=== PATIENT | female | born 1970 | race Caucasian/White ===

== ENCOUNTER → 2023-02-05 13:00 | Outpatient (CLI) | payer BC, SELFPAY ==
--- NOTE | 2023-02-05 13:00 | CT_ITS ---
FINAL REPORT TECHNIQUE: Thin section axial CT images of the facial bones and sinuses were obtained without contrast. Coronal reformatted images were also obtained.This study was performed with techniques to keep radiation doses as low as reasonably achievable, (ALARA). Individualized dose reduction techniques using automated exposure control or adjustment of mA and/or kV according to the patient''''s size were employed. CLINICAL HISTORY: poss sinus polyps FINDINGS: There is no evidence of mucosal thickening. No fluid levels are identified. The ostiomeatal units have an unremarkable appearance. The nasal septum is in the midline. No fracture or acute bony abnormality is identified. IMPRESSION: No focal abnormality identified of the sinuses. Reviewed, Interpreted and Dictated by Stephen Denise III, MD Transcribed by Chasity Edmond Authenticated and [facility]
== END ==
PROVIDERS: PCP Family Medicine; Visit Provider Nurse Practitioner
DX: J34.89 Other specified disorders of nose and nasal sinuses (principal)
CPT/HCPCS: 70486

== ENCOUNTER 2023-10-29 11:39 | Outpatient (CLI) | payer BC, SELFPAY ==
--- NOTE | 2023-10-29 11:46 | XR_ITS ---
FINAL REPORT CLINICAL HISTORY: Left foot pain FINDINGS: LEFT FOOT Three views of the left foot demonstrate no acute fracture or dislocation. The visualized joint spaces are normally aligned. The soft tissues are unremarkable. IMPRESSION: No acute bony abnormality. Reviewed, Interpreted and Dictated by Ed Oscar MD Transcribed by Nola Cleary Authenticated and [facility]
--- NOTE | 2023-10-29 11:46 | XR_ITS ---
FINAL REPORT CLINICAL HISTORY: Right foot pain FINDINGS: RIGHT FOOT 3 views of the right foot were obtained. There is no acute fracture or dislocation. Visualized joint spaces are normally aligned. Soft tissues are unremarkable. IMPRESSION: No acute bony abnormality. Reviewed, Interpreted and Dictated by Ed Oscar MD Transcribed by Nola Cleary Authenticated and [facility]
== END 2023-10-29 23:59 | disposition home or self-care (01) ==
LOC: RAD 11:40
PROVIDERS: PCP Nurse Practitioner; Visit Provider Podiatrist
DX: M79.671 Pain in right foot (principal); M79.672 Pain in left foot
CPT/HCPCS: 73630

== ENCOUNTER 2023-10-29 12:02 | Emergency (ER) | payer BC, SELFPAY ==
[2023-10-29 12:45] VITALS: BMI 32.3
[2023-10-29 12:46] LABS: Apearance,Urine Clear (Clear); Bilirubin,Urine Negative (Negative); Blood, Urine 1+ (Negative); Color,Urine Dark Yellow (Yellow); Glucose,Urine (UA) Negative (Negative); Ketones,Urine Negative (Negative); PH,Urine 5.5 (5.0-8.5); Protein,Urine Negative (Negative); Specific Gravity, Urine >= 1.030 (1.005-1.030); UTC Leukocyte Esterase,Urine Negative (Negative); UTC Nitrate,Urine Negative (Negative); Urobilinogen,Urine 0.2 EU/dl (0.2)
[2023-10-29 12:55] VITALS: BP 123/76; PULSE 72; RESP 18; TEMP 36.6; O2SAT 98; BMI 26.2
--- NOTE | 2023-10-29 13:12 | ED_ITS ---
Discharge Plan Disposition Patient Disposition: Home, Self-Care Condition: Good Prescriptions Prescriptions: New valacyclovir 1 gram tablet 1,000 mg PO Q8H 7 Days Qty: 21 0RF No Action Eliquis 5 mg tablet 5 mg PO DAILY Patient Comments: TAKE 1 TABLET BY MOUTH TWICE DAILY Mounjaro 5 mg/0.5 mL pen injector 5 mg SQ WEEKLY Patient Comments: INJECT 5MG UNDER THE SKIN INTO THE APPROPRIATE AREA DIRECTED ONCE WEEKLY Referrals Follow up/Referrals: Provider,Referral, MD [Primary Care Provider] - See instructions Activity Restrictions/Add. Instructions Additional Instructions/Restrictions: Take medication as prescribed Calamine lotion may help with discomfort from rash Oatmeal baths may help with rash Follow up with your Family Doctor if no improvement or any worsening of symptoms Clinical Impressions Clinical Impression: Shingles Instructions Patient Instructions: DI for Shingles, Shingles, Valacyclovir Discharge ED Provider: Emilia Ferrara [facility] [place] General Stated complaint: back pain and numbness Mode of Arrival: Ambulatory Source of Information: Patient Limitations: No Limitations Time Seen by Provider: 10/29/23 13:12 Description of Symptoms (Recalled from Triage Doc. by RN): PATIENT C/O PAIN AND RASH TO MID-UPPER BACK SINCE YESTERDAY HEENT Symptoms (Recalled from RN notes): No Resp Symptoms (Recalled from RN notes): No Skin Symptoms (Recalled from RN notes): Yes MS Symptoms (Recalled from RN notes): Yes Functional Status (Recalled from RN notes): WNL History of Present Illness Provider Complaint: Patient states that she has been having prickly like pain in her right upper back and noticed a rash on her right side states that at times it itches and hurts so today when she was still having that prickly like feeling in her right mid back she came in Related Data Home Medications Medication Instructions Recorded Confirmed apixaban 5 mg tablet (Eliquis) 5 mg PO DAILY 10/29/23 10/29/23 tirzepatide 5 mg/0.5 mL 5 mg SQ WEEKLY 10/29/23 10/29/23 subcutaneous pen injector (Mounjaro) Previous Rx's Medication Instructions Recorded valacyclovir 1 gram tablet 1,000 mg PO Q8H 7 days #21 tabs 10/29/23 Allergies Allergy/AdvReac Type Severity Reaction Status Date / Time ceftriaxone [From Rocephin] Allergy Severe Anaphylaxis Verified 01/08/23 15:29 Penicillins Allergy Severe Anaphylaxis Verified 01/08/23 15:29 ciprofloxacin [From Cipro] AdvReac Severe chemical Verified 01/08/23 15:29 hepatitis bees Allergy Severe Anaphylaxis Uncoded 01/08/23 15:29 Worker's Comp Is this a Worker's Comp case?: No [facility] Disclaimer: The information contained in this section may have been updated after the patient was seen, as this information can be updated by other users. Medical History (Updated 10/29/23 @ 13:20 by Emilia Ferrara APRN) Autoimmune disorder Gall stones Sinus pressure Social History Smoking Status: Unknown if ever smoked alcohol intake: never current occupational status: employed Travel in the last 8 weeks: None ROS Obtained: Yes All systems reviewed & no additional complaints except as documented and Yes Systems reviewed as appropriate & no additional complaints except as documented Constitutional Constitutional: Reports system reviewed and no additional complaints, except as documented and Reports as per HPI ENT Ears, Nose, Mouth, and Throat: Reports system reviewed and no additional complaints, except as documented and Reports as per HPI Cardiovascular Cardiovascular: Reports system reviewed and no additional complaints, except as documented and Reports as per HPI Respiratory Respiratory: Reports system reviewed and no additional complaints, except as documented and Reports as per HPI Gastrointestinal Gastrointestingal: Reports system reviewed and no additional complaints, except as documented and as per HPI Musculoskeletal Musculoskeletal: Reports back pain (prickly like pain in right shoulder blade area and rash on right side) Physical Exam General General appearance: alert and in no apparent distress ENT ENT exam: Present mucous membranes moist Respiratory Respiratory exam: Present normal lung sounds bilaterally; Absent respiratory distress or wheezes Cardiovascular Cardiovascular exam: Present regular rate, normal rhythm and normal heart sounds Neurological Exam Neurological exam: Present alert, oriented X3 and normal gait Skin Skin exam: Present rash (red raised rash on right side, prickly like feeling and hurts like that seen with shingles) Expanded Skin Exam Body image: 2 1. red raised rash noted that extends on right side appears like shingles 2. rash from above 3. reports tingly prickly like feeling and burning sensation at times no bruising no swelling no rash likly from rash on side Medical Decision Making Clark Inquiry Pt receiving controlled substance: No Clark was queried for this patient: No Vital Signs: 10/29/23 12:55 Temperature 97.8 F Temperature Source Oral Pulse Rate [Left Brachial] 72 Respiratory Rate 18 Blood Pressure [Left Arm] 123/76 Blood Pressure Mean [Left Arm] 91 Blood Pressure Source [Left Arm] Automatic Cuff Blood Pressure Position [Left Arm] Sitting 02 Sat by Pulse Oximetry 98 Oxygen Delivery Method Room Air Lab Data Lab Results 10/29/23 12:46: Urine Color Dark yellow, Urine Appearance Clear, Urine pH 5.5, Ur Specific [place] >= 1.030, Urine Protein Negative, Urine Glucose (UA) Negative, Urine Ketones Negative, Urine Blood 1+, Urine Nitrate Negative, Urine Bilirubin Negative, Urine Urobilinogen 0.2, Ur Leukocyte Esterase Negative
[2023-10-29 13:22] VITALS: BP 123/76; PULSE 72; RESP 18; TEMP 36.6; O2SAT 98
== END 2023-10-29 13:25 | disposition home or self-care (01) ==
PROVIDERS: Emergency Provider Nurse Practitioner
DX: B02.9 Zoster without complications (principal); M54.6 Pain in thoracic spine
CPT/HCPCS: 81003; 99204; 99212; G0463

== ENCOUNTER 2024-12-30 12:00 | Outpatient (CLI) | payer BC, SELFPAY ==
--- OUTSIDE RECORDS SUMMARY | 2024-12-30 12:05 | XMS_ITS | Encounter Summary ---
Author Organization [facility] mymxlog In iatives Address [address] [place] [address] Care Team Providers Care Airborne Electronics Analyst Name Role Phone Sharon Bell BOTTOM LIQUOR ATTENDANT Primary Care Provider + [phone] Mariaa Chauhan BOTTOM LIQUOR ATTENDANT Primary Care Provider [phone] Sharon Bell BOTTOM LIQUOR ATTENDANT Primary Care Provider + [phone] Encounter Details Date Type Department Care Team (Late st Contact Info) Description 02/22/2019 Transcribed Document [facility] [place] [address] [place] [address] ProviderCornelio MD [address] [place] [address] Social History Tobacco Use Types Packs/Day Years Used Date Smoking Tobacco: Never Assessed Comments Unknown Sex and Gender Information Value Date Recorded Sex Assigned at Female 01/03/2022 4:06 PM CDT Legal Sex Female 4:06 PM CDT Gender Identity Female 01/03/2022 4:06 PM CDT Sexual Orientation Straight 04/05/2024 1: 03 PM CDT documented as of this encounter Miscellaneous Notes * Cerner Conversion Note - Cornelio ProviderMD - 02/22/2019 5:00 AM CDT Chart Check - Review Order Profile Entered On: 02/22/2019 5:42 EDT Performed On: 02/22/2019 5:00 EDT by ALBERTO ANDUJAR RN Chart Check Powerplans Initiated/Discontinued as Appropriate : Yes All Active Orders Reviewed : Yes ALBERTO ANDUJAR RN - 02/22/2019 5:41 EDT Electronically signed by [facility] Conversion Veterinary Dentist Cerner at 10/25/2022 10:10 AM CDT documented in this encounter Plan of Treatment Not on file documented as of this encounter Visit Diagnoses Not on filedocumented in this encounter Care Teams Airborne Electronics Analyst Relationship Specialty Start Date End Date Sharon Bell NP [address] [place] [address] PCP - General Family Medicine 08/27/23 12/05/23 Mariaa Chauhan NP [address] [place] [address] PCP - General Family Medicine 12/06/23 01/10/24 Sharon Bell NP [address] [place] [address] PCP - General Family Medicine 01/11/24 10/13/24 documented as of this encounter
--- OUTSIDE RECORDS SUMMARY | 2024-12-30 12:05 | XMS_ITS | Encounter Summary ---
Author Organization [facility] [employer]form In iatives Address [address] [place] [address] Care Team Providers Care Muffler Tender Name Role Phone Sharon Bell INDUSTRIAL YARD BRAKE COUPLER Primary Care Provider + [phone] Mariaa Chauhan INDUSTRIAL YARD BRAKE COUPLER Primary Care Provider [phone] Sharon Bell INDUSTRIAL YARD BRAKE COUPLER Primary Care Provider + [phone] Encounter Details Date Type Department Care Team (Late st Contact Info) Description 02/22/2019 Transcribed Document [facility] [place] [address] [place] [address] ProviderCornelio MD [address] [place] [address] Social History Tobacco Use Types Packs/Day [...] Miscellaneous Notes * Cerner Conversion Note - Historical ProviderMD - 02/22/2019 2:39 PM CDT Patient: ALICIA AVALOS Age: 48 Years Sex: Female : 1970 Admit Date 02/21/2019 19:54 Discharge Date 02/22/19 Primary Care Provider ADAM, NOT LISTED Discharge Diagnosis Nephrolithiasis 02/22/2019 N20.0 ICD-10-CM Procedures SN - Proc - Procedure: Cystoscopy Laser Stone Manipulation (02/22/19 14:15:49) Reason for Hospitalization right obstructing ureteral stone Hospital Course Patient transferred from [facility] and admitted for intractable R flank pain from obstructing distal ureteral stone and also with non-obstructing L renal calculus. Pain control and medical expulsive therapy overnight. Still with continued but controlled pain. Patient then underwent right ureteroscopy, laser lithotripsy, and stent. Tolerated procedure well and was transferred to PACU in stable condition. Deemed appropriate for discharge home. Urinating without difficulty. Tolerating stent. Will remove stent by pulling strings on 02/26 Follow-up with Dr. Patterson in 1 week with KUB Continue taking Bactrim Rx for flomax, norco and colace on chart Vital Signs T: 37.2 ??C TMIN: 36.6 ??C TMAX: 37.2 ??C HR: 82(Monitored) RR: 16 BP: 120/66 SpO2: 94% HT: 157.48 cm WT: 66.82 kg BMI: 26.9 Oxygen Settings (Last) Oxygen Therapy Mode: Room air (02/22/19 14:25:00) Oxygen Flow Rate: 8 Liter/Min (02/22/19 14:08:00) Physical Exam Gen: NAD, resting comfortably in bed HEENT: atraumatic, normocephalic, EOMI Resp: nonlabored breathing on RA CV: RRR, 2+ radial pulses Abd: soft, NTTP, ND Ext: no edema Skin: warm and dry Neuro: AOx3, no gross deficits Psych: nml mood and affect Discharge Disposition Home Discharge Follow Up FILEMON PATTERSON JR, MD-URO - Discharge Medications (9) Active acetaminophen-hydrocodone 325 mg-5 mg oral tablet 1 Tab, PRN, Oral, Q4H Bactrim , Oral Colace 100 mg oral capsule 100 mg = 1 Cap, Oral, BID diazepam 2 mg oral tablet 2 mg = 1 Tab, Oral, Q8H Excedrin 1 Tab, Oral, Daily Flomax , Oral, Daily meclizine 25 mg oral tablet 25 mg = 1 Tab, Oral, TID multivitamin 1 Tab, Oral, Daily Ultravate 0.05% topical cream Code Status Start: 02/21/19 21:02:00 EDT, Full Code, Continuous Order Condition on Discharge stable Consulting Physicians JOSE HERNANDEZ MD GRABMAYER, JOSEF, MD SLABAUGH JR, THOMAS, MD-URO Current Diet Order No qualifying data available. Patient Discharge Summary Orders Discharge Follow Up Instructions: follow up with Dr. Patterson in 1 week with KUB Activity: Discharge Activity: Activity as tolerated Diet: Discharge Diet: Resume usual diet as tolerated Wound/Incision Care Instructions: remove stent by pulling strings on 02/26 Driving Restriction: No driving until 24 hours after taking pain medication Follow Up Labs/Studies a/p xray at follow up Pending Labs Collected Pathology Tissue Request 02/22/19 14:16:00 EDT, Collected, RT - Routine, 02/22/19 14:16:00 EDT, Phuc Diaz RN, Specimen Type: AP Specimen, Specimen Desc: RIGHT URETERAL STONE, Consulting Dr: YESENIA MACKEY, MD FILEMON-URO, RIGHT URETERAL STONE, Pre-Op Dx: RIGHT URETERAL S... In-Lab Culture Urine Specimen Type: Urine, Clean Catch, Routine collect, Collected, 02/21/19 21:04:00 EDT, 1-Time, Stop: 02/21/19 21:04:00 EDT, Nurse Collect Time Spent on Discharge 20min Electronically signed by [facility] Conversion Medical Imaging Technician Cerner at 10/25/2022 9:50 AM CDT documented in this encounter Plan of Treatment Not on file documented as of this encounter Visit Diagnoses Not on filedocumented in this encounter Care Teams Muffler Tender Relationship Specialty Start Date End Date Sharon Bell NP [address] [place] [address] PCP - General Family Medicine 08/27/23 12/05/23 Mariaa Chauhan NP [address] [address] PCP - General Family Medicine 12/06/23 01/10/24 Sharon Bell, MARIANA [address] [place] [address] PCP - General Family Medicine 01/11/24 10/13/24 documented as of this encounter
--- OUTSIDE RECORDS SUMMARY | 2024-12-30 12:05 | XMS_ITS | Encounter Summary ---
Author Organization [facility] [employer] In iatives Address [address] [place] [address] Care Team Providers Care Chief Underwriter Name Role Phone Sharon Bell APPLICATOR SPRAYER Primary Care Provider + [phone] Mariaa Chauhan APPLICATOR SPRAYER Primary Care Provider [phone] Sharon Bell APPLICATOR SPRAYER Primary Care Provider + [phone] Encounter Details Date Type Department Care Team (Late st Contact Info) Description 02/22/2019 Transcribed Document [facility] [place] [address] [place] [address] ProviderCornelio MD [address] [place] [address] Social History Tobacco Use Types Packs/Day [...] Conversion Note - Cornelio ProviderMD - 02/22/2019 9:31 AM CDT UM Authorization Entered On: 02/22/2019 9:31 EDT Performed On: 02/22/2019 9:31 EDT by PHILIPP GIBBS RN Primary Insurance Authorization Authorization and Policy Numbers : Insurance 1 Health Plan: [employer] Policy Number: [id number] Authorization Number: Insurance Primary Name : [employer] Policy Number: [id number] Historical Authorization Comments-Primary : No Authorization Comments Found PHILIPP GIBBS RN - 02/22/2019 9:31 EDT documented in this encounter Plan of Treatment Not on file documented as of this encounter Visit Diagnoses Not on filedocumented in this encounter Care Teams Chief Underwriter Relationship Specialty Start Date End Date Sharon Bell NP [address] [place] [address] PCP - General Family Medicine 08/27/23 12/05/23 [place] [address] [place] [address] PCP - General Family Medicine 12/06/23 01/10/24 Sharon Bell NP [address] [place] [address] PCP - General Family Medicine 01/11/24 10/13/24 documented as of this encounter
--- OUTSIDE RECORDS SUMMARY | 2024-12-30 12:05 | XMS_ITS | Encounter Summary ---
Author Organization [facility] [employer]do In iatives Address [address] [place] [address] Care Team Providers Care Pulley Worker Name Role Phone Sharon Bell FILAMENT MAKER Primary Care Provider + [phone] Mariaa Chauhan FILAMENT MAKER Primary Care Provider [phone] Sharon Bell FILAMENT MAKER Primary Care Provider + [phone] Encounter Details Date Type Department Care Team (Late st Contact Info) Description 02/21/2019 Transcribed Document [facility] [place] [address] [place] [address] ProviderCornelio MD [address] [place] [address] Social History Tobacco Use Types Packs/Day [...] Cerner Conversion Note - Historical ProviderMD - 02/21/2019 8:19 PM CDT Admission History, Adult Entered On: 02/21/2019 20:28 EDT Performed On: 02/21/2019 20:19 EDT by ALBERTO ANDUJAR RN Advance Directive Patient has Advance Directive *Q : No, patient refuses Advance Directive information ALBERTO ANDUJAR RN - 02/21/2019 20:19 EDT Anesthesia/Transfusion History Family History of Anesthesia Reaction : No prior transfusion(s) Transfusion History : Prior anesthesia without reaction Family History of Anesthesia Reaction : Unknown ALBERTO ANDUJAR RN - 02/21/2019 20:19 EDT Anticipated Discharge Needs Discharge To, Anticipated : Home Anticipated Discharge Needs at This Time : None ALBERTO ANDUJAR RN - 02/21/2019 20:19 EDT Education Topics, Admission Orientation DCP GENERIC CODE Advance Directives : Verbalizes understanding Bed Control : Verbalizes understanding Call Light : Verbalizes understanding Fall Prevention : Verbalizes understanding ID Band Applied : Verbalizes understanding Patient Safety : Verbalizes understanding Siderails use/risks : Verbalizes understanding ALBERTO ANDUJAR RN - 02/21/2019 20:19 EDT Functional Assessment Living Situation : Home Patient Lives With : Spouse Sensory Deficits : None Current Home Treatments : None ALBERTO ANDUJAR RN - 02/21/2019 20:19 EDT General Info Patient Arrival Date/Time : 02/21/2019 20:21 EDT Want Family/Rep/Phys Notified of Admit : No Emergency Contact #1 : vera avalos Emergency Contact #1 Emergency Contact #1 Relationship : spouse Emergency Contact #2 : yady bailey Emergency Contact #2 Emergency Contact #2 Relationship : daughter Chief Complaint : kidney stones right Information Obtained From : Patient, Spouse Primary Language : Tajik Preferred Communication Mode : Verbal Communication Barrier : None ALBERTO ANDUJAR RN - 02/21/2019 20:19 EDT Fall Risk Scales ABCs Fall Injury Risk Identification : Age ABC Fall Injury Risk : Moderate to high injury risk AVILA Hx Falls Immediate/Within 3 Months : No Avila Secondary Diagnosis : Yes AVILA Use of Ambulatory Aid : Bed rest/Nurse assist AVILA IV Therapy or IV Access : Yes Avila Gait/Transferring : Weak Avila Mental Status : Oriented to own ability Avila Fall Risk Score : 45 AVILA Fall Scale Risk Level : 25-45 Medium Risk Moncure Fall Interventions : Adequate lighting, Assistive devices within reach, Bed in low position, Call device within reach, Fall prevention handout/education per facility policy, Frequent orientation to surroundings, Hourly comfort/safety rounds, Personal items within reach, Reinforced to call for assistance before getting out of bed, Room free of clutter/spills, Upper side-rails up, Wheels locked, Wires/Cords secured ALBERTO ANDUJAR RN - 02/21/2019 20:19 EDT Fall Risk Education Grid Alarms : Verbalizes understanding Call light use : Verbalizes understanding Fall Prevention Protocol : Verbalizes understanding Risk Alert Methods : Verbalizes understanding Risk Factors : Verbalizes understanding Safety Aids : Verbalizes understanding Wait for Assistance : Verbalizes understanding ALBERTO ANDUJAR RN - 02/21/2019 20:19 EDT Barriers to Learning : None evident Individuals Taught : Patient Teaching Method : Explanation ALBERTO ANDUJAR RN - 02/21/2019 20:19 EDT Health Histories Smoking Status : 10 or more cigarettes (1/2 pack or more)/day in last 30 days Smokeless Tobacco Status : Never Desires Tobacco Cessation Medication : No Reason for No Tobacco Cessation Medication : Refuses FDA approved medications ALBERTO ANDUJAR RN - 02/21/2019 20:19 EDT Social History (As Of: 02/21/2019 20:28:11 EDT) Tobacco: Smoking Status Current every day smoker. (Last Updated: 09/16/2014 13:00:28 EDT by ELYSE TAMEZ, NURSE PRACT-EMERGENCY MEDICINE) Height and Weight, Clinical Dosing Height Source : Stated Height Entry Format : [place] Height, Feet : 5 ft(Converted to: 152 cm, 60 Inch) Height, Inches : 4 Inch(Converted to: 0 ft 4 Inch, 10.16 cm) Clinical Height : 162.56 cm Weight Source : Standing scale Weight Entry Format : [place] Clinical Dosing Weight : 66.82 kg Weight, Pounds : 147 lb Body Surface Area (BSA) : 1.72 m2 Body Mass Index : 25.3 kg/m2 (HI) [place] Body Weight : 54 kg ALBERTO ANDUJAR RN - 02/21/2019 20:19 EDT Infectious Disease History Infectious Disease History : MRSA Fever/Chills Last 48 Hours : No Travel To Regions with Travel Advisories : No Travel Outside [place] Within Last 30 Days : No Contact With Traveler to [facility] Region : No Tuberculosis Symptoms : None ALBERTO ANDUJAR RN - 02/21/2019 20:19 EDT Influenza Vaccine Asmt, Adult Previous Vaccines from Immunization Schedule : No qualifying data available. Influenza Immunization, Current Season : No Inactivated Flu Vaccine Contraindications : No contraindications to inactivated influenza vaccine Transplant Workup/Recent Transplant : No Order for Influenza Vaccine : Declined Vaccination ALBERTO ANDUJAR RN - 02/21/2019 20:19 EDT Pneumococcal Vaccine Previous Vaccines from Immunization Schedule : No qualifying data available. Pneumonia Immunization Received : No Pneumococcal Risk Assessment < Age 65 : None ALBERTO ANDUJAR RN - 02/21/2019 20:19 EDT Nutrition History Feeding Ability : Independent Adaptive Feeding Equipment : Regular Eating Poorly Due to Decreased Appetite : No Unplanned Weight Loss in Past 3-6 Months : No Malnutrition Screening Tool Total(mal) : 0 Malnutrition Screening Tool Risk Level : Patient not at risk ALBERTO ANDUJAR RN - 02/21/2019 20:19 EDT Psychosocial History Currently in Unsafe Situation : No Tried to Harm Yourself in the Past? : No Thoughts of Harming/Killing Yourself : No ALBERTO ANDUJAR RN - 02/21/2019 20:19 EDT Sleep Apnea Risk Assmt Hx of Obstructive Sleep Apnea Diagnosis : No Snore Loudly : No Tired, Fatigued, or Sleepy During Day : No Observed Stopping Breathing During Sleep : No Have/Are Being Treated for Hypertension : No BMI Greater Than 35 kg/m2 : No Age over 50 Years Old : No Neck Circumference Greater Than 40 cm : No Gender Male : No STOP-BANG Sleep Apnea Risk Level Score : 0 ALBERTO ANDUJAR RN - 02/21/2019 20:19 EDT Valuables and Belongings Valuables and Belongings : Clothing Clothing : Common streetwear Clothing Disposition : Bedside ALBERTO ANDUJAR RN - 02/21/2019 20:19 EDT documented in this encounter Plan of Treatment Not on file documented as of this encounter Visit Diagnoses Not on filedocumented in this encounter Care Teams Pulley Worker Relationship Specialty Start Date End Date Sharon Bell NP [address] [place] [address] PCP - General Family Medicine 08/27/23 12/05/23 Mariaa Chauhan NP [address] [place] [address] PCP - General Family Medicine 12/06/23 01/10/24 Sharon Bell NP [address] [place] [address] PCP - General Family Medicine 01/11/24 10/13/24 documented as of this encounter
--- OUTSIDE RECORDS SUMMARY | 2024-12-30 12:05 | XMS_ITS | Encounter Summary ---
Author Organization [facility] [employer] Address [address] [place] [address] Care Team Providers Care Diet Counselor Name Role Phone Sharon Bell 911 TELECOMMUNICATOR Primary Care Provider + [phone] Mariaa Chauhan 911 TELECOMMUNICATOR Primary Care Provider [phone] Sharon Bell 911 TELECOMMUNICATOR Primary Care Provider + [phone] Encounter Details Date Type Department Care Team (Late st Contact Info) Description 02/22/2019 Transcribed Document [facility] [place] [address] [place] [address] ProviderCornelio MD [address] [place] [address] Social History Tobacco Use Types Packs/Day [...] Conversion Note - Cornelio ProviderMD - 02/22/2019 2:38 PM CDT Patient Education Materials Follows: Dietary Guidelines to Help Prevent Kidney Stones Kidney stones are deposits of minerals and salts that form inside your kidneys. Your risk of developing kidney stones may be greater depending on your diet, your lifestyle, the medicines you take, and whether you have certain medical conditions. Most people can reduce their chances of developing kidney stones by following the instructions below. Depending on your overall health and the type of kidney stones you tend to develop, your dietitian may give you more specific instructions. What are tips for following this plan? Reading food labels ??? Choose foods with no salt added or low-salt labels. Limit your sodium intake to less than 1500 mg per day. ??? Choose foods with calcium for each meal and snack. Try to eat about 300 mg of calcium at each meal. Foods that contain 200?500 mg of calcium per serving include: ? 8 oz (237 ml) of milk, fortified nondairy milk, and fortified fruit juice. ? 8 oz (237 ml) of kefir, yogurt, and soy yogurt. ? 4 oz (118 ml) of tofu. ? 1 oz of cheese. ? 1 cup (300 g) of dried figs. ? 1 cup (91 g) of cooked broccoli. ? 1?3 oz can of sardines or mackerel. ??? Most people need 1000 to 1500 mg of calcium each day. Talk to your dietitian about how much calcium is recommended for you. Shopping ??? Buy plenty of fresh fruits and vegetables. Most people do not need to avoid fruits and vegetables, even if they contain nutrients that may contribute to kidney stones. ??? When shopping for convenience foods, choose: ? Whole pieces of fruit. ? Premade salads with dressing on the side. ? Low-fat fruit and yogurt smoothies. ??? Avoid buying frozen meals or prepared deli foods. ??? Look for foods with live cultures, such as yogurt and kefir. Cooking ??? Do not add salt to food when cooking. Place a salt shaker on the table and allow each person to add his or her own salt to taste. ??? Use vegetable protein, such as beans, textured vegetable protein (TVP), or tofu instead of meat in pasta, casseroles, and soups. Meal planning ??? Eat less salt, if told by your dietitian. To do this: ? Avoid eating processed or premade food. ? Avoid eating fast food. ??? Eat less animal protein, including cheese, meat, poultry, or fish, if told by your dietitian. To do this: ? Limit the number of times you have meat, poultry, fish, or cheese each week. Eat a diet free of meat at least 2 days a week. ? Eat only one serving each day of meat, poultry, fish, or seafood. ? When you prepare animal protein, cut pieces into small portion sizes. For most meat and fish, one serving is about the size of one deck of cards. ??? Eat at least 5 servings of fresh fruits and vegetables each day. To do this: ? Keep fruits and vegetables on hand for snacks. ? Eat 1 piece of fruit or a handful of berries with breakfast. ? Have a salad and fruit at lunch. ? Have two kinds of vegetables at dinner. ??? Limit foods that are high in a substance called oxalate. These include: ? Spinach. ? Rhubarb. ? Beets. ? Potato chips and saudi arab[place] fries. ? Nuts. ??? If you regularly take a diuretic medicine, make sure to eat at least 1?2 fruits or vegetables high in potassium each day. These include: ? Avocado. ? Banana. ? [place], prune, carrot, or tomato juice. ? Baked potato. ? Cabbage. ? Beans and split peas. General instructions ??? Drink enough fluid to keep your urine clear or pale yellow. This is the most important thing you can do. ??? Talk to your health care provider and dietitian about taking daily supplements. Depending on your health and the cause of your kidney stones, you may be advised: ? Not to take supplements with vitamin C. ? To take a calcium supplement. ? To take a daily probiotic supplement. ? To take other supplements such as magnesium, fish oil, or vitamin B6. ??? Take all medicines and supplements as told by your health care provider. ??? Limit alcohol intake to no more than 1 drink a day for non women and 2 drinks a day for men. One drink equals 12 oz of beer, 5 oz of wine, or 1? oz of hard liquor. ??? Lose weight if told by your health care provider. Work with your dietitian to find strategies and an eating plan that works best for you. What foods are not recommended? Limit your intake of the following foods, or as told by your dietitian. Talk to your dietitian about specific foods you should avoid based on the type of kidney stones and your overall health. Grains Breads. Bagels. Rolls. Baked goods. Salted crackers. Cereal. Pasta. Vegetables Spinach. Rhubarb. Beets. Canned vegetables. Pickles. Olives. Meats and other protein foods Nuts. Nut butters. Large portions of meat, poultry, or fish. Salted or cured meats. Deli meats. Hot dogs. Sausages. Dairy Cheese. Beverages Regular soft drinks. Regular vegetable juice. Seasonings and other foods Seasoning blends with salt. Salad dressings. Canned soups. Soy sauce. Ketchup. Barbecue sauce. Canned pasta sauce. Casseroles. Pizza. Lasagna. Frozen meals. Potato chips. Belarusian fries. Summary ??? You can reduce your risk of kidney stones by making changes to your diet. ??? The most important thing you can do is drink enough fluid. You should drink enough fluid to keep your urine clear or pale yellow. ??? Ask your health care provider or dietitian how much protein from animal sources you should eat each day, and also how much salt and calcium you should have each day. This information is not intended to replace advice given to you by your health care provider. Make sure you discuss any questions you have with your health care provider. Document Released: 10/20/2011 Document Revised: 06/05/2017 Document Reviewed: 06/05/2017 [employer] Interactive Patient Education ? 2019 [employer] Ureteral Stent Implantation, Care After Refer to this sheet in the next few weeks. These instructions provide you with information about caring for yourself after your procedure. Your health care provider may also give you more specific instructions. Your treatment has been planned according to current medical practices, but problems sometimes occur. Call your health care provider if you have any problems or questions after your procedure. What can I expect after the procedure? After the procedure, it is common to have: ??? Nausea. ??? Mild pain when you urinate. You may feel this pain in your lower back or lower abdomen. Pain should stop within a few minutes after you urinate. This may last for up to 1 week. ??? A small amount of blood in your urine for several days. Follow these instructions at home: Medicines ??? Take [id number] and prescription medicines only as told by your health care provider. ??? If you were prescribed an antibiotic medicine, take it as told by your health care provider. Do not stop taking the antibiotic even if you start to feel better. ??? Do not drive for 24 hours if you received a sedative. ??? Do not drive or operate heavy machinery while taking prescription pain medicines. Activity ??? Return to your normal activities as told by your health care provider. Ask your health care provider what activities are safe for you. ??? Do not lift anything that is heavier than 10 lb (4.5 kg). Follow this limit for 1 week after your procedure, or for as long as told by your health care provider. General instructions ??? Watch for any blood in your urine. Call your health care provider if the amount of blood in your urine increases. ??? If you have a catheter: ? Follow instructions from your health care provider about taking care of your catheter and collection bag. ? Do not take baths, swim, or use a hot tub until your health care provider approves. ??? Drink enough fluid to keep your urine clear or pale yellow. ??? Keep all follow-up visits as told by your health care provider. This is important. Contact a health care provider if: ??? You have pain that gets worse or does not get better with medicine, especially pain when you urinate. ??? You have difficulty urinating. ??? You feel nauseous or you vomit repeatedly during a period of more than 2 days after the procedure. Get help right away if: ??? Your urine is dark red or has blood clots in it. ??? You are leaking urine (have incontinence). ??? The end of the stent comes out of your urethra. ??? You cannot urinate. ??? You have sudden, sharp, or severe pain in your abdomen or lower back. ??? You have a fever. This information is not intended to replace advice given to you by your health care provider. Make sure you discuss any questions you have with your health care provider. Document Released: 02/25/2014 Document Revised: 11/30/2016 Document Reviewed: 01/07/2016 [employer] Interactive Patient Education ? 2019 [employer] documented in this encounter Plan of Treatment Not on file documented as of this encounter Visit Diagnoses Not on filedocumented in this encounter Care Teams Diet Counselor Relationship Specialty Start Date End Date Sharon Bell NP [address] [place] [address] PCP - General Family Medicine 08/27/23 12/05/23 [place] [address] [place] [address] PCP - General Family Medicine 12/06/23 01/10/24 Sharon Bell NP [address] [place] [address] PCP - General Family Medicine 01/11/24 10/13/24 documented as of this encounter
--- OUTSIDE RECORDS SUMMARY | 2024-12-30 12:05 | XMS_ITS | Encounter Summary ---
Author Organization [facility] [employer] Address [address] [place] [address] Care Team Providers Care Ore Fielder Name Role Phone Sharon Bell BARMAN Primary Care Provider + [phone] Mariaa Chauhan BARMAN Primary Care Provider [phone] Sharon Bell BARMAN Primary Care Provider + [phone] Encounter Details Date Type Department Care Team (Late st Contact Info) Description 02/22/2019 Transcribed Document [facility] [place] [address] [place] [address] ProviderCornelio MD [address] [place] [address] Social History Tobacco Use Types Packs/Day [...] Conversion Note - Cornelio ProviderMD - 02/22/2019 4:06 PM CDT Nursing Discharge Summary Entered On: 02/22/2019 16:07 EDT Performed On: 02/22/2019 16:06 EDT by Kerri Mederos RN Discharge Documentation Patient Disposition, General : Discharge Discharge To : Home with ambulatory/outpatient follow-up Accompanied By, Discharge : Significant other IV Discontinued : Yes Medications Given to Patient : Yes Personal Belongings With Patient : Yes Pt's Own Supply of Medications Returned : Yes Prescriptions Given to Patient : Yes Discharge Instructions Reviewed With, Opportunity For Questions Given : Patient, Significant other Patient Education Completed : Yes Teaching Method : Demonstration, Explanation, Teach back method Teaching Evaluation : Verbalizes understanding Kerri Mederos RN - 02/22/2019 16:06 EDT Electronically signed by [facility] Conversion [employer] Sales [employer] Cerner at 10/25/2022 9:53 AM CDT documented in this encounter Plan of Treatment Not on file documented as of this encounter Visit Diagnoses Not on filedocumented in this encounter Care Teams Ore Fielder Relationship Specialty Start Date End Date Sharon Bell NP [address] [place] [address] PCP - General Family Medicine 08/27/23 12/05/23 [place] [address] [place] [address] PCP - General Family Medicine 12/06/23 01/10/24 Sharon Bell NP [address] [place] [address] PCP - General Family Medicine 01/11/24 10/13/24 documented as of this encounter
--- OUTSIDE RECORDS SUMMARY | 2024-12-30 12:05 | XMS_ITS | Encounter Summary ---
Author Organization [facility] [employer] Address [address] [place] [address] Care Team Providers Care Garment Folder Name Role Phone Sharon Bell RADIO OFFICER Primary Care Provider + [phone] Mariaa Chauhan RADIO OFFICER Primary Care Provider [phone] Sharon Bell RADIO OFFICER Primary Care Provider + [phone] Encounter Details Date Type Department Care Team (Late st Contact Info) Description 02/22/2019 Transcribed Document [facility] [place] [address] [place] [address] ProviderCornelio MD [address] [place] [address] Social History Tobacco Use Types Packs/Day [...] Conversion Note - Cornelio ProviderMD - 02/22/2019 4:07 PM CDT Stroke/Warfarin Instructions Entered On: 02/22/2019 16:07 EDT Performed On: 02/22/2019 16:07 EDT by Kerri Mederos RN Stroke/Warfarin Instructions Stroke/TIA Discharge Ins : N/A Warfarin Discharge Ins : N/A Kerri Mederos RN - 02/22/2019 16:07 EDT documented in this encounter Plan of Treatment Not on file documented as of this encounter Visit Diagnoses Not on filedocumented in this encounter Care Teams Garment Folder Relationship Specialty Start Date End Date Sharon Bell NP [address] [place] [address] PCP - General Family Medicine 08/27/23 12/05/23 Mariaa Chauhan NP [address] [place] [address] PCP - General Family Medicine 12/06/23 01/10/24 Sharon Bell NP [address] [place] [address] PCP - General Family Medicine 01/11/24 10/13/24 documented as of this encounter
--- OUTSIDE RECORDS SUMMARY | 2024-12-30 12:05 | XMS_ITS | Data Portability ---
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 Plan of Treatment Reminders Order Date Submit Date Provider Last Modified By Organization Details Last Modified Time Details Appointments OV EST 30 2024 09:30A M Kenyatta Hughes PA-C Not available Not available Not available OV EST 15 2025 09:00A M Olena Howard NP Not available Not available Not available Lab nonalcoho lic steatohep atitis + fibrosis panel, serum or plasma 2024 025 [email or web address] [facility] (Lab Registration) , [address] [place] [address] [place], [address], 12/10/2024 12:53:47 hepatic function panel, serum 2024 025 [facility] , [address] [place] [address] [place], [address], 12/03/2024 11:37:46 CMP, serum or plasma 2023 024 [email or web address] [facility], [address] [place], [address], 07/10/2024 10:06:42 CBC w/ diff 2023 024 [facility], [address] [place], [address], 07/10/2024 10:06:42 coagulati on factor VIII Ag, quant, platelet poor plasma 2023 024 [email or web address] [facility], [address], [place], [address], 07/10/2024 10:06:42 PT/INR 2023 024 [facility] (Lab Registration) , [address] [facility] [place], [address], 09/17/2023 09:40:52 celiac disease comprehen sive panel, serum 2023 024 [facility] (Lab Registration) , [address] [place] [address] [place], [address], 09/13/2023 08:25:37 hepatic function panel, serum 2023 024 [facility] (Lab Registration) , [address] [place] [address] [place], [address], 09/17/2023 09:40:53 gamma-glu tamyl transfera se (ggt), serum 2023 024 [facility] (Lab Registration) , [address] [place] [address] [place], [address], 09/17/2023 09:40:53 igg, quantitat pipo, serum 2023 024 [facility] (Lab Registration) , [address] [place] [address] [place], [address], 09/14/2023 08:26:16 hepatitis panel (A+B+C), acute, serum 2023 024 [facility] (Lab Registration) , [address] [place] [address] [place], [address], 09/17/2023 09:40:53 VIKTORIYA (antinucl ear antibodie s) screen, serum 2023 024 [facility] (Lab Registration) , [address] [facility] [place], [address], 09/17/2023 09:40:53 mitochond rial M2 igg Ab, serum 2023 024 [facility] (Lab Registration) , [address] [facility] [place], [address], 09/17/2023 09:40:53 smooth muscle Ab, serum 2023 024 [facility] (Lab Registration) , [address] [facility] [place], [address], 09/17/2023 09:40:53 alpha-1-a ntitrypsi n (aat) phenotype , serum 2023 024 [facility] (Lab Registration) , [address] [facility] [place], [address], 09/17/2023 09:40:53 iron + TIBC + ferritin, serum 2023 024 [facility] (Lab Registration) , [address] [facility] [place], [address], 09/17/2023 09:40:54 cerulopla smin, serum 2023 024 [facility] (Lab Registration) , [address] [facility] [place], [address], 09/17/2023 09:40:54 hemochrom atosis mutation (hfe), blood/tis gay 2023 024 [facility] (Lab Registration) , [address] [facility] [place], [address], 09/17/2023 09:40:54 nonalcoho lic steatohep atitis + fibrosis panel, serum or plasma 2023 024 [email or web address] [facility], [address], [place], [address], 09/17/2023 09:40:54 CMP, serum or plasma [address] Lab, [address] [place], [address], 05/23/2023 11:03:58 CBC w/ diff [address] Lab, [address] [place], [address], 05/23/2023 11:03:58 coagulati on factor VIII Ag, quant, platelet poor plasma [address] Lab, [address] [place], [address], 05/23/2023 11:04:00 TSH + free T4, serum [address] Lab, [address] [place], [address], 05/23/2023 11:03:59 vitamin D, 25-hydrox y, total, serum [address] Lab, [address] [place], [address], 05/23/2023 11:03:59 vitamin B12 + folate, serum or blood [address] Lab, [address] [place], [address], 05/23/2023 11:03:59 iron + TIBC + ferritin, serum [address] Lab, [address] [place], [address], 05/23/2023 11:03:59 mma (methylma lonic acid), serum 2022 023 [email or web address] [facility], [address], [place], [address], 05/23/2023 11:03:59 Referral None recorded. Procedures upper endoscopy procedure (EGD) (PROC) 2022 023 [email or web address] Junior Damon MD, [address], [address], [place], [address], 05/24/2023 08:57:05 upper endoscopy procedure (EGD) (PROC) 2022 023 linda Damon MD, [address], [address], [place], [address], 05/24/2023 08:57:05 Surgeries None recorded. Imaging US, liver [email or web address], [address], [place], [address], 12/17/2024 08:08:40 NM, gastric emptying scan 2022 023 [email or web address] [facility] (Scheduling), [address], [place], [address], 06/08/2023 14:52:07 NM, hepatobil iary scan, w/ CCK 2022 023 [email or web address] [facility] (Scheduling), [address], [place], [address], 06/11/2023 10:45:30 Medication Orders pantopraz ole 40 mg tablet,de layed release 2024 025 [facility], [address], [place], [address], 12/03/2024 10:10:36 Eliquis 5 mg tablet [address] [facility], [address] , [place], [id number], 06/30/2024 08:19:32 pantopraz ole 40 mg tablet,de layed release 2023 024 [facility] #[id number], [address] [place], [place], [id number], 09/11/2023 12:43:40 Eliquis 5 mg tablet 2022 023 [email or web address] [facility] #32776, [address] [place], [id number], 05/16/2023 09:01:17 Patient TargetsNo targets recorded. Patient InstructionsNo instructions recorded. Reason for Referral None Reported. Results Created Date Observation Date Name Description Value Unit Range Abnormal Flag Note LastModifiedBy Organization Detail LastModifiedTime 09/11/1909/12/2023 KAYODE C DISEA SE COMPR EHENS PIPO deamidated gliadin abs, IgA 7 units 0-19 Negat pipo 0 - 19 Weak Posit pipo 20 - 30 Moder ate to Stron g Posit pipo >30 Not Available [facility] ([facility]) [address] [place], [address], 09/20/2023 07:14:41 09/11/1909/12/2023 KAYODE C DISEA SE COMPR EHENS PIPO deamidated gliadin abs, IgG 4 units 0-19 Negat pipo 0 - 19 Weak Posit pipo 20 - 30 Moder ate to Stron g Posit pipo >30 Not Available [facility] ([facility]) [address] [facility], [place], [address], 09/20/2023 07:14:41 09/11/1909/12/2023 KAYODE C DISEA SE COMPR EHENS PIPO T-transgluta minase (ttg) IgA <2 U/mL 0-3 Negat pipo 0 - 3 Weak Posit pipo 4 - 10 Posit pipo >10 Tissu e Trans gluta natalie e (tTG) has been ident ified as the endom ysial antig en. Studi es have demon str- ated that endom ysial IgA antib odies have over 99% speci ficit y for glute n sensi tive enter opath y. Not Available [facility] ([facility]) [address] [place], [address], 09/20/2023 07:14:41 09/11/19 24 09/12/2023 KAYODE C DISEA SE COMPR EHENS PIPO T-transgluta minase (ttg) IgG 3 U/mL 0-5 Negat pipo 0 - 5 Weak Posit pipo 6 - 9 Posit pipo >9 Not Available [facility] ([facility]) [address] [place], [address], 09/20/2023 07:14:41 09/11/19 24 09/12/2023 KAYODE C DISEA SE COMPR EHENS PIPO endomysial antibody IgA Negati ve negati ve Not Available [facility] ([facility]) [address] [place], [address], 09/20/2023 07:14:41 09/11/19 24 09/12/2023 KAYODE C DISEA SE COMPR EHENS PIPO immunoglobul in A, qn, serum 178 mg/dL 87-352 Not Available [facility] ([facility]) [address] [place], [address], 09/20/2023 07:14:41 09/11/19 24 09/12/2023 HEPAT IC FUNCT ION PANEL (7) protein, total 7.0 g/dL 6.0-8. 5 Not Available [facility] ([facility]) [address] [place], [address], 09/20/2023 07:14:42 09/11/19 24 09/12/2023 HEPAT IC FUNCT ION PANEL (7) albumin 4.6 g/dL 3.8-4. 9 Not Available [facility] ([facility]) [address] [place], [address], 09/20/2023 07:14:42 09/11/19 24 09/12/2023 HEPAT IC FUNCT ION PANEL (7) bilirubin, total 0.3 mg/dL 0.0-1. 2 Not Available [facility] ([facility]) [address] [facility] [place], [address], 09/20/2023 07:14:42 09/11/19 24 09/12/2023 HEPAT IC FUNCT ION PANEL (7) bilirubin, direct 0.11 mg/dL 0.00-0 .40 Not Available [facility] ([facility]) [address] [facility] [place], [address], 09/20/2023 07:14:42 09/11/19 24 09/12/2023 HEPAT IC FUNCT ION PANEL (7) alkaline phosphatase 144 IU/L 44-121 above high normal Not Available [facility] ([facility]) [address] [facility] [place], [address], 09/20/2023 07:14:42 09/11/19 24 09/12/2023 HEPAT IC FUNCT ION PANEL (7) AST (SGOT) 28 IU/L 0-40 Not Available [facility] ([facility]) [address] [place], [address], 09/20/2023 07:14:42 09/11/19 24 09/12/2023 HEPAT IC FUNCT ION PANEL (7) ALT (SGPT) 36 IU/L 0-32 above high normal Not Available [facility] ([facility]) [address] [facility] [place], [address], 09/20/2023 07:14:42 09/11/19 24 09/12/2023 ACUTE HEPAT ITIS hep A Ab, IgM NEGATI VE negati ve Not Available [facility] ([facility]) [address] [place], [address], 09/20/2023 07:14:43 09/11/19 24 09/12/2023 ACUTE HEPAT ITIS HBsAg screen NEGATI VE negati ve Not Available [facility] ([facility]) [address] [facility], [place], [address], 09/20/2023 07:14:43 09/11/19 24 09/12/2023 ACUTE HEPAT ITIS hep B core Ab, IgM NEGATI VE negati ve Not Available [facility] ([facility]) [address] [facility], [place], [address], 09/20/2023 07:14:43 09/11/19 24 09/12/2023 ACUTE HEPAT ITIS HCV Ab NON REACTI VE non reacti ve Not Available [facility] ([facility]) [address] [facility], [place], [address], 09/20/2023 07:14:43 09/11/19 24 09/12/2023 ACUTE HEPAT ITIS interpretati on: COMMEN T Not infec melony with HCV unles s early or acute infec tion is suspe cted (whic h may be delay ed in an immun ocomp romis ed indiv idual ), or other evide nce exist s to indic ate HCV infec tion. Not Available [facility] ([facility]) [address] [facility], [place], [address], 09/20/2023 07:14:43 09/11/19 24 09/12/2023 IGG, SUBCL ASSES (1-4) immunoglobul in g, qn, serum 939 mg/dL 586-16 02 Not Available [facility] ([facility]) [address] [facility], [place], [address], 09/20/2023 07:14:43 09/11/19 24 09/12/2023 IGG, SUBCL ASSES (1-4) IgG, subclass 1 578 mg/dL 248-81 0 Not Available [facility] ([facility]) [address] [place], [address], 09/20/2023 07:14:43 09/11/19 24 09/12/2023 IGG, SUBCL ASSES (1-4) IgG, subclass 2 155 mg/dL 130-55 5 Not Available [facility] ([facility]) [address] [place], [address], 09/20/2023 07:14:43 09/11/19 24 09/12/2023 IGG, SUBCL ASSES (1-4) IgG, subclass 3 46 mg/dL 15-102 Not Available [facility] ([facility]) [address] [place], [address], 09/20/2023 07:14:43 09/11/19 24 09/12/2023 IGG, SUBCL ASSES (1-4) IgG, subclass 4 2 mg/dL 2-96 Not Available [facility] ([facility]) [address] [place], [address], 09/20/2023 07:14:43 09/11/19 24 09/12/2023 IRON AND TIBC iron bind.cap.(TI BC) 332 ug/dL 250-45 0 Not Available [facility] ([facility]) [address] [place], [address], 09/20/2023 07:14:44 09/11/19 24 09/12/2023 IRON AND TIBC UIBC 254 ug/dL 131-42 5 Not Available [facility] ([facility]) [address] [place], [address], 09/20/2023 07:14:44 09/11/19 24 09/12/2023 IRON AND TIBC iron 78 ug/dL 27-159 Not Available [facility] ([facility]) [address] [place], [address], 09/20/2023 07:14:44 09/11/19 24 09/12/2023 IRON AND TIBC iron saturation 23 % 15-55 Not Available [facility] ([facility]) [address] [facility], [place], [address], 09/20/2023 07:14:44 09/11/19 24 09/12/2023 PT AND PTT INR 1.1 0.9-1. 2 Refer ence inter jose is for non-a ntico agula melony patie nts. Sugge sted INR thera peuti c range for Vitam in K antag onist thera py: Stand gilles Dose (mode rate inten sity thera peuti c range ): 2.0 - 3.0 Highe r inten sity thera peuti c range 2.5 - 3.5 Not Available [facility] ([facility]) [address] [facility], [place], [address], 09/20/2023 07:14:44 09/11/19 24 09/12/2023 PT AND PTT prothrombin time 11.4 sec 9.1-12 .0 Not Available [facility] ([facility]) [address] [facility], [place], [address], 09/20/2023 07:14:44 09/11/19 24 09/12/2023 PT AND PTT APTT 29 sec 24-33 This test has not been valid ated for monit oring unfra ction ated hepar in thera py. aPTT- based thera peuti c range s for unfra ction ated hepar in thera py have not been estab fredis mata For gener al guide lines on Hepar in monit oring , refer to the [facility] [place] simmons. Not Available [facility] ([facility]) [address] [place], [address], 09/20/2023 07:14:44 09/11/19 24 09/12/2023 ALPHA -1-AN TITRY PSIN PHENO TYP cuqmi-2-fslz trypsin, serum 162 mg/dL 101-18 7 Not Available [facility] ([facility]) [address] [place], [address], 09/20/2023 07:14:45 09/11/19 24 09/18/2023 ALPHA -1-AN TITRY PSIN PHENO TYP phenotype (pi) MM Pheno type Popul ation A-1-A T Quan ntrat ion* Incid ence % % of MM (Typi mat Range ) MM 86.5% 100% (96 - 189) MS 8.0% 86% (83 - 161) MZ 3.9% 61% (60 - 111) FM 0.4% 100% (93 - 191) SZ 0.3% 41% (42 - 75) SS 0.1% 64% (62 - 119) ZZ 0.05% 19% (16 - 38) FS 0.05% 70% (70 - 128) FZ Unkno wn 46% (44 - 88) FF Unkno wn Unkno wn *A-1- AT quan ntrat ion in the homoz ygous MM pheno type is taken as the refer ence bethany uribe Perce nt defic iency in each pheno type is repor melony relat pipo to this refer ence. Range s used to confi rm pheno type. Not Available [facility] ([facility]) [address] [facility], [place], [address], 09/20/2023 07:14:45 09/11/19 24 09/11/2023 VIKTORIYA, IFA RFX 9 MARISSA MULTI PLEX please note: Commen t VIKTORIYA Multi plex metho dolog y was desig hazel to detec t up to 11 antib odies of the 100+ antib odies that may be detec melony by VIKTORIYA IFA metho dolog y. Not Available [facility] ([facility]) [address] [facility], [place], [address], 09/20/2023 07:14:45 09/11/19 24 09/12/2023 VIKTORIYA, IFA RFX 9 MARISSA MULTI PLEX VIKTORIYA by ifa rfx titer/patter n Negati ve Negat pipo <1:80 Borde rline 1:80 Posit pipo >1:80 ICAP nomen clatu re: AC-0 For more infor matdejan n about Hep-2 cell patte rns use ANApa ttern s.org , the offic ial websi te for the Inter natio nal Conse nsus on Antin uclea r Antib ben (VIKTORIYA) Patte rns (ICAP ). Not Available [facility] ([facility]) [address], [place], [address], 09/20/2023 07:14:45 09/11/19 24 09/19/2023 HERED .HEMO CHROM ATOSI S, DNA hereditary hemochromato sis Commen t Resul t: c.845 G>A (p.Cy s282T yr) - Not Detec melony c.187 C>G (p.Hi s63As p) - Not Detec melony c.193 A>T (p.Se r65Cy s) - Not Detec melony Not assoc iated with incre ased risk to devel op clini mat sympt oms of Hered itary Hemoc hroma tosis . In sympt omati c indiv idual s, other cause s of iron overl oad shoul d be evalu ated. See Addit ional Infor matio n and Comme nts. Addit ional Clini mat Infor matio n: Hered itary hemoc hroma tosis (HFE relat ed) is an autos omal reces sive iron stora ge disor jaleel. Patie nts may have a bella ic diagn osis of hered itary hemoc hroma tosis and never show clini mat sympt oms. Clini mat sympt oms typic ally appea r betwe en 40 to 60 years in males and after menop ause in femal es. Signs and sympt oms may inclu de organ damag e, prima rily in the liver , risk for hepat ocell ular carci noma, diabe patti, and heart disea se due to iron accum ulati on. Life expec tancy may be decre ased in indiv idual s who devel op cirrh osis. Treat ment for clini kevin sympt omati c indiv idual s may inclu de thera peuti c phleb otomy . Liver trans plant may be used to treat end stage liver failu re. For preve ntive care, monit oring for iron overl oad is recom lenard d for patie nts who are homoz ygous for c.845 G>A (p.Cy s282T yr) and have yet to exper ience clini mat sympt oms. Comme nts: The most commo n HFE varia nts assoc iated with hered itary hemoc hroma tosis are c.845 G>A (p.Cy s282T yr), c.187 C>G (p.Hi s63As p), c.193 A>T (p.Se r65Cy s). While patie nts homoz ygous for c.845 G>A (p.Cy s282T yr) are the most likel y to prese nt clini mat sympt oms, less than 10% devel op clini kevin signi fican t iron overl oad with tissu e and organ damag e. Bella ic couns eling is recom lenard d to discu ss the poten tial clini mat impli catio ns of posit pipo resul ts, as well as recom menda tions for testi ng famil y membe rs. Bella ic Coord inato rs are avail able for healt h care provi ders to discu ss resul ts at [phone] Test Detai ls: Three varia nts yolanda zed: c.845 G>A (p.Cy s282T yr), commo nly refer red to as C282Y c.187 C>G (p.Hi s63As p), commo nly refer red to as H63D c.193 A> T (p.Se r65Cy s), commo nly refer red to as S65C Metho ds/Li mitat ions: DNA Yolanda sis of the HFE gene ([id number]) was perfo rmed by PCR ampli ficat ion follo wed by restr ictio n enzym e diges tion yolanda ses. Resul ts must be combi hazel with clini mat infor matio n for the most accur ate inter preta tion. Molec ular- based testi ng is highl y accur ate, but as in any labor atory test, diagn ostic error s may occur . False posit pipo or false negat pipo resul ts may occur for reaso ns that inclu de bella ic varia nts, blood trans fusio ns, bone marro w trans plant ation , somat ic or tissu e-spe cific mosai cism, misla beled sampl es, or azar eous repre senta tion of famil y relat ionsh ips. This test was devel oped and its perfo rmanc e lakia cteri stics deter mined by [facility]. It has not been clear ed or appro polly by the Food and Drug Admin istra tion. Refer ences : Branden BR, Jean-Paul PC, Seth ey [place], Sid pete LW, Lopez pete ; CAXAeri can Assoc iatio n for the Study of Liver Disea ses. Diagn osis and manag ement of hemoc hroma tosis : 2010 pract ice guide line by the Ameri can Assoc iatio n for the Study of Liver Disea ses. Hepat ology . 2010;5 4(1): 328-4 3. doi: 10.10 / p.243 30. PMID: 16894 290; PMCID : PMC31 43985 . Haim G, Scotty garcia P, Omar camp DW, Kory r H, Mitesh hewitt O, Behzad n S, Pop o I, Diego s M, Amrita y S. EMQN best pract ice guide lines for the molec ular bella ic diagn osis of hered itary hemoc hroma tosis (HH). Eur J Hum Bella . 2016 Oct;2 4(4): 479-9 5. doi: 10.10 38/ej hg.20 15.12 8. Epub 2014Jan 13. PMID: 72403 218; PMCID : PMC49 34025 . Not Available [facility] ([facility]) [address] [facility], [place], [address], 09/20/2023 07:14:46 09/11/19 24 09/19/2023 HERED .HEMO CHROM ATOSI S, DNA reviewed by: Sergio ba Techn ical Teaticket nent perfo rmed at [facility]P Profe ruth al Teaticket nent perfo rmed by: Dru ferguson, Ph.D. , [facility], Molec ular Bella ics [address] [place] [address] Not Available [facility] ([facility]) [address] [place], [address], 09/20/2023 07:14:46 09/11/19 24 09/12/2023 ACTIN (SMOO TH MUSCL E) ANTIB BEN actin (smooth muscle) antibody 11 units 0-19 Negat pipo 0 - 19 Weak posit pipo 20 - 30 Moder ate to stron g posit pipo >30 Actin Antib odies are found in 52-85 % of patie nts with autoi mmune hepat itis or chron ic activ e hepat itis and in 22% of patie nts with prima ry bilia ry cirrh osis. Not Available [facility] ([facility]) [address] [place], [address], 09/20/2023 07:14:46 09/11/19 24 09/18/2023 ANTI- MITOC HONDR IAL M2 AB (RDL) anti-mitocho ndrial M2 Ab (rdl) <20 units <20 Negat pipo: <20 Equiv ocal: 20 - 25 Posit pipo: >25 Not Available [facility] [address] [place], [address], 09/20/2023 07:14:47 09/11/19 24 09/12/2023 GGT GGT 73 IU/L 0-60 above high normal Not Available [facility] ([facility]) [address] [place], [address], 09/20/2023 07:14:47 09/11/19 24 09/12/2023 CERUL OPLAS MIN ceruloplasmi n 35.9 mg/dL 19.0-3 9.0 Not Available [facility] ([facility]) [address] [facility], [place], [address], 09/20/2023 07:14:48 09/11/19 24 09/12/2023 WANDA TIN ferritin 146 NG/mL 15-150 Not Available [facility] ([facility]) [address] [facility], [place], [address], 09/20/2023 07:14:49 12/04/19 25 12/03/2024 HEPAT IC FUNCT ION PANEL total protein 8.6 g/dL 6.4-8. 2 high Not Available [facility] (Lab Registration) [address], [place], [address], 12/03/2024 11:37:46 12/04/19 25 12/03/2024 HEPAT IC FUNCT ION PANEL albumin 4.9 g/dL 3.4-5. 0 Not Available [facility] (Lab Registration) [address] [place], [address], 12/03/2024 11:37:46 12/04/19 25 12/03/2024 HEPAT IC FUNCT ION PANEL bilirubin direct 0.1 mg/dL 0.0-0. 3 Not Available [facility] (Lab Registration) [address] [place], [address], 12/03/2024 11:37:46 12/04/19 25 12/03/2024 HEPAT IC FUNCT ION PANEL bilirubin total 0.5 mg/dL 0.4-1. 5 Not Available [facility] (Lab Registration) [address] [place], [address], 12/03/2024 11:37:46 12/04/19 25 12/03/2024 HEPAT IC FUNCT ION PANEL AST (SGOT) 26 U/L 15-37 Not Available [facility] (Lab Registration) [address] [place], [address], 12/03/2024 11:37:46 12/04/19 25 12/03/2024 HEPAT IC FUNCT ION PANEL ALT (SGPT) 36 U/L 12-78 Not Available [facility] (Lab Registration) [address] [place], [address], 12/03/2024 11:37:46 12/04/19 25 12/03/2024 HEPAT IC FUNCT ION PANEL alk phosphatase 171 U/L 50-120 high Not Available [facility] (Lab Registration) [address] [place], [address], 12/03/2024 11:37:46 12/04/19 25 12/03/2024 HEPAT IC FUNCT ION PANEL note Unles s other ortiz noted testi ng perfo rmed at: [facility] [address] [place] [phone] Vince fields MD CLIA: [id number] Not Available [facility] (Lab Registration) [address] [place], [address], 12/03/2024 11:37:46 12/04/19 25 12/03/2024 NAVARRO FIBRO SURE PLUS note Unles s other ortiz noted testi ng perfo rmed at: [facility] [address] [place] [address] [phone] 00 Vince fields MD CLIA: [id number] Not Available [facility] (Lab Registration) [address] [place], [address], 12/09/2024 07:11:43 12/04/19 25 12/09/2024 NAVARRO FIBRO SURE PLUS glucose, serum 79 mg/dL 70-99 Not Available [facility] (Lab Registration) [address] [place], [address], 12/09/2024 07:11:43 12/04/19 25 12/09/2024 NAVARRO FIBRO SURE PLUS triglyceride s 329 mg/dL 0-149 high Not Available [facility] (Lab Registration) [address] [place], [address], 12/09/2024 07:11:43 12/04/19 25 12/09/2024 [facility] FIBRO SURE PLUS cholesterol, total 223 mg/dL 100-19 9 high Not Available [facility] (Lab Registration) [address] [place], [address], 12/09/2024 07:11:43 12/04/19 25 12/09/2024 [facility] FIBRO SURE PLUS bilirubin, total <0.1 mg/dL 0.0-1. 2 SENT TO [facility] LAB Not Available [facility] (Lab Registration) [address] [place], [address], 12/09/2024 07:11:43 12/04/19 25 12/09/2024 [facility] FIBRO SURE PLUS AST (SGOT) p5p 28 IU/L 0-40 Not Available [facility] (Lab Registration) [address] [place], [address], 12/09/2024 07:11:43 12/04/19 25 12/09/2024 [facility] FIBRO SURE PLUS ALT (SGPT) p5p 27 IU/L 0-40 SENT TO [facility] Not Available [facility] [facility] ([facility] Registration) [address] [place], [address], 12/09/2024 07:11:43 12/04/19 25 12/09/2024 NAVARRO FIBRO SURE PLUS GGT 39 IU/L 0-60 SENT TO REFER ENCE LAB Not Available [facility] (Lab Registration) [address] [place], [address], 12/09/2024 07:11:43 12/04/19 25 12/09/2024 NAVARRO FIBRO SURE PLUS alpha 2-macroglobu shiraz, qn 176 mg/dL 110-27 6 SENT TO REFER ENCE LAB Not Available [facility] (Lab Registration) [address] [place], [address], 12/09/2024 07:11:43 12/04/19 25 12/09/2024 NAVARRO FIBRO SURE PLUS apolipoprote in A-1 132 mg/dL 116-20 9 SENT TO REFER ENCE LAB Not Available [facility] (Lab Registration) [address], [place], [address], 12/09/2024 07:11:43 12/04/19 25 12/09/2024 NAVARRO FIBRO SURE PLUS haptoglobin 217 mg/dL 33-346 SENT TO REFER ENCE LAB Not Available [facility] (Lab Registration) [address], [place], [address], 12/09/2024 07:11:43 12/04/19 25 12/09/2024 NAVARRO FIBRO SURE PLUS steatosis score 0.67 0.00-0 .40 high Not Available [facility] (Lab Registration) [address] [place], [address], 12/09/2024 07:11:43 12/04/19 25 12/09/2024 NAVARRO FIBRO SURE PLUS steatosis grade Commen t S2 - S3 Moder ate to Sever e Steat osis (Clin icall y Signi fican t) (34- 100%) Not Available [facility] (Lab Registration) [address], [place], [address], 12/09/2024 07:11:43 12/04/19 25 12/09/2024 NAVARRO FIBRO SURE PLUS steatosis scoring Commen t . <=0.4 0 = S0 - No Steat osis (<5%) 0.40 - 0.55 = S1 - Mild Steat osis (but Clini kevin Signi fican t) (5-33 %) >0.55 = S2S3- Moder ate to Sever e Steat osis (Clin icall y Signi fican t) (34-1 00%) Not Available [facility] (Lab Registration) [address], [place], [address], 12/09/2024 07:11:43 12/04/19 25 12/09/2024 NAVARRO FIBRO SURE PLUS fibrosis score 0.05 0.00-0 .21 Not Available [facility] (Lab Registration) [address], [place], [address], 12/09/2024 07:11:43 12/04/1912/09/2024 NAVARRO FIBRO SURE PLUS fibrosis stage Commen t F0 - No fibro sis Not Available [facility] (Lab Registration) [address], [place], [address], 12/09/2024 07:11:43 12/04/1912/09/2024 NAVARRO FIBRO SURE PLUS fibrosis scoring: Commen t . <=0.2 1 = Stage F0 - No fibro sis 0.21 - 0.27 = Stage F0 - F1 0.27 - 0.31 = Stage F1 - Gladis l fibro sis 0.31 - 0.48 = Stage F1 - F2 0.48 - 0.58 = Stage F2 - Bridg ing fibro sis with few septa 0.58 - 0.72 = Stage F3 - Bridg ing fibro sis with many septa 0.72 - 0.74 = Stage F3 - F4 >0.74 = Stage F4 - Cirrh osis SENT TO REFER ENCE LAB Not Available [facility] (Lab Registration) [address] [place], [address], 12/09/2024 07:11:43 12/04/19 25 12/09/2024 NAVARRO FIBRO SURE PLUS navarro scoring Commen t . <=0.2 5 = N0 - No NAVARRO/ MASH 0.25 - 0.50 = N1 - Mild NAVARRO/ MASH 0.50 - 0.75 = N2 - Moder ate NAVARRO/ MASH >0.75 = N3 - Sever e NAVARRO/ MASH Not Available [facility] (Lab Registration) [address] [place], [address], 12/09/2024 07:11:43 12/04/1912/09/2024 NAVARRO FIBRO SURE PLUS navarro score 0.36 0.00-0 .25 high Not Available [facility] (Lab Registration) [address] [place], [address], 12/09/2024 07:11:43 05/28/12/09/2024 NAVARRO FIBRO SURE PLUS navarro grade Commlorelei t N1 - Mild NAVARRO Not Available [facility] (Lab Registration) [address], [place], [address], 12/09/2024 07:11:43 12/04/19 25 12/09/2024 NAVARRO FIBRO SURE PLUS comment: Sergio ba . This test was devel oped and its perfo rmanc e lakia cteri stics deter mined by [facility]. It has not been clear ed or appro polly by the Food and Drug Admin istra tion. . For quest ions regar ding this repor t pleas e conta ct custo dylan servi ce at [phone]. . Refer ences : . 1. Nafisa stanford V. et al. Diagn ostic Value of Bioch emica l Marke rs (Fibr oTest ) for the predi ction of Liver Fibro sis in patie nts with Non-A lcoho lic Fatty Liver Disea se. [facility] Gastr oente rolog y 2006 ; 6:6. 2. Suhas Ba. et al. The Diagn ostic Perfo rmanc e of a Simpl i fied Blood Test (Stea toTes t-2) for the Predi ction of Liver Steat o sis. Eur J Gastr oente rol Hepat ol. 2019; 31:39 3-402 . 3. Suhas Ba. et al. Diagn ostic perfo rmanc e of a new nonin v asive test for nonal cohol ic steat ohepa titis using a simpl ified his tolog ical refer ence. Eur J Gastr oente rol Hepat ol. 2018 November; 30:56 9-577 . Perfo rmed at: - [facility] [address] , [place] [id number] Lab Direc tor: Maria Luisa kincaid MD, Phone : [phone] Not Available [facility] (Lab Registration) [address], [place], [address], 12/09/2024 07:11:43 12/04/19 25 12/09/2024 NAVARRO FIBRO SURE PLUS limitations: Commen t . NAVARRO Fibro Sure( R) Plus is recom lenard d for patie nts with suspe cted non-a lcoho lic fatty liver disea se, now known as Metab olic Dysfu nctio n-Ass ociat ed Steat otic Liver Disea se or MASLD . It is not recom lenard d for patie nts with other liver disea ses. It is also not recom lenard d in patie nts with Gilbe rt Disea se, acute hemol ysis, acute viral hepat itis, drug induc ed hepat itis, bella ic liver disea se, autoi mmune hepat itis and/o r extra -hepa tic federico stasi s. Any of these clini mat situa tions may lead to inacc urate quant itati ve predi ction s of fibro sis. Not Available [facility] (Lab Registration) [address] , [place], [address], 12/09/2024 07:11:43 12/04/19 25 12/09/2024 NAVARRO FIBRO SURE PLUS methodology: Commen t . The yolanda patti teste d are perfo rmed by Fibro Sure- Speci fic metho ds. Not inten ded for use with other diagn ostic consi derat ions. Not Available [facility] (Lab Registration) [address], [place], [address], 12/09/2024 07:11:43 12/04/19 25 12/09/2024 NAVARRO FIBRO SURE PLUS interpretati ons: Commen t . Quant itati ve resul ts of 10 bioch emica ls in combi natio n with age and gende r, are yolanda zed using a compu tatio nal algor ithm to provi de a quant itati ve surro gate marke r (0.0- 1.0) of liver fibro sis (Grant vir F0-F4 ), hepat ic steat osis (0.0- 1.0, S0-S3 ), and Non-A lcoho lic Steat o-Hep atiti s (NAVARRO ) (0.0- 1.0, N0-N3 ), now known as Metab olic Dysfu nctio n-Ass ociat ed Steat ohepa titis (MASH ). The absen ce of steat osis (S<0. 40) precl udes the diagn osis of NAVARRO/ MASH. Fibro sis marke r: In a study of 171 Non- Alcoh olic Fatty Liver Disea se (NAFL D), now known as Metab olic Dysfu nctio n-Ass ociat ed Steat otic Liver Disea se (MASL D), patie nts where 23% had signi fican t NAFLD /MASL D fibro sis (Grant vir F2-F4 ) and 11% had cirrh osis by liver biops y, a fibro sis resul t of >0.3 yield ed a sensi tivit y of 83% and a speci ficit y of 78% for the detec tion of signi fican t fibro sis. 1 Steat osis marke r: In a popul ation of 2997 patie nts, where 61% had signi fican t steat osis (>=5% ) on a liver biops y, a steat osis score >0.4 had a sensi tivit y of 79% and a speci ficit y of 50% for ident ifica tion of signi fican t steat osis. 2 NAVARRO/ MASH marke r: In a popul ation of 1081 NAFLD /MASL D patie nts, where 51% had at least some NAVARRO/ MASH by liver biops y, a predi ction of NAVARRO/ MASH had a sensi tivit y of 72% for ident ifyin g NAVARRO/ MASH and a speci ficit y of 71%. 3 Not Available [facility] (Lab Registration) [address], [place], [address], 12/09/2024 07:11:43 11/19/19 24 10/10/2023 US, renal No observ ation record ed. [email or web address] [facility] [address], [place], [address], 11/21/2023 08:46:43 Result Notes None recorded. Problems Name Problem SNOMED Code Status Onset Date Resolution Date Notes Provider Name and Address Organization Details Recorded Time Chronic obstructiv e pulmonary disease 31447289 Active 2021 Tu Moore null, [place] [facility] [place] & [place] 2 10:26:31 Asthma 507037848 Active 2021 Tu [place] null, [place] [facility] [place] 2 10:26:40 Peptic ulcer 78481334 Completed 202103/22/2022 Tu [place] null, [place] [facility] [place] 2 10:26:49 Gastroesop hageal reflux disease 123818290 Active 2021 Tu [place] null, [place] [facility] [place] & [place] 2 10:26:58 Anemia 139806272 Completed 202103/22/2022 uT [place] [facility] [place] 2 10:27:04 Hypertrigl yceridemia 448785731 Active 2021 Tu Moore null, [place] [facility] [place] 2 10:27:19 Blood coagulatio n disorder 14265587 Active 2021 Tu Moore null, [place] [facility] [place] 2 10:27:28 Gastro-eso phageal reflux disease with esophagiti s 767788278 Active 2022 Olena Howard NP [address], [address], [place], [address] , [place] - [facility] - [place] & [place] 3 11:01:27 Nausea 693077385 Active 2022 Olena Howard NP [address], [address], [place], [address] , [place] [facility] [place] & [place] 3 11:01:27 Esophageal dysphagia 12748170 Active 2022 Olena Howard NP [address], [address], [place], [address] , [place] [facility] [place] 5 10:38:37 Steatotic liver disease 977891708 Active 2022 Olena Lee, [employer] [address], [address], [place], [address] , [place] - [facility] & [place] 3 11:04:38 Abnormal liver function 05302680 Active 2023 Olena Howard, MARIANA [address], [address], [place], [address] , [place] - [facility] - [place] & [place] 4 16:16:22 Ureteric stone 37198020 Active 2015 Not Available [facility] 2 13:37:05 Paresthesi a 44634181 Active 2021 Not Available [facility] 2 13:37:05 Abnormal gait 15819306 Active 2021 Not Available [facility] 2 13:37:05 Psoriatic arthritis 243827512 Active 2021 Not Available [facility] 2 13:37:05 Cellulitis of lip 13471760 Active 2018 Not Available [facility] 2 13:37:05 Abscess of lip 57028502 Active 2018 Not Available [facility] 2 13:37:05 Pulmonary embolism 79816585 Active 2021 Erlinda perez, [place] - [facility] & [place] 2 09:02:25 Dysuria 79329571 Active 2015 Not Available [facility] 2 13:37:05 Dysphagia 92090997 Active 2021 Not Available [facility] 2 13:37:05 Idiopathic peripheral neuropathy 70473958 Active 2021 Not Available [facility] 2 13:37:05 Renal colic 0011268 Active 2015 Not Available [facility] 2 13:37:06 Notes:shortness of breath so metimes. Problem Notes Documentation Provider Name and Address Organization Details Recorded Time Oncology Patient Navigator : ONN contacted pt. to review negative breast biopsy results and f/u recommendations. Pt. did not have any questions/concerns. ONN encouraged pt. to reach out should any needs arise. STEFANIA perez [place] - [facility] & [place] 11/17/2024 14:54:25 Procedures Surgical History Date Name Laterality Status Provider Name and Address Organization Details Recorded Time 3 EGD/Endoscopy completed Marleni LORA [facility] & [place] 06/06/2023 12:00:52 3 Other completed Darcy LORA [facility] & [place] 12/03/2024 09:43:08 endoscopic ablation of endometrium completed Rachele LORA [facility] & [place] 11/15/2022 09:13:41 Tonsillectomy/A denoidectomy completed Mariaa Dickinson [place] [facility] & [place] 05/16/2023 08:39:39 Remove tonsils and adenoids completed Tu Oscar LORA DEE DEENT [facility] & [place] 03/22/2022 10:28:47 lithotripsy [facility] [place] [facility] [place] 03/22/2022 10:28:54 Imaging Results None recorded. Procedure Notes None recorded. Medical Equipment None Reported. Allergies Allergen ID Allergen Name Allergen Category Reaction Reaction Severity Criticality Documentation Date Start Date Code Code System Note Provider Name and Address Organization Details Recorded Time 10693 Medicinal product containin g cephalosp wilma and acting as antibacte rial agent (product) medicatio n Not available Not available Not available 03/22/2022 89764 9009 SNOMED GUIDO Andino [facility] & [place] 2 10:23:08 4276 ciproflox acin medicatio n Not available Not available Not available 03/16/2022 2551 RxNorm React ion: Unkno wn, sever ity: Unkno wn [place] Scott [facility] & [place] 3 09:02:01 4278 Rocephin medicatio n Not available Not available Not available 03/16/2022 9449 RxNorm React ion: Unkno wn, sever ity: Unkno wn [place] - [facility] & [place] 3 09:03:00 4279 Penicilli n Not available Not available Not available Not available 03/16/2022 46761 RxNorm React ion: Unkno wn, sever ity: Unkno wn [place] Scott [facility] & [place] 3 09:01:59 43371 Tremfya medicatio n Not available Not available Not available 07/19/2022 06815 93 RxNorm [place] [facility] & [place] 3 09:02:35 84381 Product containin g penicilli n (product) medicatio n Not available Not available Not available 07/19/2022 62621 8001 SNOMED [place] [facility] [place] 3 09:02:48 64681 Cipro medicatio n Not available Not available Not available 11/15/202253066 3 RxNorm [place] [facility] [place] 3 09:11:29 Medications Name Sig Start Date Stop Date Status Note LastModified by Organization Details LastModified Time sv vit d3 25mcg cap active Not Available Not Available No t Available eq allergy rel 25mg tab TAKE 1 TABLET BY MOUTH EVERY 6 HOURS NEEDED active Not Available Not Available No t Available terbinafine HCl 1 % topical cream active Not Available Not Available Not Available promethazin e-DM 6.25 mg-15 mg/5 mL oral syrup TAKE 5 ML BY MOUTH FOUR TIMES DAILY NEEDED FOR COUGH 05/13 completed Not Available Not Available Not Available prednisone 10 mg tablet TAKE 4 TABLETS BY MOUTH EVERY DAY 03/22 completed Not Available Not Available Not Available atorvastati n 20 mg tablet TAKE 1 TABLET BY MOUTH DAILY 11/15 completed Not Available Not Available Not Available clindamycin HCl 300 mg capsule TAKE 2 CAPSULES BY MOUTH TWICE DAILY 06/23 completed Not Available Not Available Not Available oxybutynin chloride ER 10 mg tablet,exte nded release 24 hr active Not Available Not Available Not Available azithromyci n 250 mg tablet TAKE 2 TABLETS BY MOUTH ON DAY 1, AND THEN TAKE 1 TABLET BY MOUTH ONCE A DAY ON DAY 2 THROUGH DAY 5 active Not Available Not Available No t Available fluconazole 150 mg tablet TAKE 1 TABLET BY MOUTH FOR VAGINAL IRRITATIO N. 03/22 completed Not Available Not Available Not Available valacyclovi r 1 gram tablet TAKE 1 TABLET BY MOUTH THREE TIMES DAILY 06/23 completed Not Available Not Available Not Available clarithromy jennifer 500 mg tablet TAKE 1 TABLET BY MOUTH TWICE DAILY 05/13 completed Not Available Not Available Not Available hydrocodone 5 mg-acetamin ophen 325 mg tablet TAKE 1 TABLET BY MOUTH EVERY 6 HOURS NEEDED FOR PAIN . DO NOT EXCEED 4 TABLETS PER 24 HOURS active Not Available Not Available No t Available Nystop 100,000 unit/gram topical powder active Not Available Not Available Not Available sucralfate 100 mg/mL oral suspension active Not Available Not Available N ot Available ondansetron HCl 8 mg tablet active Not Available Not Available Not Available sucralfate 1 gram tablet 1 {tablet_o n_an_empt y_stomach } twice a day by oral route. active Not Available Not Available No t Available phenazopyri dine 200 mg tablet TAKE 1 TABLET BY MOUTH THREE TIMES DAILY FOR 10 DAYS 06/23 completed Not Available Not Available Not Available ondansetron HCl 4 mg tablet active Not Available Not Available Not Available prednisone 20 mg tablet TAKE 2 TABLETS BY MOUTH ONCE DAILY FOR 7 DAYS active Not Available Not Available No t Available prednisone 5 mg tablet TAKE 4 TABLETS BY MOUTH DAILY FOR 3 DAYS THEN 3 TABLETS DAILY FOR 3 DAYS THEN 2 TABLETS FOR 3 DAYS THEN 1 TABLET DAILY UNTIL FOLLOW UP 12/03 completed Not Available Not Available Not Available sumatriptan 50 mg tablet TAKE 1 TABLET BY MOUTH AT ONSET OF HEADACHE. MAY REPEAT DOSE 1 TIME IN 2 HOURS IF HEADACHE NOT RELIEVED 12/03 completed Not Available Not Available Not Available topiramate 25 mg tablet active Not Available Not Available Not Available potassium chloride ER 10 mEq tablet,exte nded release TAKE 1 TABLET BY MOUTH TWICE DAILY active Not Available Not Available No t Available phentermine 37.5 mg tablet TAKE 1/2 TABLET BY MOUTH ONCE OR TWICE DAILY TO ASSIST WITH WEIGHT REDUCTION 03/22 completed Not Available Not Available Not Available allopurinol 100 mg tablet TAKE 1 TABLET BY MOUTH ONCE DAILY 12/03 completed Not Available Not Available Not Available sulfamethox azole 800 mg-trimetho prim 160 mg tablet TAKE 1 TABLET BY MOUTH TWICE DAILY 01/11 /2023 completed Not Available Not Available Not Available omeprazole 40 mg capsule,del ayed release TAKE 1 CAPSULE BY MOUTH TWICE DAILY 03/22 completed Not Available Not Available Not Available ondansetron 8 mg disintegrat ing tablet DISSOLVE 1 TABLET IN MOUTH EVERY 8 HOURS NEEDED FOR NAUSEA AND VOMITING active Not Available Not Available No t Available baclofen 20 mg tablet TAKE 1 TABLET BY MOUTH THREE TIMES DAILY FOR 7 DAYS 06/23 completed Not Available Not Available Not Available ketorolac 10 mg tablet TAKE 1 TABLET BY MOUTH EVERY 6 HOURS NEEDED FOR PAIN FOR UP TO 3 DAYS 06/23 completed Not Available Not Available Not Available oxycodone-a cetaminophe n 5 mg-325 mg tablet TAKE 1 TABLET BY MOUTH EVERY 6 HOURS active Not Available Not Available No t Available famotidine 20 mg tablet TAKE 1 TABLET BY MOUTH EVERY 12 HOURS active Not Available Not Available No t Available amitriptyli ne 25 mg tablet TAKE 1 TABLET BY MOUTH AT BEDTIME 03/22 completed Not Available Not Available Not Available tamsulosin 0.4 mg capsule TAKE 2 CAPSULES BY MOUTH ONCE DAILY FOR 5 DAYS 06/23 completed Not Available Not Available Not Available meclizine 25 mg tablet TAKE 1 TABLET BY MOUTH THREE TIMES DAILY NEEDED FOR DIZZINESS active Not Available Not Available No t Available diazepam 2 mg tablet TAKE 1 TABLET BY MOUTH EVERY 6 HOURS NEEDED FOR MUSCLE SPASMS active Not Available Not Available No t Available doxycycline monohydrate 100 mg capsule TAKE 1 CAPSULE BY MOUTH TWICE DAILY 05/13 completed Not Available Not Available Not Available pantoprazol e 40 mg tablet,jacqueline yed release Take 1 tablet(s) every day by oral route for 90 days. 2024 active Not Available Not Available Not Avai lable acyclovir 5 % topical ointment APPLY TOPICALLY TO THE AFFECTED AREA EVERY 4 HOURS NEEDED FOR COLD SORES active Not Available Not Available No t Available nitrofurant oin macrocrysta l 100 mg capsule TAKE 1 CAPSULE BY MOUTH TWICE DAILY FOR UTI 03/22 completed Not Available Not Available Not Available triamcinolo ne acetonide 0.1 % topical ointment active Not Available Not Available Not Available olopatadine 0.1 % eye drops INSTILL 1 DROP INTO EACH EYE TWICE DAILY active Not Available Not Available No t Available montelukast 10 mg tablet TAKE 1 TABLET BY MOUTH ONCE DAILY AT NIGHT active Not Available Not Available No t Available halobetasol propionate 0.05 % topical cream APPLY CREAM TOPICALLY TO AFFECTED AREA TWICE DAILY DIRECTED active Not Available Not Available No t Available diazepam 10 mg tablet TAKE 1 TABLET BY MOUTH EVERY 8 HOURS NEEDED 03/22 completed Not Available Not Available Not Available epinephrine 0.3 mg/0.3 mL injection, auto-inject or INJECT 0.3ML INTO THE APPROPRIA TE MUSCLE DIRECTED BY PRESCRIBE R NEEDED IN EVENT OF ALLERGIC REACTION TO BEE STING active Not Available Not Available No t Available oxycodone-a cetaminophe n 7.5 mg-325 mg tablet TAKE 1 TABLET BY MOUTH EVERY 6 HOURS NEEDED 12/03 completed Not Available Not Available Not Available methylpredn isolone 4 mg tablets in a dose pack active Not Available Not Available Not Available albuterol sulfate HFA 90 mcg/actuati on aerosol inhaler INHALE 2 PUFFS EVERY 4 HOUR NEEDED FOR EVERY WHEEZING 12/03 completed Not Available Not Available Not Available fluocinonid e 0.05 % topical cream active Not Available Not Available Not Available bromphenira mine-pseudo ephedrine-D M 2 mg-30 mg-10 mg/5 mL oral syrup TAKE 10 ML BY MOUTH FOUR TIMES DAILY NEEDED FOR COUGH OR CONGESTIO N 06/23 completed Not Available Not Available Not Available ondansetron 4 mg disintegrat ing tablet DISSOLVE 1 TABLET ON THE TONGUE EVERY 8 HOURS NEEDED FOR NAUSEA OR VOMITING active Not Available Not Available No t Available fluticasone propionate 50 mcg/actuati on nasal spray,suspe nsion SHAKE LIQUID AND USE 2 SPRAYS IN EACH NOSTRIL DAILY active Not Available Not Available No t Available loratadine 10 mg tablet TAKE 1 TABLET BY MOUTH ONCE DAILY active Not Available Not Available No t Available meclizine 25 mg chewable tablet Chew 1 {tablet_a s_needed} by oral route. 03/22 completed Not Available Not Available Not Available ezetimibe 10 mg tablet TAKE 1 TABLET BY MOUTH ONCE DAILY active Not Available Not Available No t Available cyclobenzap rine 5 mg tablet TAKE 1 TABLET BY MOUTH THREE TIMES DAILY NEEDED FOR MUSCLE SPASM active Not Available Not Available No t Available vitamin O66-khsis acid injection solution active Not Available Not Available Not Available Alcohol Prep Pads USE DIRECTED active Not Available Not Available No t Available nitrofurant oin monohydrate /macrocryst als 100 mg capsule TAKE 1 CAPSULE BY MOUTH EVERY 12 HOURS 12/03 completed Not Available Not Available Not Available collagen (bovine) active Not Available Not Available Not Available Excedrin Extra Strength active Not Available Not Available Not Available hydrochloro thiazide 12.5 mg tablet TAKE 1 TABLET BY MOUTH DAILY 05/13 completed Not Available Not Available Not Available cyclobenzap rine 7.5 mg tablet active Not Available Not Available Not Available pseudoephed -chlophedia nol-GG active Not Available Not Available Not Available Eliquis 5 mg tablet TAKE 1 TABLET BY MOUTH TWICE DAILY active Not Available Not Available No t Available SharpSafety Container USE DIRECTED active Not Available Not Available No t Available Anoro Ellipta 62.5 mcg-25 mcg/actuati on powder for inhalation INHALE 1 PUFF BY MOUTH DAILY 05/13 completed Not Available Not Available Not Available guaifenesin ER 600 mg tablet, extended release 12 hr TAKE 2 TABLETS BY MOUTH TWICE DAILY FOR 7 DAYS 06/23 completed Not Available Not Available Not Available Cosentyx Pen 150 mg/mL subcutaneou s pen injector active Not Available Not Available Not Available Tremfya active Not Available Not Avail able Not Available Tremfya 100 mg/mL subcutaneou s auto-inject or active Not Available Not Available Not Available semaglutide (weight loss) 0.25 mg/0.5 mL subcutaneou s pen injector active Not Available Not Available Not Available Wegovy 0.5 mg/0.5 mL subcutaneou s pen injector active Not Available Not Available Not Available Paxlovid 300 mg (150 mg x 2)-100 mg tablets in a dose pack TK 2 NIRMATREL VIR TS AND 1 RITONAVIR T TOGETHER PO BID FOR 5 DAYS 09/10 completed Not Available Not Available Not Available Mounjaro 5 mg/0.5 mL subcutaneou s pen injector INJECT 5MG UNDER THE SKIN INTO THE APPROPRIA TE AREA DIRECTED ONCE WEEKLY 06/23 completed Not Available Not Available Not Available Zepbound 10 mg/0.5 mL subcutaneou s pen injector INJECT 0.5 ML UNDER THE SKIN INTO APPROPRIA TE AREA ONCE A WEEK DIRECTED 12/03 completed Not Available Not Available Not Available Zepbound 5 mg/0.5 mL subcutaneou s pen injector 06/23 completed Not Available Not Available Not Available Zepbound 2.5 mg/0.5 mL subcutaneou s pen injector 06/23 completed Not Available Not Available Not Available Zepbound 12.5 mg/0.5 mL subcutaneou s pen injector INJECT 12.5 MG SUBCUTANE OUSLY ONCE A WEEK. active Not Available Not Available No t Available Zepbound 7.5 mg/0.5 mL subcutaneou s pen injector 06/23 completed Not Available Not Available Not Available Vitals Date Recorded Body height Body mass index (BMI) Body weight Body temperature Oxygen saturation Oxygen saturation in Arterial blood by Pulse oximetry Heart rate Provider Name and Address Organization Details Last Updated DateTime 4 157.48 cm 28.3 kg/m2 61302.8 2 g 97.9 [degF] 97 % 97 % 83 /min An Olivares [facility] & [place] 4 15:44:37 Date Recorded Body height Body mass index (BMI) Body weight Body temperature Oxygen saturation Oxygen saturation in Arterial blood by Pulse oximetry Heart rate Provider Name and Address Organization Details Last Updated DateTime 5 157.48 cm 23.2 kg/m2 37907.5 1 g 97.7 [degF] 99 % 99 % 95 /min Darcy [place] [facility] & [place] 5 09:42:55 Date Recorded Body height Body mass index (BMI) Body weight Body temperature Oxygen saturation Oxygen saturation in Arterial blood by Pulse oximetry Heart rate Systolic blood pressure Diastolic blood pressure Provider Name and Address Organization Details Last Updated DateTime 3 157.48 cm 33.5 kg/m2 73703.8 4 g 97.7 [degF] 99 % 99 % 75 /min 139 mm[Hg] 71 mm[Hg] Mariaa Dickinson [facility] & [place] 3 08:39:08 Date Recorded Body height Body mass index (BMI) Body weight Body temperature Oxygen saturation Oxygen saturation in Arterial blood by Pulse oximetry Heart rate Provider Name and Address Organization Details Last Updated DateTime 3 157.48 cm 33.9 kg/m2 88219.3 1 g 97.4 [degF] 98 % 98 % 90 /min Marleni Cobb [facility] & [place] 3 13:51:17 Date Recorded Body height Body mass index (BMI) Body weight Body temperature Oxygen saturation Oxygen saturation in Arterial blood by Pulse oximetry Heart rate Systolic blood pressure Diastolic blood pressure Provider Name and Address Organization Details Last Updated DateTime 4 157.48 cm 27.4 kg/m2 24852.8 6 g 97.7 [degF] 98 % 98 % 87 /min 120 mm[Hg] 75 mm[Hg] Mariaa Alok [facility] & [place] 4 08:57:21 Social History Question Answer Notes LastModified by [employer] Details LastModified Time Tobacco Smoking Status Former Smoker Tu Moore chris, [facility] & [place] 03/22/2022 10:28:33 Are You Blind Or Do You Have Difficulty Seeing? No [email or web address] Information not available 03/22/2022 What Is Your Level Of Caffeine Consumption? Moderate [email or web address] Information not available 06/23/2024 Are You Deaf Or Do You Have Serious Difficulty Hearing? No [email or web address] Information not available 05/23/2023 When Did You Quit Smoking? 1-5yearssince [email or web address] Information not available 06/23/2024 What Was The Date Of Your Most Recent Tobacco Screening? 06/23/2024 Information not available 06/23/2024 At What Age Did You Start Smoking Tobacco? 15 [email or web address] Information not available 06/23/2024 Are You Passively Exposed To Smoke? Yes [email or web address] Information not available 05/16/2023 How Much Tobacco Do You Smoke? 1 PPD At Time Of QUIT [email or web address] Information not available 06/23/2024 Has Tobacco Cessation Counseling Been Provided? No [email or web address] Information not available 05/23/2023 How Many Years Have You Smoked Tobacco? 35 [email or web address] Information not available 03/22/2022 Sex: Unknown Functional Status Question Answer Note LastModified by Organizat ion Details LastModified Time Do you use any illicit or recreational drugs? No [email or web address] Information not available 03/22/2022 Do you or have you ever used any other forms of tobacco or nicotine? No [email or web address] Information not available 05/23/2023 What is your level of alcohol consumption? None [email or web address] Information not available 03/22/2022 Mental Status None recorded. Family History Relationship Description Onset Age of this Age Resolved Age Notes LastModified by Organization Details LastModified Time Mother Heart disease pt. added direct ly (05/22) [email or web address] Not available 05/22/2023 18:58:29 Father Heart disease pt. added direct ly (05/22) [email or web address] Not available 05/22/2023 18:58:29 Brother Heart disease pt. added direct ly (05/22) [email or web address] Not available 05/22/2023 18:58:29 Notes:Paternal grandmother-d eceased-melanoma Maternal aunt-cervical cancer Medical History Condition Response COPD Y Obstructive Sleep Apnea Y Autoimmune disease Y Obesity Y Arthritis Y Rheumatoid Arthritis Y Headaches Y Deep Vein Thrombosis Y Liver Disease Y GI Problems Y Lupus Y Reflux/GERD Y Gynecological History Statement/Question Response Menses Monthly N Abnormal Pap N Date of LMP 10/22/2022 Obstetrics History GPAL:G 0 P 0 0 0 0 Immunizations Vaccine Type Date Status Note Provider Nam e and Address Organization Details Recorded Time MMR 4 completed Rachele Workman null, [place] - [facility] [place] & [place] 11/15/2022 09:10:39 MMR 1 completed Rachele Workman [place], [place] [facility] [place] 11/15/2022 09:10:39 COVID-19, mRNA, LNP-S, PF, 100 mcg/0.5mL dose or 50 mcg/0.25mL dose 2 completed Rachele Workman null, [place] [facility] [place] [facility] [place] 11/15/2022 09:10:39 COVID-19, mRNA, LNP-S, PF, 100 mcg/0.5mL dose or 50 mcg/0.25mL dose 1 completed Rachele Workman null, [place] [facility] [place] [facility] [place] 11/15/2022 09:10:39 rubella 6 completed Rachele Workman null, [place] [facility] [place] [facility] [place] 11/15/2022 09:10:39 Tdap 5 completed Rachele Workman [place], [place] [facility] [place] [facility] [place] 11/15/2022 09:10:39 Tdap 7 completed Rachele Workman [place], [place] [facility] [place] 11/15/2022 09:10:39 DTP 0 completed Rachele Workman [place] [facility] [place] 11/15/2022 09:10:39 DTP 0 completed Rachele Workman [place] [facility] [place] 11/15/2022 09:10:39 DTP 0 completed Rachele Workman [place] [facility] [place] 11/15/2022 09:10:40 DTP 5 completed Rachele Workman [place] [facility] [place] 11/15/2022 09:10:40 OPV 0 completed Rachele Workman null, [place] [facility] [place] 11/15/2022 09:10:40 OPV 0 completed Rachele Workman [place] [facility] [place] 11/15/2022 09:10:40 OPV 0 completed Rachele Workman [place] [facility] [place] 11/15/2022 09:10:40 OPV 5 completed Rachele Workman [place] [facility] [place] 11/15/2022 09:10:40 Td (adult), 2 Lf tetanus toxoid, preservative free, adsorbed 3 completed Rachele Workman null, [place] [facility] [place] [facility] [place] 11/15/2022 09:10:40 Past Encounters Encounter ID Performer Location Encounter Start Date Encounter Closed Date Diagnosis/Indication Diagnosis SNOMED-CT Code Diagnosis ICD10 Code Diagnosis Note [id number] Hilario Olivares MD [facility] Oncology and Hematolog y [address] [place] [address] 03/22/2022 10:41:50 03/22/2022 11:40:27 Pulmonary embolism [id number] I26.94 I26.99 Initially presented to the emergency room on November 21, 2021 and was noted to have bilateral pulmonary emboli.Sherie or to presentati on to the emergency room the patient had lithotrips y performed. Removal of kidney stones and patient was with limited mobility following procedure during recovery. Patient also has history of psoriatic arthritis. Previously was being treated with immune modulating agent but is not reschedule d Rheumatolo gy/dermato logy.Repea t CT scan of the chest abdomen and pelvis on December 06, 2021 with multiple small residual segmental bilateral pulmonary emboli with decrease in size compared to imaging on November 21, 2021. Lung bases are clear. Spleen is unremarkab le. No adrenal mass seen. No acute intra abdominal process. Patient noted to have hepatic steatosis. Patient presented for clinic evaluation on December 21, 2021. Denies prior history of blood clot. Denies family history.La bs on December 21, 2021 with factor 5 Leiden gene mutation testing negative. No mutation seen. Factor 2 DNA analysis negative and no mutation seen. Protein C functional level at 162%. Protein S functional level 81% anti thrombin 3 level normal at 136%. Anti phospholip id antibody testing with indetermin ate anticardio lipin IgM antibody. Anticardio lipin IgG antibody negative. Lupus anticoagul ant testing positive for lupus anticoagul ant. Factor 8 activity level elevated at 223%.Patie nt returns on January 11, 2022. Discussed continuati on of anticoagul ation with Eliquis. Would plan to repeat imaging in late February/ear ly March 2022. Would plan to repeat labs at that time to assess for persistenc e of factor 8 elevation, lupus anticoagul ation, and anticardio lipin antibody. Concern for possible anti phospholip id antibody syndrome. Will follow-up in make further recommenda tions. Patient returns on March 22, 2022. Discussed repeat factor 8 activity level as well as lupus anticoagul ant. Will repeat anticardio lipin IgM as well. Patient has been tolerating Eliquis well. Will make further recommenda tion after repeat labs. Psoriatic arthritis 0498 37273 L40.50 follows with rheumatolo gy.If persistent ly positive lupus anticoagul ant will likely consult with Rheumatolo gy for potential anti phospholip id antibody syndrome. However patient is currently on Eliquis and may go with trial of being off of anticoagul ation repeat to confirm if lupus anticoagul ants a true positive. Will follow-up Dyspnea [id number] R06.00 Mild shortness of breath. Possibly due to prior embolism. Patient did have COVID about 1 month ago in February 2022. [id number] Hilario Olivares MD [facility] Oncology and Hematolog y [address] [place] [address] 07/19/2022 08:36:18 07/19/2022 09:40:11 Pulmonary embolism [id number] I26.94 I26.99 Initially presented to the emergency room on November 21, 2021 and was noted to have bilateral pulmonary emboli.Sherie or to presentati on to the emergency room the patient had lithotrips y performed. Removal of kidney stones and patient was with limited mobility following procedure during recovery. Patient also has history of psoriatic arthritis. Previously was being treated with immune modulating agent but is not reschedule d Rheumatolo gy/dermato logy.Repea t CT scan of the chest abdomen and pelvis on December 06, 2021 with multiple small residual segmental bilateral pulmonary emboli with decrease in size compared to imaging on November 21, 2021. Lung bases are clear. Spleen is unremarkab le. No adrenal mass seen. No acute intra abdominal process. Patient noted to have hepatic steatosis. Patient presented for clinic evaluation on December 21, 2021. Denies prior history of blood clot. Denies family history.La bs on December 21, 2021 with factor 5 Leiden gene mutation testing negative. No mutation seen. Factor 2 DNA analysis negative and no mutation seen. Protein C functional level at 162%. Protein S functional level 81% anti thrombin 3 level normal at 136%. Anti phospholip id antibody testing with indetermin ate anticardio lipin IgM antibody. Anticardio lipin IgG antibody negative. Lupus anticoagul ant testing positive for lupus anticoagul ant. Factor 8 activity level elevated at 223%.Patie nt returns on January 11, 2022. Discussed continuati on of anticoagul ation with Eliquis. Would plan to repeat imaging in late February/ear ly March 2022. Would plan to repeat labs at that time to assess for persistenc e of factor 8 elevation, lupus anticoagul ation, and anticardio lipin antibody. Concern for possible anti phospholip id antibody syndrome. Labs on March 22, 2022 with white blood cell count 7.1. Red blood count 4.7. Hemoglobin 13.1 and hematocrit 39.8. MCV 84. Platelet count 440916. Slight increase in lymphocyte s on this particular sample. Lupus anticoagul ant testing performed and no lupus anticoagul ant detected. Suspect previous testing was related to recent pulmonary embolism. Anticardio lipin IgG negative. Anticardio lipin IgM positive at 21. Anticardio lipin IgA antibody negative. Factor 8 activity level 259%. Patient returns for evaluation on July 19, 2022.Patie nt with persistent ly positive anticardio lipin antibody IgM. Patient also with persistent factor 8 activity level elevation. Discussed evaluation with Rheumatolo gy for assessment of potential anti phospholip id antibody syndrome. Patient continues on anticoagul ation. Would recommend continuati on of full-dose anticoagul ation. Psoriatic arthritis 1563 25893 L40.50 follows with rheumatolo gy.If persistent ly positive lupus anticoagul ant will likely consult with Rheumatolo gy for potential anti phospholip id antibody syndrome.P atient with history of psoriatic arthritis. Concern for anti phospholip id antibody syndrome. Currently on Eliquis. Will follow-up evaluation with Rheumatolo gy. Recently restarted on immune modulating agent in late 2021. Will follow-up repeat labs. Blood coag ulation disorder [id number] D68.312 [id number] Hilario Olivares MD [facility] Oncology and Hematolog y [address] [place] [address] 11/15/2022 08:52:58 11/15/2022 09:52:51 Pulmonary embolism [id number] I26.94 I26.99 Initially presented to the emergency room on November 21, 2021 and was noted to have bilateral pulmonary emboli.Sherie or to presentati on to the emergency room the patient had lithotrips y performed. Removal of kidney stones and patient was with limited mobility following procedure during recovery. Patient also has history of psoriatic arthritis. Previously was being treated with immune modulating agent but is not reschedule d Rheumatolo gy/dermato logy.Repea t CT scan of the chest abdomen and pelvis on December 06, 2021 with multiple small residual segmental bilateral pulmonary emboli with decrease in size compared to imaging on November 21, 2021. Lung bases are clear. Spleen is unremarkab le. No adrenal mass seen. No acute intra abdominal process. Patient noted to have hepatic steatosis. Patient presented for clinic evaluation on December 21, 2021. Denies prior history of blood clot. Denies family history.La bs on December 21, 2021 with factor 5 Leiden gene mutation testing negative. No mutation seen. Factor 2 DNA analysis negative and no mutation seen. Protein C functional level at 162%. Protein S functional level 81% anti thrombin 3 level normal at 136%. Anti phospholip id antibody testing with indetermin ate anticardio lipin IgM antibody. Anticardio lipin IgG antibody negative. Lupus anticoagul ant testing positive for lupus anticoagul ant. Factor 8 activity level elevated at 223%.Veronica nt returns on January 11, 2022. Discussed continuati on of anticoagul ation with Elisidneyis. Would plan to repeat imaging in late February/ear ly March 2022. Would plan to repeat labs at that time to assess for persistenc e of factor 8 elevation, lupus anticoagul ation, and anticardio lipin antibody. Concern for possible anti phospholip id antibody syndrome. Labs on March 22, 2022 with white blood cell count 7.1. Red blood count 4.7. Hemoglobin 13.1 and hematocrit 39.8. MCV 84. Platelet count 671608. Slight increase in lymphocyte s on this particular sample. Lupus anticoagul ant testing performed and no lupus anticoagul ant detected. Suspect previous testing was related to recent pulmonary embolism. Anticardio lipin IgG negative. Anticardio lipin IgM positive at 21. Anticardio lipin IgA antibody negative. Factor 8 activity level 259%. Patient returns for evaluation on July 19, 2022.Patie nt with persistent ly positive anticardio lipin antibody IgM. Patient also with persistent factor 8 activity level elevation. Discussed evaluation with Rheumatolo gy for assessment of potential anti phospholip id antibody syndrome. Patient continues on anticoagul ation. Would recommend continuati on of full-dose anticoagul ation. Psoriatic arthritis 1560 55839 L40.50 follows with rheumatolo gy.If persistent ly positive lupus anticoagul ant will likely consult with Rheumatolo gy for potential anti phospholip id antibody syndrome.P atient with history of psoriatic arthritis. Concern for anti phospholip id antibody syndrome. Currently on Eliquis. Will follow-up evaluation with Rheumatolo gy. Recently restarted on immune modulating agent in late 2021. Will follow-up repeat labs. Antiphosph olipid syndrome 33476562 D68.61 Labs on March 22, 2022 with white blood cell count 7.1. Red blood count 4.7. Hemoglobin 13.1 and hematocrit 39.8. MCV 84. Platelet count 436217. Slight increase in lymphocyte s on this particular sample. Lupus anticoagul ant testing performed and no lupus anticoagul ant detected. Suspect previous testing was related to recent pulmonary embolism. Anticardio lipin IgG negative. Anticardio lipin IgM positive at 21. Anticardio lipin IgA antibody negative. Factor 8 activity level 259%. Patient returns for evaluation on July 19, 2022.Patie nt with persistent ly positive anticardio lipin antibody IgM. Patient also with persistent factor 8 activity level elevation. Discussed evaluation with [facility] [place] for assessment of potential anti phospholip id antibody syndrome. Patient continues on anticoagul ation. Would recommend continuati on of full-dose anticoagul ation. Labs on July 19, 2022 with factor 8 activity level at 156%. Anticardio lipin IgM at 17 which is in the indetermin ate range. Patient returns on November 15, 2022. Will continue with anticoagul ation. Will follow-up [id number] Hilario Olivares MD [facility] Oncology and Hematolog y [address] [place] [address] 05/16/2023 08:31:52 05/16/2023 08:59:38 Antiphospholipid syndrome [id number] D68.61 Labs on March 22, 2022 with white blood cell count 7.1. Red blood count 4.7. Hemoglobin 13.1 and hematocrit 39.8. MCV 84. Platelet count 085173. Slight increase in lymphocyte s on this particular sample. Lupus anticoagul ant testing performed and no lupus anticoagul ant detected. Suspect previous testing was related to recent pulmonary embolism. Anticardio lipin IgG negative. Anticardio lipin IgM positive at 21. Anticardio lipin IgA antibody negative. Factor 8 activity level 259%. Patient returns for evaluation on July 19, 2022.Patie nt with persistent ly positive anticardio lipin antibody IgM. Patient also with persistent factor 8 activity level elevation. Discussed evaluation with [facility] [place] for assessment of potential anti phospholip id antibody syndrome. Patient continues on anticoagul ation. Would recommend continuati on of full-dose anticoagul ation. Labs on July 19, 2022 with factor 8 activity level at 156%. Anticardio lipin IgM at 17 which is in the indetermin ate range. Labs on July 19, 2022 with factor 8 activity level at 156%. Anticardio lipin IgM at 17 which is in the indetermin ate range. Patient returns on May 16, 2023. Patient continues with Eliquis. Tolerating well. Will plan to continue with anticoagul ation. Pulmonary embolism 27893 003 I26.94 I26.99 Initially presented to the emergency room on November 21, 2021 and was noted to have bilateral pulmonary emboli.Sherie or to presentati on to the emergency room the patient had lithotrips y performed. Removal of kidney stones and patient was with limited mobility following procedure during recovery. Patient also has history of psoriatic arthritis. Previously was being treated with immune modulating agent but is not reschedule d Rheumatolo gy/dermato logy.Repea t CT scan of the chest abdomen and pelvis on December 06, 2021 with multiple small residual segmental bilateral pulmonary emboli with decrease in size compared to imaging on November 21, 2021. Lung bases are clear. Spleen is unremarkab le. No adrenal mass seen. No acute intra abdominal process. Patient noted to have hepatic steatosis. Patient presented for clinic evaluation on December 21, 2021. Denies prior history of blood clot. Denies family history.La bs on December 21, 2021 with factor 5 Leiden gene mutation testing negative. No mutation seen. Factor 2 DNA analysis negative and no mutation seen. Protein C functional level at 162%. Protein S functional level 81% anti thrombin 3 level normal at 136%. Anti phospholip id antibody testing with indetermin ate anticardio lipin IgM antibody. Anticardio lipin IgG antibody negative. Lupus anticoagul ant testing positive for lupus anticoagul ant. Factor 8 activity level elevated at 223%.Patie nt returns on January 11, 2022. Discussed continuati on of anticoagul ation with Eliquis. Would plan to repeat imaging in late February/ear ly March 2022. Would plan to repeat labs at that time to assess for persistenc e of factor 8 elevation, lupus anticoagul ation, and anticardio lipin antibody. Concern for possible anti phospholip id antibody syndrome. Labs on March 22, 2022 with white blood cell count 7.1. Red blood count 4.7. Hemoglobin 13.1 and hematocrit 39.8. MCV 84. Platelet count 581612. Slight increase in lymphocyte s on this particular sample. Lupus anticoagul ant testing performed and no lupus anticoagul ant detected. Suspect previous testing was related to recent pulmonary embolism. Anticardio lipin IgG negative. Anticardio lipin IgM positive at 21. Anticardio lipin IgA antibody negative. Factor 8 activity level 259%. Patient returns for evaluation on July 19, 2022.Patie nt with persistent ly positive anticardio lipin antibody IgM. Psoriatic arthritis 1563 32446 L40.50 follows with rheumatolo gy.If persistent ly positive lupus anticoagul ant will likely consult with Rheumatolo gy for potential anti phospholip id antibody syndrome.P atient with history of psoriatic arthritis. Concern for anti phospholip id antibody syndrome. Currently on Eliquis. Will follow-up evaluation with Rheumatolo gy. Recently restarted on immune modulating agent in late 2021. Will follow-up repeat labs. Fatigue 40570364 R53.83 Increasing fatigue over the last few months. Will follow up additional labs. [id number] Olena Howard NP [facility] [address] [place] [address] 05/23/2023 13:42:37 05/28/2023 08:59:45 Esophageal dysphagia 66880396 R13.19 Dysphagia to solid foods with regurgitat ion. Esophagram 09/2021 noted narrowing in the distal esophagus as well as GERD. She continues Eliquis for antiphosph olipid antibody syndrome and follows with Hematology , Dr. Olivares. Recommend EGD with possible dilatation based on findings. She will need clearance from Dr. Olivares prior to procedure. Pt is scheduled for EGD 05/30 9:00 AM Gastro-eso phageal reflux disease with esophagitis [id number] K21.00 Currently controlled with use of pantoprazo le. Recommend continued use as prescribed . Nausea 217470571 R11.0 Daily nausea and dyspepsia with sulfur burps. US RUQ 05/17/23 with fatty liver noted. Recommend EGD to evaluate for PUD, gastritis, h. pylori. Recommend GES to r/o gastropare sis. Also plan for HIDA scan to r/o biliary dyskinesia . Steatotic liver disease [id number] K76.0 Noted on US from 05/17/23. LFT's noted to be elevated at that time. Plan for comprehens pipo liver workup in the future. [id number] Olena Howard NP [facility] [address] [place] [address] [facility] [place] [address] 09/10/2023 15:25:34 09/11/2023 14:34:16 Gastro-esophageal reflux disease with esophagitis 244118948 K21.00 Currently controlled with use of pantoprazo le. Recommend continued use as prescribed . Abnormal l iver function 92449018 R94.5 Plan for comprehens pipo labs to further evaluate. hepatic steatosis previously noted on ultrasound 05/17/2023 . Steatotic liver disease 844152676 K76.0 Noted on US from 05/17/23. Patient has been successful with weight loss. Recommend continued diet and exercise. Plan to repeat liver ultrasound 05/2024 for surveillan ce History of Schatzkis ring [id number] 7570475 Z87.19 status post esophageal dilatation to 20 mm using dilating balloon on EGD 05/2023. Symptoms of dysphagia have improved at this time. [id number] Olena Howard NP [facility] [address] [place] [address] 12/03/2024 09:32:36 12/03/2024 10:11:19 Gastro-esophageal reflux disease with esophagitis 903912807 K21.00 Controlled with use of pantoprazo le. Recommend continued use as prescribed . Will send refills today. Steatotic liver disease 767007659 K76.0 Noted on US from 05/17/23. Comprehens pipo liver evaluation 09/2023 consistent with hepatic steatosis. She has been successful with continued weight loss with diet and exercise. Recommend follow-up liver ultrasound for surveillan ce. Plan for [facility] [employer] as well as hepatic function panel today. History of Schatzkis ring [id number] Z87.19 status post esophageal dilatation to 20 mm using dilating balloon on EGD 05/2023. Esophageal dysphagia [id number] R13.19 only occasional episodes of dysphagia to medication s at this time. Recommend taking medication with applesauce or pudding. Discussed scheduling EGD given her history of Schatzki's ring however will hold off at this time as it is only with certain medication s and not food. Patient encouraged to call if she experience s worsening symptoms. She did voice understand ing. [id number] Hilario Olivares MD [facility] Oncology and Hematolog y [address] [place] [address] 06/23/2024 08:47:34 06/23/2024 09:12:38 Antiphospholipid syndrome [id number] D68.61 Labs on March 22, 2022 with white blood cell count 7.1. Red blood count 4.7. Hemoglobin 13.1 and hematocrit 39.8. MCV 84. Platelet count 969442. Slight increase in lymphocyte s on this particular sample. Lupus anticoagul ant testing performed and no lupus anticoagul ant detected. Suspect previous testing was related to recent pulmonary embolism. Anticardio lipin IgG negative. Anticardio lipin IgM positive at 21. Anticardio lipin IgA antibody negative. Factor 8 activity level 259%. Patient returns for evaluation on July 19, 2022.Patie nt with persistent ly positive anticardio lipin antibody IgM. Patient also with persistent factor 8 activity level elevation. Discussed evaluation with Zenaida neville for assessment of potential anti phospholip id antibody syndrome. Patient continues on anticoagul ation. Would recommend continuati on of full-dose anticoagul ation. Labs on July 19, 2022 with factor 8 activity level at 156%. Anticardio lipin IgM at 17 which is in the indetermin ate range. Patient returns on June 23, 2024. Discussed repeat labs today. Patient has continued on Eliquis therapy 5 mg p.o. b.i.d.. No signs of blood loss. Will follow up additional labs today. Pulmonary embolism [id number] I26.94 I26.99 Initially presented to the emergency room on November 21, 2021 and was noted to have bilateral pulmonary emboli.Sherie or to presentati on to the emergency room the patient had lithotrips y performed. Removal of kidney stones and patient was with limited mobility following procedure during recovery. Patient also has history of psoriatic arthritis. Previously was being treated with immune modulating agent but is not reschedule d Rheumatchristoph neville/dermato loggilles.Shayy ba CT scan of the chest abdomen and pelvis on December 06, 2021 with multiple small residual segmental bilateral pulmonary emboli with decrease in size compared to imaging on November 21, 2021. Lung bases are clear. Spleen is unremarkab le. No adrenal mass seen. No acute intra abdominal process. Patient noted to have hepatic steatosis. Patient presented for clinic evaluation on December 21, 2021. Denies prior history of blood clot. Denies family history.La bs on December 21, 2021 with factor 5 Leiden gene mutation testing negative. No mutation seen. Factor 2 DNA analysis negative and no mutation seen. Protein C functional level at 162%. Protein S functional level 81% anti thrombin 3 level normal at 136%. Anti phospholip id antibody testing with indetermin ate anticardio lipin IgM antibody. Anticardio lipin IgG antibody negative. Lupus anticoagul ant testing positive for lupus anticoagul ant. Factor 8 activity level elevated at 223%.Patie nt returns on January 11, 2022. Discussed continuati on of anticoagul ation with Eliquis. Would plan to repeat imaging in late February/ear ly March 2022. Would plan to repeat labs at that time to assess for persistenc e of factor 8 elevation, lupus anticoagul ation, and anticardio lipin antibody. Concern for possible anti phospholip id antibody syndrome. Labs on March 22, 2022 with white blood cell count 7.1. Red blood count 4.7. Hemoglobin 13.1 and hematocrit 39.8. MCV 84. Platelet count [id number]. Slight increase in lymphocyte s on this particular sample. Lupus anticoagul ant testing performed and no lupus anticoagul ant detected. Suspect previous testing was related to recent pulmonary embolism. Anticardio lipin IgG negative. Anticardio lipin IgM positive at 21. Anticardio lipin IgA antibody negative. Factor 8 activity level 259%. 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 Psoriatic arthritis [id number] L40.50 follows with rheumatolo gy.If persistent ly positive lupus anticoagul ant will likely consult with Rheumatolo gy for potential anti phospholip id antibody syndrome.P atient with history of psoriatic arthritis. Concern for anti phospholip id antibody syndrome. Currently on Eliquis. Will follow-up evaluation with Rheumatolo gy. Restarted on immune modulating agent in late 2021. Will follow-up repeat labs. Anticoagulant therapy 18 [id number] Z79.01 Patient continues on Eliquis 5 mg p.o. b.i.d.. Will follow-up repeat labs. Health Concerns Section Related Observation LastModified by Organization Detai ls LastModified Time None Recorded Concern Status LastModified by Organization Details LastModified Time None Recorded Advance Directives Directive None Recorded Payers Insurance Date Sequence Insurance Name Policy Number Policy Chadwick Covered Member ID Chadwick Member ID Guarantor Name 11/30/2024 1 [place] [facility] [facility] [place] [id number] Vera Avalos [id number] Vera Mary Bailey Notes Date Note Type Note Provider Name and Address Organization Details Recorded Time 05/16/2023 text/html 52 yo F returns for evaluation of pulmonary embolism.Initially presented to the emergency room on November 21, 2021 and was noted to have bilateral pulmonary emboli.Prior to presentation to the emergency room the patient had lithotripsy performed. Removal of kidney stones and patient was with limited mobility following procedure during recovery. Patient also has history of psoriatic arthritis. Previously was being treated with immune modulating agent but is not rescheduled Rheumatology/dermatol ogy.Repeat CT scan of the chest abdomen and pelvis on December 06, 2021 with multiple small residual segmental bilateral pulmonary emboli with decrease in size compared to imaging on November 21, 2021. Lung bases are clear. Spleen is unremarkable. No adrenal mass seen. No acute intra abdominal process. Patient noted to have hepatic steatosis.Patient presented for clinic evaluation on December 21, 2021. Denies prior history of blood clot. Denies family history.Labs on December 21, 2021 with factor 5 Leiden gene mutation testing negative. No mutation seen. Factor 2 DNA analysis negative and no mutation seen. Protein C functional level at 162%. Protein S functional level 81% anti thrombin 3 level normal at 136%. Anti phospholipid antibody testing with indeterminate anticardiolipin IgM antibody. Anticardiolipin IgG antibody negative. Lupus anticoagulant testing positive for lupus anticoagulant. Factor 8 activity level elevated at 223%.Labs on March 22, 2022 with white blood cell count 7.1. Red blood count 4.7. Hemoglobin 13.1 and hematocrit 39.8. MCV 84. Platelet count 163079. Slight increase in lymphocytes on this particular sample. Lupus anticoagulant testing performed and no lupus anticoagulant detected. Suspect previous testing was related to recent pulmonary embolism. Anticardiolipin IgG negative. Anticardiolipin IgM positive at 21. Anticardiolipin IgA antibody negative. Factor 8 activity level 259%. Patient returns for evaluation on July 19, 2022.Patient with persistently positive anticardiolipin antibody IgM. Patient also with persistent factor 8 activity level elevation. Discussed evaluation with Rheumatology for assessment of potential anti phospholipid antibody syndrome. Patient continues on anticoagulation. Would recommend continuation of full-dose anticoagulation. Labs on July 19, 2022 with factor 8 activity level at 156%. Anticardiolipin IgM at 17 which is in the indeterminate range. Patient returns on May 16, 2023. Patient continues with Eliquis. Tolerating well. Will plan to continue with anticoagulation. Hilario Olivares MD [address] [facility], [place], [address], [facility] & [place] 05/16/2023 09:01:43 05/23/2023 text/html Patient returns to clinic today for evaluation of dysphagia, nausea, and dyspepsia. Previously scheduled for EGD 11/2021 however was not completed at that time due to recent history of PE. She continues Eliquis for antiphospholipid antibody syndrome and follows with Hematology, Dr. Olivares. She continues to experience dysphagia with solid foods. She does regurgitate. GERD is controlled with use of Pantoprazole. She has been experiencing sulfur burps as well as constant nausea and dyspepsia. Use of Zofran does improve her nausea. Ultrasound right upper quadrant 05/17/2023 noted fatty liver. Esophagram 09/2021 noted narrowing in the distal esophagus as well as GERD. Olena Howard NP [address] [facility], [address], [place], [address], [facility] & [place] 05/25/2023 11:06:09 09/10/2023 text/html Patient returns to clinic today for follow up on upper endoscopy. EGD 05/30/23 with Schatzki's Ring dilated up to 20 mm using dilating balloon, small hiatal hernia noted. Pathology confirmed reflux esophagitis as well as reactive gastropathy negative H pylori. Symptoms of dysphagia have resolved at this time. Patient continues pantoprazole 40 mg daily for treatment of GERD. Nausea has improved at this time. She is currently prescribed Ozempic and has been successful with weight loss. She has been exercising and watching her diet. She continues Eliquis for antiphospholipid antibody syndrome and follows with Hematology, Dr. Olivares. Ultrasound right upper quadrant 05/17/2023 noted fatty liver. She does report recent liver enzymes that were again elevated. Olena Howard NP [address] [facility], [address], [place], [address], [place] [facility] 09/11/2023 13:26:50 06/23/2024 text/html 52 yo F returns for evaluation of pulmonary embolism.Initially presented to the emergency room on November 21, 2021 and was noted to have bilateral pulmonary emboli.Prior to presentation to the emergency room the patient had lithotripsy performed. Removal of kidney stones and patient was with limited mobility following procedure during recovery. Patient also has history of psoriatic arthritis. Previously was being treated with immune modulating agent but is not rescheduled Rheumatology/dermatol ogy.Repeat CT scan of the chest abdomen and pelvis on December 06, 2021 with multiple small residual segmental bilateral pulmonary emboli with decrease in size compared to imaging on November 21, 2021. Lung bases are clear. Spleen is unremarkable. No adrenal mass seen. No acute intra abdominal process. Patient noted to have hepatic steatosis.Patient presented for clinic evaluation on December 21, 2021. Denies prior history of blood clot. Denies family history.Labs on December 21, 2021 with factor 5 Leiden gene mutation testing negative. No mutation seen. Factor 2 DNA analysis negative and no mutation seen. Protein C functional level at 162%. Protein S functional level 81% anti thrombin 3 level normal at 136%. Anti phospholipid antibody testing with indeterminate anticardiolipin IgM antibody. Anticardiolipin IgG antibody negative. Lupus anticoagulant testing positive for lupus anticoagulant. Factor 8 activity level elevated at 223%.Labs on March 22, 2022 with white blood cell count 7.1. Red blood count 4.7. Hemoglobin 13.1 and hematocrit 39.8. MCV 84. Platelet count 277171. Slight increase in lymphocytes on this particular sample. Lupus anticoagulant testing performed and no lupus anticoagulant detected. Suspect previous testing was related to recent pulmonary embolism. Anticardiolipin IgG negative. Anticardiolipin IgM positive at 21. Anticardiolipin IgA antibody negative. Factor 8 activity level 259%. Patient returns for evaluation on July 19, 2022.Patient with persistently positive anticardiolipin antibody IgM. Patient also with persistent factor 8 activity level elevation. Discussed evaluation with Rheumatology for assessment of potential anti phospholipid antibody syndrome. Patient continues on anticoagulation. Would recommend continuation of full-dose anticoagulation. Labs on July 19, 2022 with factor 8 activity level at 156%. Anticardiolipin IgM at 17 which is in the indeterminate range. Patient returns on June 23, 2024. Discussed repeat labs today. Patient has continued on Eliquis therapy 5 mg p.o. b.i.d.. No signs of blood loss. Will follow up additional labs today. Hilario Olivares MD [facility], [place], [address], [facility] & [place] 06/23/2024 09:19:58 12/03/2024 text/html Patient returns to clinic today for follow up. she continues at [facility] and has been successful with continued weight loss. She has made significant lifestyle changes is following Mediterranean diet and exercising regularly. She is feeling significantly better at this time. Comprehensive liver evaluation from 09/2023 consistent with hepatic steatosis. She continues pantoprazole 40 mg p.o. daily with controlled GERD symptoms. She does report occasional dysphagia to medication at this time. Last EGD 05/30/23 with Schatzki's ring dilated up to 20 mm using dilating balloon, small hiatal hernia noted. Pathology confirmed reflux esophagitis as well as reactive gastropathy negative H pylori. She continues Eliquis for antiphospholipid antibody syndrome and follows with Hematology, Dr. Olivares. Olena Howard NP [address] [place] [address], [address], [place], [address], [facility] & [place] 12/03/2024 10:42:52 OBGyn Episode No OBEpisode recorded.
--- OUTSIDE RECORDS SUMMARY | 2024-12-30 12:05 | XMS_ITS | Encounter Summary ---
Author Organization [facility] In iatives Address [address] [place] [address] Care Team Providers Care Airline Pilot/First Officer Name Role Phone Sharon Bell SOCIAL WORK JOB TITLES Primary Care Provider + [phone] Mariaa Chauhan SOCIAL WORK JOB TITLES Primary Care Provider [phone] Sharon Bell SOCIAL WORK JOB TITLES Primary Care Provider + [phone] Encounter Details Date Type Department Care Team (Late st Contact Info) Description 02/22/2019 Transcribed Document [facility] Family Medicine [address] [place] [address] ProviderCornelio MD [address] [place] [address] Social History Tobacco Use Types Packs/Day [...] Conversion Note - Cornelio ProviderMD - 02/22/2019 2:00 AM CDT Traffic Circuit Engineer Details Entered On: 02/22/2019 0:22 EDT Performed On: 02/22/2019 2:00 EDT by ALBERTO ANDUJAR RN Order Details Transport Mode Order Detail : Stretcher/Gurney Isolation Precautions Order Detail : Contact precautions Order Detail : 0 IV Order Detail : 1 Oxygen Order Detail : 0 Lift/Transfer : Minimal Room Service : Appropriate ALBERTO ANDUJAR RN - 02/22/2019 0:21 EDT Electronically signed by [facility] Conversion Detail Maker And Fitter Cerner at 10/25/2022 10:12 AM CDT documented in this encounter Plan of Treatment Not on file documented as of this encounter Visit Diagnoses Not on filedocumented in this encounter Care Teams Airline Pilot/First Officer Relationship Specialty Start Date End Date Sharon Bell NP [address] [place] [address] PCP - General Family Medicine 08/27/23 12/05/23 Mariaa Chauhan NP [address] [place] [address] PCP - General Family Medicine 12/06/23 01/10/24 Sharon Bell NP [address] [place] [address] PCP - General Family Medicine 01/11/24 10/13/24 documented as of this encounter
--- OUTSIDE RECORDS SUMMARY | 2024-12-30 12:05 | XMS_ITS | Encounter Summary ---
Author Organization [facility] [employer] In iatives Address [address] [place] [address] Care Team Providers Care Brand Ambassador Promotional Model Name Role Phone Sharon Bell DIGITAL STRATEGIST Primary Care Provider + [phone] Mariaa Chauhan DIGITAL STRATEGIST Primary Care Provider [phone] Sharon Bell DIGITAL STRATEGIST Primary Care Provider + [phone] Encounter Details Date Type Department Care Team (Late st Contact Info) Description 02/21/2019 Transcribed Document [facility] [place] Medicine [address] [place] [address] ProviderCornelio MD [address] [place] [address] Social History Tobacco Use Types Packs/Day [...] Conversion Note - Historical ProviderMD - 02/21/2019 8:50 PM CDT Admission History, Adult Entered On: 02/21/2019 20:50 EDT Performed On: 02/21/2019 20:50 EDT by ALBERTO ANDUJAR RN Advance Directive Patient has Advance Directive *Q : No, patient refuses Advance Directive information ALBERTO ANDUJAR RN - 02/21/2019 20:50 EDT General Info Want Family/Rep/Phys Notified of Admit : No Emergency Contact #1 : vera avalos Emergency Contact #1 Emergency Contact #1 Relationship : spouse Emergency Contact #2 : yady avalos Emergency Contact #2 Emergency Contact #2 Relationship : daughter Chief Complaint : kidney stones right Information Obtained From : Patient, Spouse Primary Language : Faroese Preferred Communication Mode : Verbal Communication Barrier : None ALBERTO ANDUJAR RN - 02/21/2019 20:50 EDT Health Histories Smoking Status : 10 or more cigarettes (1/2 pack or more)/day in last 30 days Smokeless Tobacco Status : Never ALBERTO ANDUJAR RN - 02/21/2019 20:50 EDT Social History (As Of: 02/21/2019 20:50:26 EDT) Tobacco: Smoking Status Current every day smoker. (Last Updated: 09/16/2014 13:00:28 EDT by ELYSE TAMEZ, NURSE PRACT-EMERGENCY MEDICINE) Height and Weight, Clinical Dosing Height Source : Stated Height Entry Format : [place] Height, Feet : 5 ft(Converted to: 152 cm, 60 Inch) Height, Inches : 2 Inch(Converted to: 0 ft 2 Inch, 5.08 cm) Clinical Height : 157.48 cm Weight Source : Standing scale Weight Entry Format : [place] Clinical Dosing Weight : 66.82 kg Weight, Pounds : 147 lb Body Surface Area (BSA) : 1.68 m2 Body Mass Index : 26.9 kg/m2 (HI) [place] Body Weight : 50 kg ALBERTO ANDUJAR RN - 02/21/2019 20:50 EDT documented in this encounter Plan of Treatment Not on file documented as of this encounter Visit Diagnoses Not on filedocumented in this encounter Care Teams Brand Ambassador Promotional Model Relationship Specialty Start Date End Date Sharon Bell NP [address] [place] [address] PCP - General Family Medicine 08/27/23 12/05/23 Mariaa Chauhan NP [address] [place] [address] PCP - General Family Medicine 12/06/23 01/10/24 Sharon Bell NP [address] [place] [address] PCP - General Family Medicine 01/11/24 10/13/24 documented as of this encounter
--- OUTSIDE RECORDS SUMMARY | 2024-12-30 12:05 | XMS_ITS | Encounter Summary ---
Author Organization [facility] In iatives Address [address] [place] [address] Care Team Providers Care Drying Can Worker Name Role Phone Sharon Bell AIR CARGO AGENT Primary Care Provider + [phone] Mariaa Chauhan AIR CARGO AGENT Primary Care Provider [phone] Sharon Bell AIR CARGO AGENT Primary Care Provider + [phone] Encounter Details Date Type Department Care Team (Late st Contact Info) Description 02/21/2019 Transcribed Document [facility] [place] [facility] [place] [address] [place] [address] ProviderCornelio MD [address] [place] [address] Social History Tobacco Use Types Packs/Day [...] Conversion Note - Historical ProviderMD - 02/21/2019 7:51 PM CDT Admission History, Adult Entered On: 02/22/2019 0:20 EDT Performed On: 02/21/2019 19:51 EDT by ALBERTO ANDUJAR RN Advance Directive Patient has Advance Directive *Q : No, patient refuses Advance Directive information ALBERTO ANDUJAR RN - 02/22/2019 0:19 EDT Anesthesia/Transfusion History Family History of Anesthesia Reaction : No prior transfusion(s) Transfusion History : Prior anesthesia without reaction Family History of Anesthesia Reaction : Unknown ALBERTO ANDUJAR RN - 02/22/2019 0:19 EDT Functional Assessment Living Situation : Home Patient Lives With : Spouse Sensory Deficits : None AVILA Hx Falls Immediate/Within 3 Months : No Current Home Treatments : None ALBERTO ANDUJAR RN - 02/22/2019 0:19 EDT General Info Want Family/Rep/Phys Notified of Admit : No Emergency Contact #1 : vera avalos Emergency Contact #1 Emergency Contact #1 Relationship : spouse Emergency Contact #2 : yady bailey Emergency Contact #2 Emergency Contact #2 Relationship : daughter Chief Complaint : kidney stones right Information Obtained From : Patient, Spouse Primary Language : British Preferred Communication Mode : Verbal Communication Barrier : None ALBERTO ANDUJAR RN - 02/22/2019 0:19 EDT Fall Risk Scales ABCs Fall Injury Risk Identification : None AVILA Hx Falls Immediate/Within 3 Months : No Avila Secondary Diagnosis : Yes AVILA Use of Ambulatory Aid : Bed rest/Nurse assist AVILA IV Therapy or IV Access : Yes Avila Gait/Transferring : Weak Avila Mental Status : Oriented to own ability Avila Fall Risk Score : 45 AVILA Fall Scale Risk Level : 25-45 Medium Risk Roland Fall Interventions : Adequate lighting, Assistive devices within reach Barriers to Learning : None evident ALBERTO ANDUJAR RN - 02/22/2019 0:19 EDT Health Histories Smoking Status : 10 or more cigarettes (1/2 pack or more)/day in last 30 days Smokeless Tobacco Status : Never Desires Tobacco Cessation Medication : No Reason for No Tobacco Cessation Medication : Refuses FDA approved medications ALBERTO ANDUJAR RN - 02/22/2019 0:19 EDT Social History (As Of: 02/22/2019 00:20:49 EDT) Tobacco: Smoking Status Current every day smoker. (Last Updated: 09/16/2014 13:00:28 EDT by ELYSE TAMEZ, NURSE PRACT-EMERGENCY MEDICINE) Height and Weight, Clinical Dosing Height Source : Stated Height Entry Format : [place] Height, Feet : 5 ft(Converted to: 152 cm, 60 Inch) Height, Inches : 2 Inch(Converted to: 0 ft 2 Inch, 5.08 cm) Clinical Height : 157.48 cm Weight Source : Standing scale Weight Entry Format : [place] Clinical Dosing Weight : 66.82 kg Weight, Pounds : 147 lb Body Surface Area (BSA) : 1.68 m2 Body Mass Index : 26.9 kg/m2 (HI) [place] Body Weight : 50 kg ALBERTO ANDUJAR RN - 02/22/2019 0:19 EDT Infectious Disease History Infectious Disease History : MRSA Fever/Chills Last 48 Hours : No Travel To Regions with Travel Advisories : No Travel Outside [place] Within Last 30 Days : No Contact With Traveler to Advisory Region : No Tuberculosis Symptoms : None ALBERTO ANDUJAR RN - 02/22/2019 0:19 EDT Influenza Vaccine Asmt, Adult Previous Vaccines from Immunization Schedule : No qualifying data available. Influenza Immunization, Current Season : No Inactivated Flu Vaccine Contraindications : No contraindications to inactivated influenza vaccine Transplant Workup/Recent Transplant : No Order for Influenza Vaccine : Declined Vaccination ALBERTO ANDUJAR RN - 02/22/2019 0:19 EDT Pneumococcal Vaccine Previous Vaccines from Immunization Schedule : No qualifying data available. Pneumonia Immunization Received : No Pneumococcal Risk Assessment < Age 65 : None ALBERTO ANDUJAR RN - 02/22/2019 0:19 EDT Nutrition History Feeding Ability : Independent Adaptive Feeding Equipment : Regular Eating Poorly Due to Decreased Appetite : No Unplanned Weight Loss in Past 3-6 Months : No Malnutrition Screening Tool Total(mal) : 0 Malnutrition Screening Tool Risk Level : Patient not at risk ALBERTO ANDUJAR RN - 02/22/2019 0:19 EDT Psychosocial History Does Someone Depend on You for Care? : No Do You Have a History of the Following? : Patient denies history Currently in Unsafe Situation : No Tried to Harm Yourself in the Past? : No Thoughts of Harming/Killing Yourself : No ALBERTO ANDUJAR RN - 02/22/2019 0:19 EDT Sleep Apnea Risk Assmt Hx of [...] Score : 0 ALBERTO ANDUJAR RN - 02/22/2019 0:19 EDT Valuables and Belongings Valuables and Belongings : Clothing Clothing : Common streetwear Clothing Disposition : Bedside ALBERTO ANDUJAR RN - 02/22/2019 0:19 EDT Electronically signed by [facility], [facility] Conversion Simulation Educator Cerner at 10/25/2022 9:53 AM CDT documented in this encounter Plan of Treatment Not on file documented as of this encounter Visit Diagnoses Not on filedocumented in this encounter Care Teams Drying Can Worker Relationship Specialty Start Date End Date Sharon Bell NP [address] [place] [address] PCP - General Family Medicine 08/27/23 12/05/23 [place] [address] [place] [address] PCP - General Family Medicine 12/06/23 01/10/24 Sharon Bell NP [address] [place] [address] PCP - General Family Medicine 01/11/24 10/13/24 documented as of this encounter
--- OUTSIDE RECORDS SUMMARY | 2024-12-30 12:05 | XMS_ITS | Encounter Summary ---
Author Organization [facility] In [facility] Address [address] [place] [address] Care Team Providers Care Facilities Specialist Name Role Phone Sharon Bell SLASHER TENDER HELPER Primary Care Provider + [phone] Mariaa Chauhan SLASHER TENDER HELPER Primary Care Provider [phone] Sharon Bell SLASHER TENDER HELPER Primary Care Provider + [phone] Encounter Details Date Type Department Care Team (Late st Contact Info) Description 02/22/2019 Transcribed Document [facility] [place] [address] [place] [address] ProviderCornelio MD [address] [place] [address] Social History Tobacco Use Types Packs/Day [...] Conversion Note - Historical ProviderMD - 02/22/2019 1:36 PM CDT [facility] Main OR IntraOp Summary Primary Physician: FILEMON PATTERSON JR, MD-URO Finalized Date/Time: 02/23/19 15:00:13 Pt. Name: ALICIA AVALOS /Sex: 1970 Female Med Rec #: [id number] Physician: FILEMON PATTERSON JR, MD-URO Financial #: [id number] Pt. Type: O Room/Bed: [facility] Admit/Disch: 02/21/19 19:54:00 - 02/22/19 19:15:00 Institution: [facility] IntraOp Case Attendance Entry 1 Entry 2 Entry 3 Case Attendee FILEMON PATTERSON JR, HIGGINS, MARGARET, MD GRABMAYER, JOSEF, MD MD-URO Role Performed Surgeon/Proceduralist, Resident Anesthesiologist First Time In 02/22/19 13:20:00 02/22/19 13:20:00 02/22/19 13:20:00 Time Out 02/22/19 14:05:00 02/22/19 14:05:00 02/22/19 14:05:00 Procedure Cystoscopy Laser Stone Cystoscopy Laser Stone Cystoscopy Laser Stone Manipulation Manipulation Manipulation Other Attendee Superficial Wound Closed By: Last Modified By: Phuc Diaz RN Willoughby, Toni, RN Willoughby, Toni, RN 02/22/19 14:16:03 02/22/19 14:16:03 02/22/19 14:16:03 Entry 4 Entry 5 Entry 6 Case Attendee SHEMAR DAVE Bruce B, Rn Willoughby, Toni, RN Role Performed Scrub, First Crm Marketing Executive, Second Crm Marketing Executive, First Time In 02/22/19 13:20:00 02/22/19 13:20:00 02/22/19 13:20:00 Time Out 02/22/19 14:05:00 02/22/19 14:05:00 02/22/19 14:05:00 Procedure Cystoscopy Laser Stone Cystoscopy Laser Stone Cystoscopy Laser Stone Manipulation Manipulation Manipulation Other Attendee Superficial Wound Closed By: Last Modified By: Phuc Diaz RN Willoughby, Toni, RN Willoughby, Toni, RN 02/22/19 14:16:03 02/22/19 14:16:03 02/22/19 14:16:03 [facility] IntraOp Case Attendance Audit 02/22/19 14:16:03 Platform Builder: [id number] Modifier: [id number] 1 <+> Time Out 1 <*> Procedure Cystoscopy Laser Stone Manipulation 2 <+> Time Out 2 <*> Procedure Cystoscopy Laser Stone Manipulation 3 <+> Time Out 3 <*> Procedure Cystoscopy Laser Stone Manipulation 4 <+> Time Out 4 <*> Procedure Cystoscopy Laser Stone Manipulation 5 <+> Time Out 5 <*> Procedure Cystoscopy Laser Stone Manipulation 6 <+> Time Out 6 <*> Procedure Cystoscopy Laser Stone Manipulation 02/22/19 13:50:46 Platform Builder: [id number] Modifier: [id number] 1 <*> Procedure Cystoscopy Laser Stone Manipulation 2 <+> Time In 2 <*> Procedure Cystoscopy Laser Stone Manipulation 3 <+> Time In 3 <*> Procedure Cystoscopy Laser Stone Manipulation 4 <+> Time In 4 <*> Procedure Cystoscopy Laser Stone Manipulation 5 <+> Time In 5 <*> Procedure Cystoscopy Laser Stone Manipulation 6 <+> Time In 6 <*> Procedure Cystoscopy Laser Stone Manipulation [facility] IntraOp Case Times Entry 1 Patient In Room Time 02/22/19 13:20:00 Out Room Time 02/22/19 14:05:00 Anesthesia Start Time 02/22/19 13:20:00 Stop Time 02/22/19 14:05:00 Surgery / Procedure Times Start Time 02/22/19 13:36:00 Stop Time 02/22/19 14:02:00 Last Modified By: Phuc Diaz RN 02/22/19 14:11:24 [facility] IntraOp Case Times Audit 02/22/19 14:11:24 Platform Builder: [id number] Modifier: [id number] <+> 1 Out Room Time <+> 1 Stop Time <+> 1 Stop Time [facility] IntraOp Communication Entry 1 Communication To Other Comment no family present at this time Communication By Phuc Diaz RN Last Modified By: Phuc Diaz RN 02/22/19 13:43:01 [facility] IntraOp Cultures and Spec Summary Entry 1 Cultrures and Specimens Specimen Ordered: Yes Test(s) Routine/Path-Lab Requested/Final Disposition Last Modified By: Phuc Diaz RN 02/22/19 14:12:09 [facility] IntraOp Departure from OR Entry 1 Integumentary Assessment Integumentary WDL Assessment WDL Transfer/Handoff Transfer to PACU Phase I Handoff Method Bedside/Face to face, Phone call Post-op Transport Stretcher/Gurney Via Patient Transport JOSE HERNANDEZ MD, Accompanied by Phuc Diaz RN Last Modified By: Phuc Diaz RN 02/22/19 13:43:39 [facility] IntraOp Fire Risk Assessment Entry 1 Fire Info Surgical Site or 0- No Incision Above the Xyphoid Open O2 Source 0- No (Mask or Cannula) Available Ignition 1- Yes (ESU, Laser, Light Source) Fire Risk 1 Assessment Score Fire Score Fire Risk Yes Assessment Complete Fire Risk Phuc Diaz RN Assessment Verified By Fire Risk 02/22/19 13:35:00 Assessment Verified Date/Time Fire Risk Standard Fire Yes Safety Precautions Followed Last Modified By: Phuc Diaz RN 02/22/19 13:43:58 [facility] IntraOp General Case Customs Collector 1 Case Information OR Cysto 01 [facility] Case Level 1 Room Verified Yes Wound Class II - Clean-Contaminated Specialty SN Urology Anesthesia Type General ASA Class 2E Diagnosis Preop Diagnosis ureter calculi Postop Same As Preop No Postop Diagnosis see physician note Last Modified By: Phuc Diaz RN 02/22/19 13:45:34 [facility] IntraOp General Case Data Audit 02/22/19 13:45:34 Platform Builder: [id number] Modifier: [id number] <+> 1 Preop Diagnosis <+> 1 Postop Diagnosis [facility] IntraOp Intraoperative Assessment Entry 1 Handoff Method Online nursing summary Valid History / Yes Physical in Chart Preoperative Yes Checklist Reviewed/Evaluated Allergies Reviewed Yes Patient is Latex No Sensitive Isolation Not applicable Precautions Noted Level of WDL Consciousness (WDL = Alert, Oriented to Person, Place, and Time) Skin Assessment No Verified Present Upon IVs Arrival to OR Last Modified By: Phuc Diaz RN 02/22/19 13:45:53 [facility] IntraOp Intraoperative Equipment Entry 1 Type Monitoring Equipment Intraop Monitoring Electrocardiogram Three lead placement (ECG) Electrode Placement Blood Pressure Non-Invasive BP Device Source Blood Pressure Arm, right upper Location Pulse Oximeter Hand, left Probe Site Antiembolic Devices Antiembolic Device Bilateral Location Antiembolic Device high Setting Scopes Photo/Video Documentation Last Modified By: Phuc Diaz RN 02/22/19 13:46:38 [facility] IntraOp Medication Admin Entry 1 Medication/Irrigant CATRACHITA IRR NACL 0.9PCT [id number] Route of irrigation Administration Dose Dose 3000 Unit of Measure ml Administered By JOSE HERNANDEZ MD Procedure Irrigation Last Modified By: Phuc Diaz RN 02/22/19 13:48:03 [facility] IntraOp Patient Positioning Entry 1 Procedure Cystoscopy Laser Stone Manipulation Body Position Lithotomy Left Arm Position Tucked and padded at side Right Arm Position Tucked and padded at side Left Leg Position Secured in Leg [place] Right Leg Position Secured in Leg [place] Feet Uncrossed Yes Pressure Points Yes Checked Positioning Devices Head Rest, Table, Cysto, Pad, Elbow, Stirrups/Leg [place], Cysto Positioned By Phuc Diaz RN, Friend, Maximino Farsnworth Rn, WERO WILLINGHAM MD Position Verified Positioning Yes Verified by Anesthesia Positioning Yes Verified by Surgeon Last Modified By: Phuc Diaz RN 02/22/19 13:48:51 [facility] IntraOp Sign In Entry 1 Patient, Site, Yes Procedure Identified Surgical Consent Yes Confirmed Relevant Surgical Yes Documents Available Surgical Site N/A Marked by person performing procedure Anesthesia Machine Yes Check Completed Medication Checks Yes Completed Allergies Yes Airway Difficult Yes Airway/Aspiration Risk Difficult Yes Airway/Aspiration Intervention Equipment Available Blood Loss Risk Yes Blood Loss Yes Intervention Equipment Prepared and Ready Blood Identifiers Not applicable Verified Per Policy Hypothermia Risk Yes Warming Measures Yes Taken Last Modified By: Phuc Diaz RN 02/22/19 13:50:45 [facility] IntraOp Sign Out Entry 1 RN Confirmation Surgical Yes Procedure(s) Identified Instrument, Sponge N/A and Sharps Counts Correct/Documented Equipment Problems N/A Documented Specimen Labeled Yes Correctly Urinary Catheter Yes Documented in IView [place] Patient Yes Recovery Concerns Reviewed with Anesthesia Provider, Surgeon and RN [place] Patient Yes Management Concerns Reviewed with Anesthesia Provider, Surgeon and RN Safety Checklist Yes Elements Complete? RN Sign Out Phuc Diaz RN Signature RN Sign Out 02/22/19 14:16:00 Signature Date/Time Plan of Care Outcome - Fire Risk OUTCOME STATEMENT: Goal met Patient is free from injury related to surgical fire Plan of Care Outcome - Pt Positioning OUTCOME STATEMENT: Goal met Absence of signs and symptoms of positioning injury. Plan of Care Outcome - Skin Prep OUTCOME STATEMENT: Goal met Intraoperative care is consistent with measures to prevent infection Plan of Care Outcome - Xray/Images OUTCOME STATEMENT: Goal met Absence of observable signs or symptoms of radiation injury Plan of Care Outcome - Counts OUTCOME STATEMENT: Goal met Absence of signs and symptoms of injury related to extraneous objects Last Modified By: Phuc Diaz RN 02/22/19 14:25:27 [facility] IntraOp Sign Out Audit 02/22/19 14:25:27 Platform Builder: [id number] Modifier: [id number] <+> 1 Specimen Labeled Correctly <+> 1 Urinary Catheter Documented in IView 02/22/19 14:16:26 Platform Builder: [id number] Modifier: [id number] <+> 1 RN Sign Out Signature Date/Time [facility] IntraOp Skin Prep Entry 1 Procedure Cystoscopy Laser Stone Manipulation Prescribed N/A Pre-Surgical Prep Completed Prep Area genitalia Intraop Prep Integumentary WDL Assessment WDL Prep Agents Betadine solution Prep by Phuc Diaz RN Hair Removal Methods No hair removal performed Last Modified By: Phuc Diaz RN 02/22/19 13:51:37 [facility] IntraOp Skin Prep Audit 02/22/19 13:51:37 Platform Builder: [id number] Modifier: [id number] 1 <*> Procedure Cystoscopy Laser Stone Manipulation [facility] IntraOp Surgical Procedures Entry 1 Procedure Cystoscopy Laser Stone Manipulation Additional RT. URETEROSCOPY, STENT Procedure PLACEMENT WITH LASER Description LITHOTRIPSY Primary Procedure Yes Primary Surgeon FILEMON PATTERSON JR, MD-URO Start 02/22/19 13:36:00 Stop 02/22/19 14:02:00 Anesthesia Type General Specialty SN Urology Wound Class II - Clean-Contaminated Last Modified By: Phuc Diaz RN 02/22/19 14:15:49 [facility] IntraOp Surgical Procedures Audit 02/22/19 14:15:49 Platform Builder: [id number] Modifier: [id number] 1 <*> Procedure Cystoscopy Laser Stone Manipulation 1 <+> Stop 1 <*> Additional Procedure Description RT. URETEROSCOPY, STENT 02/22/19 13:51:49 Platform Builder: [id number] Modifier: [id number] 1 <*> Procedure Cystoscopy Laser Stone Manipulation [facility] IntraOp Temp Regulation Devices Entry 1 Temp Regulation Temperature Warm blankets Regulation Device Temperature Upper body Regulation Site Temperature Phuc Diaz RN Regulation Device Applied by Temperature monitored per Regulation Comment anesthesia, coy sarygger available Last Modified By: Phuc Diaz RN 02/22/19 13:47:13 [facility] IntraOP Time Out Entry 1 Procedure to be Cystoscopy Laser Stone Performed Manipulation Time Out Time Out Pause Time 02/22/19 13:36:00 All activity Yes suspended (unless life threatening emergency) Team Verbally Correct patient Confirms Information identity, Consent form is present and accurate, Agreement on the procedure to be done, Correct patient position, Confirm antibiotics have been administered, Confirm the skin prep has dried, Confirm prosthesis/implant/devic e is present, Performed in location of procedure after prepped/draped Antibiotic Yes Prophylaxis Administered Or In Progress Within the Last 60 Minutes Beta Miri N/A Administered Venous Yes Thromboembolism Prophylaxis Required Anticipated Critical Events Surgeon None expected Anesthesia Provider None expected Nursing Assures Sterility of instruments, Equipment concerns or issues, Implant Availability Essential Imaging N/A Labeled and Displayed Last Modified By: Phuc Diaz RN 02/22/19 13:52:43 Case Comments <None> Finalized By: SHEMAR DAVE Document Signatures Signed By: Phuc Diaz RN 02/22/19 14:25 SHEMAR DAVE 02/23/19 15:00 Unfinalized History Date/Time Username Reason for Unfinalizing Freetext Reason for Unfinalizing 02/23/19 14:58 [email or web address] Correct Billing Electronically signed by [facility] Conversion Relief Driller Cerner at 10/25/2022 9:59 AM CDT documented in this encounter Plan of Treatment Not on file documented as of this encounter Visit Diagnoses Not on filedocumented in this encounter Care Teams Facilities Specialist Relationship Specialty Start Date End Date Sharon Bell NP [address] [place] [address] PCP - General Family Medicine 08/27/23 12/05/23 Mariaa Chauhan NP [address] [place] [address] PCP - General Family Medicine 12/06/23 01/10/24 Sharon Bell, MARIANA [address] [place] [address] PCP - General Family Medicine 01/11/24 10/13/24 documented as of this encounter
--- OUTSIDE RECORDS SUMMARY | 2024-12-30 12:05 | XMS_ITS | Patient Health Record ---
Author Organization [facility] Address [address] [facility] [address] [place] [address] Care Team Providers Care Licensed Physical Therapist Assistant Name Role Phone Анна Conner Unavailable [phone] Allergies Allergen (clinical drug ingredient) Drug/Non Drug Allergy documented on EMR Reaction Allergy Type Onset Date Status CIPRO (CIPROFLOXACIN HCL TABS) chemical hepatitis Drug Allergy 10/08/2013 Active PENICILLIN V POTASSIUM (PENICILLIN V POTASSIUM TAB Anaphylaxis Drug Allergy 10/08/2013 Active Rocephin Anaphylaxis Drug Allergy Activ e Terazol 3 rash Drug Allergy Active Medicinal cephalosporin and acting as antibacterial agent (FN) Cephalosporins Anaphylaxis Drug Allergy Active Results Component Value Reference Range Notes Pap w/reflex HPV Reviewed date:08/25/2024 08:58:52 AM Interpretation: Performing Lab:Alexi CUADRA [facility] - [place] CLIA ID [id number], [address], [address], [place] [address], Director - Layton Pickett MD Notes/Report: Any Nucleic Acid Amplification testing is performed on the Persist[employer] [place]. Diagnosis: Negative for intraepithelial lesion or malignancy. AP results Recommendation: Follow-up based on current clinical guidelines and/or clinical consideration. Negative for intraepithelial lesion or malignancy. [employer] LMP: 2022 Satisfactory for interpretation with endocervical/transformat ion zone component present. Liz Young Specimen Type: ThinPrep Pertinent Clinical History/History of Surgery: colposcopy biopsy ICD Codes: Z01.419 Collection Technique: Tyro-Spatula [employer] Florencia Kyle DIAGNOSIS: Specimen Adequacy: Rescreened by on 08/25/2024 Date of Last Pap: Not provided Negative Educational Note: The pap screening test aids in the detection of premalignant and malignant states of the cervix. False positive and negative results may occur. It is not a diagnostic test. If abnormal cells are reported, follow-up based on current clinical guidelines and/or clinical consideration is recommended. Other Gynecological Patient Information: Menopausal Results of Last Pap: negative,dysplasia Screening note: This specimen has been analyzed by the [employer] Imaging System, an interactive computer system which assists the lab in screening of ThinPrep Pap Test slides. Following imaging, the slide was reviewed by a [employer] and/or Pathologist. Specimen Source: Cervical/Endocervical FINAL DRAW FRAME TENDER CYTOLOGY REPORT CPT Codes: 62831 Reason For Referral Reason Right Breast Ultraso und Mass 11:30-12:00/[facility] Diagnosis 1 Mass of upper outer quadrant of right breast (N63.11) Referral Organization [facility] Referring Provider First Name Анна Referring Provider Last Name [facility] Referring Provider Speciality OB - Gynec ology General Notes Marlin Grande 08/20 03:08:37 PM >Phoned [facility], they ask we fax the order to [phone] and they will reach out to schedule the patient. Referral Priority Routine Reason [id number] BREAST ADD LES ION [facility] [address]2478 ECHO GUIDE FOR BIOPSY Right Breast Diagnosis 1 Mass of upper outer quadrant of right breast (N63.11) Referral Organization [facility] Referring Provider First Name Анна Referring Provider Last Name [facility] Referring Provider Speciality OB - Gynec ology Referred Provider Specialty Breast Speci alist General Notes Marlin Grande 10/20 03:01:55 PM >Received fax from [facility] requesting order be faxed to [phone] Referral Priority Routine Medications Medication SIG (Take, Route, Frequency, Duration) Notes Start Date End Date Status Zepbound Active Valium Active Cosentyx Active Pantoprazole Sodium 40 MG Tablet Delayed Release 1 tablet Orally Once a day Active Multi For Her Active Meclizine HCl 25 MG Tablet 1 tablet as n eeded Orally Once a day Active Eliquis 5 MG Tablet 1 tablet Orally Twic e a day Active Social History Tobacco Use: Social History Observation Description Date Details (start date - stop date) Former Smoker NA - NA Social History Drugs/Alcohol: Social Info Question Answer Notes Drugs Have you used drugs other than those for medical reasons in the past 12 months? No Alcohol Screen Did you have a drink containing alcohol in the past year? No Points 0 Interpretation Negative Tobacco Use: Social Info Question Answer Notes Tobacco Use/Smoking Are you a former smoker Problems Problem Type SNOMED Code ICD Code Onset Dates Problem Status W/U Status Risk Notes Problem Postmenopausal bleeding (24910457) Postmenopausal bleeding (N95.0) Active confirmed Problem Vaginal dryness (98151543) Vaginal dryness, menopausal (N95.1) Active confirmed Problem History of cervical dysplasia (057489546) History of cervical dysplasia (Z87.410) Active confirmed Problem History of pulmonary embolus (791265180) History of pulmonary embolism (Z86.711) Active confirmed Problem Antiphospholipid syndrome (27279565) Antiphospholipid antibody syndrome (D68.61) Active confirmed Problem Long-term current use of anticoagulant (687478374) Anticoagulation adequate with anticoagulant therapy (Z79.01) Active confirmed Problem Endometrium thickened (finding) (545414737) Endometrial thickening on ultrasound (R93.89) Active confirmed Problem Dysmenorrhea (374255644) Adolescent dysmenorrhea (N94.6) Active confirmed Vital Signs Blood pressure diastolic 78 mm Hg 08/18/2024 Height 64 in 08/18/2024 Blood pressure systolic 140 mm Hg 08/18/2024 Weight 142.6 lbs 08/18/2024 BMI 24.47 kg/m2 08/18/2024 Encounters Encounter Location Date Provider Diagnosis [facility] [address] [facility] [address] [place] [address] 10/01/2024 Анна Ubaldo Mass of breast, righ t N63.10 [facility] [address] [facility] [address] [place] [address] 08/18/2024 Анна Conner Cervical smear, as p art of routine gynecological examination Z01.419 ; Mass of upper outer quadrant of right breast N63.11 ; Breast tenderness N64.4 and Vaginal dryness, menopausal N95.1 Assessments Encounter Date Diagnosis (ICD Code) Assessment Notes Treatment Notes Treatment Clinical Notes Section Notes 08/18/2024 Cervical smear, as part of routine gynecological examination (ICD-10 - Z01.419) 08/18/2024 Mass of upper outer quadrant of right breast (ICD-10 - N63.11) 10/01/2024 Mass of breast, right (ICD-10 - N63.10) 08/18/2024 Breast tenderness (ICD-10 - N64.4) 08/18/2024 Vaginal dryness, menopausal (ICD-10 - N95.1) Vitamin E with coconut oil 1 mg/ 0.5 cc per vagina every other bedtime. Plan Of Treatment Pending Test Test Name Order Date *Biopsy Breast Stereotactic Guidance Rig 10/01/2024 Next Appt Details Provider Name:Анна Conner, 08/19/2025 01:45:00 PM, [address] [facility] [address], [place], [address], Insurance Providers Payer Name Payer Address Payer Phone Subscriber Number Group Number Insured Name Patient Relationship to Insured Coverage Start Date Coverage End Date Darshan ZUNIGAO [address] [place] [address] [id number] Vera Rodriges Spouse - patient is the spouse of the insured Medical (General) History Medical History History ICD Code Kidney stones Asthma Depression mild to moderate cervical dysplasia vertigo bilateral pulmonary emboli PUD antiphospholipid syndrome gall stones Surgical History Surgery Date(Month/Year) Kidney stones x 3 D&C hysteroscopy cholecystectomy Hospitalization History Reason Date(Month/Year) bilateral pulmonary emboli vaginal delivery
--- OUTSIDE RECORDS SUMMARY | 2024-12-30 12:05 | XMS_ITS | Encounter Summary ---
Author Organization [facility] [employer] Address [address] [place] [address] Care Team Providers Care Pastry Cook Apprentice Name Role Phone Sharon Bell RADIOLOGICAL ENGINEER Primary Care Provider + [phone] Mariaa Chauhan RADIOLOGICAL ENGINEER Primary Care Provider [phone] Sharon Bell RADIOLOGICAL ENGINEER Primary Care Provider + [phone] Encounter Details Date Type Department Care Team (Late st Contact Info) Description 02/21/2019 Transcribed Document [facility] [place] [address] [place] [address] ProviderCornelio MD [address] [place] [address] Social History Tobacco Use Types Packs/Day [...] Conversion Note - Historical ProviderMD - 02/21/2019 8:28 PM CDT Education-Smoking Cessation Entered On: 02/22/2019 0:21 EDT Performed On: 02/21/2019 20:28 EDT by ALBERTO ANDUJAR RN Teaching/Learning Assessment Barriers To Learning : None evident Readiness to Learn : Cooperative ALBERTO ANDUJAR RN - 02/22/2019 0:21 EDT Education: Smoking/Tobacco Cessation Topics Smoking Cess Educatin Grid Advice Given to Stop Smoking : Verbalizes understanding Risks/Benefits of Smoking : Verbalizes understanding Second Hand Smoke : Verbalizes understanding Ed-Smoking Cessation Programs : Verbalizes understanding Ed-Smoking Cessation, Other : Verbalizes understanding ALBERTO ANDUJAR RN - 02/22/2019 0:21 EDT Tobacco Cessation Counseling Grid Recognizing Danger Situations : Verbalizes understanding Negative Moods and/or Stress : Verbalizes understanding Being Around Other Tobacco Users : Verbalizes understanding Drinking Alcohol : Verbalizes understanding Experiencing Urges : Verbalizes understanding Tobacco Cues and Availability : Verbalizes understanding Developing Coping Skills : Verbalizes understanding Anticipate/Avoid Temptation/Triggers : Verbalizes understanding Strategies to Reduce Negative Moods : Verbalizes understanding Reduce Stress/Exposure to Tobacco Cues : Verbalizes understanding Activities to [place] With Smoking Urges : Verbalizes understanding Basic Information About Quitting : Verbalizes understanding Tobacco Use Increases Chance of Relapse : Verbalizes understanding Withdrawal Symptoms Peak After Quitting : Verbalizes understanding Addictive Nature of Tobacco : Verbalizes understanding ALBERTO ANDUJAR RN - 02/22/2019 0:21 EDT documented in this encounter Plan of Treatment Not on file documented as of this encounter Visit Diagnoses Not on filedocumented in this encounter Care Teams Pastry Cook Apprentice Relationship Specialty Start Date End Date Sharon Bell NP [address] [place] [address] PCP - General Family Medicine 08/27/23 12/05/23 Mariaa Chauhan NP [address] [address] PCP - General Family Medicine 12/06/23 01/10/24 Sharon Bell NP [address] [place] [address] PCP - General Family Medicine 01/11/24 10/13/24 documented as of this encounter
--- OUTSIDE RECORDS SUMMARY | 2024-12-30 12:05 | XMS_ITS | Encounter Summary ---
Author Organization [facility] [employer] Address [address] [place] [address] Care Team Providers Care Digitizer Name Role Phone Sharon Bell PACKAGE DELIVERY ROOM SERVICE RUNNER Primary Care Provider + [phone] Mariaa Chauhan PACKAGE DELIVERY ROOM SERVICE RUNNER Primary Care Provider [phone] Sharon Bell PACKAGE DELIVERY ROOM SERVICE RUNNER Primary Care Provider + [phone] Encounter Details Date Type Department Care Team (Late st Contact Info) Description 02/21/2019 Transcribed Document [facility] Family Medicine [address] [place] [address] ProviderCornelio MD [address] [place] [address] Social History Tobacco Use Types Packs/Day [...] Historical ProviderMD - 02/21/2019 8:50 PM CDT Pain Assessment Entered On: 02/22/2019 0:21 EDT Performed On: 02/21/2019 23:17 EDT by ALBERTO ANDUJAR RN Intervention Information: oxyCODONE Performed by ALBERTO ANDUJAR RN on 02/21/2019 22:17:00 EDT oxyCODONE,5mg Oral,Pain (Severe 7-10) Pain Assessment Pain Assessment : Follow-up assessment Pain Scale Goal : 3 ALBERTO ANDUJAR RN - 02/22/2019 0:21 EDT Electronically signed by [facility] Conversion Stock Roller Cerner at 10/25/2022 10:03 AM CDT documented in this encounter Plan of Treatment Not on file documented as of this encounter Visit Diagnoses Not on filedocumented in this encounter Care Teams Digitizer Relationship Specialty Start Date End Date Sharon Bell NP [address] [place] [address] PCP - General Family Medicine 08/27/23 12/05/23 [place] [address] [place] [address] PCP - General Family Medicine 12/06/23 01/10/24 Sharon Bell NP [address] [place] [address] PCP - General Family Medicine 01/11/24 10/13/24 documented as of this encounter
--- OUTSIDE RECORDS SUMMARY | 2024-12-30 12:05 | XMS_ITS | Encounter Summary ---
Author Organization [facility] [employer] Address [address] [place] [address] Care Team Providers Care Sole Leveler Name Role Phone Sharon Bell CUSTOMS AND IMMIGRATION OFFICER Primary Care Provider + [phone] Mariaa Chauhan CUSTOMS AND IMMIGRATION OFFICER Primary Care Provider [phone] Sharon Bell CUSTOMS AND IMMIGRATION OFFICER Primary Care Provider + [phone] Encounter Details Date Type Department Care Team (Late st Contact Info) Description 02/21/2019 Transcribed Document [facility] [place] [address] [place] [address] ProviderCornelio MD [address] [place] [address] Social History Tobacco Use Types Packs/Day [...] Cerner Conversion Note - Cornelio ProviderMD - 02/21/2019 9:02 PM CDT Education-(VTE) / (DVT) Entered On: 02/22/2019 0:21 EDT Performed On: 02/21/2019 21:02 EDT by ALBERTO ANDUJAR, RN Teaching/Learning Assessment Barriers To Learning : None evident ALBERTO ANDUJAR, RN - 02/22/2019 0:21 EDT Electronically signed by [place] [facility] Conversion Train Examiner Cerner at 10/25/2022 9:51 AM CDT documented in this encounter Plan of Treatment Not on file documented as of this encounter Visit Diagnoses Not on filedocumented in this encounter Care Teams Sole Leveler Relationship Specialty Start Date End Date Sharon Bell NP [address] [place] [address] PCP - General Family Medicine 08/27/23 12/05/23 Mariaa Chauhan NP [address] [place] [address] PCP - General Family Medicine 12/06/23 01/10/24 Sharon Bell NP [address] [place] [address] PCP - General Family Medicine 01/11/24 10/13/24 documented as of this encounter
--- OUTSIDE RECORDS SUMMARY | 2024-12-30 12:05 | XMS_ITS | Encounter Summary ---
Author Organization [employer] Address [address] [place] [address] Care Team Providers Care Biomass Facilitator Name Role Phone Sharon Bell TRACK AND FIELD COACH Primary Care Provider + [phone] Mariaa Chauhan TRACK AND FIELD COACH Primary Care Provider [phone] Sharon Bell TRACK AND FIELD COACH Primary Care Provider + [phone] Encounter Details Date Type Department Care Team (Late st Contact Info) Description 02/22/2019 Transcribed Document [facility] [place] [address] [place] [address] ProviderCornelio MD [address] [place] [address] Social History Tobacco Use Types Packs/Day [...] Historical ProviderMD - 02/22/2019 1:36 PM CDT [facility] Main OR PACU Summary Primary Physician: FILEMON PATTERSON JR, MD-URO Finalized Date/Time: 02/22/19 14:33:28 Pt. Name: ALICIA AVALOS /Sex: 1970 Female Med Rec #: [id number] Physician: FILEMON PATTERSON JR, MD-URO Financial #: [id number] Pt. Type: O Room/Bed: [facility]/ Admit/Disch: 02/21/19 19:54:00 - Institution: [facility] Main OR PACU I Case Times Entry 1 In PACU I 02/22/19 14:08:00 Ready for PACU 02/22/19 14:32:00 Discharge Discharge from PACU 02/22/19 14:32:00 I Last Modified By: RANJIT BOYLE RN 02/22/19 14:33:19 Finalized By: RANJIT BOYLE, RN Document Signatures Signed By: RANJIT BOYLE RN 02/22/19 14:33 Electronically signed by [place] [facility] Conversion Paste Mixer Liquid Cerner at 10/25/2022 10:14 AM CDT documented in this encounter Plan of Treatment Not on file documented as of this encounter Visit Diagnoses Not on filedocumented in this encounter Care Teams Biomass Facilitator Relationship Specialty Start Date End Date Sharon Bell NP [address] [place] [address] PCP - General Family Medicine 08/27/23 12/05/23 [place] [address] [place] [address] PCP - General Family Medicine 12/06/23 01/10/24 Sharon Bell NP [address] [place] [address] PCP - General Family Medicine 01/11/24 10/13/24 documented as of this encounter
--- OUTSIDE RECORDS SUMMARY | 2024-12-30 12:05 | XMS_ITS | Encounter Summary ---
Author Organization [facility] In iatives Address [address] [place] [id number] Care Team Providers Care Concrete Pipe Plant Supervisor Name Role Phone Sharon Bell PROJECT FINANCIAL ANALYST Primary Care Provider + [phone] Mariaa Chauhan PROJECT FINANCIAL ANALYST Primary Care Provider [phone] Sharon Bell PROJECT FINANCIAL ANALYST Primary Care Provider + [phone] Encounter Details Date Type Department Care Team (Late st Contact Info) Description 02/22/2019 Transcribed Document [facility] Family Medicine [address] [place] [address] ProviderCornelio MD [address] [place] [address] Social History Tobacco Use Types Packs/Day [...] Conversion Note - Historical ProviderMD - 02/22/2019 6:17 PM CDT [facility] [place] [address] ALICIA AVALOS :1970 Visit Time:02/21/2019 Your Visit Summary Your Care Team Admitting Physician - FILEMON PATTERSON JR, MD-URO Attending Physician - FILEMON PATTERSON JR, MD-URO Primary Care Physician - ADAM, NOT LISTED Referring Physician - ADAM, UNKNOWN Your Diagnosis Nephrolithiasis Calculus of ureter, Calculus of ureter Discharge Vitals Temperature 36.8 ??C Heart Rate (Monitored) 71 Respiratory Rate 16 Blood Pressure 101/62 What to do next Instructions From Your Care Team Discharge Follow Up Instructions: follow up with Dr. Patterson in 1 week with KUB Activity: Discharge Activity: Activity as tolerated Diet: Discharge Diet: Resume usual diet as tolerated Wound/Incision Care Instructions: remove stent by pulling strings on 02/26 [address] Restriction: No driving until 24 hours after taking pain medication Follow-Up Appointments Follow Up with FILEMON PATTERSON JR, MD-URO When In 1 week Comments Follow-up as instructed Where: [address] [place] [address]- Medications What How Much When Instructions Next Dose docusate (Colace 100 mg oral capsule) 1 Capsule(s) Oral Two Times A Day printed prescription acetaminophen-hydrocodone (acetaminophen-hydrocodone 325 mg-5 mg oral tablet) 1 Tablet(s) Oral Every 4 Hours as needed for for pain printed prescription acetaminophen/ aspirin/ caffeine (Excedrin) 1 Tablet(s) Oral Every Day diazepam (diazepam 2 mg oral tablet) 1 Tablet(s) Oral Every 8 Hours halobetasol topical (Ultravate 0.05% topical cream) meclizine (meclizine 25 mg oral tablet) 1 Tablet(s) Oral Three Times A Day multivitamin 1 Tablet(s) Oral Every Day sulfamethoxazole-trimethoprim (Bactrim) Oral please keep taking your bactrim tamsulosin (Flomax) Oral Every Day printed prescription Take your medications faithfully. Do NOT skip medication. Do NOT stop taking medications without the direction of a physician. Carry a list of your medications with you at all times, and take this medication list with you to your first follow up visit. Report any side effects. Avoid herbal remedies unless discussed with your physician. As part of your treatment plan, your physician may have prescribed a limited course of a controlled substance. This medication may be given to help people with moderate or severe pain or for other medical conditions, but there are risks involved with treatment. Common side effects may include nausea, constipation, drowsiness, sweating, itching, dry mouth, and rash. More serious side effects may include cognitive and motor impairment, like problems with thinking, concentrating, alertness, and movement (e.g. slowed reflexes), and driving and operating heavy machinery can be dangerous. It is important for you to talk to your physician if you have these side effects or questions. These controlled substances can produce physical dependence and be habit-forming if taken for an extended period of time, which means that the body has gotten used to them and may experience withdrawal symptoms if they are abruptly stopped. Withdrawal symptoms can include runny nose, sweating, goose bumps, diarrhea, abdominal cramping, rapid heartbeat, difficulty sleeping, and nervousness. Please dispose of unused and medications per your retail pharmacy guidance. Allergies Rocephin ciprofloxacin penicillin Immunizations This Visit No Immunizations Found Education Materials Dietary Guidelines to Help Prevent Kidney Stones [...] calcium at each meal. Foods that contain 200???500 mg of calcium per serving include: ? 8 oz (237 ml) of milk, fortified nondairy milk, and fortified fruit juice. ? 8 oz (237 ml) of kefir, yogurt, and soy yogurt. ? 4 oz (118 ml) of tofu. ? 1 oz of cheese. ? 1 cup (300 g) of dried figs. ? 1 cup (91 g) of cooked broccoli. ? 1???3 oz can of sardines or mackerel. ??? [...] Rhubarb. ? Beets. ? Potato chips and faroese fries. ? Nuts. ??? If you regularly take a diuretic medicine, make sure to eat at least 1???2 fruits or vegetables high in potassium each day. These include: ? Avocado. ? Banana. ? [place], prune, carrot, or tomato juice. ? Baked [...] of beer, 5 oz of wine, or 1?? oz of hard liquor. ??? Lose weight [...] Casseroles. Pizza. Lasagna. Frozen meals. Potato chips. Portuguese fries. Summary ??? You can reduce your [...] 10/20/2011 Document Revised: 06/05/2017 Document Reviewed: 06/05/2017 [employer] Patient Education ?? 2019 [employer]. Ureteral Stent Implantation, Care After Refer to [...] these instructions at home: Medicines ??? Take awhl-acf-ogjkyma and prescription medicines only as told by [...] 02/25/2014 Document Revised: 11/30/2016 Document Reviewed: 01/07/2016 [employer] Interactive Patient Education ?? 2019 [employer] Emergency Awareness and Preventative Care STROKE is an EMERGENCY Every Minute Counts Act FAST and Check for these signs: FACE Does the face look uneven? ARM Does one arm drift down? SPEECH Does their speech sound strange? TIME Call at any sign of stroke Stroke Risk Factors Atrial Fibrillation (irregular heartbeat) Diabetes Family history of stroke Heart Disease Heavy alcohol use High Blood Pressure High Cholesterol Physical inactivity and obesity Smoking Cigarette Smoking The facts are clear, cigarette smoking will shorten your life. Smoking can cause many illnesses along the way. As a healthcare provider, we recommend that you stop smoking. Assistance with quitting is available by contacting 2-450-ITPBNOW. This is a free resource providing counseling, support, and referral. Or you may contact your personal physician. National Suicide Prevention Lifeline: The National Suicide Prevention Lifeline is a national network of local crisis centers that provides free and confidential emotional support to people in suicidal crisis or emotional distress 24 hours a day, 7 days a week. Don't Wait! Stop a Heart Attack Before it Starts What is a heart attack? A heart attack is damage or to a part of the heart from severely decreased or lack of blood flow to the heart. Over time, arteries can become narrow from the buildup of fat and cholesterol, which is called plaque. The plaque can rupture causing a blood clot to form. When the blood clot forms, the artery can become severely narrowed or completely blocked, causing a heart attack. Heart attack is the leading cause of in the [place]. 85% of muscle damage occurs within the first 2 hours. Delay in the recognition of heart attack symptoms increases the chances of . Know the early symptoms of a heart attack: Nausea Feeling of fullness in chest Jaw Pain Pain that travels down one or both arms Fatigue/being tired Anxiety Back Pain Chest pressure, squeezing, or discomfort Shortness of breath Sweating, or a cold sweat Feeling of impending doom There are unusual signs of a heart attack, too! Women, the elderly, and diabetics may present with atypical symptoms: Fainting/dizziness Weakness Confusion Risk Factors for a Heart Attack Some heart disease risk factors, such as age and family history, cannot be changed. Others, like smoking and lack of exercise, can be changed. Smoking High Cholesterol High Blood Pressure Family History Obesity Age Gender (Males are at higher risk) Lack of Exercise Diabetes Diet Stress Excessive Alcohol Intake If you or someone you know is experiencing the signs and symptoms of a heart attack, DON???T DELAY. Call immediately and seek help. If someone collapses, perform CPR! Do not attempt to drive if you are having symptoms of heart attack. Hands-Only CPR Why Hands-Only CPR? Hands-Only CPR has been shown to be as effective as conventional CPR for cardiac arrests that occur outside of a hospital. Survival depends on immediately receiving CPR from someone nearby. How do you perform Hands-Only CPR? There are two easy steps: Call if you see a teen or adult collapse Push hard and fast in the center of the chest at a beat of 100 beats per minute. Save a life! 4 WAYS TO GET AHEAD OF SEPSIS SEPSIS is a MEDICAL EMERGENCY. Time matters! Infections put you and your family at risk for a life-threatening condition called sepsis. Sepsis is the body's extreme response to an infection. It is life-threatening, and without timely treatment, sepsis can rapidly lead to tissue damage, organ failure, and . Sepsis happens when an infection you already have-in your skin, lungs, urinary tract or somewhere else-triggers a chain reaction throughout your body. 1 PREVENT INFECTIONS Take good care of chronic conditions. Talk to your doctor about getting the recommended vaccines. 2 PRACTICE GOOD HYGIENE Wash your hands frequently. Keep cuts or open sores clean and covered until they are healed. 3 KNOW THE SYMPTOMS Confusion or disorientation Shortness of breath High heart rate Fever, shivering, or feeling very cold Extreme pain or discomfort Clammy or sweaty skin 4 ACT FAST Get medical care IMMEDIATELY if you suspect sepsis or if you have an infection that is not getting better or is getting worse. To learn more about sepsis and how to prevent infections, visit www.cdc.gov/sepsis. Test Results Laboratory or Other Results This Visit (last charted value for your 02/21/2019 visit) Hematology 02/21/19 21:21:00 WBC: 15.9 K/uL -- Normal range between ( 4.5 and 10.5 ) RBC: 4.75 Million/uL -- Normal range between ( 3.93 and 5.22 ) Hct: 39.4 % -- Normal range between ( 34.1 and 44.9 ) Hgb: 13.0 g/dL -- Normal range between ( 11.2 and 15.7 ) Platelet Count: 350 K/uL -- Normal range between ( 163 and 369 ) MCH: 27.4 pg -- Normal range between ( 25.6 and 32.2 ) MCHC: 33.0 Gram/dL -- Normal range between ( 32.2 and 36.5 ) MCV: 82.9 fL -- Normal range between ( 79.0 and 94.8 ) Slide Review: No Eos %: 1.3 % -- Normal range between ( 0.0 and 7.0 ) Gilliam #: 0.70 K/uL -- Normal range between ( 0.16 and 1.00 ) Eos #: 0.20 x10(3)/uL -- Normal range between ( 0.00 and 0.80 ) Gilliam %: 4.4 % -- Normal range between ( 3.0 and 9.0 ) Baso %: 0.4 % -- Normal range between ( 0.0 and 1.5 ) Baso #: 0.06 x10(3)/uL -- Normal range between ( 0.00 and 0.20 ) RDW: 15.0 % -- Normal range between ( 11.7 and 14.9 ) Neut %: 80.6 % -- Normal range between ( 34.0 and 71.0 ) Neut #: 12.81 K/uL -- Normal range between ( 1.56 and 6.13 ) Lymph %: 12.7 % -- Normal range between ( 19.3 and 53.1 ) Lymph #: 2.01 x10(3)/uL -- Normal range between ( 1.00 and 3.90 ) MPV: 9.7 fL -- Normal range between ( 9.4 and 12.4 ) IG#: 0.10 x10(3)/uL -- Normal range between ( 0.00 and 0.05 ) IG%: 0.60 % -- Normal range between ( 0.00 and 0.60 ) Urinalysis 02/21/19 21:04:00 Ur RBC: 20-50 /HPF Urine Nitrite: Negative Urine Leukocyte Esterase: Small Urine Appearance: Cloudy Urine Glucose Dipstick: 250 Urine Blood Dipstick: Large Urine Urobilinogen Dipstick: 0.2 EU/dL Urine Protein Dipstick: Negative Ur Amorph: Trace Ur Bacteria: 1+ Ur Squamous Epithelial Cells: 2-5 /HPF Urine Color: Yellow Ur Transitional Epi Cells: 0-2 Ur WBC: 10-20 /HPF Urine Ketones Dipstick: Negative Ur Mucous: 2+ Urine pH Dipstick: 6.0 -- Normal range between ( 6.0 and 8.0 ) Ur Hyaline Casts: 0-2 /LPF Urine Bilirubin Dipstick: Negative Urine Specific [place]: 1.015 -- Normal range between ( 1.005 and 1.030 ) Urine Type.: [facility] 02/21/19 21:21:00 Creatinine Level: 1.00 mg/dL -- Normal range between ( 0.55 and 1.02 ) Sodium Level: 138 mmol/L -- Normal range between ( 136 and 146 ) Potassium Level: 4.1 mmol/L -- Normal range between ( 3.5 and 5.1 ) Chloride Level: 108 mmol/L -- Normal range between ( 102 and 112 ) Carbon Dioxide Level: 25 mmol/L -- Normal range between ( 21 and 32 ) Anion Gap: 9 -- Normal range between ( 9 and 20 ) Bun/Creatinine: 13.0 -- Normal range between ( 8.0 and 20.0 ) Calcium Level: 9.5 mg/dL -- Normal range between ( 8.4 and 10.1 ) eGFR : >60 mL/min/1.73m2 eGFR NonAfrican: 59 mL/min/1.73m2 Glucose Level: 118 mg/dL -- Normal range between ( 74 and 106 ) Blood Urea Nitrogen: 13 mg/dL -- Normal range between ( 7 and 22 ) Patient Name:ALICIA AVALOS I have received and understand this information and was given the opportunity to ask questions. Patient/Sourcing Manager Name: Patient/Sourcing Manager Signature: Relationship to Patient: Clinician/Hospital Sourcing Manager Signature: Date: documented in this encounter Plan of Treatment Not on file documented as of this encounter Visit Diagnoses Not on filedocumented in this encounter Care Teams Concrete Pipe Plant Supervisor Relationship Specialty Start Date End Date Sharon Bell, MARIANA [address] [place] [address] PCP - General Family Medicine 08/27/23 12/05/23 Mariaa Chauhan, MARIANA [address] [address] PCP - General Family Medicine 12/06/23 01/10/24 Sharon Bell, MARIANA [address] [place] [address] PCP - General Family Medicine 01/11/24 10/13/24 documented as of this encounter
--- OUTSIDE RECORDS SUMMARY | 2024-12-30 12:05 | XMS_ITS | Encounter Summary ---
Author Organization [facility] In [facility]atives Address [address] [place] [address] Care Team Providers Care Category Specialist Name Role Phone Sharon Bell PRESCRIPTION CLERK LENSES Primary Care Provider + [phone] Mariaa Chauhan PRESCRIPTION CLERK LENSES Primary Care Provider [phone] Sharon Bell PRESCRIPTION CLERK LENSES Primary Care Provider + [phone] Encounter Details Date Type Department Care Team (Late st Contact Info) Description 02/22/2019 Transcribed Document [facility] [address] [place] [address] ProviderCornelio MD [address] [place] [address] Social History Tobacco Use Types Packs/Day [...] Conversion Note - Historical ProviderMD - 02/22/2019 2:41 PM CDT DATE OF PROCEDURE:02/22/2019 PREOPERATIVE DIAGNOSIS(ES): Obstructing right ureteral calculus. POSTOPERATIVE DIAGNOSIS(ES): Obstructing right ureteral calculus. PROCEDURE: 1. Cystoscopy. 2. Right ureteroscopy, laser lithotripsy and basket stone extraction. 3. Right ureteral stent placement. SURGEON: Attending physician: Reza Royal Jr., MD Resident: Tamara Valdez MD (R) ANESTHESIA: General. SPECIMEN: Stone fragments sent for analysis. DRAINS: 4.8-Rwandan x 24 cm double-J ureteral stent with string. INDICATIONS: Ms. Avalos is a 48-year-old female with a history of recurrent nephrolithiasis, who was transferred from an outside hospital due to intractable right flank pain and a 5 mm obstructing distal ureteral stone. After discussing the risks and benefits, the patient agreed to proceed to the operating room for treatment of the stone. FINDINGS: 1. Normal-appearing bladder without any mucosal abnormalities. Bilateral ureteral orifices in orthotopic position. 2. A 5 mm ureteral calculus identified just proximal to the intramural tunnel. This was fragmented with the laser and removed in its entirety, accommodating ureter throughout the flank. 3. Successful deployment of the right ureteral stent. DESCRIPTION OF PROCEDURE: After being correctly identified in the preoperative holding area, the patient was taken back to the operating room, placed on table in supine position. Bilateral SCDs were placed and general anesthesia was induced. The patient was placed in lithotomy position and prepped and draped in a normal sterile fashion. A time-out was performed confirming correct patient, procedure and administration of preoperative gentamicin. A well-lubricated 22-Rwandan rigid cystoscope was inserted per urethra. Cystoscopy was performed with the above-noted normal findings. A Sensor wire was advanced through the right ureteral orifice. This required the aid of a 5-Rwandan open-ended Pollack in order to advance the wire past the obstructing stone. There was no purulent drainage seen once the wire was past the stone. The bladder was drained and the scope was removed. A semirigid ureteroscope was then advanced alongside the stent. The stone was immediately identified just proximal to the intramural tunnel. A 200 micron laser fiber was used to fragment the stone and a 1.9-Rwandan nitinol basket was used to remove all the fragments. The semirigid ureteroscope was advanced up to the UPJ finding no additional fragments nor mucosal injury. The scope was removed. A 4.8-Rwandan x 24 cm double-J ureteral stent was then deployed in the standard fashion with correct proximal and distal curls confirmed fluoroscopically. The bladder was then drained. The stent strings were secured to the thigh with a Tegaderm. The patient was then returned to supine position, extubated, and awakened. She was taken to PACU in stable condition. She tolerated the procedure well without any immediate complications. Dr. Royal was present for the entire procedure. DISPOSITION: The patient will recover in the PACU after which she will be discharged home. She will remove her stent at home on Sunday, 02/26. She will then follow up in one week with a KUB to plan a procedure to treat her left nonobstructing renal calculus. Dictated By: Tamara Valdez M.D. (R) For Reza Royal Jr., M.D. Thomas Slabaugh, Jr., M.D. Dict: 02/22/2019 14:41:31 Trans: 02/22/2019 16:00:51 CC1: Reza Royal Jr., M.D. documented in this encounter Plan of Treatment Not on file documented as of this encounter Visit Diagnoses Not on filedocumented in this encounter Care Teams Category Specialist Relationship Specialty Start Date End Date Sharon Bell NP [address] [place] [address] PCP - General Family Medicine 08/27/23 12/05/23 Mariaa Chauhan, MARIANA [address] [address] PCP - General Family Medicine 12/06/23 01/10/24 Sharon Bell NP [address] [place] [address] PCP - General Family Medicine 01/11/24 10/13/24 documented as of this encounter
--- OUTSIDE RECORDS SUMMARY | 2024-12-30 12:06 | XMS_ITS | Referral Summary ---
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 Active diazePAM (VALIUM) 2 MG tablet Take 1 tablet (2 mg total) by mouth every 6 (six) hours as needed. 06/19/20 23 Active EPINEPHrine (EpiPen 2-Rio) 0.3 mg/0.3 mL AtIn Inject 0.3 mLs (0.3 mg total) intramuscularly. 01/11/20 23 Active fluticasone propionate (FLONASE) 50 mcg/actuation nasal spray 2 sprays by intraNASAL route. 11/29/19 23 Active halobetasol (ULTRAVATE) 0.05 % cream halobetasol propionate 0.05 % topical cream APPLY TO AFFECTED AREA ON EXTREMITIES BID X 2 WEEKS PRN FLARES Active montelukast (SINGULAIR) 10 mg tablet Take 1 tablet (10 mg total) by mouth nightly. 08/22/19 Active pantoprazole (PROTONIX) 40 MG tablet Take 1 tablet (40 mg total) by mouth daily. 07/06/20 Active tamsulosin (FLOMAX) 0.4 mg Cap 24 hr capsule Take 1 capsule (0.4 mg total) by mouth daily. Active oxyCODONE-aceta minophen (PERCOCET) 10-325 mg per tablet Take 1 tablet by mouth every 4 (four) hours as needed for pain Look-alike/Sound -alike medication. Active cholecalciferol , vitamin D3, 25 mcg (1,000 unit) capsuleIndicati ons:Vitamin D deficiency Take 1 capsule (1,000 Units total) by mouth daily. 90 capsule 3 01/09/20 Active Eliquis 5 MG tablet Take 1 tablet (5 mg total) by mouth 2 (two) times daily. 02/22/20 Active secukinumab (Cosentyx) 150 mg/mL Syrg Inject 150 mg as directed every 30 (thirty) days. 12/31/19 Active tirzepatide, weight loss, (Zepbound) 7.5 mg/0.5 mL pnijIndications :Class 1 obesity with body mass index (BMI) of 31.0 to 31.9 in adult, unspecified obesity type, unspecified whether serious comorbidity present Inject 0.5 mLs (7.5 mg total) subcutaneously every 7 days. 2 mL 2 03/05/20 Active HYDROcodone-khadra taminophen (NORCO 5-325) 5-325 mg per tablet Take 1 tablet by mouth every 6 (six) hours as needed for pain. Max Daily Amount: 4 tablets 9 tablet 04/05/20 Active Active Problems Problem Noted Date Diagnosed Date Former smoker 09/02/2023 09/02/2023 Allergic rhinitis 09/02/2023 09/02/2023 Anxiety disorder 09/02/2023 09/02/2023 Depression 09/02/2023 09/02/2023 Endometriosis 09/02/2023 09/02/2023 Chronic migraine without aur a without status migrainosus, not intractable 04/30/2023 09/02/2023 Overview (09/02/2023): Last Assessment & Plan: Patient has history of ocular migraine, though they have been well controlled for the last year or so. She notes approximately 3 weeks ago she began to have headache daily. She notes the headache to be a pressure type sensation beginning midface and working its way back across the entirety of her hand. There is no associated vomiting, she does endorse nausea at times. No vision changes or issues with balance. She notes it does respond somewhat to use of Excedrin, though never fully resolved. -We will begin prophylactic migraine medication in the form of 25 mg twice daily Topamax -Giving Imitrex for breakthrough headache 50 mg, can be repeated in 2 hours if first dose ineffective. -Asked to keep migraine diary stating onset, duration, symptoms and interventions review on next visit Chronic migraine without aur a without status migrainosus, not intractable 04/30/2023 12/07/2023 Overview (12/07/2023): Last Assessment & Plan: No recurrence, never started topamax RENA (obstructive sleep apnea) 01/05/2023 RENA (obstructive sleep apnea) 01/05/2023 Overview (12/07/2023): Last Assessment & Plan: Intolerant to pap therapy Antiphospholipid syndrome 10/06/20222023 Overview (09/02/2023): Last Assessment & Plan: Elevated by rheumatology. He is to utilize Eliquis 5 mg twice daily for anticoagulation. Vertigo 09/26/2022 09/02/2023 Overview (09/02/2023): Last Assessment & Plan: Chronic dizziness of long duration. She has been evaluated by neurology, ENT. Mom suffers from the same of flexion. He has been on low-dose diazepam 2 mg twice a day for years with good benefit. He has meclizine when needed. Clark reviewed, she has never abused this medication. We will continue as ordered Psoriatic arthritis 07/11/2022 12/07/2023 Overview (12/07/2023): Last Assessment & Plan: Patient with longstanding pattern of psoriatic arthritis, followed by rheumatology. She is unable to get with her supervisor cab currently as she recently relocated to [facility]. She generally is well-maintained on Tremfya injections but is recently over the last 1 to 2 weeks had significant flare with joint swelling, redness, myalgias and pain. Generally during times of flare she responds well to 7-day course of 40 mg daily prednisone. [facility] History of pulmonary embolism 05/26/2022 Overview (01/16/2024): Last Assessment & Plan: History of PE. Recent diagnosis of antiphospholipid syndrome. Currently on eliquis 5mg BID . Followed by rheumatology Dr. Loo and hematology Psoriasis 04/24/2022 09/02/2023 Overview (09/02/2023): Last Assessment & Plan: Patient's psoriatic lesions appear less responsive to Tremfya, she has appointment with dermatology in the coming weeks to address this issue Psoriasis 04/24/2022 12/07/2023 Overview (12/07/2023): Last Assessment & Plan: Patient's psoriatic lesions appear less responsive to Tremfya, she has appointment with dermatology in the coming weeks to address this issue On prednisone now, tapering now. changing to cosentyx after surgery. Asthma 03/22/2022 09/02/2023 Peptic ulcer 03/22/2022 09/02/2023 Hypertriglyceridemia 03/22/2022 09/02/2023 Fibromyalgia muscle pain 02/20/2022 024 Esophageal dysphagia 01/18/2022 09/02/2023 Psoriatic arthritis 12/21/2021 09/02/2023 Overview (09/02/2023): Last Assessment & Plan: Patient has diagnosis of psoriatic arthritis, noting for the last 3 weeks her joint and muscle pains have increased exponentially. She reports she contacted her supervisor cab to tell her to be evaluated by her PCP first due to onset of chronic headache. Patient with some wrist and hand swelling on physical exam today. She rates her pain 8 out of 10 on the pain scale, preventing her from getting a good night sleep. She has utilized ibuprofen without any benefit. -We will give steroid, 40 mg once daily for 7 days. We will evaluate efficacy of prednisone and helping joint pains. Hopefully now that her headaches have been addressed she will be able to be evaluated by rheumatology -We also discussed need for weight loss in order to improve her joint pains, she is considering participating in weight loss management at the [facility] in [place]. Antiphospholipid syndrome 11/20/20212023 Overview (12/07/2023): Last Assessment & Plan: Patient followed by rheumatology. She has been followed by Dr. Loo who was with [facility] [place], Dr. Loo recently relocated to [facility]. Patient has plans to establish care with Dr. Loo at [facility] but is unable to get an appointment for several months. She continues to utilize Eliquis 5 mg twice daily for anticoagulation after suffering PE a couple of years ago Allergy status to other antibiotic agents 201809/02/2023 Chronic obstructive pulmonary disease 12/20/2018 09/02/2023 Overview (09/02/2023): Last Assessment & Plan: Care with [facility] May 2022. Patient with extended history of smoking, initiating cessation June 2021. PFTs obtained by pulmonary showed normal spirometry but mild reduction in DLCO which is thought to be due to PE and emphysema, CT suggested upper lobe emphysema. Evidence of suspicious lung nodule or masses. Pulmonary plans on repeat annual PFTs. Previously she has not had symptoms of COPD, however recent symptoms including increased episodes of SOB with walking long distances and up stairs have surface. Is not currently on any prophylactic therapy or have an albuterol rescue inhaler in her position -Will initiate Anoro daily -Given prescription for albuterol inhaler as needed for wheezing and shortness of breath, can be utilized every 4 hours Resolved Problems Problem Noted Date Diagnosed Date Resolved Date Gallstone 10/24/2023 12/07/2023 At risk for sleep apnea 09/02/2023 09/02/202311/08 Nephrolithiasis 09/02/2023 09/02/2023 12/07/2023 Stricture of esophagus 09/02/2023 09/02/202312/06 Gastro-esophageal reflux dis ease with esophagitis 05/24/2023 09/02/2023 12/07/2023 Steatosis of liver 05/24/2023 09/02/2023 Other hyperlipidemia 01/05/2023 09/02/2023 024 Overview (09/02/2023): Last Assessment & Plan: On last check patient's lipids were significantly elevated. She was initiated on statin therapy but was intolerant due to GI upset and sulfer burps. She has been taking Krill oil in hopes of improving lipids. We are going to recheck lipids today. If remains elevated will attempt approval of Zetia or livalo Medullary sponge kidney 09/26/2022 09/02/202311/08 Overview (09/02/2023): Last Assessment & Plan: Renal function has remained stable History of smoking 05/26/2022 09/02/2023 4 Overview (09/02/2023): Last Assessment & Plan: Previous 1 pack/day smoker for 30 years. Cessation acheived in June 2021 Blood coagulation disorder 03/22/2022 09/02/2023 0 12/07/2023 Idiopathic peripheral neuropathy 12/28/2021 09/02/19 24 12/07/2023 Pulmonary embolism 12/21/2021 09/02/2023 Overview (09/02/2023): Last Assessment & Plan: History of PE. Recent diagnosis of antiphospholipid syndrome. Currently on eliquis 5mg BID . Followed by rheumatology Dr. Loo and hematology, hematology. MRSA infection 12/24/2018 09/02/2023 12/06/2023 Personal history of anaphylaxis 12/20/2018 12/07/2023 Renal colic 01/19/2016 09/02/2023 12/07/2023 Ureteric stone 01/19/2016 09/02/2023 12/07/2023 Social History Tobacco Use Types Packs/Day Years Used Date Smoking Tobacco: Former Cigarettes Passive Smoke Exposure: Past Smokeless Tobacco: Never Alcohol Use Standard Drinks/Week Comments Never 0 (1 standard drink = 0.6 oz pur e alcohol) Interpersonal Safety Answer Date Record ed Family or friends hurt you Not on file 08/27 Family or friends insult you Not on file Family or friends threaten you Not on file 0 08/27/2023 Family or friends scream or curse at you Not on file 08/27/2023 Housing Stability Answer Date Recorded Living situation today Not on file Living situation problems Not on file 2023 Food Insecurity Answer Date Recorded Food run out past 12 months Not on file 08/09 Food did not last past 12 months Not on file 08/27/2023 Employment Answer Date Recorded Help finding and keeping a job Not on file 0 08/27/2023 Family and Community Support Answer Rasta e Recorded Help with Day to Day Activities Not on file 08/27/2023 Feeling Lonely or Isolated Not on file 08/27 Educational Attainment Answer Date Feliz rded Speak language other than Angolan at home Not on file 08/27/2023 Want help with school or training Not on file 08/27/2023 Depression Answer Date Recorded PHQ-2 Risk Not on file 08/27/2023 Disabilities Answer Date Recorded Difficulty concentrating Not on file 024 Difficulty doing errands alone Not on file 0 08/27/2023 Substance Use Answer Date Recorded Used prescription meds for non-medical reasons N ot on file 08/27/2023 Used illegal drugs past 12 months Not on file 08/27/2023 Comments No Sex and Gender Information Value Date Recorded Sex Assigned at Female 01/03/2022 4:06 PM CDT Legal Sex Female 4:06 PM CDT Gender Identity Female 01/03/2022 4:06 PM CDT Sexual Orientation Straight 04/05/2024 1: 03 PM CDT Last Filed Vital Signs Vital Sign Reading Time Taken Comments Blood Pressure 145/72 04/05/2024 1:42 AM EDT Pulse 73 04/05/2024 1:42 AM EDT Temperature 36.4 C (97.6 F) 04/04/2024 11:31 PM EDT Respiratory Rate 16 04/05/2024 1:42 AM EDT Oxygen Saturation 98% 04/05/2024 1:42 AM EDT Inhaled Oxygen Concentration - - Weight 74.8 kg (165 lb) 04/04/2024 11:31 PM EDT Height 157.5 cm (5' 2 ) 04/04/2024 11:31 PM EDT Body Mass Index 30.18 04/04/2024 11:31 PM EDT Plan of Treatment Not on file Procedures Procedure Name Priority Date/Time Associated Diagnosis Comments LIPID PANEL Routine 03/25/2024 10:40 AM EDT Medication management Class 1 obesity with body mass index (BMI) of 31.0 to 31.9 in adult, unspecified obesity type, unspecified whether serious comorbidity present Vitamin D deficiency Hypertriglyceridemia History of iron deficiency from Last 3 Months or Most Recently Relevant to Health Maintenance Results * (ABNORMAL) Lipid panel (03/25/2024 10:40 AM EDT) Cholesterol, Total 251(H) 100 - 199 mg/dL [facility] Triglycerides 378(H) 0 - 149 mg/dL [facility] HDL Cholesterol 29(L) >39 mg/dL [facility] VLDL Cholesterol Cisco 71(H) 5 - 40 mg/dL [facility] LDL Calculated 151(H) 0 - 99 mg/dL [facility] Blood 03/25/2024 10:4 0 AM EDT 03/25/2024 Narrative [facility] - 03/27/2024 8:07 PM EDT Performed at: 01 - [facility] [address] [id number] Yard Cleaner: Fortino Fisher PhD, Phone: [phone] us [facility] BLOOD ORDERABLES Final R esult [facility] from Last 3 Months or Most Recently Relevant to Health Maintenance Insurance BLUE CROSS/BLUE SHIELD Advance Directives For more information, please contact: [phone] * Full Code (Latest Code Status on File) Date Activated Date Inactivated Comments 12/07/2023 9:32 AM 12/07/2023 6:19 PM
--- OUTSIDE RECORDS SUMMARY | 2024-12-30 12:06 | XMS_ITS | Continuity of Care Document ---
Author Organization [facility] Address [address] [facility] [place] [address] Care Team Providers Care Foundry Engineer Name Role Phone HONG MAYS Primary Care Provider Assessment No assessment [...] fibrosis panel, serum or plasma 2024 025 [facility] (Lab Registration) , [address] [place] [address] [place], [address], 12/10/2024 12:53:47 hepatic function panel, serum 2024 025 [facility] , [address] [place] [address] [place], [address], 12/03/2024 11:37:46 Referral None recorded. Procedures None recorded. Surgeries None recorded. Imaging US, liver 2024 025 [facility] Centralized Scheduling, [address], [address], 12/17/2024 08:08:40 Medication Orders pantopraz ole 40 mg tablet,de layed release 2024 025 [facility], [address] [facility], [place], [address], 12/03/2024 10:10:36 Patient TargetsNo targets recorded. Patient InstructionsNo instructions recorded. Reason for Referral None Reported. Problems Name Problem SNOMED Code Status Onset Date Resolution Date Notes Provider Name and Address Organization Details Recorded Time Chronic obstructiv e pulmonary disease 99810588 Active 2021 Tu Moore null, [place] [facility] [place] & [place] 2 10:26:31 Asthma 437340907 Active 2021 Tu Moore null, [place] [facility] [place] 2 10:26:40 Peptic ulcer 71400179 Completed 202103/22/2022 Tu Moore null, [place] [facility] [place] [facility] [place] 2 10:26:49 Gastroesop hageal reflux disease 270436738 Active 2021 Tu Moore null, [place] [facility] [place] 2 10:26:58 Anemia 951549111 Completed 202103/22/2022 Tu Moore null, [place] [facility] [place] 2 10:27:04 Hypertrigl yceridemia 840882968 Active 2021 Tu Moore null, [place] [facility] 2 10:27:19 Blood coagulatio n disorder 81286722 Active 2021 Tu Moore null[place] [facility] 2 10:27:28 Gastro-eso phageal reflux disease with esophagiti s 128218543 Active 2022 Olena Howard NP [address] [place] [address], [address], [address] , [place] [facility] [place] & [place] 3 11:01:27 Nausea 881858331 Active 2022 Olena Howard NP [address], [address], [address] , [place] [facility] [place] 3 11:01:27 Esophageal dysphagia 38719310 Active 2022 Olena Howard NP [address], [address], [place], [address] , [place] [facility] & [place] 5 10:38:37 Steatotic liver disease 874824072 Active 2022 Olena Howard NP [address], [address], [place], [address] , [place] [facility] & [place] 3 11:04:38 Abnormal liver function 29515993 Active 2023 Olena Howard NP [address], [address], [place], [address] , [place] [facility] & [place] 4 16:16:22 Ureteric stone 60060795 Active 2015 Not Available [facility] 2 13:37:05 Paresthesi a 02305402 Active 2021 Not Available [facility] 2 13:37:05 Abnormal gait 88210954 Active 2021 Not Available [facility] 2 13:37:05 Psoriatic arthritis 406313999 Active 2021 Not Available [facility] 2 13:37:05 Cellulitis of lip 29250088 Active 2018 Not Available [facility] 2 13:37:05 Abscess of lip 74923104 Active 2018 Not Available [facility] 2 13:37:05 Pulmonary embolism 89686581 Active 2021 Erlinda perez, [place] - [facility] [place] & [place] 2 09:02:25 Dysuria 49475485 Active 2015 Not Available [facility] 2 13:37:05 Dysphagia 64300988 Active 2021 Not Available [facility] 2 13:37:05 Idiopathic peripheral neuropathy 09851647 Active 2021 Not Available [facility] 2 13:37:05 Renal colic 8048727 Active 2015 [facility] Available [facility] 2 13:37:06 Notes:shortness of breath so metimes. Problem Notes None recorded. Procedures Surgical History Date Name Laterality Status Provider Name and Address Organization Details Recorded Time 3 EGD/Endoscopy completed Marleni LORA - [facility] & [place] 06/06/2023 12:00:52 3 Other completed Darcy Hairston [place] - [facility] & [place] 12/03/2024 09:43:08 endoscopic ablation of endometrium completed Rachele LORA - [facility] & [place] 11/15/2022 09:13:41 Tonsillectomy/A denoidectomy completed Hong Dickinson GUIDO - [facility] & [place] 05/16/2023 08:39:39 Remove tonsils and adenoids completed Tu LORA - [facility] & [place] 03/22/2022 10:28:47 lithotripsy completed Tu Moore GUIDO - L PNT [facility] & [place] 03/22/2022 10:28:54 Imaging Results None recorded. Procedure Notes None recorded. Medical Equipment None Reported. Allergies Allergen ID Allergen Name Allergen Category Reaction Reaction Severity Criticality Documentation Date Start Date Code Code System Note Provider Name and Address Organization Details Recorded Time 03888 Medicinal product containin g cephalosp wilma and acting as antibacte rial agent (product) medicatio n Not available Not available Not available 03/22/2022 70001 9009 SNOMED Tu perez, [place] - [facility] & [place] 2 10:23:08 4276 ciproflox acin medicatio n Not available Not available Not available 03/16/2022 2551 RxNorm React ion: Unkno wn, sever ity: Unkno wn Rachele Valencia null, [place] - [facility] & [place] 3 09:02:01 4278 Rocephin medicatio n Not available Not available Not available 03/16/2022 9449 RxNorm React ion: Unkno wn, sever ity: Unkno wn [facility] [place] 3 09:03:00 4279 Penicilli n Not available Not available Not available Not available 03/16/2022 10259 RxNorm React ion: Unkno wn, sever ity: Unkno wn Rachele perez [facility] & [place] 3 09:01:59 74123 Tremfya medicatio n Not available Not available Not available 07/19/2022 91181 93 RxNorm Rachele perez [facility] & [place] 3 09:02:35 67304 Product containin g penicilli n (product) medicatio n Not available Not available Not available 07/19/2022 74879 8001 SNOMED [facility] [place] 3 09:02:48 18342 Cipro medicatio n Not available Not available Not available 11/15/202226755 3 RxNorm Rachele perez [facility] & [place] 3 09:11:29 Medications Name Sig Start Date [...] TAKE 1 TABLET BY MOUTH TWICE DAILY 07/19 completed Not Available Not Available Not Available [...] Available Not Available No t Available vitamin E67-cqzbd acid injection solution active Not Available Not [...] and Address Organization Details Last Updated DateTime 157.48 cm 23.2 kg/m2 17083.5 1 g 97.7 [degF] 99 % 99 % 95 /min Darcy Laurel [facility] & [place] 09:42:55 Social History Question Answer Notes LastModified by Organizat ion Details LastModified Time Tobacco Smoking Status Former Smoker Tu Moore chris, [facility] & [place] 03/22/2022 10:28:33 Are You Blind Or Do You Have Difficulty Seeing? No [email or web address] Information not available 03/22/2022 What Is Your Level Of Caffeine Consumption? Moderate [email or web address] Information not available 06/23/2024 Are You Deaf Or Do You Have Serious Difficulty Hearing? No [email or web address] Information not available 05/23/2023 When Did You Quit Smoking? 1-5yearssince lastcigarette [email or web address] Information not available 06/23/2024 What Was The Date Of Your Most Recent Tobacco Screening? 06/23/2024 [email or web address] Information not available 06/23/2024 At What Age Did You Start Smoking Tobacco? 15 [email or web address] Information not available 06/23/2024 Are You Passively Exposed To Smoke? Yes [email or web address] Information not available 05/16/2023 How Much Tobacco Do You Smoke? 1 PPD At Time Of QUIT [email or web address] Information not available 06/23/2024 Has Tobacco Cessation Counseling Been Provided? No [email or web address] Information not available 05/23/2023 How Many Years Have You Smoked Tobacco? 35 [email or web address] Information not available 03/22/2022 Sex: Unknown Functional Status Question Answer Note LastModified by Organizat ion Details LastModified Time Do you use any illicit or recreational drugs? No [email or web address] Information not available 03/22/2022 Do you or have you ever used any other forms of tobacco or nicotine? No [email or web address] Information not available 05/23/2023 What is your level of alcohol consumption? None [email or web address] Information not available 03/22/2022 Mental Status None [...] Maternal aunt-cervical cancer Medical History Condition Response GI Problems Y COPD Y Deep Vein Thrombosis Y Obstructive Sleep Apnea Y Autoimmune disease Y Obesity Y Arthritis Y Lupus Y Reflux/GERD Y Liver Disease Y Rheumatoid Arthritis Y Headaches Y Gynecological History Statement/Question Response Menses Monthly N Abnormal Pap N Date of LMP 10/22/2022 Obstetrics History GPAL:G 0 P 0 0 0 0 Immunizations Vaccine Type Date Status Note Provider Nam e and Address Organization Details Recorded Time MMR 4 completed Rachelejúnior Valencia null, [place] [facility] [place] & [place] 11/15/2022 09:10:39 MMR 1 completed Rachele Valencia [place] [facility] & [place] 11/15/2022 09:10:39 COVID-19, mRNA, LNP-S, PF, 100 mcg/0.5mL dose or 50 mcg/0.25mL dose 2 completed Rachele Workman null, [place] [facility] & [place] 11/15/2022 09:10:39 COVID-19, mRNA, LNP-S, PF, 100 mcg/0.5mL dose or 50 mcg/0.25mL dose 1 completed Rachele Workman null, [place] [facility] & [place] 11/15/2022 09:10:39 rubella 6 completed Rachele Work[place] & [place] 11/15/2022 09:10:39 Tdap 5 completed Rachele Work[place] & [place] 11/15/2022 09:10:39 Tdap 7 completed Rachele Work[place] & [place] 11/15/2022 09:10:39 DTP 0 completed Rachele Workman [place] & [place] 11/15/2022 09:10:39 DTP 0 completed Rachele Workman [place] 11/15/2022 09:10:39 DTP 0 completed Rachele Workman [place] 11/15/2022 09:10:40 DTP 5 completed Rachele Work[place] 11/15/2022 09:10:40 OPV 0 completed Rachele Work[place] & [place] 11/15/2022 09:10:40 OPV 0 completed Rachele Work[place] 11/15/2022 09:10:40 OPV 0 completed Rachele Work[place] 11/15/2022 09:10:40 OPV 5 completed Rachele Work[place] 11/15/2022 09:10:40 Td (adult), 2 Lf tetanus toxoid, preservative free, adsorbed 3 completed Rachele Workman chris, [place] [facility] [place] & [place] 11/15/2022 09:10:40 Past Encounters Encounter ID Performer Location Encounter Start Date Encounter Closed Date Diagnosis/Indication Diagnosis SNOMED-CT Code Diagnosis ICD10 Code Diagnosis Note [id number] Olena Howard NP [facility] [address] [place] [phone] 12/03/2024 09:32:36 12/03/2024 10:11:19 Gastro-esophageal reflux disease with esophagitis 478135496 K21.00 Controlled with use of pantoprazo le. Recommend continued use as prescribed . Will send refills today. Steatotic liver disease 986165711 K76.0 Noted on US from 05/17/23. Comprehens ian liver evaluation 09/2023 consistent with hepatic steatosis. She has been successful with continued weight loss with diet and exercise. Recommend follow-up liver ultrasound for surveillan ce. Plan for SEALS FibroSure as well as hepatic function panel today. History of Schatzkis ring [id number] 5481304 Z87.19 status post esophageal dilatation to 20 mm using dilating balloon on EGD 05/2023. Esophageal dysphagia 408 00576 R13.19 only occasional episodes of dysphagia to medication s at this time. Recommend taking medication with applesauce or pudding. Discussed scheduling EGD given her history of Schatzki's ring however will hold off at this time as it is only with certain medication s and not food. Patient encouraged to call if she experience s worsening symptoms. She did voice understand ing. Health Concerns Section Related Observation LastModified by Organization Detai ls LastModified Time None Recorded Concern Status LastModified by Organization Details LastModified Time None Recorded Payers Encounter Date Sequence Insurance Name Policy Number Policy Chadwick Covered Member ID Chadwick Member ID Guarantor Name 12/03/2024 1 [id number] [id number] Vera Avalos [id number] Vera Avalos Notes Date Note Type Note Provider Name and Address Organization Details Recorded Time 12/03/2024 text/html Patient returns to clinic today for follow up. she continues at bound and has been successful with continued weight [...] and follows with Hematology, Dr. Olivares. Olena Howard, MARIANA [address] [place] [address], [address], [place], [address], [facility] - [place] & [place] 12/03/2024 10:42:52 OBGyn Episode No OBEpisode recorded.
--- OUTSIDE RECORDS SUMMARY | 2024-12-30 12:06 | XMS_ITS | Encounter Summary ---
Author Organization [facility] Address [address] [place] [address] Care Team Providers Care Lumber Straightened Name Role Phone Sharon Bell NP Primary Care Provider [phone] Reason for Referral * Diagnostic X-Ray (Emergency) - Closed Specialty Diagnoses / Procedures Referred By Contac t Referred To Contact Diagnoses Calculus of kidney Procedures X-ray abdomen KUB 1 view Saul Hebert MD [address] [place] [address] [address] [place] [address] Phone: tel: fax: Referral ID Status Reason Start Date Expiration Date Visits Re quested Visits Authorized [id number] Closed 08/05/2024 08/05/2025 1 1 Encounter Details Date Type Department Care Team (Late st Contact Info) Description 08/05/2024 Outside Orders [facility] - [place] [address] [place] [address] [address] [place] [phone] Saul Hebert MD [address] [place] [address] [address] [place] [address] Calculus of kidney (Primary Dx) Social History Tobacco Use Types Packs/Day Years [...] Date Feliz rded Speak language other than Slovak at home Not on file 08/27/2023 Want [...] PM CDT documented as of this encounter Plan of Treatment Not on file documented as of this encounter Results * X-ray abdomen KUB 1 view (08/05/2024 2:09 PM EST) Anatomical Region Laterality Modality Abdomen X-Ray 08/05/2024 2:11 PM EST Impressions 08/05/2024 2:13 PM EST Findings suggest right nephrolithiasis. Correlation with noncontrast CT may be useful. Narrative 08/05/2024 2:13 PM EST Abdomen HISTORY: Nephrolithiasis FINDINGS: Single supine view. Comparison date 02/27/2024. There are 2 vague calcifications overlying the right mid pole kidney, partially obscured by the right 12th rib, largest measuring approximately 4 mm. There are no calcifications in the expected courses of the ureters. The bowel gas pattern is normal. Procedure Note Annabelle Alonso MD - 08/05/2024 Abdomen HISTORY: Nephrolithiasis FINDINGS: Single supine view. Comparison date 02/27/2024. There are 2 vague calcifications overlying the right mid pole kidney, partially obscured by the right 12th rib, largest measuring approximately 4 mm. There are no calcifications in the expected courses of the ureters. The bowel gas pattern is normal. IMPRESSION: Findings suggest right nephrolithiasis. Correlation with noncontrast CT may be useful. us Saul Hebert MD IM[facility] DIAGNOSTIC IMAGING ORDERABL ES Final Result documented in this encounter Visit Diagnoses Diagnosis Calculus of kidney- Primary Calculus of kidney documented in this encounter Care Teams Lumber Straightened Relationship Specialty Start Date End Date Sahron Bell, MARIANA [address] [place] [address] PCP - General Family Medicine 01/11/24 10/13/24 documented as of this encounter
--- OUTSIDE RECORDS SUMMARY | 2024-12-30 12:06 | XMS_ITS | Encounter Summary ---
Author Organization [facility] Address [address] [place] [address] Care Team Providers Care Microsoft Dynamics Ax Consultant Name Role Phone Sharon Bell FLOWER POT PRESS OPERATOR Primary Care Provider [phone] Mariaa Chauhan FLOWER POT PRESS OPERATOR Primary Care Provider [phone] Sharon Bell FLOWER POT PRESS OPERATOR Primary Care Provider + [phone] Encounter Details Date Type Department Care Team (Late st Contact Info) Description 02/21/2019 Transcribed Document [facility] Family Medicine [address] [place] [address] ProviderCornelio MD [address] [place] [address] Social History Tobacco Use Types Packs/Day [...] Cornelio ProviderMD - 02/21/2019 9:02 PM CDT Pain Assessment Entered On: 02/22/2019 0:21 EDT Performed On: 02/21/2019 23:17 EDT by ALBERTO ANDUJAR RN Intervention Information: acetaminophen Performed by ALBERTO ANDUJAR, ALVINA on 02/21/2019 22:17:00 EDT acetaminophen,650mg Oral,Pain (Mild 1-3) Pain Assessment Pain Assessment : Follow-up assessment Pain Scale Goal : 3 ALBERTO ANDUJAR RN - 02/22/2019 0:21 EDT Electronically signed by [facility] Conversion [employer] at 10/25/2022 9:51 AM CDT documented in this encounter Plan of Treatment Not on file documented as of this encounter Visit Diagnoses Not on filedocumented in this encounter Care Teams Microsoft Dynamics Ax Consultant Relationship Specialty Start Date End Date Sharon Bell NP [address] [place] [address] PCP - General Family Medicine 08/27/23 12/05/23 Mariaa Chauhan NP [address] [address] PCP - General Family Medicine 12/06/23 01/10/24 Sharon Bell NP [address] [place] [address] PCP - General Family Medicine 01/11/24 10/13/24 documented as of this encounter
--- OUTSIDE RECORDS SUMMARY | 2024-12-30 12:06 | XMS_ITS | Continuity of Care Document ---
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 Plan of Treatment Reminders Order Date Submit Date Provider Last Modified By Organization Details Last Modified Time Details Appointments RECHECK 2024 09:45A M JARAD OBRIEN MD Not available Not available Not available RHEUM RECHECK 2024 08:15A M AIMEE LOO MD Not available Not available Not available Lab None recorded . Referral podiatri st referral 2024 025 [email or web address] Leanne Mercado [facility], [address], [address], 12/24/2024 08:29:32 Procedures None recorded . Surgeries None recorded . Imaging None recorded . Medication Orders Cosentyx Pen 150 mg/mL subcutan eous pen injector 2024 025 [place] [facility], [facility] [address] [place] [address], [phone], 11/26/2024 08:56:56 Patient TargetsNo targets recorded. Patient Instructions Encounter Date Encounter Id Patient Instructions Last Modified By Organization Details Last Modified Time 11/26/2024 [id number] medical record request* - Please send all labs within July-November 2024. 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 COMPAR ABHILASH: 022 FINDIN GS: No abnorm al intest inal gas patter n. Tiny right renal stone is noted. No radiog raphic eviden ce of free intrap eriton eal air. IMPRES BETZAIDA: Puncta te right renal stone. Interp reted By: Jax Thompson MD Electr onical ly Signed By: Jax Thompson MD on 025 9:33 AM [facility] Radiology [facility] [address] [place] [address], [phone], 12/25/2024 13:17:38 12/26/19 25 12/25/2024 CT, abdom en + pelvi s, w/o contr ast [address] [place] [address] Patilorelei t Name: ALFREDO Boudreaux : [birth year] Miguel ba 6 Orderi ng Provid er: DALLIN THU S EXAM DATE: 2024 EXAM: CT R/O KIDNEY STONES (A/P W/O) CLINIC AL INFORM ATION: Kidney stones . Pain TECHNI QUE: Multip le axial CT images of the abdome n and pelvis were obtain ed withou t inject ion of IV contra st using the urinar y stone protoc ol. COMPAR ABHILASH: [address] ABDOME N: LOWER THORAX : Lung bases are clear. No obviou s cardia c abnorm ality URINAR Y TRACT: Both kidney s are normal in locati on, size, shape, outlin e and parenc hymal thickn ess. Puncta te stone involv ing left kidney with no hydron ephros is. There are 2 small stones involv ing the right kidney , no hydron ephros is. Possib le extrem rita subtle puncta te stone in the mid right ureter .. No hydron ephros is, hydrou reter or perine phric strand ing is presen t. OTHER UPPER ABDOMI NAL ORGANS : Liver, spleen , pancre as, and adrena ls are normal within the limits on interp retati on impose d by the absenc e of IV contra st. The gallbl adder is surgic ally absent . BOWEL AND MESENT RAMESH: Stomac h, small bowel and colon are normal . No mesent florence lympha denopa thy or perito arabella free fluid. RETROP ERITON EUM: Limite d evalua tion due to absenc e of IV contra st. Aorta, IVC and their branch es are normal in calibe r. No retrop eriton eal lympha denopa thy. ABDOMI NAL WALL AND SKELET AL STRUCT URES: Normal . FINDIN GS ON CT PELVIS : PELVIC CAVITY : Urinar y bladde r and rectos igmoid are normal . No pelvic or inguin al lympha denopa thy, mass or fluid. MUSCUL OSKELE GERBER STRUCT URES: Normal . COMBIN ED IMPRES BETZAIDA: Bilate ral nonobs tructi ve renal stones with possib le puncta te nonobs tructi ve right ureter al stone Interp reted By: Jax Thompson MD Electr onical ly Signed By: Jax Thompson MD on 025 10:37 AM [facility] Radiology [facility] [address] [place], [address], 12/25/2024 13:17:39 Result Notes None recorded. Problems Name Problem SNOMED Code Status Onset Date Resolution Date Notes Provider Name and Address Organization Details Recorded Time Ureteric stone 76264979 Active 022 JARAD OBRIEN MD [address] [place], [address] , [facility] 2 17:12:25 Psoriatic arthritis 469660652 Active 024 AIMEE LOO MD [address] [place], [address] , [facility] 4 08:50:43 Problem Notes None recorded. Procedures Surgical History Date Name Laterality Status Provider Name and Address Organization Details Recorded Time 12/07/19 24 cholecystectomy completed Estefani Anderson [facility] 01/09/2024 08:02:12 11/11/19 22 EXTRA CORPOREAL SHOCK WAVE LITHOTRIPSY (SURG) completed Dell Vera [facility] 11/14/2021 12:13:09 07/13/19 21 Injection, Intralesional completed ERIN RONQUILLO APRN [address] [place], [address], [facility] 07/13/2020 13:22:26 02/23/20 19 CYSTOSCOPY, WITH URETEROSCOPY, WITH LITHOTRIPSY, WITH INSERTION OF URETERAL STENT (SURG) completed Lyn Sears [facility] 02/24/2019 10:48:00 09/29/19 17 Injection, Intralesional completed ERIN RONQUILLO APRN [address] [place], [address], [facility] 09/28/2016 12:41:10 tonsillectomy completed Karyn Corrigan [facility] 11/14/2023 08:23:11 Imaging Results None recorded. Procedure Notes None recorded. Medical Equipment None Reported. Allergies Allergen ID Allergen Name Allergen Category Reaction Reaction Severity Criticality Documentation Date Start Date Code Code System Note Provider Name and Address Organization Details Recorded Time 358096 Rocephin medicatio n anaphylax is Not available Not available 06/01/20162007 9449 RxNorm React ion: ANAPH YLAXI S; Comme nt: Creat ed By: Kaushik March; Creat ed Date: 2007 3:42: 24 PM; Not Available [facility] 6 10:31:19 704209 Cipro medicatio n Not available Not available Not available 06/01/2016200956 3 RxNorm Comme nt: Creat ed By: Ganesh Story ;Crea melony Date: 04/22 4:11: 27 PM; Not Available [facility] 6 10:37:39 334363 Product containin g penicilli n (product) medicatio n anaphylax is Not available Not available 06/02/20162007 22444 8001 SNOMED React ion: ANAPH YLAXI S; Comme nt: Creat ed By: Kaushik March; Creat ed Date: 2007 3:42: 33 PM; Not Available [facility] 6 04:35:18 716074 ciproflox acin medicatio n Not available Not available Not available 11/14/2023 2551 RxNorm Karyn Shekhar [facility] 4 08:21:17 557898 honey bee venom medicatio n Not available Not available Not available 01/09/2024 40243 7 RxNorm Estefani Anderson [facility] 4 08:01:37 210725 wasp venoms environme nt Not available Not available Not available 01/09/2024 99651 RxNorm Estefani Anderson [facility] 4 08:01:47 Medications Name Sig Start Date Stop Date Status Note LastModified by Organization Details LastModified Time Prescript ion - Clarifica tion 06/22 completed Not Available Not Available Not Available Prescript ion - Prior Authoriza tion Request 06/22 completed Not Available Not Available Not Available Flomax 0.4 mg capsule Take 1 capsule every day by oral route. 2023 active Not Available Not Available Not Avai lable Percocet 7.5 mg-325 mg tablet Take 1 tablet every 6 hours by oral route as needed. 04/01 completed Not Available Not Available Not Available atorvasta tin 20 mg tablet Take 1 tablet every day by oral route. 06/19 completed Not Available Not Available Not Available clindamyc in HCl 300 mg capsule Take 2 capsules twice a day by oral route. 04/01 completed Not Available Not Available Not Available sulfameth oxazole 400 mg-trimet hoprim 80 mg tablet Take 2 tablets every 12 hours by oral route. 06/27 completed Not Available Not Available Not Available hydrocodo ne 5 mg-acetam inophen 325 mg tablet Every four to six hours 09/28 completed Duration : 10 days;Aren quency: q4-q6h;A lt Frequenc y: prn;Medi cation Descript ion: acetamin ophen-hy drocodon e; Dosage:1 -2; Route:or al; refills: 0; Quantity :15 tablet Not Available Not Available Not Available ondansetr on HCl 4 mg tablet TAKE 2 TABLETS BY MOUTH TWICE DAILY NEEDED active Not Available Not Available No t Available prednison e 5 mg tablet take 4 tabs x 3 days, 3 tabs x 3 days, 2 tabs x 3 days, 1 tab x 3 days then off. 2023 active Not Available Not Available Not Avai lable Pyridium 200 mg tablet Take 1 tablet 3 times a day by oral route for 10 days. 2023 active Not Available Not Available Not Avai lable allopurin ol 100 mg tablet Take 1 tablet every day by oral route. 2023 active Not Available Not Available Not Avai lable sulfameth oxazole 800 mg-trimet hoprim 160 mg tablet Take 1 tablet every 12 hours by oral route for 7 days, for UTI. 2024 active Not Available Not Available Not Avai lable ondansetr on 8 mg disintegr ating tablet Place by translin gual route for 15 days. 2024 active Not Available Not Available Not Avai lable Macrobid 100 mg capsule Take 1 capsule every 12 hours by oral route. 2024 active Not Available Not Available Not Avai lable meclizine 25 mg tablet Every four to six hours active Frequenc y: q4-q6h;A lt Frequenc y: prn;Medi cation Descript ion: meclizin e; Dosage:1 ; Route:or al; refills: 2; Quantity :90 tablet Not Available Not Available Not Available diazepam 2 mg tablet Every eight hours active Instruct ions: 1 tablet three times daily as needed for spasm ;Frequen cy: q8h;Alt Frequenc y: prn;Medi cation Descript ion: diazepam ; Dosage:1 ; Route:or al; refills: 0; Quantity :30 tablet Not Available Not Available Not Available doxycycli ne monohydra te 100 mg capsule Take 1 capsule twice a day by oral route. 06/22 completed Not Available Not Available Not Available acyclovir 5 % topical ointment APPLY TO THE AFFECTED AREA(S) BY TOPICAL ROUTE EVERY 3 HOURS 6 TIMES PER DAY 06/22 completed Not Available Not Available Not Available halobetas ol propionat e 0.05 % topical cream APPLY TO AFFECTED AREA ON EXTREMIT IES BID up to 2 WEEKS PRN FLARES 2021 active Not Available Not Available Not Avai lable Ditropan XL 10 mg tablet,ex tended release Take 1 tablet every day by oral route. 06/19 completed Not Available Not Available Not Available Percocet 5 mg-325 mg tablet Take 1 tablet every 6 hours by oral route. 2024 active Not Available Not Available Not Avai lable oxybutyni n chloride 5 mg tablet Take 1 tablet every 8 hours by oral route for 2 days. 06/27 completed Not Available Not Available Not Available ondansetr on 4 mg disintegr ating tablet 2022 active Not Available Not Available Not Avai lable cyclobenz aprine 5 mg tablet Take 1 tablet 3 times a day by oral route. active Not Available Not Available No t Available Vitamin C active Medicati on Descript ion: ascorbic acid; refills: 0 Not Available Not Available Not Available oxycodone active Not Available Not Miriam ilable Not Available biotin active Not Available Not Availa ble Not Available Bactrim 06/19 completed Not Available Not Available Not Available Claritin active Not Available Not Avai lable Not Available Sudafed 10/01 completed Not Available Not Available Not Available Vitamin D3 active Not Available Not Available Not Available pantopraz ole active Not Available Not Available Not Available multivita min Daily active Duration : 30 days;Aren quency: daily;Me dication Descript ion: multivit doyle; Dosage:1 ; refills: 3; Quantity :100 Not Available Not Available Not Available Excedrin As needed active Frequenc y: prn;Medi cation Descript ion: APAP/ASA /caffein e; Dosage:a s directed ; Route:or al; refills: 0 Not Available Not Available Not Available collagen (bovine) active Not Available Not Available Not Available ezetimibe active 10 mg at night Not Available Not Available Not Available Eliquis 5 mg tablet Take 1 tablet twice a day by oral route. active Not Available Not Available No t Available Cosentyx Pen 150 mg/mL subcutane ous pen injector Inject 2 mL every 4 weeks by subcutan eous route. 2024 active Not Available Not Available Not Avai lable Tremfya 100 mg/mL subcutane ous auto-inje ctor Use as directed by prescrib er. See enclosed informat ion on use of syringe. give 100mg (1mL) subcutan eously every 8 weeks. 04/01 completed Not Available Not Available Not Available Margarette 04/01 completed Not Available Not Available Not Available Zepbound active Not Available Not Avai lable Not Available Vitals Date Recorded Body height Body mass index (BMI) Body weight Systolic blood pressure Diastolic blood pressure Provider Name and Address Organization Details Last Updated DateTime 11/26/2024 157.48 cm 24 kg/m2 28025.6 g 104 mm[Hg] 68 mm[Hg] Chelly King [facility] 08:25:30 Social History Question Answer Notes LastModified by Organizat ion Details LastModified Time Tobacco Smoking Status Former Smoker Letty perez [facility] 06/22/2022 11:21:45 How Much Tobacco Do You Chew? None [email or web address] Information not available 09/18/2018 When Did You Quit Smoking? 1-5yearssinc [email or web address] Information not available 06/22/2022 What Was The Date Of Your Most Recent Tobacco Screening? 12/23/2024 [email or web address] Information not available 12/23/2024 At What Age Did You Start Smoking Tobacco? 15 Information not available 06/22/2022 How Much Tobacco Do You Smoke? No Information not available 06/22/2022 Has Tobacco Cessation Counseling Been Provided? Yes [email or web address] Information not available 09/18/2018 On What Date Was Tobacco Cessation Counseling Provided? 09/25/2018 [email or web address] Information not available 09/25/2018 Have You Recently Traveled Abroad? No Information not available 06/22/2022 Sex: Female Functional Status Question Answer Note LastModified by Organizat ion Details LastModified Time Do you use any illicit or recreational drugs? No Information not available 06/22/2022 What is your level of alcohol consumption? None [email or web address] Information not available 09/18/2018 Have you been exposed to chemicals or toxins? No Information not available 06/22/2022 What is your exercise level? Occasional Information not available 06/22/2022 Mental Status None recorded. Family History Relationship Description Onset Age of this Age Resolved Age Notes LastModified by Organization Details LastModified Time Father Heart disease Not available 2021 11:20:48 Mother Heart disease Not available 2021 11:20:49 Maternal Aunt Family history of malignant neoplasm Not available 2021 11:20:59 Maternal Grandfather Chronic obstructive pulmonary disease Not available 2021 11:21:09 Medical History Condition Response Diabetes N Allergies/Hayfever Y Bleeding Disorder N Anemia Y Arthritis Y Emphysema N Heart Disease N Acid Reflux (GERD) Y Rheumatoid Arthritis Y Hypertension N Asthma N COPD Y Gynecological HistoryNo gynecological history recorded. Obstetrics History GPAL:G 0 P 0 0 0 0 Past Encounters Encounter ID Performer Location Encounter Start Date Encounter Closed Date Diagnosis/Indication Diagnosis SNOMED-CT Code Diagnosis ICD10 Code Diagnosis Note [id number] AIMEE LOO MD [facility] [address] [place] [address] 11/26/2024 08:13:10 11/29/2024 04:27:53 Psoriatic arthritis 643888921 L40.50 Previous Rx: Lsahaun She has low disease activity on Cosentyx - continue Cosentyx 300 mg every month due to ongoing psoriasis Psoriasis 1631357 L40.9 - currently doing well on immunosupp ression Long-term drug therapy 800056881 Z79.899 - last QTB was negative 03/2024- CBC, CMP, ESR, CRP every 6 months on current medication s - we discussed side effects of the Cosentyx including but not limited to infection, headache, worsening of IBD, or increased cholestero l. We discussed that these medication s can cause reactivati on of tuberculos is or viral hepatitis and we need to check for these prior to starting medication . We discussed appropriat e immunizati ons including flu, pneumonia, and shingles vaccines. No live vaccines. History of pulmonary embolus 594059151 Z86.711 On EliquisShe was found to have a + anticardio lipin antibody while on Eliquis and after the PEs were found- no recurrent thrombosis - would avoid LEIGH inhibitors like Rinvoq Bilateral osteoarthritis of knees 3273153895 77900 M17.0 I think her ongoing pain is more related to osteoarthr itis - topical voltaren gel- discussed possible steroid injections in the knees Pain of to e of right foot 2822970051 82743 M79.674 - repeat EMG if this recurs-- she cancelled the last order because it got better after her back strain- her worst pain is in the right knee and right toe and I suspect some radiculopa thy- referral to podiatry; she has involvemen t of the right toenail and I suspect it could be the source of some of her toe pain Bilateral keratoconjunctivitis of eyes 9095335381 11464 H16.203 - For sicca symptoms, I recommende d conservati ve measures including frequent lubricatio n, avoiding stimulants , and regular dental and ophthalmic exams. Health Concerns Section Related Observation LastModified by Organization Detai ls LastModified Time None Recorded Concern Status LastModified by Organization Details LastModified Time None Recorded Payers Encounter Date Sequence Insurance Name Policy Number Policy Chadwick Covered Member ID Chadwick Member ID Guarantor Name 11/26/2024 1 [employer] [id number] Vera Avalos [id number] Alicia Avalos Notes Date Note Type Note Provider Name and Address Organization Details Recorded Time 11/26/2024 text/html Alicia Avalos is a 54 yo woman with past medical history of psoriatic arthritis, bilateral pulmonary 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 She originally established with me to work up + lupus anticoagulant which was found while she was on Eliquis after she was found to have bilateral pulmonary embolisms. She has not had any clots since being on Eliquis. She started Cosentyx at last visit and she has not had any change in her symptoms. She still has pain in her knees and elbows and still has pain feeling like rings are around her right big toe. This has actually been resolving after she injured her back and heard a pop. She is having small patches psoriasis but does not want to change medications.No red, hot, swollen joints. MRI without synovitis in the toes. Mild degenerative changes. EMG at [facility] 2 years ago were reportedly normal in the lower extremities. AIMEE LOO MD [facility] [place], [address], [facility] 11/28/2024 18:46:04 OBGyn Episode No OBEpisode recorded.
--- OUTSIDE RECORDS SUMMARY | 2024-12-30 12:06 | XMS_ITS | Data Portability ---
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 The combination of left-sided flank pain, bladder spasms, and hematuria, supported by urinalysis findings, guides the diagnosis towards recurrent nephrolithiasis potentially complicated by an infection. Her past urological interventions and current management align with the clinical suspicion. Diagnostic imaging via a CT stone protocol will confirm the existence and location of renal calculi while the urine culture will verify infectious involvement. Plan: - Arrange a CT scan following stone protocol to determine the presence and details of potential nephrolithiasis. - Obtain a urine culture for targeted antibiotic intervention. Will treat empirically with Bactrim due to suspected urinary tract bacterial infection. - Provide Zofran to manage nausea linked to kidney stones. - Avoid Tamsulosin due to increased dizziness risk; consider symptom management alternatives. - Schedule subsequent visit to evaluate diagnostic results and refine management plan. [email or web address] Not available 12/23/2024 14:36:49 Plan of Treatment Reminders Order Date Submit Date Provider Last Modified By Organization Details Last Modified Time Details Appointments RECHECK 2024 09:45A Mary OBRIEN MD Not available Not available Not available RHEUM RECHECK 2024 08:15A Mary LOO MD Not available Not available Not available Lab urinalys is panel, auto 2024 025 [email or web address] [id number] [facility], [address], [address], [place], [address], 12/23/2024 14:22:52 urinalys is panel, auto 2024 025 [facility], [address], [address], [place], [address], 08/05/2024 14:23:05 urinalys is panel, auto 2023 024 [facility], [address], [address], [place], [address], 04/07/2024 16:56:04 kidney stone analysis 2023 024 [facility], [address] [place], [address], 04/11/2024 21:38:[address] referral 2024 025 [email or web address] Leanne Mercado [facility], [address] [facility] [address], [address], 12/24/2024 08:29:32 Procedures None recorded . Surgeries None recorded . Imaging None recorded . Medication Orders ondanset carrington 8 mg disinteg rating tablet 2024 025 [facility], [address] [email or web address], [place], [address], 12/23/2024 14:23:01 sulfamet hoxazole 800 mg-trime thoprim 160 mg tablet 2024 025 [facility] [address] [place], [address], 12/23/2024 14:26:09 Cosentyx Pen 150 mg/mL subcutan eous pen injector 2024 025 [facility], [facility] ([place]), [address] [facility] [address], [facility] [address], [place], [place], [id number], 11/26/2024 08:56:56 Cosentyx Pen 150 mg/mL subcutan eous pen injector 2024 025 Critical access hospital, [facility] ([place]), [address] [facility] [address], [facility] [address], [place], [place], [id number], 08/27/2024 15:57:03 Patient TargetsNo targets recorded. Patient Instructions Encounter Date Encounter Id Patient Instructions Last Modified By Organization Details Last Modified Time 11/26/2024 [id number] medical record request* - Please send all labs within July-November 2024. [email or web address] Not available 12/03/2024 08:09:44 medical record request* - Please send last hematology note and last labs [email or web address] Not available 12/03/2024 08:09:44 12/23/2024 [id number] - Drink plenty o f water to stay hydrated; avoid sodas. - Take Bactrim as prescribed to treat potential infection. - Use Zofran as needed for nausea. - Avoid any medication that increases dizziness; report persistent symptoms. - Return for follow-up after receiving CT and urine culture results. [email or web address] Not available 12/23/2024 14:25:51 I discussed with the patient the likely recurrence of nephrolithiasis compounded by a possible urinary tract infection. Diagnostic imaging with CT will help in visualizing any urinary stones, and a urine culture will ascertain the infectious agent for appropriate treatment. The switch from Macrobid to Bactrim was agreed upon for broader antibiotic coverage based on symptoms. I advised avoiding Tamsulosin due to her lightheadedness and discussed using Zofran to manage nausea related to the kidney stones. Follow-up was outlined to monitor imaging results, urine culture, and to decide on further management steps. Consent was obtained after discussing the risks and benefits associated with the tailored treatment plan. 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 Referring Physician: Aimee Loo, Rheumatology, Encounter Date: 11/26/2024 Results Created Date Observation Date Name Description Value Unit Range Abnormal Flag Note LastModifiedBy Organization Detail LastModifiedTime 04/01/2004/01/2024 COMPL ETE BLOOD COUNT white blood cells 7.7 10*3/ uL 3.8-10 .8 normal Not Available [facility] [address] [place] [address], [address], 04/01/2024 09:51:44 04/01/2004/01/2024 COMPL ETE BLOOD COUNT red blood cells 4.71 10*6/ uL 3.80-5 .20 normal Not Available [facility] [address] [place] [address], [address], 04/01/2024 09:51:44 04/01/20 24 04/01/2024 COMPL ETE BLOOD COUNT hemoglobin 13.6 g/dL 12.0-1 6.0 normal Not Available [facility] [address] [place] [address], [address], 04/01/2024 09:51:44 04/01/2004/01/2024 COMPL ETE BLOOD COUNT hematocrit 39.3 % 35.0-4 7.0 normal Not Available [facility] [address] [place] [address], [address], 04/01/2024 09:51:44 04/01/2004/01/2024 COMPL ETE BLOOD COUNT MCV 84 fL 80-100 normal Not Available [facility] [address] [place] [address], [address], 04/01/2024 09:51:44 04/01/20 24 04/01/2024 COMPL ETE BLOOD COUNT MCH 29 pg 26-35 normal Not Available [facility] [address] [place] [address], [address], 04/01/2024 09:51:44 04/01/2004/01/2024 COMPL ETE BLOOD COUNT MCHC 35 g/dL 32-36 normal Not Available [facility] [address] [place] [address], [address], 04/01/2024 09:51:44 04/01/20 24 04/01/2024 COMPL ETE BLOOD COUNT RDW 13.5 % 11.0-1 5.0 normal Not Available [facility] [address] [place] [address], [address], 04/01/2024 09:51:44 04/01/2004/01/2024 COMPL ETE BLOOD COUNT MPV 8.8 fL 6.2-10 .5 normal Not Available [facility] [address] [place] [address], [address], 04/01/2024 09:51:44 04/01/2004/01/2024 COMPL ETE BLOOD COUNT platelet count 234 10*3/ uL 150-40 0 normal Not Available [facility] [address] [place] [address], [address], 04/01/2024 09:51:44 04/01/2004/01/2024 COMPL ETE BLOOD COUNT neutrophil,a bsolute 3.3 10*3/ uL 1.6-8. 4 normal Not Available [facility] [address] [place] [address], [address], 04/01/2024 09:51:44 04/01/2004/01/2024 COMPL ETE BLOOD COUNT lymphocyte,a bsolute 3.4 10*3/ uL 0.4-5. 1 normal Not Available [facility] [address] [place] [address], [address], 04/01/2024 09:51:44 04/01/20 24 04/01/2024 COMPL ETE BLOOD COUNT monocyte,abs olute 0.6 10*3/ uL 0.0-1. 2 normal Not Available [facility] [address] [place] [address], [address], 04/01/2024 09:51:44 04/01/20 24 04/01/2024 COMPL ETE BLOOD COUNT eosinophil,a bsolute 0.3 10*3/ uL 0.0-0. 8 normal Not Available [facility] [address] [place] [address], [address], 04/01/2024 09:51:44 04/01/2004/01/2024 COMPL ETE BLOOD COUNT basophil,abs olute 0.1 10*3/ uL 0.0-0. 3 normal Not Available [facility] [address] [place] [address], [address], 04/01/2024 09:51:44 04/01/20 24 04/01/2024 COMPL ETE BLOOD COUNT % neutrophils 43.1 % 42.0-7 8.0 normal Not Available [facility] [address] [place] [address], [address], 04/01/2024 09:51:44 04/01/20 24 04/01/2024 COMPL ETE BLOOD COUNT % lymphocytes 44.1 % 11.0-4 7.0 normal Not Available [facility] [address] [place] [address], [address], 04/01/2024 09:51:44 04/01/20 24 04/01/2024 COMPL ETE BLOOD COUNT % monocytes 7.2 % 0.0-11 .0 normal Not Available [facility] [address] [place] [address], [address], 04/01/2024 09:51:44 04/01/20 24 04/01/2024 COMPL ETE BLOOD COUNT % eosinophils 4.5 % 0.0-7. 0 normal Not Available [facility] [address] [place] [address], [address], 04/01/2024 09:51:44 04/01/20 24 04/01/2024 COMPL ETE BLOOD COUNT % basophils 1.1 % 0.0-3. 0 normal Not Available [facility] [address] [place] [address], [address], 04/01/2024 09:51:44 04/01/20 24 04/01/2024 COMPL ETE BLOOD COUNT nucleated red cells 0.0 % 0.0-0. 9 normal Not Available [facility] [address] [place] [address], [address], 04/01/2024 09:51:44 04/01/20 24 04/01/2024 COMPL ETE BLOOD COUNT nucleated RBCs, absolute 0.00 10*3/ uL not estab. normal Not Available [facility] [address] [place] [address], [address], 04/01/2024 09:51:44 04/01/2004/01/2024 URINA LYSIS color Corina normal Not Available [facility] [address] [place] [address], [address], 04/01/2024 09:55:54 04/01/2004/01/2024 URINA LYSIS appearance Clear normal Not Available [facility] [address] [place] [address], [address], 04/01/2024 09:55:54 04/01/2004/01/2024 URINA LYSIS glucose Normal mg/dL normal normal Not Available [facility] [address] [place] [address], [address], 04/01/2024 09:55:54 04/01/2004/01/2024 URINA LYSIS bilirubin Negati ve mg/dL negati ve normal Not Available [facility] [address] [place] [address], [address], 04/01/2024 09:55:54 04/01/2004/01/2024 URINA LYSIS ketone Negati ve mg/dL negati ve normal Not Available [facility] [address] [place] [address], [address], 04/01/2024 09:55:54 04/01/2004/01/2024 URINA LYSIS specific gravity 1.024 1.003- 1.035 normal Not Available [facility] [address] [place] [address], [address], 04/01/2024 09:55:54 04/01/2004/01/2024 URINA LYSIS blood 10 /uL negati ve abnormal Not Available [facility] [address] [place] [address], [address], 04/01/2024 09:55:54 04/01/2004/01/2024 URINA LYSIS pH 6 5.0 - 8.0 normal Not Available [facility] [address] [place] [address], [address], 04/01/2024 09:55:54 04/01/2004/01/2024 URINA LYSIS protein Negati ve mg/dL negati ve normal Not Available [facility] [address] [place] [address], [address], 04/01/2024 09:55:54 04/01/2004/01/2024 URINA LYSIS urobilinogen Normal mg/dL normal normal Not Available [facility] [address] [place] [address], [address], 04/01/2024 09:55:54 04/01/2004/01/2024 URINA LYSIS nitrite Negati ve negati ve normal Not Available [facility] [address] [place] [address], [address], 04/01/2024 09:55:54 04/01/2004/01/2024 URINA LYSIS leukocyte esterase Negati ve /uL negati ve normal Not Available [facility] [address] [place] [address], [address], 04/01/2024 09:55:54 04/01/2004/01/2024 URINA LYSIS mucus, urine 3+ /lpf not establ ished normal Not Available [facility] [address] [place] [address], [address], 04/01/2024 09:55:54 04/01/20 24 04/01/2024 URINA LYSIS WBC, urine Rare 0-5/hp f normal Not Available [facility] [address] [place] [address], [address], 04/01/2024 09:55:54 04/01/2004/01/2024 URINA LYSIS RBC, urine 0-2 0-2/hp f normal Not Available [facility] [address] [place] [address], [address], 04/01/2024 09:55:54 04/01/20 24 04/01/2024 URINA LYSIS squamous epi. cells 0-5 0-5/hp f normal Not Available [facility] [address] [place] [address], [address], 04/01/2024 09:55:54 04/01/2004/01/2024 URINA LYSIS bacteria 2+ /hpf none seen abnormal Pleas e advis e if cultu re is marylou ed - notif y the lab at [phone]. Not Available [facility] [address] [place] [address], [address], 04/01/2024 09:55:54 04/01/20 24 04/01/2024 URINA LYSIS crystals 3+ negati ve abnormal Calci um Oxala te Not Available [facility] [address] [place], [address], 04/01/2024 09:55:54 04/01/20 24 04/01/2024 COMP. METAB OLIC PANEL glucose 79 mg/dL 74-100 normal Not Available [facility] [address] [place] [address], [address], 04/01/2024 10:19:23 04/01/20 24 04/01/2024 COMP. METAB OLIC PANEL blood urea nitrogen 13 mg/dL 6-20 normal Not Available [facility] [address] [place] [address], [address], 04/01/2024 10:19:23 04/01/20 24 04/01/2024 COMP. METAB OLIC PANEL creatinine 0.91 mg/dL 0.50-0 .95 normal Not Available [facility] [address] [place] [address], [address], 04/01/2024 10:19:23 04/01/20 24 04/01/2024 COMP. METAB OLIC PANEL BUN/creatini ne ratio 14 (calc ) 10-20 normal Not Available [facility] [address] [place] [address], [address], 04/01/2024 10:19:23 04/01/20 24 04/01/2024 COMP. METAB OLIC PANEL sodium 141 mmol/ L 136-14 5 normal Not Available [facility] [address] [place] [address], [address], 04/01/2024 10:19:23 04/01/20 24 04/01/2024 COMP. METAB OLIC PANEL potassium 3.9 mmol/ L 3.4-5. 0 normal Not Available [facility] [address] [place] [address], [address], 04/01/2024 10:19:23 04/01/20 24 04/01/2024 COMP. METAB OLIC PANEL chloride 105 mmol/ L 98-107 normal Not Available [facility] [address] [place] [address], [address], 04/01/2024 10:19:23 04/01/20 24 04/01/2024 COMP. METAB OLIC PANEL carbon dioxide 22 mmol/ L 22-31 normal Not Available [facility] [address] [place] [address], [address], 04/01/2024 10:19:23 04/01/20 24 04/01/2024 COMP. METAB OLIC PANEL anion gap 14 (calc ) 7-25 normal Not Available [facility] [address] [place] [address], [address], 04/01/2024 10:19:23 04/01/20 24 04/01/2024 COMP. METAB OLIC PANEL calcium 10.0 mg/dL 8.6-10 .2 normal Not Available [facility] [address] [place] [address], [address], 04/01/2024 10:19:23 04/01/20 24 04/01/2024 COMP. METAB OLIC PANEL total protein 7.1 g/dL 6.4-8. 3 normal Not Available [facility] [address] [place] [address], [address], 04/01/2024 10:19:23 04/01/20 24 04/01/2024 COMP. METAB OLIC PANEL albumin 4.3 g/dL 3.5-5. 2 normal Not Available [facility] [address] [place] [address], [address], 04/01/2024 10:19:23 04/01/20 24 04/01/2024 COMP. METAB OLIC PANEL globulin 2.8 1.5-4. 5 normal Not Available [facility] [address] [place] [address], [address], 04/01/2024 10:19:23 04/01/20 24 04/01/2024 COMP. METAB OLIC PANEL albumin/glob ulin ratio 1.5 (calc ) 1.1-2. 5 normal Not Available [facility] [address] [place] [address], [address], 04/01/2024 10:19:23 04/01/20 24 04/01/2024 COMP. METAB OLIC PANEL bilirubin, total 0.2 mg/dL 0.1-1. 2 normal Not Available [facility] [address] [place] [address], [address], 04/01/2024 10:19:23 04/01/20 24 04/01/2024 COMP. METAB OLIC PANEL alkaline phosphatase 135 U/L 30-121 high Not Available [facility] [address] [place], [address], 04/01/2024 10:19:23 04/01/20 24 04/01/2024 COMP. METAB OLIC PANEL AST 23 U/L 0-32 normal Not Available [facility] [address] [place] [address], [address], 04/01/2024 10:19:23 04/01/20 24 04/01/2024 COMP. METAB OLIC PANEL ALT 36 U/L 0-33 high Not Available [facility] [address] [place] [address], [address], 04/01/2024 10:19:23 04/01/20 24 04/01/2024 COMP. METAB OLIC PANEL GFR 75 >= 60 normal NOT E New calcu latio n for GFR (CKD- EPI 2020) is formu lated witho ut race adjus tment facto rs at the [facility] menda tion of the [facility] Blood y Found atraine and [facility] of Nephr ology . This calcu latio n has not been valid ated in pregn ant women . For pedia tric patie nts refer to [email or web address] :[email or web address] [email or web address] [email or web address] [email or web address] s/MALUO QI/gf r_cal culat orPed Not Available [facility] [address] [place] [address], [address], 04/01/2024 10:19:23 04/01/20 24 04/01/2024 C REACT PIPO PROTE IN C reactive protein 0.22 mg/dL 0.00-0 .49 normal Not Available [facility] [address] [place] [address], [address], 04/01/2024 10:19:25 04/01/20 24 04/01/2024 URIC ACID uric acid 6.8 mg/dL 2.4-5. 7 high Refer ence range s are based on [facility] norms and do not neces megan corona late with treat ment targe ts. In patie nts with an estab lishe d diagn osis of gout under going Urate Lower ing Thera py (ULT) , the 2011 [facility] Colle ge of Rheum atolo gy Guid sheree s for Manag ement of Gout recom mend a targe t uric acid level of < 6 mg/dL in all patie nts, or lower in certa in circu mstan iris. Arthr itis Care and Resea [facility] Vol 64 No 10, 2011 [facility] ge of Rheum atolo gy ----- ----- ----- ----- ----- ----- ----- ----- ----- ----- ----- ---- Not Available [facility] [address] [place] [address], [address], 04/01/2024 10:19:28 04/01/20 24 04/01/2024 ESR, AUTOM ATED ESR, automated 4 mm 0-29 normal Not Available [facility] [address] [place] [address], [address], 04/01/2024 13:32:41 04/01/20 24 04/02/2024 C3 C3 171 mg/dL 83-193 normal Not Available [facility] [address] [place] [address], [address], 04/02/2024 18:53:56 04/01/2004/02/2024 C4 C4 27 mg/dL 15-57 normal Not Available [facility] [address] [place] [address], [address], 04/02/2024 18:53:58 04/01/20 24 04/07/2024 URINE CULTU RE urine culture COLON Y COUNT : 10,00 0 - 100,0 00 CFU/M L Three or more isola patti; mixed uroge nital angela . Not Available [facility] [address] [place], [address], 04/07/2024 10:07:16 04/01/20 24 04/04/2024 ANTI DNA (DS) AB, REFLE X TITER DNA (ds) Ab NEGATI VE negati ve normal Not Available [facility] [address] [place], [address], 04/04/2024 16:41:21 04/07/20 24 04/11/2024 STONE YOLANDA SIS composition SEE NOTE normal Calci um Oxala te Dihyd rate (Wedd ellit e) 15% Calci um Oxala te Monoh ydrat e (Whew ellit e) 70% Carbo opoja Apati te (Dahl lite) 15% Not Available [facility] [address] [place], [address], 04/11/2024 21:38:47 04/07/20 24 04/11/2024 STONE YOLANDA SIS weight 0.005 g normal This test was devel oped and its yolanda tical perfo rmanc e lakia cteri stics have been deter mined by [facility]. It has not been clear ed or appro polly by FDA. This assay has been valid ated pursu ant to the CLIA regul ation s and is used for clini mat purpo ses. Not Available [facility] [address] [place], [address], 04/11/2024 21:38:47 04/07/20 24 04/07/2024 urina lysis panel , auto Unknown Analyte Clean Catch Not Available [facility] [address] [facility] [address], [place], [address], 04/07/2024 13:42:48 04/07/20 24 04/07/2024 urina lysis panel , auto Unknown Analyte Yellow Not Available [facility] [address], [place], [address], 04/07/2024 13:42:48 04/07/20 24 04/07/2024 urina lysis panel , auto Unknown Analyte Clear Not Available [facility] [address], [place], [address], 04/07/2024 13:42:48 04/07/20 24 04/07/2024 urina lysis panel , auto Unknown Analyte 1.025 Not Available [facility] [address], [place], [address], 04/07/2024 13:42:48 04/07/20 24 04/07/2024 urina lysis panel , auto Unknown Analyte 1.003- 1.035 Not Available [facility] [address], [place], [address], 04/07/2024 13:42:48 04/07/20 24 04/07/2024 urina lysis panel , auto Unknown Analyte 5.0 Not Available [facility] [address], [place], [address], 04/07/2024 13:42:48 04/07/20 24 04/07/2024 urina lysis panel , auto Unknown Analyte 5.0-8. 0 Not Available [facility] [address], [place], [address], 04/07/2024 13:42:48 04/07/20 24 04/07/2024 urina lysis panel , auto Unknown Analyte 25 Sony/ul Trace Not Available [facility] [address], [place], [address], 04/07/2024 13:42:48 04/07/20 24 04/07/2024 urina lysis panel , auto Unknown Analyte Negati ve Not Available [facility] [address], [place], [address], 04/07/2024 13:42:48 04/07/20 24 04/07/2024 urina lysis panel , auto Unknown Analyte POSITI VE (Abnor mal) Not Available [facility] [address], [place], [address], 04/07/2024 13:42:48 04/07/20 24 04/07/2024 urina lysis panel , auto Unknown Analyte Negati ve Not Available [facility] [address], [place], [address], 04/07/2024 13:42:48 04/07/20 24 04/07/2024 urina lysis panel , auto Unknown Analyte Trace Not Available [facility] [address], [place], [address], 04/07/2024 13:42:48 04/07/20 24 04/07/2024 urina lysis panel , auto Unknown Analyte Negati ve Not Available [facility] [address], [place], [address], 04/07/2024 13:42:48 04/07/20 24 04/07/2024 urina lysis panel , auto Unknown Analyte Normal Not Available [facility] [address], [place], [address], 04/07/2024 13:42:48 04/07/20 24 04/07/2024 urina lysis panel , auto Unknown Analyte Normal Not Available [facility] [address], [place], [address], 04/07/2024 13:42:48 04/07/20 24 04/07/2024 urina lysis panel , auto Unknown Analyte Negati ve Not Available [facility] [address], [place], [address], 04/07/2024 13:42:48 04/07/20 24 04/07/2024 urina lysis panel , auto Unknown Analyte Negati ve Not Available [facility] [address], [place], [address], 04/07/2024 13:42:48 04/07/20 24 04/07/2024 urina lysis panel , auto Unknown Analyte 1 mg/dl Not Available [facility] [address], [place], [address], 04/07/2024 13:42:48 04/07/20 24 04/07/2024 urina lysis panel , auto Unknown Analyte Normal 1 mg/dl Not Available [facility] [address], [place], [address], 04/07/2024 13:42:48 04/07/20 24 04/07/2024 urina lysis panel , auto Unknown Analyte 1 mg/dl (+) Not Available [facility] [address], [place], [address], 04/07/2024 13:42:48 04/07/20 24 04/07/2024 urina lysis panel , auto Unknown Analyte Negati ve Not Available [facility] [address], [place], [address], 04/07/2024 13:42:48 04/07/20 24 04/07/2024 urina lysis panel , auto Unknown Analyte 50 Ramesh/ul Not Available [facility] [address], [place], [address], 04/07/2024 13:42:48 04/07/20 24 04/07/2024 urina lysis panel , auto Unknown Analyte Negati ve Not Available [facility] [facility] [place] [address], [place], [address], 04/07/2024 13:42:48 04/24/20 24 05/02/2024 LITHO LINK 24HR URINE PANEL cystine, urine, qualitative TNP Test not perfo rmed Not Available [facility] ([facility]) [address] [facility] [address], [place], [address], 05/02/2024 02:14:40 04/24/20 24 05/02/2024 LITHO LINK 24HR URINE PANEL urine volume (preserved) TNP Test not perfo rmed Not Available [facility] ([facility]) [address] [facility] [address], [place], [address], 05/02/2024 02:14:40 04/24/20 24 05/02/2024 LITHO LINK 24HR URINE PANEL 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 Not Available [facility] ([facility]) [address] [facility] [address], [place], [address], 05/02/2024 02:14:40 04/24/20 24 05/02/2024 LITHO LINK 24HR URINE PANEL calcium, urine TNP Test not perfo rmed Not Available [facility] ([facility]) [address] [facility] [address], [place], [address], 05/02/2024 02:14:40 04/24/2005/02/2024 LITHO LINK 24HR URINE PANEL oxalate, urine TNP Test not perfo rmed Not Available [facility] ([facility]) [address] [place], [address], 05/02/2024 02:14:40 04/24/2005/02/2024 LITHO LINK 24HR URINE PANEL citrate, urine TNP Test not perfo rmed Not Available [facility] ([facility]) [address] [place], [address], 05/02/2024 02:14:40 04/24/20 24 05/02/2024 LITHO LINK 24HR URINE PANEL calcium phosphate 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 Not Available [facility] ([facility]) [address] [place], [address], 05/02/2024 02:14:40 04/24/20 24 05/02/2024 LITHO LINK 24HR URINE PANEL pH, 24 HR, urine TNP Test not perfo rmed Not Available [facility] ([facility]) [address] [place], [address], 05/02/2024 02:14:40 04/24/20 24 05/02/2024 LITHO LINK 24HR URINE PANEL uric acid 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 Not Available [facility] ([facility]) [address] [place], [address], 05/02/2024 02:14:40 04/24/2005/02/2024 LITHO LINK 24HR URINE PANEL uric acid, urine TNP Test not perfo rmed Not Available [facility] ([facility]) [address] [facility] [address], [place], [address], 05/02/2024 02:14:40 04/24/2005/02/2024 LITHO LINK 24HR URINE PANEL sodium, urine TNP Test not perfo rmed Not Available [facility] ([facility]) [address] [facility] [address], [place], [address], 05/02/2024 02:14:40 04/24/2005/02/2024 LITHO LINK 24HR URINE PANEL potassium, urine TNP Test not perfo rmed Not Available [facility] ([facility]) [address] [facility] [address], [place], [address], 05/02/2024 02:14:40 04/24/2005/02/2024 LITHO LINK 24HR URINE PANEL magnesium, urine TNP Test not perfo rmed Not Available [facility] ([facility]) [address] [facility] [address], [place], [address], 05/02/2024 02:14:40 04/24/2005/02/2024 LITHO LINK 24HR URINE PANEL phosphorus, urine TNP Test not perfo rmed Not Available [facility] ([facility]) [address] [place], [address], 05/02/2024 02:14:40 04/24/2005/02/2024 LITHO LINK 24HR URINE PANEL ammonium, urine TNP Test not perfo rmed Not Available [facility] ([facility]) [address] [place], [address], 05/02/2024 02:14:40 04/24/2005/02/2024 LITHO LINK 24HR URINE PANEL chloride, urine TNP Test not perfo rmed Not Available [facility] ([facility]) [address] [facility] [address], [place], [address], 05/02/2024 02:14:40 04/24/2005/02/2024 LITHO LINK 24HR URINE PANEL sulfate, urine TNP Test not perfo rmed Not Available [facility] ([facility]) [address] [facility] [address], [place], [address], 05/02/2024 02:14:40 04/24/2005/02/2024 LITHO LINK 24HR URINE PANEL urea nitrogen, urine TNP Test not perfo rmed Not Available [facility] ([facility]) [address] [facility] [address], [place], [address], 05/02/2024 02:14:40 04/24/2005/02/2024 LITHO LINK 24HR URINE PANEL protein catabolic rate 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 Not Available [facility] ([facility]) [address] [facility] [address], [place], [address], 05/02/2024 02:14:40 04/24/2005/02/2024 LITHO LINK 24HR URINE PANEL creatinine, urine TNP Test not perfo rmed Not Available [facility] ([facility]) [address] [facility] [address], [place], [address], 05/02/2024 02:14:40 04/24/2005/02/2024 LITHO LINK 24HR URINE PANEL creatinine/k g body weight 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 Not Available [facility] ([facility]) [address] [facility] [address], [place], [address], 05/02/2024 02:14:40 04/24/2005/02/2024 LITHO LINK 24HR URINE PANEL calcium/kg body weight 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 A new order is requi red to submi t for recol lecti on. 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 Not Available [facility] ([facility]) [address] [place], [address], 05/02/2024 02:14:40 06/26/20 24 07/07/2024 LITHO LINK 24HR URINE PANEL cystine, urine, qualitative TNP Test not perfo rmed Not Available [facility] ([facility]) [address] [place], [address], 07/07/2024 16:09:08 06/26/20 24 07/07/2024 LITHO LINK 24HR URINE PANEL urine volume (preserved) TNP Test not perfo rmed Not Available [facility] ([facility]) [address] [place], [address], 07/07/2024 16:09:08 06/26/20 24 07/07/2024 LITHO LINK 24HR URINE PANEL 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 Not Available [facility] ([facility]) [address] [place], [address], 07/07/2024 16:09:08 06/26/20 24 07/07/2024 LITHO LINK 24HR URINE PANEL calcium, urine TNP Test not perfo rmed Not Available [facility] ([facility]) [address] [facility] [address], [place], [address], 07/07/2024 16:09:08 06/26/20 24 07/07/2024 LITHO LINK 24HR URINE PANEL oxalate, urine TNP Test not perfo rmed Not Available [facility] ([facility]) [address] [facility] [address], [place], [address], 07/07/2024 16:09:08 06/26/20 24 07/07/2024 LITHO LINK 24HR URINE PANEL citrate, urine TNP Test not perfo rmed Not Available [facility] ([facility]) [address] [facility] [address], [place], [address], 07/07/2024 16:09:08 06/26/20 24 07/07/2024 LITHO LINK 24HR URINE PANEL calcium phosphate 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 Not Available [facility] ([facility]) [address] [facility] [address], [place], [address], 07/07/2024 16:09:08 06/26/20 24 07/07/2024 LITHO LINK 24HR URINE PANEL pH, 24 HR, urine TNP Test not perfo rmed Not Available [facility] ([facility]) [address] [facility] [address], [place], [address], 07/07/2024 16:09:08 06/26/20 24 07/07/2024 LITHO LINK 24HR URINE PANEL uric acid 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 Not Available [facility] ([facility]) [address] [facility] [address], [place], [address], 07/07/2024 16:09:08 06/26/20 24 07/07/2024 LITHO LINK 24HR URINE PANEL uric acid, urine TNP Test not perfo rmed Not Available [facility] ([facility]) [address] [place], [address], 07/07/2024 16:09:08 06/26/20 24 07/07/2024 LITHO LINK 24HR URINE PANEL sodium, urine TNP Test not perfo rmed Not Available [facility] ([facility]) [address] [facility] [address], [place], [address], 07/07/2024 16:09:08 06/26/20 24 07/07/2024 LITHO LINK 24HR URINE PANEL potassium, urine TNP Test not perfo rmed Not Available [facility] ([facility]) [address] [facility] [address], [place], [address], 07/07/2024 16:09:08 06/26/20 24 07/07/2024 LITHO LINK 24HR URINE PANEL magnesium, urine TNP Test not perfo rmed Not Available [facility] ([facility]) [address] [facility] [address], [place], [address], 07/07/2024 16:09:08 06/26/20 24 07/07/2024 LITHO LINK 24HR URINE PANEL phosphorus, urine TNP Test not perfo rmed Not Available [facility] ([facility]) [address] [facility] [address], [place], [address], 07/07/2024 16:09:08 06/26/20 24 07/07/2024 LITHO LINK 24HR URINE PANEL ammonium, urine TNP Test not perfo rmed Not Available [facility] ([facility]) [address] [facility] [address], [place], [address], 07/07/2024 16:09:08 06/26/20 24 07/07/2024 LITHO LINK 24HR URINE PANEL chloride, urine TNP Test not perfo rmed Not Available [facility] ([facility]) [address] [facility] [address], [place], [address], 07/07/2024 16:09:08 06/26/20 24 07/07/2024 LITHO LINK 24HR URINE PANEL sulfate, urine TNP Test not perfo rmed Not Available [facility] ([facility]) [address] [facility] [address], [place], [address], 07/07/2024 16:09:08 06/26/20 24 07/07/2024 LITHO LINK 24HR URINE PANEL urea nitrogen, urine TNP Test not perfo rmed Not Available [facility] ([facility]) [address] [facility] [address], [place], [address], 07/07/2024 16:09:08 06/26/20 24 07/07/2024 LITHO LINK 24HR URINE PANEL protein catabolic rate 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 Not Available [facility] ([facility]) [address] [facility] [address], [place], [address], 07/07/2024 16:09:08 06/26/20 24 07/07/2024 LITHO LINK 24HR URINE PANEL creatinine, urine TNP Test not perfo rmed Not Available [facility] ([facility]) [address] [facility] [address], [place], [address], 07/07/2024 16:09:08 06/26/20 24 07/07/2024 LITHO LINK 24HR URINE PANEL creatinine/k g body weight 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 Not Available [facility] ([facility]) [address] [facility] [address], [place], [address], 07/07/2024 16:09:08 06/26/20 24 07/07/2024 LITHO LINK 24HR URINE PANEL calcium/kg body weight 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 A new order is requi red to submi t for recol lecti on. 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 Not Available [facility] ([facility]) [address] [facility] [address], [place], [address], 07/07/2024 16:09:08 08/05/19 25 08/05/2024 urina lysis panel , auto Unknown Analyte Clean Catch Not Available [facility] [address] [place] [address] [address], [place], [address], 08/05/2024 13:47:14 08/05/19 25 08/05/2024 urina lysis panel , auto Unknown Analyte Yellow Not Available [facility] [address] [place] [address] [address], [place], [address], 08/05/2024 13:47:14 08/05/19 25 08/05/2024 urina lysis panel , auto Unknown Analyte Clear Not Available [facility] [address] [place] [address] [address], [place], [address], 08/05/2024 13:47:14 08/05/19 25 08/05/2024 urina lysis panel , auto Unknown Analyte 1.025 Not Available [facility] [address] [place] [address] [address], [place], [address], 08/05/2024 13:47:14 08/05/19 25 08/05/2024 urina lysis panel , auto Unknown Analyte 1.003- 1.035 Not Available [facility] [address], [place], [address], 08/05/2024 13:47:14 08/05/19 25 08/05/2024 urina lysis panel , auto Unknown Analyte 5.0 Not Available [facility] [address], [place], [address], 08/05/2024 13:47:14 08/05/19 25 08/05/2024 urina lysis panel , auto Unknown Analyte 5.0-8. 0 Not Available [facility] [address], [place], [address], 08/05/2024 13:47:14 08/05/19 25 08/05/2024 urina lysis panel , auto Unknown Analyte 25 Sony/ul Trace Not Available [facility] [address], [place], [address], 08/05/2024 13:47:14 08/05/19 25 08/05/2024 urina lysis panel , auto Unknown Analyte Negati ve Not Available [facility] [address], [place], [address], 08/05/2024 13:47:14 08/05/19 25 08/05/2024 urina lysis panel , auto Unknown Analyte Negati ve Not Available [facility] [address], [place], [address], 08/05/2024 13:47:14 08/05/19 25 08/05/2024 urina lysis panel , auto Unknown Analyte Negati ve Not Available [facility] [address], [place], [address], 08/05/2024 13:47:14 08/05/19 25 08/05/2024 urina lysis panel , auto Unknown Analyte Trace Not Available [facility] [address], [place], [address], 08/05/2024 13:47:14 08/05/19 25 08/05/2024 urina lysis panel , auto Unknown Analyte Negati ve Not Available [facility] [address], [place], [address], 08/05/2024 13:47:14 08/05/19 25 08/05/2024 urina lysis panel , auto Unknown Analyte Normal Not Available [facility] [address], [place], [address], 08/05/2024 13:47:14 08/05/19 25 08/05/2024 urina lysis panel , auto Unknown Analyte Normal Not Available [facility] [address], [place], [address], 08/05/2024 13:47:14 08/05/19 25 08/05/2024 urina lysis panel , auto Unknown Analyte Negati ve Not Available [facility] [address], [place], [address], 08/05/2024 13:47:14 08/05/19 25 08/05/2024 urina lysis panel , auto Unknown Analyte Negati ve Not Available [facility] [address], [place], [address], 08/05/2024 13:47:14 08/05/19 25 08/05/2024 urina lysis panel , auto Unknown Analyte Normal Not Available [facility] [address], [place], [address], 08/05/2024 13:47:14 08/05/19 25 08/05/2024 urina lysis panel , auto Unknown Analyte Normal 1 mg/dl Not Available [facility] [address], [place], [address], 08/05/2024 13:47:14 08/05/19 25 08/05/2024 urina lysis panel , auto Unknown Analyte Negati ve Not Available [facility] [address], [place], [address], 08/05/2024 13:47:14 08/05/19 25 08/05/2024 urina lysis panel , auto Unknown Analyte Negati ve Not Available [facility] [address], [place], [address], 08/05/2024 13:47:14 08/05/19 25 08/05/2024 urina lysis panel , auto Unknown Analyte Negati ve Not Available [facility] [address], [place], [address], 08/05/2024 13:47:14 08/05/19 25 08/05/2024 urina lysis panel , auto Unknown Analyte Negati ve Not Available [facility] [address], [place], [address], 08/05/2024 13:47:14 12/24/19 25 12/25/2024 URINE CULTU RE urine culture COLON Y COUNT : 10,00 0 - 100,0 00 CFU/M L Three or more isola patti; mixed uroge nital angela . Not Available [facility] [address] [facility], [place], [address], 12/25/2024 11:18:15 12/24/19 25 12/23/2024 urina lysis panel , auto Unknown Analyte Clean Catch Not Available [facility] [address], [place], [address], 12/23/2024 14:14:45 12/24/19 25 12/23/2024 urina lysis panel , auto Unknown Analyte Straw Not Available [facility] [address], [place], [address], 12/23/2024 14:14:45 12/24/19 25 12/23/2024 urina lysis panel , auto Unknown Analyte Cloudy Not Available [facility] [address], [place], [address], 12/23/2024 14:14:45 12/24/19 25 12/23/2024 urina lysis panel , auto Unknown Analyte 1.025 Not Available [facility] [address], [place], [address], 12/23/2024 14:14:45 12/24/19 25 12/23/2024 urina lysis panel , auto Unknown Analyte 1.003 - 1.030 Not Available [facility] [address], [place], [address], 12/23/2024 14:14:45 12/24/19 25 12/23/2024 urina lysis panel , auto Unknown Analyte 5.0 Not Available [facility] [address], [place], [address], 12/23/2024 14:14:45 12/24/19 25 12/23/2024 urina lysis panel , auto Unknown Analyte 5.0 - 8.0 Not Available [facility] [address], [place], [address], 12/23/2024 14:14:45 12/24/19 25 12/23/2024 urina lysis panel , auto Unknown Analyte Negati ve Not Available [facility] [address], [place], [address], 12/23/2024 14:14:45 12/24/19 25 12/23/2024 urina lysis panel , auto Unknown Analyte Negati ve Not Available [facility] [address], [place], [address], 12/23/2024 14:14:45 12/24/19 25 12/23/2024 urina lysis panel , auto Unknown Analyte Negati ve Not Available [facility] [address], [place], [address], 12/23/2024 14:14:45 12/24/19 25 12/23/2024 urina lysis panel , auto Unknown Analyte Negati ve Not Available [facility] [address] [place] [address] [address], [place], [address], 12/23/2024 14:14:45 12/24/19 25 12/23/2024 urina lysis panel , auto Unknown Analyte 30 mg/dL Not Available [facility] [address], [place], [address], 12/23/2024 14:14:45 12/24/19 25 12/23/2024 urina lysis panel , auto Unknown Analyte Negati ve Not Available [facility] [address], [place], [address], 12/23/2024 14:14:45 12/24/19 25 12/23/2024 urina lysis panel , auto Unknown Analyte Normal Not Available [facility] [address] [address], [place], [address], 12/23/2024 14:14:45 12/24/19 25 12/23/2024 urina lysis panel , auto Unknown Analyte Normal Not Available [facility] [address], [place], [address], 12/23/2024 14:14:45 12/24/19 25 12/23/2024 urina lysis panel , auto Unknown Analyte Negati ve Not Available [facility] [address], [place], [address], 12/23/2024 14:14:45 12/24/19 25 12/23/2024 urina lysis panel , auto Unknown Analyte Negati ve Not Available [facility] [address], [place], [address], 12/23/2024 14:14:45 12/24/19 25 12/23/2024 urina lysis panel , auto Unknown Analyte Normal Not Available [facility] [address], [place], [address], 12/23/2024 14:14:45 12/24/19 25 12/23/2024 urina lysis panel , auto Unknown Analyte Normal Not Available [facility] [address], [place], [address], 12/23/2024 14:14:45 12/24/19 25 12/23/2024 urina lysis panel , auto Unknown Analyte Negati ve Not Available [facility] [address], [place], [address], 12/23/2024 14:14:45 12/24/19 25 12/23/2024 urina lysis panel , auto Unknown Analyte Negati ve Not Available [facility] [address], [place], [address], 12/23/2024 14:14:45 12/24/19 25 12/23/2024 urina lysis panel , auto Unknown Analyte 250 Ramesh/uL Not Available [facility] [address], [place], [address], 12/23/2024 14:14:45 12/24/19 25 12/23/2024 urina lysis panel , auto Unknown Analyte Negati ve Not Available [facility] [address], [place], [address], 12/23/2024 14:14:45 04/01/20 24 04/01/2024 XR, knee, 1 or [address] [address] Miguel ba Name: ALFREDO Boudreaux : [birth year] Miguel ba 6 Orderi ng Provid er: AIMEE SCHUSTER BRANDON EXAM DATE: 2023 EXAM: XR ROSANA KNEES 1 OR 2 VIEWS HISTOR Y: Bilate ral knee pain COMPAR ABHILASH: None. FINDIN GS: The bones of the left and right knee are normal in alignm ent. There is no eviden ce of fractu re. There are minima l degene rative change s. IMPRES BETZAIDA: 1. There are minima l degene rative change s in the left and right knee. Interp reted By: Diane guillen MD Electr onical ly Signed By: Diane guillen MD on 024 9:15 AM [facility] [address] [place] [address], [address], 04/14/2024 20:12:32 04/04/20 24 12/30/2021 MRI, lumba r spine , w/wo contr ast No observ ation record ed. [email or web address] Not Available 2023 16:16:19 04/07/20 24 04/07/2024 XR, abdom en, 1 view No observ ation record ed. [facility] (Radiology) [address] , [place], [address], 04/08/2024 09:18:23 12/26/1912/25/2024 XR, abdom en, [address] [place] [address] Miguel ba Name: ALFREDO Boudreaux : [birth year] Miguel ba 6 Orderi ng Provid er: DALLIN Christianson EXAM DATE: 2024 EXAM: XR ABDOME N [...] Jax Thompson MD on 025 9:33 AM [facility] [address], [address], 12/25/2024 13:17:38 12/26/19 25 12/25/2024 CT, abdom en + pelvi s, w/o contr ast [address] [address] Patien t Name: ALFREDO Mckeon t : [birth year] Patien t 6 Orderi ng Provid er: DALLIN ANDINO S EXAM DATE: 2024 EXAM: CT R/O [...] Jax Thompson MD on 025 10:37 AM [facility] [address], [address], 12/25/2024 13:17:39 Result Notes Documentation Provider Name and Address Organization Details Recorded Time Xr, Abdomen, 1 View : [place] [id number] Patient Name: EM AVALOS Patient : 1970 Patient Ordering Provider: DALLIN GIBBONS EXAM DATE: 12/25/2024 EXAM: XR ABDOMEN KUB CLINICAL INFORMATION: Kidney stones IMAGES PROVIDED: KUB AP radiographic images of the abdomen. COMPARISON: 07/19/2021 FINDINGS: No abnormal intestinal gas pattern. Tiny right renal stone is noted. No radiographic evidence of free intraperitoneal air. IMPRESSION: Punctate right renal stone. Interpreted By: Jax Thompson MD IN GIBBONS PA-C [address] [place] [address], [address], [facility] 12/25/2024 12:11:19 Ct, Abdomen + Pelvis, W/o Contrast : [address] [address] Patient Name: EM AVALOS Patient : 1970 Patient Ordering Provider: DALLIN GIBBONS EXAM DATE: 12/25/2024 EXAM: CT R/O KIDNEY STONES (A/P W/O) CLINICAL INFORMATION: Kidney stones. Pain TECHNIQUE: Multiple axial CT images of the abdomen and pelvis were obtained without injection of IV contrast using the urinary stone protocol. COMPARISON: 10/02/[address] ABDOMEN: LOWER THORAX: Lung bases are clear. No obvious cardiac abnormality URINARY TRACT: Both kidneys are normal in location, size, shape, outline and parenchymal thickness. Punctate stone involving left kidney with no hydronephrosis. There are 2 small stones involving the right kidney, no hydronephrosis. Possible extremely subtle punctate stone in the mid right ureter.. No hydronephrosis, hydroureter or perinephric stranding is present. OTHER UPPER ABDOMINAL ORGANS: Liver, spleen, pancreas, and adrenals are normal within the limits on interpretation imposed by the absence of IV contrast. The gallbladder is surgically absent. BOWEL AND MESENTERY: Stomach, small bowel and colon are normal. No mesenteric lymphadenopathy or peritoneal free fluid. RETROPERITONEUM: Limited evaluation due to absence of IV contrast. Aorta, IVC and their branches are normal in caliber. No retroperitoneal lymphadenopathy. ABDOMINAL WALL AND SKELETAL STRUCTURES: Normal. FINDINGS ON CT PELVIS: PELVIC CAVITY: Urinary bladder and rectosigmoid are normal. No pelvic or inguinal lymphadenopathy, mass or fluid. MUSCULOSKELETAL STRUCTURES: Normal. COMBINED IMPRESSION: Bilateral nonobstructive renal stones with possible punctate nonobstructive right ureteral stone Interpreted By: Jax Thompson MD IN GIBBONS PA-C [address] [place] [address], [phone], [facility] 12/25/2024 12:14:34 Problems Name Problem SNOMED Code Status Onset Date Resolution Date Notes Provider Name and Address Organization Details Recorded Time Ureteric stone 60008635 Active 022 JARAD OBRIEN MD [address] [place], [address] , [facility] 17:12:25 Psoriatic arthritis 785873358 [place] 024 [place] [address] [place] [address], [address] , [facility] 4 08:50:43 Problem Notes None recorded. Procedures Surgical History Date Name Laterality Status Provider Name and Address Organization Details Recorded Time 12/07/19 24 cholecystectomy completed Estefani Justin [facility] 01/09/2024 08:02:12 11/11/19 22 EXTRA CORPOREAL SHOCK WAVE LITHOTRIPSY (SURG) completed Dell Jody [facility] 11/14/2021 12:13:09 07/13/19 21 Injection, Intralesional completed ERIN RONQUILLO APRN [address] [place], [address], [facility] 07/13/2020 13:22:26 02/23/20 19 CYSTOSCOPY, WITH URETEROSCOPY, WITH LITHOTRIPSY, WITH INSERTION OF URETERAL STENT (SURG) completed Lyn Sears [facility] 02/24/2019 10:48:00 09/29/19 17 Injection, Intralesional completed ERIN RONQUILLO APRN [address] [place] [address], [address], [facility] 09/28/2016 12:41:10 tonsillectomy completed Karyn Corrigan [facility] 11/14/2023 08:23:11 Imaging Results None recorded. Procedure Notes None recorded. Medical Equipment None Reported. Allergies Allergen ID Allergen Name Allergen Category Reaction Reaction Severity Criticality Documentation Date Start Date Code Code System Note Provider Name and Address Organization Details Recorded Time 446352 Rocephin medicatio n anaphylax is Not available Not available 06/01/20162007 9449 RxNorm React ion: ANAPH YLAXI S; Comme nt: Creat ed By: Kaushik Zuñiga ed Date: 2007 3:42: 24 PM; Not Available [facility] 6 10:31:19 205279 Cipro medicatio n Not available Not available Not available 06/01/2016200956 3 RxNorm Comme nt: Creat ed By: Ganesh Story ;Crea melony Date: 04/22 4:11: 27 PM; Not Available [facility] 6 10:37:39 260873 Product containin g penicilli n (product) medicatio n anaphylax is Not available Not available 06/02/20162007 12951 8001 SNOMED React ion: ANAPH YLAXI S; Comme nt: Creat ed By: Kaushik March; Creat ed Date: 2007 3:42: 33 PM; Not Available [facility] 6 04:35:18 508854 ciproflox acin medicatio n Not available Not available Not available 11/14/2023 2551 RxNorm Karyn Corrigan [facility] 4 08:21:17 110589 honey bee venom medicatio n Not available Not available Not available 01/09/2024 90196 7 RxNorm Estefani Anderson [facility] 4 08:01:37 230879 wasp venoms environme nt Not available Not available Not available 01/09/2024 36349 RxNorm Estefani Anderson [facility] 4 08:01:47 Medications Name Sig Start Date [...] height Body mass index (BMI) Body weight Provider Name and Address Organization Details Last Updated DateTime 08/05/2024 157.48 cm 25.6 kg/m2 05544.93 g Dolores Desirers [facility] 08/05/2024 14:14:41 Date Recorded Body height Body mass index (BMI) Body weight Provider Name and Address Organization Details Last Updated DateTime 08/27/2024 157.48 cm 26 kg/m2 77961.12 g Karyn [facility] 08/27/2024 15:31:43 Date Recorded Body height Body mass index (BMI) Body weight Systolic blood pressure Diastolic blood pressure Provider Name and Address Organization Details Last Updated DateTime 11/26/2024 157.48 cm 24 kg/m2 82147.6 g 104 mm[Hg] 68 mm[Hg] Chelly King [facility] 08:25:30 Date Recorded Body height Body mass index (BMI) Body weight Provider Name and Address Organization Details Last Updated DateTime 12/23/2024 157.48 cm 23.2 kg/m2 25999.23 g Karuna Levi [facility] 12/23/2024 14:05:33 Date Recorded Body height Body mass index (BMI) Body weight Provider Name and Address Organization Details Last Updated DateTime 04/07/2024 157.48 cm 32 kg/m2 00028.66 g Ana Del Valle [facility] 04/07/2024 13:31:33 Social History Question Answer Notes LastModified by Organizat ion Details LastModified Time Tobacco Smoking Status Former Smoker Letty Marin chris [facility] 06/22/2022 11:21:45 How Much Tobacco Do You Chew? None [email or web address] Information not available 09/18/2018 When Did You Quit Smoking? 1-5yearssinc [email or web address] Information not available 06/22/2022 What Was The Date Of Your Most Recent Tobacco Screening? 12/23/2024 [email or web address] Information not available 12/23/2024 At What Age Did You Start Smoking Tobacco? 15 Information not available 06/22/2022 How Much Tobacco Do You Smoke? No Information not available 06/22/2022 Has Tobacco Cessation Counseling Been Provided? Yes Information not available 09/18/2018 On What Date Was Tobacco Cessation Counseling Provided? 09/25/2018 [email or web address] Information not available 09/25/2018 Have You Recently Traveled Abroad? No Information not available 06/22/2022 Sex: Female Functional Status Question Answer Note LastModified by Organizat ion Details LastModified Time Do you use any illicit or recreational drugs? No Information not available 06/22/2022 What is your level of alcohol consumption? None [email or web address] Information not available 09/18/2018 Have you been [...] available 2021 11:21:09 Medical History Condition Response Allergies/Hayfever Y Diabetes N Bleeding Disorder N Anemia Y Arthritis Y Emphysema N Heart Disease N Acid Reflux (GERD) Y Rheumatoid Arthritis Y Hypertension N Asthma N COPD Y Gynecological HistoryNo gynecological history recorded. Obstetrics History GPAL:G 0 P 0 0 0 0 Past Encounters Encounter ID Performer Location Encounter Start Date Encounter Closed Date Diagnosis/Indication Diagnosis SNOMED-CT Code Diagnosis ICD10 Code Diagnosis Note [id number] ERIN RONQUILLO APRN [facility] [address] [place] [address] 09/28/2016 11:35:02 09/28/2016 15:50:49 Psoriasis 4740003 L40.9 FLARED 10%BSAWORK ED UP FOR MS NEGATIVE PER PATIENT; DX VERTIGO; DISCUSSED ALL TREATMENTS INCLUDING SIDE EFFECTS; PT ELECTED TO TRY OTEZLA FIRST; EDUCATED PATIENT ON 16 WEEKS TO SEE BENEFIT OF TREATMENT; DISCUSSED PRIOR AUTHORIAZA TION APPROVAL; PT WILL F/UP 16 WKS AFTER PA HAS BEEN APPROVEDIL KENALOG 5 MG/ML X 4.5ML INTO 9 AREAS?DRUG INDUCED HEPATITIS IN PAST SO WILL TRY OTEZLA FIRST BUT IF DOES NOT RESPOND COULD CHECK HEPATITIS PANEL AND EVALUATE FOR THIS FURTHER [id number] MD [facility] [address] [place] [address] 09/18/2018 12:34:12 09/18/2018 13:35:17 Ureteric stone 58332874 N20.1 Kidney stone 00894776 N2 0.0 [id number] JARAD OBRIEN MD SURGERY SCHEDULE [address] [place] [address] 09/23/2018 06:47:03 09/23/2018 06:49:51 Ureteric stone 78072481 N20.1 [id number] MD [facility] [address] [place] [address] 09/25/2018 11:39:01 09/25/2018 12:21:10 Kidney stone 99850573 N20.0 [id number] JARAD OBRIEN MD [facility] [address] [place] [address] 0 02/18/2019 10:47:59 02/18/2019 12:45:49 Ureteric stone 79733027 N20.1 [id number] ERIN RONQUILLO APRN [facility] [address] [place] [address] 07/13/2020 10:34:33 07/13/2020 12:02:11 Psoriasis 0518745 L40.9 FLARED 10%BSA DISCUSSED ALL TREATMENTS INCLUDING SIDE EFFECTS; PT ELECTED TO TRY TREMFYA FIRST; EDUCATED PRIOR AUTHORIZAT ION APPROVAL NEEDED ; PT WILL F/UP 16 WKS AFTER PA HAS BEEN APPROVEDIL KENALOG 5 MG/ML X 3CC IN 5 PLAQUESRat ionale for use of biologic therapy is as follows: Treatment options for psoriasis were reviewed in detail. Risks and benefits of biologic medication s were reviewed in detail. Risks including serious infections and increased risk of certain cancers like lymphoma, reactivati on of latent tuberculos is, contraindi cation with congestive heart disease and neurologic disorders, was discussed with the patient. F/U WHEN RECEIVE MEDICATION CALL TO SET UP NURSE INJECTION TRAINING THEN SEE 3 MONTHSCONT ULTRAVATE CREAM BID X 2 WEEKS PRN FLARES Milia 994317405 L72.0 EXTRACTED WITH COMEDONE EXTRACTOR Herpes simplex 34732931 B00.9 ACYCLOVIR 5 % OINTMENT PRN FOR FLARES [id number] MD [facility] [address] [place] [address] 0 09/28/2020 14:44:55 09/28/2020 15:07:34 Kidney stone 02093550 N20.0 [id number] JARAD OBREIN MD [facility] [address] [address] [address] [place] [address] 0 10/01/2020 10:38:24 10/01/2020 12:13:31 Kidney stone 58203190 N20.0 [id number] JARAD OBRIEN MD [facility] [address] [place] [address] 10/26/2020 09:44:32 10/26/2020 10:23:23 Kidney stone 89408093 N20.0 [id number] ERIN RONQUILLO APRN [facility] [address] [place] [address] 01/25/2021 14:44:37 01/25/2021 15:11:29 Psoriasis 3856055 L40.9 FLARED 10%BSACONT HALOBETASO L CREAM BID X 2 WEEKS PRN FLARESTREM FYA INJECTON GIVEN TODAY RTC IN 4 WEEKS FOR BOOSTER DESIRES TO DO SHOTS IN OFFICE THEN Q8 WEEKSLAST QTB 1-21PCP RECHECKED CBC AND CMP OK WILL RECHECK 6 MONTHS ON THERAPY UNLESS ANY PROBLEMSF/ U 4 WEEKS [id number] ERIN RONQUILLO APRN [facility] [address] 7 07/19/2021 09:56:26 07/19/2021 10:27:53 Psoriasis 6957678 L40.9 CLEAR ON TREATMENT 0% BSA PRIOR TO TREATMENT FLARED >10%BSA NO SIDE EFFECTS TOLERATING WELLCONT HALOBETASO L CREAM BID X 2 WEEKS PRN FLARESCONT TREMFYA 100MG SQ Z1MTSTP CHECK CBC,CMP,QT BF/U 6 MONTHS [id number] JARAD OBRIEN MD [facility] [address] [place], [place] [address] 11/03/2021 15:10:14 11/03/2021 17:24:26 Kidney stone 55671560 N20.0 [id number] JARAD OBRIEN MD [facility] [address] [place] [address] 12/16/2021 13:26:30 12/16/2021 16:21:02 Kidney stone 77574053 N20.0 [id number] FILEMON PATTERSON JR, MD [facility] [address] [place] [address] 05/19/2022 12:14:12 05/19/2022 12:14:28 Urinary tract infectious disease 79314404 N39.0 [id number] JARAD OBRIEN MD [facility] [address] [place] [address] 0 05/30/2022 15:42:38 05/30/2022 16:37:55 Ureteric stone 95666952 N20.1 Kidney stone 28679404 N2 0.0 [id number] JARAD OBRIEN MD SURGERY SCHEDULE [address] [place] [address] 06/05/2022 09:21:21 06/05/2022 09:21:44 Ureteric stone 28494687 N20.1 Urinary tr act infectious disease 43745136 N39.0 [id number] JARAD OBRIEN MD [facility] [address] [place] [address] RD,[place] [place] [address] 06/08/2022 12:26:32 06/08/2022 14:21:33 Ureteric stone 79786690 N20.1 [id number] CINDY SIMMONS PA-C PULMONARY [address] [facility], [address] [place] [address] 06/22/2022 11:15:25 06/22/2022 14:02:46 Obstructive sleep apnea syndrome 72045670 G47.33 Discussed sleep study in detail. CPAP treatment is recommende d. Patient agrees to start CPAP. This will be ordered. Patient will call office to schedule follow up after obtaining CPAP. Health risks including cardiac risks of untreated RENA have been discussed. Recommende d patient make an appointmen t with Corina Menjivar PA-C, or Dr. Bass to discuss her COPD. [id number] JARAD OBRIEN MD [facility] [address] [place] [address] 06/22/2022 16:23:58 06/23/2022 11:33:51 Ureteric stone 84731335 N20.1 [id number] ERIN RONQUILLO APRN [facility] [address] [place] [id number] 06/27/2022 10:45:00 06/27/2022 11:25:16 Psoriasis 6947257 L40.9 PT WENT OFF OF TREMFYA FOR 9 MONTHS DUE TO MEDICAL ISSUES AND RESTARTED 3 DAYS AGO, MILD FLARING TODAY BUT NORMALLY CLEAR ON TREATMENT 0% BSA PRIOR TO TREATMENT FLARED >10%BSA NO SIDE EFFECTS TOLERATING WELL IN PAST DISCUSSED TX OPTIONSCON T HALOBETASO L CREAM BID UP TO 2 WEEKS PRN FLARESCONT TREMFYA 100MG SQ [id number] - GAVE SAMPLE FOR PT TO TAKE 2ND DOSE AT 4 WEEKS BOOSTER R[facility]UMATOLO GY CHECKED CBC,CMP, PT WILL FAX TO US RESULTSTB TEST DONE AT WORK IN [employer]IL, GAVE PT FAX # TO SEND TO [facility] BACTRIM PER PCP ALTHOUGH LEFT RENTERIA DOES NOT LOOK OVERLY INFECTED TODAY ?PSORIASIS F/U 3 MONTHS [id number] ERIN RONQUILLO APRN [facility] [address] [place] [address] 09/20/2022 11:06:00 09/20/2022 11:41:44 Injection given 423614865 Z98.890 TREMFYA INJECTION GIVEN IN L ABDOMEN PER WINTER DEANLOT: MGS1C.AJEX P: 12/30PT WILL F/U FOR 6 MO RECHECK NEXT MONTH [id number] ERIN RONQUILLO APRN [facility] [address] [place] [address] 06/19/2023 13:38:10 06/19/2023 13:56:56 Psoriasis 9229222 L40.9 MOSTLY CLEAR ON TREATMENT <2% BSA PRIOR TO TREATMENT FLARED >10%BSA NO SIDE EFFECTS TOLERATING WELL IN PAST DISCUSSED TX OPTIONSIF ANY CHANGES IN HEALTH LET ME KNOWCONT HALOBETASO L CREAM BID UP TO 2 WEEKS PRN FLARESCONT TREMFYA 100MG SQ B2SMSBR - RENEW PA RHEUMAT[facility]O G[facility] CHECKED CBC,CMP, PT WILL FAX TO US RESULTSTB TEST DONE AT WORK IN FEBRUARY, PT EMAILED RESULTS WILL SCAN INTO CHARTF/U 6 MONTHS [id number] FILEMON PATTERSON JR, MD [facility] [address] [place] [address] 06/21/2023 10:38:36 06/21/2023 10:38:54 Acute urinary tract infection 922788364 N39.0 [id number] JARAD OBRIEN MD [facility] [address] [place] [address] 10/02/2023 09:20:29 10/02/2023 11:31:11 Ureteric stone 01878956 N20.1 [id number] JARAD OBRIEN MD [facility] [address] [place] [address] 10/09/2023 09:32:00 10/09/2023 10:55:36 Ureteric stone 40974146 N20.1 [id number] JARAD OBRIEN MD [facility] [address] [address] 10/23/2023 09:34:02 10/23/2023 10:01:34 Kidney stone 03028077 N20.0 [id number] AIMEE LOO MD [facility] [address] [place] [address] 11/14/2023 08:14:21 11/15/2023 05:22:56 Psoriatic arthritis 014393763 L40.50 Moderate disease activity with synovitis in the right elbow Previous Rx: Tremfya - will PA Cosentyx with loading dose every week x 4 weeks followed by the maintenanc e injection every 4 weeks- will give a prednisone taper with maintenanc e of 5 mg prednisone daily until cholecyste ctomy- 2 weeks after cholecyste ctomy, if healing well, can start Cosentyx Psoriasis 9050515 L40.9 - currently doing well on immunosupp ression Long-term drug therapy 045162569 Z79.899 - will request most recent records from [facility]- request most recent labs from PCP- got TB test with work at [facility] and she will send us a copy- CBC, CMP, ESR, CRP every 6 months [...] No live vaccines. History of pulmonary embolus 853895907 Z86.711 On EliquisShe was found to have a + lupus anticoagul ant while on Eliquis and after the PEs were found- no recurrent thrombosis - would avoid LEIGH inhibitors like Rinvoq [id number] AIMEE LOO MD [facility] [address] [place] [address] 01/09/2024 07:54:41 01/10/2024 04:20:39 Psoriatic arthritis 689063443 L40.50 Previous synovitis in the right elbowJoint pain moves around Currently more pain in the right 1st MTP, but I do not appreciate swelling. Previous Rx: Tremfya - continue Cosentyx 150 mg loading doses x 2 then every 4 weeks- she is on a medrol dose pack right now for allergic reaction- XR of the right foot- uric acid- likely need MRI if not evident on X ray, but pain is out of proportion to exam-- ?tendon issue Psoriasis 1124322 L40.9 - currently doing well on immunosupp ression Long-term drug therapy 849475576 Z79.899 - CBC, CMP, ESR, CRP every 6 months on current medication s- QTB last negative 02/07/2023 - we discussed side effects of the [...] No live vaccines. History of pulmonary embolus 561981225 Z86.711 On EliquisShe was found to have a + lupus anticoagul ant while on Eliquis and after the PEs were diagnosed- no recurrent thrombosis - would avoid LEIGH inhibitors like Rinvoq- negative autoimmune work up other than psoriasis and psoriatic arthritis [id number] JARAD OBRIEN MD [facility] [address] [place] [address] 02/07/2024 10:07:52 02/07/2024 10:31:04 Kidney stone 44740334 N20.0 [id number] AIMEE LOO MD [facility] [address] [place] [address] 04/01/2024 08:04:19 04/02/2024 04:49:19 Psoriatic arthritis 625674957 L40.50 Moderate disease activity with synovitis in the right elbow Previous Rx: Tremfya She has low disease activity - continue Cosentyx 150 mg every month Psoriasis 1781950 L40.9 - currently doing well on immunosupp ression Long-term drug therapy 237987333 Z79.899 - got TB test with [facility] [facility] and she will send us a copy- last QTB was 10/2023- CBC, CMP, ESR, CRP every 6 months [...] No live vaccines. History of pulmonary embolus [id number] Z86.711 On EliquisShe was found to have a + anticardio lipin antibody while on Eliquis and after the PEs were found- no recurrent thrombosis - would avoid LEIGH inhibitors like Rinvoq Bilateral osteoarthritis of knees [id number] 20072 M17.0 I think her ongoing pain is more related to osteoarthr itis- XR of the knees- topical voltaren gel- discussed possible steroid injections in the knees Pain of to e of right foot [id number] 02424 M79.674 - repeat EMG- her worst pain is in the right knee and righttoe and I suspect some radiculopa thy [id number] FILEMON PATTERSON JR, MD [facility] [address] [place] [address] 04/07/2024 13:07:35 04/07/2024 18:26:25 Kidney stone 38005201 N20.0 Plan for metabolic workout [id number] JARAD OBRIEN MD [facility] [address] [place] [address] 08/05/2024 13:35:39 08/05/2024 14:22:29 Kidney stone 22924520 N20.0 [id number] AIMEE LOO MD [facility] [address] [place] [address] 08/27/2024 15:27:57 08/28/2024 04:42:02 Psoriatic arthritis 403685370 L40.50 Moderate disease activity with synovitis in the right elbow Previous Rx: Tremfya She has low disease activity - continue Cosentyx, but increase to 300 mg every month due to ongoing psoriasis Psoriasis 9745811 L40.9 - currently doing well on immunosupp ression Long-term drug therapy 953790870 Z79.899 - last QTB was negative 03/2024- [...] No live vaccines. History of pulmonary embolus 742700528 Z86.711 On EliquisShe was found to have a + anticardio lipin antibody while on Eliquis and after the PEs were found- no recurrent thrombosis - would avoid LEIGH inhibitors like Rinvoq Bilateral osteoarthritis of knees 1283435494 14290 M17.0 I think her ongoing pain is more related to osteoarthr itis - topical voltaren gel- discussed possible steroid injections in the knees Pain of to e of right foot 8499662612 43964 M79.674 - repeat EMG if this recurs-- she cancelled the last order because it got better after her back strain- her worst pain is in the right knee and right toe and I suspect some radiculopa thy [id number] AIMEE LOO MD [facility] [address] [place] [address] 11/26/2024 08:13:10 11/29/2024 04:27:53 Psoriatic arthritis 434972727 L40.50 Previous Rx: Tremfya She has low disease activity on Cosentyx - continue Cosentyx 300 mg every month due to ongoing psoriasis Psoriasis 6319767 L40.9 - currently doing well on immunosupp ression Long-term drug therapy 393780962 Z79.899 - last QTB was negative 03/2024- [...] No live vaccines. History of pulmonary embolus 602204261 Z86.711 On EliquisShe was found to have a + anticardio lipin antibody while on Eliquis and after the PEs were found- no recurrent thrombosis - would avoid LEIGH inhibitors like Rinvoq Bilateral osteoarthritis of knees 6421101865 43652 M17.0 I think her ongoing pain is more related to osteoarthr itis - topical voltaren gel- discussed possible steroid injections in the knees Pain of to e of right foot 4217012128 44815 M79.674 - repeat EMG if this recurs-- [...] her toe pain Bilateral keratoconjunctivitis of eyes 5601133657 01142 H16.203 - For sicca symptoms, I recommende d conservati ve measures including frequent lubricatio n, avoiding stimulants , and regular dental and ophthalmic exams. [id number] ZANDRA DALE CUA, [facility] [address] [place] [address] 12/23/2024 13:43:04 12/23/2024 14:29:51 Kidney stone 34445385 N20.0 Nausea and vomiting 1693 2000 R11.2 Dysuria 31713840 R30.0 Renal colic 2434965 N23 Recurrent kidney stone [id number] 041213 N20.0 Acute urin bebe tract infection 031167577 N39.0 Health Concerns Section Related Observation LastModified by Organization Detai ls LastModified Time None Recorded Concern Status LastModified by Organization Details LastModified Time None Recorded Advance Directives Directive None Recorded Payers Insurance Date Sequence Insurance Name Policy Number Policy Chadwick Covered Member ID Chadwick Member ID Guarantor Name 12/23/2024 1 [place] [id number] Vera Gandhi Bailey [id number] Em Avalos Notes Date Note Type Note Provider Name and Address Organization Details Recorded Time 04/07/2024 text/html Patient has a hi story of kidney stones. She has a history of medullary sponge kidney. CT scan, April 05, 2024 shows no hydronephrosis with bilateral non-obstructing tiny kidney stones. FILEMON PATTERSON JR, MD [facility] [place], [address], [facility] 04/13/2024 17:59:39 08/05/2024 text/html She is back for follow-up of kidney stone problems. She has not been have any flank or abdominal pain. There is no hematuria or dysuria. She has a history of medullary sponge kidney. KUB shows a 4 mm stone in the right kidney. We will watch this conservatively. If she has any pain or bleeding she will let us know JARAD OBRIEN MD [facility] [place], [address], [facility] 08/05/2024 14:23:41 08/27/2024 text/html Visit today is b eing conducted via telehealth using both audio/video. The patient confirms that he/she is physically located in [place] at the time of this visit. Patient expressed understanding of audio/video telehealth as a billable visit and has consented. Patient also expressed understanding that not every condition can be appropriately addressed via telehealth and that this telehealth visit may need to be converted to an in-person visit or may even result in a recommendation to go to the E.R. at the provider s discretion in order to provide the best possible care. Em Avalos is a 54 yo woman with [...] and heard a pop. She is having more psoriasis and is wondering if her medications might need to be adjusted.No red, hot, swollen joints. MRI without synovitis in the toes. Mild degenerative changes. EMG at [facility] 2 years ago were reportedly normal in the lower extremities. AIMEE LOO MD [address] [place] [address], [phone], [facility] 08/27/2024 22:07:31 11/26/2024 text/html Em Avalos is a 54 yo woman with [...] the toes. Mild degenerative changes. EMG at [facility] 2 years ago were reportedly normal in the lower extremities. AIMEE LOO MD [address] [place] [address], [phone], [facility] 11/28/2024 18:46:04 12/23/2024 text/html The patient is a 54-year-old female with history of urinary tract infections and nephrolithiasis secondary to medullary sponge kidney here with complaints of left flank pain, suprapubic pain, and bladder spasms. The onset of symptoms began over the weekend, marked by left-side flank pain radiating to the bladder, characterized by spasms and an irritable sensation post-urination. Blood and protein present on her UA today. She also endorses lightheadedness, a pungent odor to her urine. She denies gross hematuria, fever, and chills.Last urologic procedure was in 2021, where she underwent ureteroscopy with Dr. Obrien. DALLIN GIBBONS PA-C [facility] [place], [address], [facility] 12/23/2024 14:37:15 OBGyn Episode No OBEpisode recorded.
--- OUTSIDE RECORDS SUMMARY | 2024-12-30 12:06 | XMS_ITS | Clinical Summary ---
Author Organization [facility] [employer] Address [address] [place] [address] Care Team Providers Care Behavioral Specialist Name Role Phone Unavailable Primary Care Provider [...] She is unable to get with her resolution manager currently as she recently relocated to [facility]. She generally is well-maintained on Tremfya injections but is recently over the last 1 to 2 weeks had significant flare with joint swelling, redness, myalgias and pain. Generally during times of flare she responds well to 7-day course of 40 mg daily prednisone. [facility] History of pulmonary embolism 05/26/2022 Overview (01/16/2024): [...] increased exponentially. She reports she contacted her resolution manager to tell her to be evaluated by [...] participating in weight loss management at the [facility] in [place]. Antiphospholipid syndrome 11/20/20212023 Overview (12/07/2023): Last Assessment & Plan: Patient followed by rheumatology. She has been followed by Dr. Loo who was with the [facility], Dr. Loo recently relocated to [facility]. Patient has plans to establish care with Dr. Loo at [facility] but is unable to get an appointment for several months. She continues to utilize Eliquis 5 mg twice daily for anticoagulation after suffering PE a couple of years ago Allergy status to other antibiotic agents 201809/02/2023 Chronic obstructive pulmonary disease 12/20/2018 09/02/2023 Overview (09/02/2023): Last Assessment & Plan: Care with [facility] May 2022. Patient with extended history [...] 09/02/2023 12/07/2023 Ureteric stone 01/19/2016 09/02/2023 12/07/2023 Family History Medical History Relation Name Comments Diabetes Father Misael Heart disease Father Misael Kidney disease Maternal Grandmother Milly Diabetes Mother Joan Relation Name Status Comments Father Misael Maternal Grandmother Milly Mother Joan Social History Tobacco Use Types Packs/Day Years [...] Date Feliz rded Speak language other than Swedish at home Not on file 08/27/2023 Want [...] 04/04/2024 11:31 PM EDT Plan of Treatment Health Maintenance Due Date Last Done Comments CT Colonography 1970 Colonoscopy 1970 Colorectal Cancer Screening 1970 FOBT/FIT 1969 Fit-DNA (Cologuard) 1970 Sigmoidoscopy 1970 HIV Screening 1984 Hepatitis C Screening 1987 Pneumococcal 50+ years (1 of 2 - PCV) 1988 Pap Smear 1990 Shingles Vaccine (Zoster) (1 of 2) 2019 COVID-19 VACCINE (2023-2 5 season) 2024 09/16/2021, 01/28/2021 Breast Cancer Screening 06/26/2024 06/26/2022 Influenza Vaccine (Season Ended) 2025 Tobacco Cessation Counseling and Screening (12+) 04/04/2025 04/04/2024 Lipid Panel 03/25/2027 03/25/2024, 04/0 02/2024, 10/11/2023, Additional history exists DTAP/TDAP/TD VACCINES (9 - T d or Tdap) 10/29/2031 10/28/2021, 05/18/2017, 01/27/2015, Additional history exists Procedures Procedure Name Priority Date/Time Associated Diagnosis [...] PM EDT Performed at: 01 - [facility] [address] [id number] Supervisor Dry Cleaning: Fortino Fisher PhD, Phone: [phone] us Sharon Bell NP LAB BLOOD ORDERABLES Final R esult [facility] from Last 3 Months or Most Recently Relevant to Health Maintenance Insurance BLUE CROSS/BLUE SHIELD Advance Directives For more information, please contact: [phone] * Full Code (Latest Code Status on File) Date Activated Date Inactivated Comments 12/07/2023 9:32 AM 12/07/2023 6:19 PM
--- OUTSIDE RECORDS SUMMARY | 2024-12-30 12:07 | XMS_ITS | Encounter Summary ---
Author Organization [facility] Address [address] [place] [address] Care Team Providers Care Steward/Stewardess Club Car Name Role Phone Sharon Bell FUND ACCOUNTANT Primary Care Provider + [phone] Mariaa Chauhan FUND ACCOUNTANT Primary Care Provider [phone] Sharon Bell FUND ACCOUNTANT Primary Care Provider + [phone] Encounter Details Date Type Department Care Team (Late st Contact Info) Description 11/10/2021 Transcribed Document [facility] [place] [place] Family Medicine [address] [place] [address] ProviderCornelio MD [address] [place] [address] Social History Tobacco Use Types Packs/Day [...] Cerner Conversion Note - Historical ProviderMD - 11/10/2021 9:35 AM CDT Patient: ALICIA AVALOS Age: 51 years Sex: Female : 1970 Associated Diagnoses: None Author: COMER, [place] Rae APRN Chief Complaint pleasant 51 yo female here with her for L ESWL with Dr. Hebert. pt was found to have renal stones on CT scan of her liver in September. Review of Systems Constitutional: Negative. Eye: glasses. Ear/Nose/Mouth/Throat: Negative. Respiratory: Negative. Cardiovascular: Negative. Gastrointestinal: elevated LFTs. Genitourinary: renal stones. Hematology/Lymphatics: Negative. Endocrine: Negative. Immunologic: Negative. Musculoskeletal: Negative. Integumentary: Negative. Neurologic: Negative. Psychiatric: Negative. All other systems are negative Health Status Allergies: Allergic Reactions (Selected) Severity Not Documented Cephalosporins- Anaphylactoid reaction. Ciprofloxacin- Hepatitis. Morphine- Headache. Penicillin- Anaphylactoid reaction. Rocephin- Anaphylactoid reaction., Allergies (5) Active Reaction cephalosporins Anaphylactoid reaction ciprofloxacin Hepatitis morphine Headache penicillin Anaphylactoid reaction Rocephin Anaphylactoid reaction Current medications: (Selected) Inpatient Medications Ordered Lactated Ringers Injection intravenous solution 1,000 mL: 20 mL/Hr, IntraVENous famotidine: 20 mg, Oral, 1-Time Documented Medications Documented Afrin 0.05% nasal spray: ` [place], Oral, BID, 0 Refill(s) Colace 100 mg oral capsule: 1 Cap, Oral, BID, 0 Refill(s) Excedrin: 1 Tab, Oral, Daily, 0 Refill(s) Percocet 5 mg-325 mg oral tablet: 1 Tab, Oral, Q6H, PRN: as needed for pain, 0 Refill(s) Tremfya 100 mg/mL subcutaneous solution: 100 mg, SubCutaneous, [id number], 1 mL, 0 Refill(s) Ultravate 0.05% topical cream: 0 Refill(s) Vitamin C: Oral, Daily, 0 Refill(s) acetaminophen-hydrocodone 325 mg-5 mg oral tablet: 1 Tab, Oral, Q4H, PRN: for pain, 15 Tab, 0 Refill(s) acyclovir 5% topical cream: Topical, 5 Times a Day, 0 Refill(s) diazepam 2 mg oral tablet: 1 Tab, Oral, Q8H, 0 Refill(s) meclizine 25 mg oral tablet: 1 Tab, Oral, TID, 0 Refill(s) multivitamin: 1 Tab, Oral, Daily, 0 Refill(s) ondansetron 4 mg oral tablet, disintegratin Tab, Oral, Q4H, 0 Refill(s), Home Medications (13) Active acetaminophen-hydrocodone 325 mg-5 mg oral tablet 1 Tab, PRN, Oral, Q4H acyclovir 5% topical cream , Topical, 5 Times a Day Afrin 0.05% nasal spray ` [place], Oral, BID Colace 100 mg oral capsule 100 mg = 1 Cap, Oral, BID diazepam 2 mg oral tablet 2 mg = 1 Tab, Oral, Q8H Excedrin 1 Tab, Oral, Daily meclizine 25 mg oral tablet 25 mg = 1 Tab, Oral, TID multivitamin 1 Tab, Oral, Daily ondansetron 4 mg oral tablet, disintegrating 4 mg = 1 Tab, Oral, Q4H Percocet 5 mg-325 mg oral tablet 1 Tab, PRN, Oral, Q6H Tremfya 100 mg/mL subcutaneous solution 100 mg, SubCutaneous, [id number] Ultravate 0.05% topical cream Vitamin C , Oral, Daily , Medications (2) Active Scheduled: (1) famotidine 20 mg tab 20 mg 1 Tab, Oral, 1-Time Continuous: (1) lactated ringers 1,000 mL 1,000 mL, IntraVENous, 20 mL/Hr PRN: (0) Problem list: All Problems Esophageal stricture? / SNOMED CT 668346579 / Confirmed Smoker / SNOMED CT 629670878 / Confirmed PA (psoriatic arthritis) / SNOMED CT 380493638 / Confirmed Nephrolithiasis / SNOMED CT 889307348 / Confirmed GERD - Gastro-esophageal reflux disease / SNOMED CT 9218422557 / Confirmed Former smoker vaps now / SNOMED CT 49499706 / Confirmed Endometriosis / SNOMED CT 3024452287 / Confirmed Depression / SNOMED CT 09937637 / Confirmed COPD (chronic obstructive pulmonary disease) left lung mid / SNOMED CT 38265884 / Confirmed Arthritis / SNOMED CT 7896372 / Confirmed Anxiety disorder / SNOMED CT 262664570 / Confirmed Anemia / SNOMED CT 716988587 / Confirmed Allergic rhinitis / SNOMED CT 301202088 / Confirmed, Active Problems (13) Allergic rhinitis Anemia Anxiety disorder Arthritis COPD (chronic obstructive pulmonary disease) left lung mid Depression Endometriosis Esophageal stricture? Former smoker vaps now GERD - Gastro-esophageal reflux disease Nephrolithiasis PA (psoriatic arthritis) Smoker Histories Past Medical History: No active or resolved past medical history items have been selected or recorded. Family History: No family history items have been selected or recorded. Procedure history: T & A. ureteroscopy, with stent placement. Social History Social & Psychosocial Habits Tobacco 09/16/2014 Smoking Status Current every day smoker . Physical Examination VS/Measurements No qualifying data available, Measurements from flowsheet : Measurements 11/10/2021 9:02 EDT Height Source Measured Height Entry Format [place] Height/Length, STATELESS (ft) 5 ft Height/Length STATELESS 3 Inch CLINICALHEIGHT 160.02 cm [place] Body Weight 52 kg Weight Source Standing scale Weight Entry Format [place] Weight Malagasy lb 165 lb CLINICALWEIGHT 75 kg Body Surface Area (BSA) 1.78 m2 Body Mass Index 29.3 kg/m2 HI General: Alert and oriented, No acute distress. Eye: Extraocular movements are intact, glasses. HENT: Normocephalic, Normal hearing. Respiratory: Lungs are clear to auscultation, Respirations are non-labored. Cardiovascular: Normal rate, Regular rhythm, No murmur, No gallop, No edema. Genitourinary: Kidney: Right, Costovertebral angle tenderness. Musculoskeletal: Normal range of motion, Normal strength. Integumentary: Warm, Dry, [place]. Neurologic: Alert, Oriented. Psychiatric: Cooperative, Appropriate mood & affect. Review / Management Results review: No qualifying data available. Impression and Plan Diagnosis 1. L renal stone 2. smoker 3. COPD 4. anemia 5. anxiety 6. OA 7. depression 8. GERD 9. esophageal stricture? 10. psoriatic arthritis. Condition: Stable. pt to proceed with surgery, dC home today documented in this encounter Plan of Treatment Not on file documented as of this encounter Visit Diagnoses Not on filedocumented in this encounter Care Teams Steward/Stewardess Club Car Relationship Specialty Start Date End Date Sharon Bell NP [address] [place] [address] PCP - General Family Medicine 08/27/23 12/05/23 Mariaa Chauhan, MARIANA [address] [address] PCP - General Family Medicine 12/06/23 01/10/24 Sharon Bell NP [address] [place] [address] PCP - General Family Medicine 01/11/24 10/13/24 documented as of this encounter
--- OUTSIDE RECORDS SUMMARY | 2024-12-30 12:07 | XMS_ITS | Encounter Summary ---
Author Organization [facility] In iatives Address [address] [place] [id number] Care Team Providers Care Farm Assistant Name Role Phone Sharon Bell DIE HOLDER Primary Care Provider [phone] Mariaa Chauhan DIE HOLDER Primary Care Provider [phone] Sharon Bell DIE HOLDER Primary Care Provider + [phone] Encounter Details Date Type Department Care Team (Late st Contact Info) Description 11/10/2021 Transcribed Document [facility] [place] Family Medicine [address] [place] [id number] ProviderCornelio MD [address] [place] [id number] Social History Tobacco Use Types Packs/Day [...] Conversion Note - Historical ProviderMD - 11/10/2021 12:[address] [facility] [place] [id number] EM AVALOS :1970 Visit Time:11/10/2021 What to do next Your Diagnosis Calculus of kidney, Calculus of kidney Instructions From Your Care Team Diet after Discharge: Resume usual diet as tolerated, Do not drink any alcoholic beverages, Drink at least 8-10 glasses of water per day if allowed Activity after Discharge: As tolerated, Rest and relax today, No strenuous activity, walk 3-4 times daily Driving after Discharge: Do not drive for 24 hours or while taking narcotic pain medications Showering/Bathing: May shower. No tub bathing, soaking, hot tubs or swimming Notify Provider of: signs of infection, Temp >101, cloudy, foul smelling urine, inability to urinate, excessive bleeding and clots (some blood in urine is normal) Strain all urine See separate sheet for postural drainage instructions Save any stones and take with you to your follow up appointment Take pain medications with food Stool softeners 2 times daily to prevent constipation Discharge Follow Up Instructions: Office three weeks with ADAMARIS Activity: Discharge Activity: Activity as tolerated Diet: Discharge Diet: Resume usual diet as tolerated Follow-Up Appointments Follow Up with JARAD OBRIEN When Within 3 weeks Comments with mariaa BAILON Where: [address] [place] [id number] Business (1) Medications What How Much When Instructions Next Dose phenazopyridine (Pyridium 200 mg oral tablet) 1 Tablet(s) Oral Three Times A Day Pickup at [facility] #[id number] ondansetron (ondansetron 4 mg oral tablet, disintegrating) 1 Tablet(s) Oral Every 4 Hours Pickup at [facility] #[id number] acetaminophen-hydrocodone (acetaminophen-hydrocodone 325 mg-5 mg oral tablet) 1 Tablet(s) Oral Every 4 Hours as needed for for pain acetaminophen-oxyCODONE (Percocet 5 mg-325 mg oral tablet) 1 Tablet(s) Oral Every 6 Hours as needed for as needed for pain Pickup at [facility] #[id number] acetaminophen/ aspirin/ caffeine (Excedrin) 1 Tablet(s) Oral Every Day acyclovir topical (acyclovir 5% topical cream) Topical 5 Times A Day ascorbic acid (Vitamin C) Oral Every Day diazepam (diazepam 2 mg oral tablet) 1 Tablet(s) Oral Every 8 Hours docusate (Colace 100 mg oral capsule) 1 Capsule(s) Oral Two Times A Day guselkumab (Tremfya 100 mg/ mL subcutaneous solution) 100 Milligram(s) SubCutaneous Every 8 Weeks halobetasol topical (Ultravate 0.05% topical cream) meclizine (meclizine 25 mg oral tablet) 1 Tablet(s) Oral Three Times A Day multivitamin 1 Tablet(s) Oral Every Day oxymetazoline nasal (Afrin 0.05% nasal spray) ` [place] Oral Two Times A Day Pharmacy Information [facility] #[id number]: [address] [place] [phone] Take your medications faithfully. Do NOT skip [...] Please dispose of unused and medications per pharmacy guidance. Education Materials Postural Drainage and Percussion After Lithotripsy Lithotripsy is a procedure to break up kidney stones into tiny fragments. After the procedure, most of these fragments will pass out of your body through your urine over a period of 2 weeks to 3 months. Some fragments may settle in the lower area of your kidney. If your health care provider suspects that you have kidney stone fragments, you may have to do postural drainage and percussion at home. ??? Postural drainage involves positioning your body so that gravity helps to remove kidney stone fragments from your kidneys. Your kidneys are located on the sides of your back, just under your ribs (flank area). ??? Percussion involves using your hand to firmly clap or thump on your flank area over your kidney. You will do this while in a postural drainage position. Follow your health care provider's instructions carefully about which positions to use and when and how often to perform each method. Call your health care provider if you have any questions or problems. How to do postural drainage You can use postural drainage on its own or together with kidney percussion. If you can raise the head of your bed ??? Postural drainage with percussion ??? raise the head of your bed. Lie face down the other way so that your upper body is lower than your hips and legs. ??? Postural drainage only ??? lie down on your side with the treated kidney side up. Try to sleep in this position. If you cannot raise the head of your bed ??? Lie face down on your bed, with your legs and hips on the bed. ??? Let your upper body hang over the edge of your bed, with your elbows on the floor. ??? If possible, have someone help you get into and out of this position. How to do percussion You can do percussion with a closed fist or a cupped hand. Ask your health care provider which method you should use. Have someone help you do percussion if needed. To do percussion: 1. Drink two large glasses of water, about 8 oz (237 mL) per glass. 2. Wait 15???30 minutes for the water to pass out of your stomach. 3. Get into the postural drainage position, with your head and upper body hanging down from your bed. 4. Do percussion over the affected kidney by firmly clapping your hand on the area 20 times in rapid succession. The percussions should be firm enough to shake your body, but not hard enough to hurt or leave redness. Have someone help you with percussion if you are not able to do this on yourself. 5. Stay in position for a few minutes. 6. Repeat the percussions another 20 times. 7. Get back into bed and lie on your side with the affected kidney side up. Do not stand up. 8. Wait at least 5 minutes before sitting on the side of the bed, then slowly stand up. If you feel dizzy, sit back down. 9. Drink another two glasses of water. Urinate as soon as you get the urge. General tips ??? Repeat percussion with postural drainage as told by your health care provider. You may need to do this twice each day for a few weeks. ??? Stop this procedure if you feel nauseous or dizzy. Then contact your health care provider. Follow these instructions at home ??? If told by your health care provider, use a strainer to collect any stone fragments every time you urinate. Your health care provider may ask you to save these for your follow-up appointment. ??? Drink enough fluid to keep your urine pale yellow. ??? Take xehw-wqe-fcqraxf and prescription medicines only as told by your health care provider. ??? If you were prescribed an antibiotic medicine, take it as told by your health care provider. Do not stop taking the antibiotic even if you start to feel better. ??? Do not drive or use heavy machinery while taking prescription pain medicine. ??? Return to your normal activities as told by your health care provider. Ask your health care provider what activities are safe for you. ??? Keep all follow-up visits as told by your health care provider. This is important. Contact a health care provider if: ??? You have chills or a fever. ??? You have blood in your urine. ??? You are unable to perform postural drainage and percussion, and you have no one to help you. ??? You get nauseous during this procedure or you feel dizzy afterward. Get help right away if you have: ??? Severe pain. ??? A strong urge to pass urine but you are not able to. ??? Chest pain or shortness of breath. Summary ??? After you have a procedure to break up kidney stones into tiny fragments (lithotripsy), some fragments may settle in the lower area of your kidney. If your health care provider suspects that you have kidney stone fragments, you may have to do postural drainage with percussion at home. ??? Postural drainage involves positioning your body so that gravity helps to remove kidney stone fragments from your kidney. Percussion involves using your hand to firmly clap or thump on your flank area over your kidney. ??? Repeat percussion with postural drainage as told by your health care provider. You may need to do this twice each day for a few weeks. ??? Follow your health care provider's instructions carefully. Call your health care provider if you have any questions or problems. This information is not intended to replace advice given to you by your health care provider. Make sure you discuss any questions you have with your health care provider. Document Revised: 08/27/2020 Document Reviewed: 02/27/2019 [employer] Patient Education ?? 2020 [employer]. Lithotripsy, Care After This sheet gives you information about how to care for yourself after your procedure. Your health care provider may also give you more specific instructions. If you have problems or questions, contact your health care provider. What can I expect after the procedure? After the procedure, it is common to have: ??? Some blood in your urine. This should only last for a few days. ??? Soreness in your back, sides, or upper abdomen for a few days. ??? Blotches or bruises on the area where the shock wave entered the skin. ??? Pain, discomfort, or nausea when pieces (fragments) of the kidney stone move through the tube that carries urine from the kidney to the bladder (ureter). Stone fragments may pass soon after the procedure, but they may continue to pass for up to 4???8 weeks. ? If you have severe pain or nausea, contact your health care provider. This may be caused by a large stone that was not broken up, and this may mean that you need more treatment. ??? Some pain or discomfort during urination. ??? Some pain or discomfort in the lower abdomen or (in men) at the base of the penis. Follow these instructions at home: Medicines ??? Take ribw-kda-mkgjktp and prescription medicines only as told by your health care provider. ??? If you were prescribed an antibiotic medicine, take it as told by your health care provider. Do not stop taking the antibiotic even if you start to feel better. ??? Ask your health care provider if the medicine prescribed to you requires you to avoid driving or using machinery. Eating and drinking ??? Drink enough fluid to keep your urine pale yellow. This helps any remaining pieces of the stone to pass. It can also help prevent new stones from forming. ??? Eat plenty of fresh fruits and vegetables. ??? Follow instructions from your health care provider about eating or drinking restrictions. You may be instructed to: ? Reduce how much salt (sodium) you eat or drink. Check ingredients and nutrition facts on packaged foods and beverages to see how much sodium they contain. ? Reduce how much meat you eat. ??? Eat the recommended amount of calcium for your age and gender. Ask your health care provider how much calcium you should have. General instructions ??? Get plenty of rest. ??? Return to your normal activities as told by your health care provider. Ask your health care provider what activities are safe for you. Most people can resume normal activities 1???2 days after the procedure. ??? If you were given a sedative during the procedure, it can affect you for several hours. Do not drive or operate machinery until your health care provider says that it is safe. ??? Your health care provider may direct you to lie in a certain position (postural drainage) and tap firmly (percuss) over your kidney area to help stone fragments pass. Follow instructions as told by your health care provider. ??? If directed, strain all urine through the strainer that was provided by your health care provider. ? Keep all fragments for your health care provider to see. Any stones that are found may be sent to a medical lab for examination. The stone may be as small as a grain of salt. ??? Keep all follow-up visits as told by your health care provider. This is important. Contact a health care provider if: ??? You have a fever or chills. ??? You have nausea that is severe or does not go away. ??? You have any of these urinary symptoms: ? Blood in your urine for longer than your health care provider told you to expect. ? Urine that smells bad or unusual. ? Feeling a strong urge to urinate after emptying your bladder. ? Pain or burning with urination that does not go away. ? Urinating more often than usual and this does not go away. ??? You have a stent and it comes out. Get help right away if: ??? You have severe pain in your back, sides, or upper abdomen. ??? You have any of these urinary symptoms: ? Severe pain while urinating. ? More blood in your urine or having blood in your urine when you did not before. ? Passing blood clots in your urine. ? Passing only a small amount of urine or being unable to pass any urine at all. ??? You have severe nausea that leads to persistent vomiting. ??? You faint. Summary ??? After this procedure, it is common to have some pain, discomfort, or nausea when pieces (fragments) of the kidney stone move through the tube that carries urine from the kidney to the bladder (ureter). If this pain or nausea is severe, however, you should contact your health care provider. ??? Return to your normal activities as told by your health care provider. Ask your health care provider what activities are safe for you. ??? Drink enough fluid to keep your urine pale yellow. This helps any remaining pieces of the stone to pass, and it can help prevent new stones from forming. ??? If directed, strain your urine and keep all fragments for your health care provider to see. Fragments or stones may be as small as a grain of salt. ??? Get help right away if you have severe pain in your back, sides, or upper abdomen, or if you have severe pain while urinating. This information is not intended to replace advice given to you by your health care provider. Make sure you discuss any questions you have with your health care provider. Document Revised: 04/07/2020 Document Reviewed: 04/07/2020 [employer] Patient Education ?? 2020 [employer]. Outpatient Surgery, Adult, Care After This sheet gives you information about how to care for yourself after your procedure. Your health care provider may also give you more specific instructions. If you have problems or questions, contact your health care provider. What can I expect after the procedure? After the procedure, it is common to have: ??? Tenderness and numbness at the surgical site. ??? Swelling, bruising, and numbness around the surgical site. ??? Nausea. Follow these instructions at home: For the time period you were told by your health care provider: ??? Rest. ??? Do not participate in activities where you could fall or become injured. ??? Do not drive or use machinery. ??? Do not drink alcohol. ??? Do not take sleeping pills or medicines that cause drowsiness. ??? Do not make important decisions or sign legal documents. ??? Do not take care of children on your own. Medicines ??? Take ejgn-bsz-gpcmyrp and prescription medicines only as told by your health care provider. ??? If you were prescribed an antibiotic medicine, take it as told by your health care provider. Do not stop taking the antibiotic even if you start to feel better. ??? Ask your health care provider if the medicine prescribed to you: ? Requires you to avoid driving or using machinery. ? Can cause constipation. You may need to take these actions to prevent or treat constipation: ? Drink enough fluid to keep your urine pale yellow. ? Take wznj-hsm-abzyzkm or prescription medicines. ? Eat foods that are high in fiber, such as beans, whole grains, and fresh fruits and vegetables. ? Limit foods that are high in fat and processed sugars, such as fried or sweet foods. Eating and drinking ??? Follow the diet recommended by your health care provider. ??? When you are hungry, begin eating light and bland foods, such as toast. Gradually return to your regular diet. ??? If you vomit: ? Drink clear fluids slowly and in small amounts as you are able. Clear fluids include water, ice chips, low-calorie sports drinks, and fruit juice that has water added (diluted fruit juice). ? Eat bland, lvwv-uu-fewszh foods in small amounts as you are able. These foods include bananas, applesauce, rice, lean meats, toast, and crackers. Incision care ??? Follow instructions from your health care provider about how to take care of an incision, if you have one. Make sure you: ? Wash your hands with soap and water for at least 20 seconds before and after you change your bandage (dressing). If soap and water are not available, use hand side guider. ? Change your dressing as told by your health care provider. ? Leave stitches (sutures), skin glue, or adhesive strips in place. These skin closures may need to stay in place for 2 weeks or longer. If adhesive strip edges start to loosen and curl up, you may trim the loose edges. Do not remove adhesive strips completely unless your health care provider tells you to do that. ??? Check your incision area every day for signs of infection. Check for: ? Redness, swelling, or pain. ? Fluid or blood. ? Warmth. ? Pus or a bad smell. Activity ??? Do not play contact sports until your health care provider says it is okay. ??? Follow instructions from your health care provider about lifting heavy objects. You may be told not to lift things that weigh more than a certain amount. ??? Return to your normal activities as told by your health care provider. Ask your health care provider what activities are safe for you. General instructions ??? If you have sleep apnea, surgery and certain medicines can increase your risk for breathing problems. Follow instructions from your health care provider about wearing your sleep device: ? Anytime you are sleeping, including during daytime naps. ? While taking prescription pain medicines, sleep medicines, or medicines that make you drowsy. ??? Have a responsible adult stay with you for the time you are told. It is important to have someone help care for you until you are awake and alert. ??? Do not use any products that contain nicotine or tobacco, such as cigarettes, e-cigarettes, and chewing tobacco. These can delay healing after surgery. If you need help quitting, ask your health care provider. ??? Ask your health care provider when you can take baths or showers, swim, or use a hot tub. You may only be allowed to take sponge baths. ??? Keep all follow-up visits as told by your health care provider. This is important. Contact a health care provider if: ??? You have any of these signs of infection: ? Redness, swelling, or pain around your incision or IV site. ? Fluid or blood coming from your incision. ? Warmth coming from your incision. ? Pus or a bad smell coming from your incision. ? A fever. ??? You feel light-headed or you faint. ??? You develop a rash. ??? You keep feeling nauseous or keep vomiting. ??? You have severe pain, even after taking the medicines your health care provider has prescribed or recommended. ??? You have constipation. Get help right away if: ??? You cannot urinate. ??? You have trouble breathing. ??? You have chest pain. ??? Your legs become painful or swollen. These symptoms may represent a serious problem that is an emergency. Do not wait to see if the symptoms will go away. Get medical help right away. Call your local emergency services (911 in the [place] Do not drive yourself to the hospital. Summary ??? Nausea is common after a procedure. ??? Have a responsible adult stay with you for the time you are told. It is important to have someone help care for you until you are awake and alert. ??? Follow the diet recommended by your health care provider. If you vomit, drink clear fluids slowly and eat bland, aksr-tg-ybkspg foods in small amounts. ??? Ask your health care provider what activities are safe for you. This information is not intended to replace advice given to you by your health care provider. Make sure you discuss any questions you have with your health care provider. Document Revised: 10/22/2020 Document Reviewed: 04/15/2020 [employer] Patient Education ?? 2020 [employer]. phenazopyridine (fen AY josselin PIR i susan) AZO Urinary Pain Relief, Azo-Gesic, Azo-Standard, Baridium, Prodium, Pyridium, Re-Azo, Uricalm What is the most important information I should know about phenazopyridine? You should not use phenazopyridine if you have kidney disease. What is phenazopyridine? Phenazopyridine is a pain reliever that affects the lower part of your urinary tract (bladder and urethra). Phenazopyridine is used to treat urinary symptoms such as pain or burning, increased urination, and increased urge to urinate. These symptoms can be caused by infection, injury, surgery, catheter, or other conditions that irritate the bladder. Phenazopyridine will treat urinary symptoms, but this medication will not treat a urinary tract infection.. Take any antibiotic that your doctor prescribes to treat an infection. Phenazopyridine may also be used for purposes not listed in this medication guide. What should I discuss with my health care provider before taking phenazopyridine? You should not use phenazopyridine if you are allergic to it, or if you have kidney disease. To make sure phenazopyridine is safe for you, tell your doctor if you have: ?? liver disease; ?? diabetes; or ?? a genetic enzyme deficiency called kofpvgb-5-fazvwwghq dehydrogenase (G6PD) deficiency. FDA category B. Phenazopyridine is not expected to harm an unborn baby. Do not use this medicine without a doctor's advice if you are . It is not known whether phenazopyridine passes into breast milk or if it could harm a nursing baby. Do not use this medicine without a doctor's advice if you are breast-feeding a baby. How should I take phenazopyridine? Use exactly as directed on the label, or as prescribed by your doctor. Do not use in larger or smaller amounts or for longer than recommended. Take phenazopyridine after meals. Drink plenty of liquids while you are taking phenazopyridine. Phenazopyridine will most likely darken the color of your urine to an orange or red color. This is a normal effect and is not harmful. Darkened urine may also cause stains to your underwear that may be permanent. Phenazopyridine can also permanently stain soft contact lenses, and you should not wear them while taking this medicine. Do not use phenazopyridine for longer than 2 days unless your doctor has told you to. This medication can cause unusual results with urine tests. Tell any doctor who treats you that you are using phenazopyridine. Store at room temperature away from moisture and heat. What happens if I miss a dose? Take the missed dose as soon as you remember. Skip the missed dose if it is almost time for your next scheduled dose. Do not take extra medicine to make up the missed dose. What happens if I overdose? Seek emergency medical attention or call the Poison Help line at . What should I avoid while taking phenazopyridine? Do not use this medication while wearing soft contact lenses. Phenazopyridine can permanently discolor soft contact lenses. What are the possible side effects of phenazopyridine? Get emergency medical help if you have any of these signs of an allergic reaction: hives; difficult breathing; swelling of your face, lips, tongue, or throat. Stop using phenazopyridine and call your doctor at once if you have: ?? little or no urinating; ?? swelling, rapid weight gain; ?? confusion, loss of appetite, pain in your side or lower back; ?? fever, pale or yellowed skin, stomach pain, nausea and vomiting; or ?? blue or purple appearance of your skin. Common side effects may include: ?? headache; ?? dizziness; or ?? upset stomach. This is not a complete list of side effects and others may occur. Call your doctor for medical advice about side effects. You may report side effects to FDA at 6-689-ROP-2002. What other drugs will affect phenazopyridine? Other drugs may interact with phenazopyridine, including prescription and mzqf-iek-ybswbmg medicines, vitamins, and herbal products. Tell each of your health care providers about all medicines you use now and any medicine you start or stop using. Where can I get more information? Your pharmacist can provide more information about phenazopyridine. Remember, keep this and all other medicines out of the reach of children, never share your medicines with others, and use this medication only for the indication prescribed. Every effort has been made to ensure that the information provided by [employer]') is accurate, up-to-date, and complete, but no guarantee is made to that effect. Drug information contained herein may be time sensitive. [employer] information has been compiled for use by healthcare practitioners and consumers in the [place] and therefore [employer] does not warrant that uses outside of the [place] are appropriate, unless specifically indicated otherwise. [employer]'s drug information does not endorse drugs, diagnose patients or recommend therapy. [employer] drug information is an informational resource designed to assist licensed healthcare practitioners in caring for their patients and/or to serve consumers viewing this service as a supplement to, and not a substitute for, the expertise, skill, knowledge and judgment of healthcare practitioners. The absence of a warning for a given drug or drug combination in no way should be construed to indicate that the drug or drug combination is safe, effective or appropriate for any given patient. [employer] does not assume any responsibility for any aspect of healthcare administered with the aid of information TalkTo provides. The information contained herein is not intended to cover all possible uses, directions, precautions, warnings, drug interactions, allergic reactions, or adverse effects. If you have questions about the drugs you are taking, check with your doctor, nurse or pharmacist. Copyright 5567-9486 [employer]. Version: 3.05. Revision Date: 10/30/2013. ondansetron (oral) (on RAMON se lorenzo) Shelbi Mario Zuplenz What is the most important information I should know about ondansetron? You should not use ondansetron if you are also using apomorphine (Apokyn). What is ondansetron? Ondansetron blocks the actions of chemicals in the body that can trigger nausea and vomiting. Ondansetron is used to prevent nausea and vomiting that may be caused by surgery, cancer chemotherapy, or radiation treatment. Ondansetron may be used for purposes not listed in this medication guide. What should I discuss with my health care provider before taking ondansetron? You should not use ondansetron if: ?? you are also using apomorphine (Apokyn); or ?? you are allergic to ondansetron or similar medicines (dolasetron, granisetron, palonosetron). To make sure ondansetron is safe for you, tell your doctor if you have: ?? liver disease; ?? an electrolyte imbalance (such as low levels of potassium or magnesium in your blood); ?? congestive heart failure, slow heartbeats; ?? a personal or family history of long QT syndrome; or ?? a blockage in your digestive tract (stomach or intestines). Ondansetron is not expected to harm an unborn baby. Tell your doctor if you are . It is not known whether ondansetron passes into breast milk or if it could harm a nursing baby. Tell your doctor if you are breast-feeding a baby. Ondansetron is not approved for use by anyone younger than 4 years old. Ondansetron orally disintegrating tablets may contain phenylalanine. Tell your doctor if you have phenylketonuria (PKU). How should I take ondansetron? Follow all directions on your prescription label. Do not take this medicine in larger or smaller amounts or for longer than recommended. Ondansetron can be taken with or without food. The first dose of ondansetron is usually taken before the start of your surgery, chemotherapy, or radiation treatment. Follow your doctor's dosing instructions very carefully. Take the ondansetron regular tablet with a full glass of water. To take the orally disintegrating tablet (Zofran ODT): ?? Keep the tablet in its blister pack until you are ready to take it. Open the package and peel back the foil. Do not push a tablet through the foil or you may damage the tablet. ?? Use dry hands to remove the tablet and place it in your mouth. ?? Do not swallow the tablet whole. Allow it to dissolve in your mouth without chewing. ?? Swallow several times as the tablet dissolves. To use ondansetron oral soluble film (strip) (Zuplenz): ?? Keep the strip in the foil pouch until you are ready to use the medicine. ?? Using dry hands, remove the strip and place it on your tongue. It will begin to dissolve right away. ?? Do not swallow the strip whole. Allow it to dissolve in your mouth without chewing. ?? Swallow several times after the strip dissolves. If desired, you may drink liquid to help swallow the dissolved strip. ?? Wash your hands after using Zuplenz. Measure liquid medicine with the dosing syringe provided, or with a special dose-measuring spoon or medicine cup. If you do not have a dose-measuring device, ask your pharmacist for one. Store at room temperature away from moisture, heat, and light. Store liquid medicine in an upright position. What happens if I miss a dose? Take the missed dose as soon as you remember. Skip the missed dose if it is almost time for your next scheduled dose. Do not take extra medicine to make up the missed dose. What happens if I overdose? Seek emergency medical attention or call the Poison Help line at . Overdose symptoms may include sudden loss of vision, severe constipation, feeling light-headed, or fainting. What should I avoid while taking ondansetron? Ondansetron may impair your thinking or reactions. Be careful if you drive or do anything that requires you to be alert. What are the possible side effects of ondansetron? Get emergency medical help if you have signs of an allergic reaction: rash, hives; fever, chills, difficult breathing; swelling of your face, lips, tongue, or throat. Call your doctor at once if you have: ?? severe constipation, stomach pain, or bloating; ?? headache with chest pain and severe dizziness, fainting, fast or pounding heartbeats; ?? fast or pounding heartbeats; ?? jaundice (yellowing of the skin or eyes); ?? blurred vision or temporary vision loss (lasting from only a few minutes to several hours); ?? high levels of serotonin in the body--agitation, hallucinations, fever, fast heart rate, overactive reflexes, nausea, vomiting, diarrhea, loss of coordination, fainting. Common side effects may include: ?? diarrhea or constipation; ?? headache; ?? drowsiness; or ?? tired feeling. This is not a complete list of side effects and others may occur. Call your doctor for medical advice about side effects. You may report side effects to FDA at 3-673-JID-6652. What other drugs will affect ondansetron? Ondansetron can cause a serious heart problem, especially if you use certain medicines at the same time, including antibiotics, antidepressants, heart rhythm medicine, antipsychotic medicines, and medicines to treat cancer, malaria, HIV or AIDS. Tell your doctor about all medicines you use, and those you start or stop using during your treatment with ondansetron. Taking ondansetron while you are using certain other medicines can cause high levels of serotonin to build up in your body, a condition called 'serotonin syndrome,' which can be fatal. Tell your doctor if you also use: ?? medicine to treat depression; ?? medicine to treat a psychiatric disorder; ?? a narcotic (opioid) medication; or ?? medicine to prevent nausea and vomiting. This list is not complete and many other drugs can interact with ondansetron. This includes prescription and wspd-nrh-sducyqh medicines, vitamins, and herbal products. Give a list of all your medicines to any healthcare provider who treats you. Where can I get more information? Your pharmacist can provide more information about ondansetron. Remember, keep this and all other medicines out of the reach of children, never share your medicines with others, and use this medication only for the indication prescribed. Every effort has been made to ensure that the information provided by [employer] is accurate, up-to-date, and complete, but no guarantee is made to that effect. Drug information contained herein may be time sensitive. [employer] information has been compiled for use by healthcare practitioners and consumers in the [place] and therefore [employer] does not warrant that uses outside of the [place] are appropriate, unless specifically indicated otherwise. [employer] drug information does not endorse drugs, diagnose patients or recommend therapy. [employer] drug information is an informational resource designed to assist licensed healthcare practitioners in caring for their patients and/or to serve consumers viewing this service as a supplement to, and not a substitute for, the expertise, skill, knowledge and judgment of healthcare practitioners. The absence of a warning for a given drug or drug combination in no way should be construed to indicate that the drug or drug combination is safe, effective or appropriate for any given patient. [employer] does not assume any responsibility for any aspect of healthcare administered with the aid of information TalkTo provides. The information contained herein is not intended to cover all possible uses, directions, precautions, warnings, drug interactions, allergic reactions, or adverse effects. If you have questions about the drugs you are taking, check with your doctor, nurse or pharmacist. Copyright 2037-2240 [employer]. Version: 13.01. Revision Date: 04/28/2016. acetaminophen and oxycodone (a SEET a MIN oh fen and OX i KOE done) Endocet 10/325, Endocet 2.5/325, Endocet 5/325, Endocet 7.5/325, Nalocet, Percocet, Primlev What is the most important information I should know about acetaminophen and oxycodone? MISUSE OF OPIOID MEDICINE CAN CAUSE ADDICTION, OVERDOSE, OR . Keep the medication in a place where others cannot get to it. Taking opioid medicine during may cause life-threatening withdrawal symptoms in the . Fatal side effects can occur if you use opioid medicine with alcohol, or with other drugs that cause drowsiness or slow your breathing. Stop taking this medicine and call your doctor right away if you have skin redness or a rash that spreads and causes blistering and peeling. What is acetaminophen and oxycodone? Acetaminophen and oxycodone is a combination medicine used to relieve moderate to severe pain. Acetaminophen and oxycodone contains an opioide medicine and may be habit-forming. Acetaminophen and oxycodone may also be used for purposes not listed in this medication guide. What should I discuss with my healthcare provider before taking acetaminophen and oxycodone? You should not use this medicine if you are allergic to acetaminophen or oxycodone, or if you have: ?? severe asthma or breathing problems; or ?? a blockage in your stomach or intestines. Tell your doctor if you have ever had: ?? breathing problems, sleep apnea; ?? liver disease; ?? a drug or alcohol addiction; ?? kidney disease; ?? a head injury or seizures; ?? urination problems; or ?? problems with your thyroid, pancreas, or gallbladder. If you use opioid medicine while you are , your baby could become dependent on the drug. This can cause life-threatening withdrawal symptoms in the baby after it is born. Babies born dependent on opioids may need medical treatment for several weeks. Ask a doctor before using opioid medicine if you are . Tell your doctor if you notice severe drowsiness or slow breathing in the nursing baby. How should I take acetaminophen and oxycodone? Follow all directions on your prescription label. Never take this medicine in larger amounts, or for longer than prescribed. An overdose can damage your liver or cause . Tell your doctor if you feel an increased urge to use more of this medicine. Never share opioid medicine with another person, especially someone with a history of drug abuse or addiction. MISUSE CAN CAUSE ADDICTION, OVERDOSE, OR . Keep the medicine in a place where others cannot get to it. Selling or giving away opioid medicine is against the law. Measure liquid medicine carefully. Use the dosing syringe provided, or use a medicine dose-measuring device (not a kitchen spoon). If you need surgery or medical tests, tell the doctor ahead of time that you are using this medicine. You should not stop using this medicine suddenly. Follow your doctor's instructions about tapering your dose. Store at room temperature away from moisture and heat. Keep track of your medicine. You should be aware if anyone is using it improperly or without a prescription. Do not keep leftover opioid medication. Just one dose can cause in someone using this medicine accidentally or improperly. Ask your pharmacist where to locate a drug take-back disposal program. If there is no take-back program, flush the unused medicine down the toilet. What happens if I miss a dose? Since this medicine is used for pain, you are not likely to miss a dose. Skip any missed dose if it is almost time for your next dose. Do not use two doses at one time. What happens if I overdose? Seek emergency medical attention or call the Poison Help line at . An overdose of this medicine can be fatal, especially in a child or other person using the medicine without a prescription. Overdose symptoms may include nausea, vomiting, sweating, severe drowsiness, pinpoint pupils, slow breathing, or no breathing. Your doctor may recommend you get naloxone (a medicine to reverse an opioid overdose) and keep it with you at all times. A person caring for you can give the naloxone if you stop breathing or don't wake up. Your caregiver must still get emergency medical help and may need to perform CPR (cardiopulmonary resuscitation) on you while waiting for help to arrive. Anyone can buy naloxone from a pharmacy or local health department. Make sure any person caring for you knows where you keep naloxone and how to use it. What should I avoid while taking acetaminophen and oxycodone? Avoid driving or operating machinery until you know how this medicine will affect you. Dizziness or drowsiness can cause falls, accidents, or severe injuries. Do not drink alcohol. Dangerous side effects or could occur. Ask a doctor or pharmacist before using any other medicine that may contain acetaminophen (sometimes abbreviated as APAP). Taking certain medications together can lead to a fatal overdose. What are the possible side effects of acetaminophen and oxycodone? Get emergency medical help if you have signs of an allergic reaction: hives; difficulty breathing; swelling of your face, lips, tongue, or throat. Opioid medicine can slow or stop your breathing, and may occur. A person caring for you should give naloxone and/or seek emergency medical attention if you have slow breathing with long pauses, blue colored lips, or if you are hard to wake up. In rare cases, acetaminophen may cause a severe skin reaction that can be fatal. This could occur even if you have taken acetaminophen in the past and had no reaction. Stop taking this medicine and call your doctor right away if you have skin redness or a rash that spreads and causes blistering and peeling. Call your doctor at once if you have: ?? noisy breathing, sighing, shallow breathing, breathing that stops; ?? a light-headed feeling, like you might pass out; ?? weakness, tiredness, fever, unusual bruising or bleeding; ?? confusion, unusual thoughts or behavior; ?? problems with urination; ?? liver problems--nausea, upper stomach pain, tiredness, loss of appetite, dark urine, adis-colored stools, jaundice (yellowing of the skin or eyes); ?? low cortisol levels-- nausea, vomiting, loss of appetite, dizziness, worsening tiredness or weakness; or ?? high levels of serotonin in the body--agitation, hallucinations, fever, sweating, shivering, fast heart rate, muscle stiffness, twitching, loss of coordination, nausea, vomiting, diarrhea. Serious breathing problems may be more likely in older adults and in those who are debilitated or have wasting syndrome or chronic breathing disorders. Common side effects include: ?? dizziness, drowsiness, feeling tired; ?? feelings of extreme happiness or sadness; ?? nausea, vomiting, stomach pain; ?? constipation; or ?? headache. This is not a complete list of side effects and others may occur. Call your doctor for medical advice about side effects. You may report side effects to FDA at 7-795-ZKK-1504. What other drugs will affect acetaminophen and oxycodone? You may have breathing problems or withdrawal symptoms if you start or stop taking certain other medicines. Tell your doctor if you also use an antibiotic, antifungal medication, heart or blood pressure medication, seizure medication, or medicine to treat HIV or hepatitis C. Opioid medication can interact with many other drugs and cause dangerous side effects or . Be sure your doctor knows if you also use: ?? cold or allergy medicines, bronchodilator asthma/COPD medication, or a diuretic ('water pill'); ?? medicines for motion sickness, irritable bowel syndrome, or overactive bladder; ?? other opioids--opioid pain medicine or prescription cough medicine; ?? a sedative like Valium--diazepam, alprazolam, lorazepam, Xanax, Klonopin, Versed, and others; ?? drugs that make you sleepy or slow your breathing--a sleeping pill, muscle relaxer, medicine to treat mood disorders or mental illness; ?? drugs that affect serotonin levels in your body--a stimulant, or medicine for depression, Parkinson's disease, migraine headaches, serious infections, or nausea and vomiting. This list is not complete. Other drugs may affect acetaminophen and oxycodone, including prescription and fqec-lhr-alfqdvo medicines, vitamins, and herbal products. Not all possible interactions are listed here. Where can I get more information? Your doctor or pharmacist can provide more information about acetaminophen and oxycodone. Remember, keep this and all other medicines out of the reach of children, never share your medicines with others, and use this medication only for the indication prescribed. Every effort has been made to ensure that the information provided by [employer] is accurate, up-to-date, and complete, but no guarantee is made to that effect. Drug information contained herein may be time sensitive. [employer] information has been compiled for use by healthcare practitioners and consumers in the [place] and therefore [employer] does not warrant that uses outside of the [place] are appropriate, unless specifically indicated otherwise. [employer] drug information does not endorse drugs, diagnose patients or recommend therapy. [employer] drug information is an informational resource designed to assist licensed healthcare practitioners in caring for their patients and/or to serve consumers viewing this service as a supplement to, and not a substitute for, the expertise, skill, knowledge and judgment of healthcare practitioners. The absence of a warning for a given drug or drug combination in no way should be construed to indicate that the drug or drug combination is safe, effective or appropriate for any given patient. [employer] does not assume any responsibility for any aspect of healthcare administered with the aid of information [employer] provides. The information contained herein is not intended to cover all possible uses, directions, precautions, warnings, drug interactions, allergic reactions, or adverse effects. If you have questions about the drugs you are taking, check with your doctor, nurse or pharmacist. Copyright 5495-1257 [employer] Version: 20.03. Revision Date: 08/13/2020. Emergency Awareness and Preventative Care STROKE is [...] Assistance with quitting is available by contacting 0-993-NAYYNOW. This is a free resource providing counseling, support, and referral. Or you may contact your personal physician. [place] Suicide Prevention Lifeline: The National Suicide Prevention [...] CPR? There are two easy steps: Call 9-1-1 if you see a teen or adult [...] This Visit (last charted value for your 11/10/2021 visit) Microbiology 11/08/2021 3:00 PM SARS-CoV-2 (COVID19 PCR): Negative Diagnostic Radiology 11/10/2021 9:34 AM CR Abdomen 1 Vw: CR Abdomen 1 Vw Patient Name:BAILEYEM WHITEHEAD I have received this information and was given the opportunity to ask questions. 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 Name: 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 Signature: Relationship to Patient: Clinician/Hospital Engineered Wood Designer Signature: Date: documented in this encounter Plan of Treatment Not on file documented as of this encounter Visit Diagnoses Not on filedocumented in this encounter Care Teams Farm Assistant Relationship Specialty Start Date End Date Sharon Bell NP [address] [place] [address] PCP - General Family Medicine 08/27/23 12/05/23 Mariaa Chauhan NP [address] [place] [address] PCP - General Family Medicine 12/06/23 01/10/24 Sharon Bell NP [address] [place] [address] PCP - General Family Medicine 01/11/24 10/13/24 documented as of this encounter
--- OUTSIDE RECORDS SUMMARY | 2024-12-30 12:07 | XMS_ITS | Encounter Summary ---
Author Organization [employer] Address [address] [place] [address] Care Team Providers Care Orthodontic Assistant Name Role Phone Sharon Bell NP Primary Care Provider [phone] Reason for Referral * Diagnostic X-Ray (Routine) - Closed Specialty Diagnoses / Procedures Referred By Jim t Referred To Contact Diagnoses Kidney stone Procedures X-ray abdomen KUB 1 view Reza Royal Jr., MD [address] [place] [address] [address] [place] [address] Phone: tel: fax: Referral ID Status Reason Start Date Expiration Date Visits Re quested Visits Authorized [id number] Closed 02/27/2024 02/26/2025 1 1 Encounter Details Date Type Department Care Team (Late st Contact Info) Description 02/27/2024 Outside Orders [facility] - [place] [address] [place] [address] [address] [place] [address] Reza Royal Jr., MD [address] [place] [address] [address] [place] [id number] Kidney stone (Primary Dx) Social History Tobacco Use Types [...] Date Feliz rded Speak language other than Cambodian at home Not on file 08/27/2023 Want [...] Results * X-ray abdomen KUB 1 view (02/27/2024 12:54 PM EDT) Anatomical Region Laterality Modality Abdomen X-Ray 02/27/2024 4:38 PM EDT Impressions 02/27/2024 5:04 PM EDT Nonspecific bowel gas pattern. No abnormal calcifications overlying the kidneys. Images reviewed, interpreted, and dictated by Dr. Akshat De La Torre. Transcribed by Tamia Cobos PA-C. Narrative 02/27/2024 5:04 PM EDT SINGLE VIEW ABDOMEN HISTORY: Nephrolithiasis. COMPARISON: October 2023. ABDOMEN: A single view of the abdomen demonstrates a nonspecific bowel gas pattern. There are no abnormal calcifications overlying the kidneys. There are multiple right upper quadrant surgical clips consistent with cholecystectomy. Procedure Note Akshat De La Torre MD - 02/27/2024 SINGLE VIEW ABDOMEN HISTORY: Nephrolithiasis. COMPARISON: October 2023. ABDOMEN: A single view of the abdomen demonstrates a nonspecific bowel gas pattern. There are no abnormal calcifications overlying the kidneys. There are multiple right upper quadrant surgical clips consistent with cholecystectomy. IMPRESSION: Nonspecific bowel gas pattern. No abnormal calcifications overlying the kidneys. Images reviewed, interpreted, and dictated by Dr. Akshat De La Torre. Transcribed by Tamia Cobos PA-C. us Reza Royal Jr., MD IMG DIAGNOSTIC IMAGING ORDERABLES Final Result documented in this encounter Visit Diagnoses Diagnosis Kidney stone- Primary Calculus of kidney Kidney stone Calculus of kidney documented in this encounter Care Teams Orthodontic Assistant Relationship Specialty Start Date End Date Sharon Bell NP [address] [place] [address] PCP - General Family Medicine 01/11/24 10/13/24 documented as of this encounter
--- OUTSIDE RECORDS SUMMARY | 2024-12-30 12:07 | XMS_ITS | Continuity of Care Document ---
Author Organization [facility] Address [address] [address] [place] [address] Care Team Providers Care Parking Enforcer Name Role Phone TABATHA, HONG Primary Care Provider [phone] AMAURY MALHOTRA Copier Repair Technician Assessment Encounter Date Assessment Date Assessment LastModified [...] evaluate diagnostic results and refine management plan. [email or web address] Not available 12/23/2024 14:36:49 Plan of Treatment Reminders Order Date Submit Date Provider Last Modified By Organization Details Last Modified Time Details Appointments RECHECK 2024 09:45A Mary OBRIEN MD Not available Not available Not available RHEUM RECHECK 2024 08:15A M AMAURY MALHOTRA MD Not available Not available Not available Lab urinalys is panel, auto 2024 025 [email or web address] [facility], [address], [place], [address], 12/23/2024 14:22:52 Referral None recorded . Procedures None recorded . Surgeries None recorded . Imaging None recorded . Medication Orders ondanset carrington 8 mg disinteg rating tablet 2024 025 [facility], [place], [address], 12/23/2024 14:23:01 sulfamet hoxazole 800 mg-trime thoprim 160 mg tablet 2024 025 [facility] [address], [place], [address], 12/23/2024 14:26:09 Patient TargetsNo targets recorded. Patient Instructions Encounter Date Encounter Id Patient Instructions Last Modified By Organization Details Last Modified Time 12/23/2024 [id number] - Drink plenty o f water to [...] Not available 12/23/2024 14:25:52 Reason for Referral None Reported. Results Created Date Observation Date Name Description Value Unit Range Abnormal Flag Note LastModifiedBy Organization Detail LastModifiedTime 12/24/19 25 12/23/2024 urina lysis panel , auto Unknown Analyte Clean Catch Not Available [facility] [address], [place], [address], 12/23/2024 14:14:45 12/24/19 25 12/23/2024 urina lysis panel , auto Unknown Analyte Straw Not Available [facility] [address], [place], [address], 12/23/2024 14:14:45 12/24/19 25 12/23/2024 urina lysis panel , auto Unknown Analyte Cloudy Not Available [facility] [address], [place], [address], 12/23/2024 14:14:45 12/24/19 25 12/23/2024 urina lysis panel , auto Unknown Analyte 1.025 Not Available [facility] [address], [place], [address], 12/23/2024 14:14:45 12/24/19 25 12/23/2024 urina lysis panel , auto Unknown Analyte 1.003 - 1.030 Not Available [facility] [address], [place], [address], 12/23/2024 14:14:45 12/24/19 25 12/23/2024 urina lysis panel , auto Unknown Analyte 5.0 Not Available [facility] [address], [place], [address], 12/23/2024 14:14:45 12/24/19 25 12/23/2024 urina lysis panel , auto Unknown Analyte 5.0 - 8.0 Not Available [facility] [address], [place], [address], 12/23/2024 14:14:45 12/24/19 25 12/23/2024 urina lysis panel , auto Unknown Analyte Negati ve Not Available [facility] [address], [place], [address], 12/23/2024 14:14:45 12/24/19 25 12/23/2024 urina lysis panel , auto Unknown Analyte Negati ve Not Available [facility] [address], [place], [address], 12/23/2024 14:14:45 12/24/19 25 12/23/2024 urina lysis panel , auto Unknown Analyte Negati ve Not Available [facility] [address], [place], [address], 12/23/2024 14:14:45 12/24/19 25 12/23/2024 urina lysis panel , auto Unknown Analyte Negati ve Not Available [facility] [address], [place], [address], 12/23/2024 14:14:45 12/24/19 25 12/23/2024 urina lysis panel , auto Unknown Analyte 30 mg/dL Not Available [facility] [address], [place], [address], 12/23/2024 14:14:45 12/24/19 25 12/23/2024 urina lysis panel , auto Unknown Analyte Negati ve Not Available [facility] [address], [place], [address], 12/23/2024 14:14:45 12/24/19 25 12/23/2024 urina lysis panel , auto Unknown Analyte Normal Not Available [facility] [address], [place], [address], 12/23/2024 14:14:45 12/24/19 25 12/23/2024 urina lysis panel , auto Unknown Analyte Normal Not Available [facility] [address], [place], [address], 12/23/2024 14:14:45 12/24/19 25 12/23/2024 urina lysis panel , auto Unknown Analyte Negati ve Not Available [facility] [address], [place], [address], 12/23/2024 14:14:45 12/24/19 25 12/23/2024 urina lysis panel , auto Unknown Analyte Negati ve Not Available [facility] [address], [place], [address], 12/23/2024 14:14:45 12/24/19 25 12/23/2024 urina lysis panel , auto Unknown Analyte Normal Not Available [facility] [address], [place], [address], 12/23/2024 14:14:45 12/24/19 25 12/23/2024 urina lysis panel , auto Unknown Analyte Normal Not Available [facility] [address], [place], [address], 12/23/2024 14:14:45 12/24/19 25 12/23/2024 urina lysis panel , auto Unknown Analyte Negati ve Not Available [facility] [address], [place], [address], 12/23/2024 14:14:45 12/24/19 25 12/23/2024 urina lysis panel , auto Unknown Analyte Negati ve Not Available [facility] [address], [place], [address], 12/23/2024 14:14:45 12/24/19 25 12/23/2024 urina lysis panel , auto Unknown Analyte 250 Ramesh/uL Not Available [facility] [address], [place], [address], 12/23/2024 14:14:45 12/24/19 25 12/23/2024 urina lysis panel , auto Unknown Analyte Negati ve Not Available [facility] [address], [place], [address], 12/23/2024 14:14:45 12/26/19 25 12/25/2024 XR, abdom en, 1 view [facility] [address] [place] [address] Miguel ba Name: ALFREDO Boudreaux : [birth year] Patien t 6 Orderi ng Provid er: DALLIN ANDINO S EXAM DATE: 2024 EXAM: XR ABDOME [...] Jax Thompson MD on 025 9:33 AM [facility] [address], [address], 12/25/2024 13:17:38 12/26/19 25 12/25/2024 CT, abdom en + pelvi s, w/o contr ast [address] [address] [phone] Patien t Name: ALFREDO Mckeon t : [...] Jax Thompson MD on 025 10:37 AM [facility] [address], [address], 12/25/2024 13:17:39 Result Notes None recorded. Problems Name Problem SNOMED Code Status Onset Date Resolution Date Notes Provider Name and Address Organization Details Recorded Time Ureteric stone 52079991 Active 022 JARAD OBRIEN MD [address] [place] [address], [address] , [facility] 2 17:12:25 Psoriatic arthritis 759751218 Active 024 AMAURY MALHOTRA MD [address] [place] [address], [address] , [facility] 4 08:50:43 Problem Notes None recorded. Procedures Surgical History Date Name Laterality Status Provider Name and Address Organization Details Recorded Time 12/07/19 24 cholecystectomy completed Estefani Anderson [facility] 01/09/2024 08:02:12 11/11/19 22 EXTRA CORPOREAL SHOCK WAVE LITHOTRIPSY (SURG) completed Dell Vera [facility] 11/14/2021 12:13:09 07/13/19 21 Injection, Intralesional completed ERIN RONQUILLO, HOME DESIGNER [address] [place], [address], [facility] 07/13/2020 13:22:26 02/23/20 19 CYSTOSCOPY, WITH URETEROSCOPY, WITH LITHOTRIPSY, WITH INSERTION OF URETERAL STENT (SURG) completed Lyn Sears [facility] 02/24/2019 10:48:00 09/29/19 17 Injection, Intralesional completed ERIN RONQUILLO, HOME DESIGNER [address] [place], [address], [facility] 09/28/2016 12:41:10 tonsillectomy completed Karyn [facility] 11/14/2023 08:23:11 Imaging Results None recorded. Procedure Notes None recorded. Medical Equipment None Reported. Allergies Allergen ID Allergen Name Allergen Category Reaction Reaction Severity Criticality Documentation Date Start Date Code Code System Note Provider Name and Address Organization Details Recorded Time 785508 Rocephin medicatio n anaphylax is Not available Not available 06/01/20162007 9449 RxNorm React ion: ANAPH YLAXI S; Comme nt: Creat ed By: Kaushik Zuñiga ed Date: 2007 3:42: 24 PM; Not Available [facility] 6 10:31:19 789599 Cipro medicatio n Not available Not available Not available 06/01/20162009 89364 3 RxNorm Comme nt: Creat ed By: Ganesh Alonso melony Date: 04/22 4:11: 27 PM; Not Available [facility] 6 10:37:39 198241 Product containin g penicilli n (product) medicatio n anaphylax is Not available Not available 06/02/20162007 42216 8001 SNOMED React ion: ANAPH YLAXI S; Comme nt: Creat ed By: Kaushik Marie Creat ed Date: 2007 3:42: 33 PM; Not Available [facility] 6 04:35:18 197338 ciproflox acin medicatio n Not available Not available Not available 11/14/2023 2551 RxNorm Karyn Corrigan [facility] 4 08:21:17 042430 honey bee venom medicatio n Not available Not available Not available 01/09/2024 92871 7 RxNorm Estefani Anderson [facility] 4 08:01:37 001590 wasp venoms environme nt Not available Not available Not available 01/09/2024 71696 RxNorm Estefani Anderson [facility] 4 08:01:47 Medications Name Sig Start Date [...] completed Not Available Not Available Not Available Mounjakimberlee 04/01 completed Not Available Not Available Not Available Zepbound active Not Available Not Avai lable Not Available Vitals Date Recorded Body height Body mass index (BMI) Body weight Provider Name and Address Organization Details Last Updated DateTime 12/23/2024 157.48 cm 23.2 kg/m2 10135.23 g Karuna Gurmeet [facility] 12/23/2024 14:05:33 Social History Question Answer Notes LastModified by Organizat ion Details LastModified Time Tobacco Smoking Status [facility] 06/22/2022 11:21:45 How Much Tobacco Do You Chew? None [email or web address] Information not available 09/18/2018 When Did You Quit Smoking? 1-5yearssinc elastcigaret te Information not available 06/22/2022 What Was The Date Of Your Most Recent Tobacco Screening? 12/23/2024 Information not available 12/23/2024 At What Age Did You Start Smoking Tobacco? 15 Information not available 06/22/2022 How Much Tobacco Do You Smoke? No Information not available 06/22/2022 Has Tobacco Cessation Counseling Been Provided? Yes [email or web address] Information not available 09/18/2018 On What Date Was Tobacco Cessation Counseling Provided? 09/25/2018 [email or web address] Information not available 09/25/2018 Have You Recently Traveled Abroad? No Information not available 06/22/2022 Sex: Female Functional Status Question Answer Note LastModified by Organizat ion Details LastModified Time Do you use any illicit or recreational drugs? No Information not available 06/22/2022 What is your level of alcohol consumption? None Information not available 09/18/2018 Have you been [...] SNOMED-CT Code Diagnosis ICD10 Code Diagnosis Note [id number] AMAURY MALHOTRA MD RHEUMATOL OGY [address] [place] [address] 11/26/2024 08:13:10 11/29/2024 04:27:53 Psoriatic arthritis 522403719 L40.50 Previous Rx: Tremfya She has low disease activity on Cosentyx - continue Cosentyx 300 mg every month due to ongoing psoriasis Psoriasis 8103468 L40.9 - currently doing well on immunosupp ression Long-term drug therapy 148660256 Z79.899 - last QTB was negative 03/2024- [...] No live vaccines. History of pulmonary embolus 645903564 Z86.711 On EliquisShe was found to have a + anticardio lipin antibody while on Eliquis and after the PEs were found- no recurrent thrombosis - would avoid LEIGH inhibitors like Rinvoq Bilateral osteoarthritis of knees 9035685306 28500 M17.0 I think her ongoing pain is more related to osteoarthr itis - topical voltaren gel- discussed possible steroid injections in the knees Pain of to e of right foot 6184835994 04513 M79.674 - repeat EMG if this recurs-- [...] her toe pain Bilateral keratoconjunctivitis of eyes 7012818466 51849 H16.203 - For sicca symptoms, I recommende d conservati ve measures including frequent lubricatio n, avoiding stimulants , and regular dental and ophthalmic exams. [id number] DALLIN GIBBONS PA-C [facility] [address] [place] [address] 12/23/2024 13:43:04 12/23/2024 14:29:51 Kidney stone 97420170 N20.0 Nausea and vomiting 1693 2000 R11.2 Dysuria 79518302 R30.0 Renal colic 7163023 N23 Recurrent kidney stone 6783758530 191836 N20.0 Acute urin bebe tract infection 032189531 N39.0 Health Concerns Section Related Observation LastModified by Organization Detai ls LastModified Time None Recorded Concern Status LastModified by Organization Details LastModified Time None Recorded Payers Encounter Date Sequence Insurance Name Policy Number Policy Chadwick Covered Member ID Chadwick Member ID Guarantor Name 12/23/2024 1 [place] [id number] Vera Avalos [id number] Alicia Avalos Notes Date Note Type Note Provider Name and Address Organization Details Recorded Time 12/23/2024 text/html The patient is a 54-year-old [...] ureteroscopy with Dr. Obrien. DALLIN GIBBONS PA-C [address] [place], [address], [facility] 12/23/2024 14:37:15 OBGyn Episode No OBEpisode recorded.
--- OUTSIDE RECORDS SUMMARY | 2024-12-30 12:07 | XMS_ITS | Encounter Summary ---
Author Organization [employer] Address [address] [place] [address] Care Team Providers Care Sales Superintendent Name Role Phone Sharon Bell CUSTOMS OFFICER Primary Care Provider + [phone] Mariaa Chauhan CUSTOMS OFFICER Primary Care Provider [phone] Sharon Bell CUSTOMS OFFICER Primary Care Provider + [phone] Encounter Details Date Type Department Care Team (Late st Contact Info) Description 11/10/2021 Transcribed Document [facility] [address] [place] [address] ProviderCornelio MD [address] [place] [address] Social History Tobacco Use Types Packs/Day [...] Cerner Conversion Note - Cornelio ProviderMD - 11/10/2021 11:35 AM CDT DATE OF PROCEDURE: 11/10/2021 SURGEON: Saul Hebert MD PREOPERATIVE DIAGNOSIS: Left renal calculus. POSTOPERATIVE DIAGNOSIS: Left renal calculus. PROCEDURE PERFORMED: Left ESWL. DESCRIPTION OF PROCEDURE: After the induction of general anesthesia, the patient was prepped and draped in the supine position. Fluoroscopy was used to localize the stone for treatment. After the stone was positioned, the patient received 2400 shocks. There appeared to be good fragmentation of the stone. The patient tolerated procedure well, left the operating room in satisfactory condition. /[id number] Saul Hebert MD FP/AQ / FPH / MODL /[id number] Electronically signed by [place], [facility] Conversion Linux Support Engineer Cerner at 10/25/2022 12:43 PM CDT documented in this encounter Plan of Treatment Not on file documented as of this encounter Visit Diagnoses Not on filedocumented in this encounter Care Teams Sales Superintendent Relationship Specialty Start Date End Date Sharon Bell NP [address] [place] [address] PCP - General Family Medicine 08/27/23 12/05/23 Mariaa Chauhan NP [address] [place] [address] PCP - General Family Medicine 12/06/23 01/10/24 Sharon Bell NP [address] [place] [address] PCP - General Family Medicine 01/11/24 10/13/24 documented as of this encounter
--- OUTSIDE RECORDS SUMMARY | 2024-12-30 12:07 | XMS_ITS | Encounter Summary ---
Author Organization [facility] Address [address] [place] [address] Care Team Providers Care Associate Theatre Professor Name Role Phone Sharon Bell GRAVE DIGGER Primary Care Provider + [phone] Mariaa Chauhan GRAVE DIGGER Primary Care Provider [phone] Sharon Bell GRAVE DIGGER Primary Care Provider + [phone] Encounter Details Date Type Department Care Team (Late st Contact Info) Description 11/10/2021 Transcribed Document [facility] [facility] [address] [place] [address] ProviderCornelio MD [address] [place] [address] Social History Tobacco Use Types Packs/Day [...] Conversion Note - Cornelio ProviderMD - 11/10/2021 10:46 AM CDT [facility] Main OR IntraOp Summary Primary Physician: JARAD OBRIEN MD-URO Finalized Date/Time: 11/11/21 10:51:51 Pt. Name: ALICIA AVALOS /Sex: 1970 Female Med Rec #: [id number] Physician: JARAD OBRIEN MD-URO Financial #: [id number] Pt. Type: O Room/Bed: /1 Admit/Disch: 11/10/21 09:11:00 - 11/10/21 12:50:00 Institution: [facility] IntraOp Case Attendance Entry 1 Entry 2 Entry 3 Case Attendee JARAD OBRIEN MD-URO SHEWCRAFT, SUZANNE K, CELLAROSI-YORBA, MARIA, NEWSPAPER EDITOR MANAGING, TOWEL CABINET REPAIRER -ANS Role Performed Surgeon/Proceduralist, TOWEL CABINET REPAIRER/Nurse Reset Merchandiser Anesthesiologist of First Record Time In 11/10/21 10:26:00 11/10/21 10:26:00 11/10/21 10:26:00 Time Out 11/10/21 11:24:00 11/10/21 11:09:00 11/10/21 11:24:00 Procedure Extracorporeal Extracorporeal Extracorporeal Shockwave Lithotripsy Shockwave Lithotripsy Shockwave Lithotripsy Other Attendee Superficial Wound Closed By: Last Modified By: Glory Sy, Glory Sy, Glory Sy, RN-PATIENT CARE BEDSIDE RN-PATIENT CARE BEDSIDE RN-PATIENT CARE BEDSIDE NON-EXEMPT 11/10/21 NON-EXEMPT 11/10/21 NON-EXEMPT 11/10/21 11:23:27 11:23:27 11:23:27 Entry 4 Entry 5 Entry 6 Case Attendee GLORY SY, RN Nette Aleman LAURIE, MD-ANS Role Performed Fur Clipper, First Seed Cleaning Manager, Ancillary Anesthesiologist Time In 11/10/21 10:26:00 11/10/21 10:26:00 11/10/21 10:26:00 Time Out 11/10/21 11:24:00 11/10/21 11:24:00 11/10/21 11:24:00 Procedure Extracorporeal Extracorporeal Extracorporeal Shockwave Lithotripsy Shockwave Lithotripsy Shockwave Lithotripsy Other Attendee Superficial Wound Closed By: Last Modified By: Glory Sy, Reba, Glory, Glory Sy, RN-PATIENT CARE BEDSIDE RN-PATIENT CARE BEDSIDE RN-PATIENT CARE BEDSIDE NON-EXEMPT 11/10/21 NON-EXEMPT 11/10/21 NON-EXEMPT 11/10/21 11:23:27 11:23:27 11:23:27 [facility] IntraOp Case Attendance Audit 11/10/21 11:23:27 Electronic Security Technician: [id number] Modifier: [id number] 1 <+> Time Out 1 <*> Procedure Extracorporeal Shockwave Lithotripsy 2 <*> Procedure Extracorporeal Shockwave Lithotripsy 3 <+> Time Out 3 <*> Procedure Extracorporeal Shockwave Lithotripsy 4 <+> Time Out 4 <*> Procedure Extracorporeal Shockwave Lithotripsy 5 <+> Time Out 5 <*> Procedure Extracorporeal Shockwave Lithotripsy 6 <+> Time In 6 <+> Time Out 6 <*> Procedure Extracorporeal Shockwave Lithotripsy 11/10/21 11:15:26 Electronic Security Technician: [id number] Modifier: [id number] 1 <+> Time In 1 <*> Procedure Extracorporeal Shockwave Lithotripsy 2 <+> Time In 2 <+> Time Out 2 <*> Procedure Extracorporeal Shockwave Lithotripsy 3 <+> Time In 3 <*> Procedure Extracorporeal Shockwave Lithotripsy 4 <+> Time In 4 <*> Procedure Extracorporeal Shockwave Lithotripsy 5 <+> Time In 5 <*> Procedure Extracorporeal Shockwave Lithotripsy <+> 6 Case Attendee <+> 6 Role Performed <+> 6 Procedure 11/10/21 08:08:47 Electronic Security Technician: [id number] Modifier: [id number] <+> 1 Procedure 2 <*> Procedure Extracorporeal Shockwave Lithotripsy 3 <*> Procedure Extracorporeal Shockwave Lithotripsy 4 <*> Procedure Extracorporeal Shockwave Lithotripsy 5 <*> Procedure Extracorporeal Shockwave Lithotripsy [facility] IntraOp Case Times Entry 1 Patient In Room Time 11/10/21 10:26:00 Out Room Time 11/10/21 11:28:00 Anesthesia Start Time 11/10/21 10:26:00 Stop Time 11/10/21 11:18:00 Surgery / Procedure Times Start Time 11/10/21 10:46:00 Stop Time 11/10/21 11:18:00 Last Modified By: Glory Sy RN-PATIENT CARE BEDSIDE NON-EXEMPT 11/10/21 11:28:20 [facility] IntraOp Case Times Audit 11/10/21 11:28:20 Electronic Security Technician: [id number] Modifier: [id number] <+> 1 Out Room Time 11/10/21 11:27:25 Electronic Security Technician: [id number] Modifier: [id number] 1 <-> Out Room Time 11/10/21 11:24:00 11/10/21 11:23:19 Electronic Security Technician: [id number] Modifier: [id number] <+> 1 Out Room Time <+> 1 Stop Time <+> 1 Stop Time 11/10/21 10:48:01 Electronic Security Technician: [id number] Modifier: [id number] <+> 1 In Room Time <+> 1 Start Time [facility] IntraOp Communication Entry 1 Communication To Family/Significant other Comment START Communication By GLORY SY RN Date and Time 11/10/21 10:48:00 Last Modified By: Glory Sy RN-PATIENT CARE BEDSIDE NON-EXEMPT 11/10/21 10:50:14 [facility] IntraOp Communication Audit 11/10/21 10:50:14 Electronic Security Technician: [id number] Modifier: [id number] <+> 1 Date and Time [facility] IntraOp Departure from OR Entry 1 Integumentary Assessment Integumentary WDL Assessment WDL Transfer/Handoff Transfer to PACU Phase I Handoff Method Phone call Post-op Transport Stretcher/Gurney Via Patient Transport GLORY SY RN, Accompanied by GOLD RIVERA MD-ANS Last Modified By: Glory Sy RN-PATIENT CARE BEDSIDE NON-EXEMPT 11/10/21 12:22:04 [facility] IntraOp Departure from OR Audit 11/10/21 12:22:04 Electronic Security Technician: [id number] Modifier: [id number] 1 <*> Patient Transport Accompanied by MARIBETH SMITH APRN, CRNA [facility] IntraOp Fire Risk Assessment Entry 1 Fire Info Surgical Site or 0- No Incision Above the Xyphoid Open O2 Source 1- Yes (Mask or Cannula) Available Ignition 0- No (ESU, Laser, Light Source) Fire Risk 1 Assessment Score Fire Score Fire Risk Yes Assessment Complete Fire Risk GLORY SY egg gatherer Verified By Fire Risk 11/10/21 08:07:00 Assessment Verified Date/Time Fire Risk Standard Fire Yes Safety Precautions Followed Last Modified By: Glory Sy RN-PATIENT CARE BEDSIDE NON-EXEMPT 11/10/21 08:07:02 [facility] IntraOp General Case Loan Processor 1 Case Information OR OR 19 [facility] Case Level 1 Room Verified Yes Wound Class No Incision Specialty Urology Anesthesia Type General ASA Class 3 Diagnosis Preop Diagnosis RENAL CALCULI Postop Same As Preop No Postop Diagnosis SEE MD POST OP NARRATIVE Wound Class Definitions Last Modified By: Glory Sy RN-PATIENT CARE BEDSIDE NON-EXEMPT 11/10/21 08:07:34 [facility] IntraOp Intraoperative Assessment Entry 1 Handoff Method Online nursing summary Valid History / Yes Physical in Chart Preoperative Yes Checklist Reviewed/Evaluated Allergies Reviewed Yes Patient is Latex No Sensitive Isolation Not applicable Precautions Noted Level of WDL Consciousness (WDL = Alert, Oriented to Person, Place, and Time) Skin Assessment Yes Verified Present Upon IVs Arrival to OR Last Modified By: Glory Sy RN-PATIENT CARE BEDSIDE NON-EXEMPT 11/10/21 08:07:41 [facility] IntraOp Intraoperative Equipment Entry 1 Equipment Intraop Monitoring Electrocardiogram Five lead placement (ECG) Electrode Placement Blood Pressure Non-Invasive BP Device Source Antiembolic Devices Antiembolic Devices Sequential compression device, knee high Antiembolic Device Bilateral Location Antiembolic Device [id number] ID Number Antiembolic Device STANDARD Setting Scopes Photo/Video Documentation Photo No Video No Last Modified By: Glory Sy RN-PATIENT CARE BEDSIDE NON-EXEMPT 11/10/21 08:08:07 [facility] IntraOp Patient Positioning Entry 1 Procedure Extracorporeal Shockwave Lithotripsy Body Position Supine Left Arm Position Resting at side Right Arm Position Resting at side Left Leg Position Uncrossed, parallel Right Leg Position Uncrossed, parallel Feet Uncrossed Yes Pressure Points Yes Checked Positioning Devices Head Rest, Pad, Elbow, Pad, Elbow, Safety Strap, Chest, Wedge, Pillows, Table, Cysto Positioned By JARAD OBRIEN MD-URO, GLORY SY, RN, MARIBETH SMITH, NEWSPAPER EDITOR MANAGING, TOWEL CABINET REPAIRER Position Verified Positioning Yes Verified by Anesthesia Positioning Yes Verified by Surgeon Last Modified By: Glory Sy RN-PATIENT CARE BEDSIDE NON-EXEMPT 11/10/21 08:08:13 [facility] IntraOp Sign In Entry 1 Patient, Site, Yes Procedure Identified Surgical Consent Yes Confirmed Relevant Surgical Yes Documents Available Surgical Site Yes Marked by person performing procedure Anesthesia Machine Yes Check Completed Medication Checks Yes Completed Allergies Yes Airway Difficult Yes Airway/Aspiration Risk Difficult Yes Airway/Aspiration Intervention Equipment Available Blood Loss Risk Yes Blood Loss Yes Intervention Equipment Prepared and Ready Blood Identifiers Not applicable Verified Per Policy Hypothermia Risk Yes Warming Measures Yes Taken Last Modified By: Glory Sy RN-PATIENT CARE BEDSIDE NON-EXEMPT 11/10/21 08:08:21 [facility] IntraOp Sign Out Entry 1 RN Confirmation Surgical Yes Procedure(s) Identified Instrument, Sponge N/A and Sharps Counts Correct/Documented Equipment Problems N/A Documented Specimen Labeled N/A Correctly Urinary Catheter N/A Documented in IView Wound Yes classification reviewed, verified and updated post case in both the General Case Data and Procedure segments Frias Patient Yes Recovery Concerns Reviewed with Anesthesia Provider, Surgeon and RN Frias Patient Yes Management Concerns Reviewed with Anesthesia Provider, Surgeon and RN Safety Checklist Yes Elements Complete? RN Sign Out GLORY SY F, RN Signature RN Sign Out 11/10/21 11:28:00 Signature Date/Time Plan of Care Outcome - [...] related to extraneous objects Last Modified By: Glory Sy RN-PATIENT CARE BEDSIDE NON-EXEMPT 11/10/21 11:28:23 [facility] IntraOp Sign Out Audit 11/10/21 11:28:23 Electronic Security Technician: [id number] Modifier: [id number] <+> 1 RN Sign Out Signature Date/Time 11/10/21 11:27:34 Electronic Security Technician: [id number] Modifier: [id number] 1 <-> RN Sign Out Signature Date/Time 11/10/21 11:24:00 11/10/21 11:23:25 Electronic Security Technician: [id number] Modifier: [id number] <+> 1 RN Sign Out Signature Date/Time [facility] IntraOp Surgical Procedures Entry 1 Procedure Extracorporeal Shockwave Lithotripsy Additional LEFT ESWL Procedure Description Primary Procedure Yes Primary Surgeon JARAD OBRIEN MD-URO Start 11/10/21 10:46:00 Stop 11/10/21 11:18:00 Anesthesia Type General Specialty Urology Wound Class No Incision Last Modified By: Glory Sy RN-PATIENT CARE BEDSIDE NON-EXEMPT 11/10/21 11:23:26 [facility] IntraOp Surgical Procedures Audit 11/10/21 11:23:26 Electronic Security Technician: [id number] Modifier: [id number] <+> 1 Start <+> 1 Stop [facility] IntraOp Temp Regulation Devices Entry 1 Temp Regulation Temperature Warm blankets, Room Regulation Device temperature Temperature Upper body Regulation Site Temperature SHEWCRAFT, MARIBETH K, Regulation Device NEWSPAPER EDITOR MANAGING, TOWEL CABINET REPAIRER Applied by Temperature Patient's temperature Regulation Comment monitored by anesthesia provider. Forced air warming device available for use. Last Modified By: Glory Sy RN-PATIENT CARE BEDSIDE NON-EXEMPT 11/10/21 08:08:59 [facility] IntraOP Time Out Entry 1 Procedure to be Extracorporeal Performed Shockwave Lithotripsy Time Out Time Out Pause Time 11/10/21 10:45:00 All activity Yes suspended (unless life threatening emergency) Team Verbally Correct patient Confirms Information identity, Correct side and site are marked, Consent form is present and accurate, Agreement on the procedure to be done, Correct patient position, Relevant images/results properly labeled/appropriately displayed, Confirm antibiotics have been administered, Confirm the [...] N/A Labeled and Displayed Last Modified By: Glory Sy RN-PATIENT CARE BEDSIDE NON-EXEMPT 11/10/21 10:46:13 [facility] IntraOP Time Out Audit 11/10/21 10:46:13 Electronic Security Technician: [id number] Modifier: [id number] 1 <+> Time Out Pause Time 1 <*> Procedure to be Performed Extracorporeal Shockwave Lithotripsy Case Comments <None> Finalized By: SHEMAR DAVE Document Signatures Signed By: Glory Sy RN-PATIENT CARE BEDSIDE NON-EXEMPT 11/10/21 12:23 Glory Sy RN-PATIENT CARE BEDSIDE NON-EXEMPT 11/10/21 11:23 Glory Sy RN-PATIENT CARE BEDSIDE NON-EXEMPT 11/10/21 11:28 SHEMAR DAVE 11/11/21 10:51 Unfinalized History Date/Time Username Reason for Unfinalizing Freetext Reason for Unfinalizing 11/10/21 11:27 Kody Correct Documentation 11/10/21 12:21 Kody Correct Documentation 11/11/21 10:51 BILL Correct Billing Electronically signed by [facility] Conversion Adjunct Phlebotomy Instructor Cerner at 10/25/2022 12:40 PM CDT documented in this encounter Plan of Treatment Not on file documented as of this encounter Visit Diagnoses Not on filedocumented in this encounter Care Teams Associate Theatre Professor Relationship Specialty Start Date End Date Sharon Bell NP [address] [place] [address] PCP - General Family Medicine 08/27/23 12/05/23 [place] [address] [place] [address] PCP - General Family Medicine 12/06/23 01/10/24 Sharon Bell NP [address] [place] [address] PCP - General Family Medicine 01/11/24 10/13/24 documented as of this encounter
--- OUTSIDE RECORDS SUMMARY | 2024-12-30 12:07 | XMS_ITS | Encounter Summary ---
Author Organization [facility] Address [address] [place] [address] Care Team Providers Care Seal Mixer Name Role Phone Sharon Bell SURVEY METHODOLOGIST Primary Care Provider + [phone] Mariaa Chauhan SURVEY METHODOLOGIST Primary Care Provider [phone] Sharon Bell SURVEY METHODOLOGIST Primary Care Provider + [phone] Encounter Details Date Type Department Care Team (Late st Contact Info) Description 11/10/2021 Transcribed Document [facility] [place] Family Medicine [address] [place] [address] ProviderCornelio MD [address] [place] [address] Social History Tobacco Use Types Packs/Day [...] Conversion Note - Historical ProviderMD - 11/10/2021 12:[address] [facility] [place] [id number] EM AVALOS :1970 Visit [...] Appointments Follow Up with JARAD OBRIEN When 12/01/2021 02:45 PM EDT Comments with mariaa BAILON Where: [address] [place] [phone] Business (1) Medications What How Much When Instructions Next Dose phenazopyridine (Pyridium 200 mg oral tablet) 1 Tablet(s) Oral Three Times A Day Pickup at [facility] #[id number] ondansetron (ondansetron 4 mg oral tablet, disintegrating) 1 Tablet(s) Oral Every 4 Hours Pickup at [facility] #[id number] acetaminophen-hydrocodone (acetaminophen-hydrocodone 325 mg-5 mg oral tablet) 1 Tablet(s) Oral Every 4 Hours as needed for for pain acetaminophen-oxyCODONE (Percocet 5 mg-325 mg oral tablet) 1 Tablet(s) Oral Every 6 Hours as needed for as needed for pain Pickup at [facility] #[id number] acetaminophen/ aspirin/ caffeine (Excedrin) 1 Tablet(s) Oral [...] oxymetazoline nasal (Afrin 0.05% nasal spray) ` [place] Oral Two Times A Day Pharmacy Information [facility] #[id number]: [address] [place] [phone] Take your medications faithfully. Do NOT skip [...] keep your urine pale yellow. ??? Take nozj-gfm-edafkyb and prescription medicines only as told by [...] provider. Document Revised: 08/27/2020 Document Reviewed: 02/27/2019 [employer] Patient Education ?? 2020 [employer]. Lithotripsy, Care After This sheet gives you [...] these instructions at home: Medicines ??? Take wlcm-qur-qolfvjx and prescription medicines only as told by [...] provider. Document Revised: 04/07/2020 Document Reviewed: 04/07/2020 [employer] Patient Education ?? 2020 [employer]. Outpatient Surgery, Adult, Care After This sheet [...] children on your own. Medicines ??? Take hasl-kvh-jksxgrx and prescription medicines only as told by [...] keep your urine pale yellow. ? Take xaab-iiv-fhyxosj or prescription medicines. ? Eat foods that [...] added (diluted fruit juice). ? Eat bland, wuny-qq-vwvwmu foods in small amounts as you are [...] and water are not available, use hand manager general. ? Change your dressing as told by [...] drink clear fluids slowly and eat bland, lhmf-to-ammkpz foods in small amounts. ??? Ask your health care provider what activities are safe for you. This information is not intended to replace advice given to you by your health care provider. Make sure you discuss any questions you have with your health care provider. Document Revised: 10/22/2020 Document Reviewed: 04/15/2020 [employer] Patient Education ?? 2020 [employer]. phenazopyridine (fen AY josselin PIR i susan) [...] or ?? a genetic enzyme deficiency called jkggflj-1-jtwkjgiiz dehydrogenase (G6PD) deficiency. FDA category B. Phenazopyridine [...] may report side effects to FDA at 3-529-YIN-6651. What other drugs will affect phenazopyridine? Other drugs may interact with phenazopyridine, including prescription and ikzt-ghz-erhranu medicines, vitamins, and herbal products. Tell each [...] to ensure that the information provided by [employer]. ('[employer]') is accurate, up-to-date, and complete, but no guarantee is made to that effect. Drug information contained herein may be time sensitive. [employer] information has been compiled for use by healthcare practitioners and consumers in the [place] and therefore [employer] does not warrant that uses outside of the [place] are appropriate, unless specifically indicated otherwise. [employer] drug information does not endorse drugs, diagnose patients or recommend therapy. [employer] drug information is an informational resource designed [...] effective or appropriate for any given patient. [employer] does not assume any responsibility for any aspect of healthcare administered with the aid of information [employer] provides. The information contained herein is not intended to cover all possible uses, directions, precautions, warnings, drug interactions, allergic reactions, or adverse effects. If you have questions about the drugs you are taking, check with your doctor, nurse or pharmacist. Copyright 0842-8303 [employer]. Version: 3.05. Revision Date: 10/30/2013. ondansetron (oral) [...] may report side effects to FDA at 0-067-DMG-6942. What other drugs will affect ondansetron? Ondansetron [...] interact with ondansetron. This includes prescription and ulcv-ekl-zifiwvy medicines, vitamins, and herbal products. Give a [...] to ensure that the information provided by [employer]. ('Multum') is accurate, up-to-date, and complete, but no guarantee is made to that effect. Drug information contained herein may be time sensitive. [employer] information has been compiled for use by healthcare practitioners and consumers in the [place] and therefore [employer] does not warrant that uses outside of the [place] are appropriate, unless specifically indicated otherwise. [employer]'s drug information does not endorse drugs, diagnose patients or recommend therapy. [employer] drug information is an informational resource designed [...] effective or appropriate for any given patient. [employer] does not assume any responsibility for any aspect of healthcare administered with the aid of information [employer] provides. The information contained herein is not intended to cover all possible uses, directions, precautions, warnings, drug interactions, allergic reactions, or adverse effects. If you have questions about the drugs you are taking, check with your doctor, nurse or pharmacist. Copyright 6337-5391 [employer]. Version: 13.01. Revision Date: 04/28/2016. acetaminophen and [...] may report side effects to FDA at 5-674-CUJ-0471. What other drugs will affect acetaminophen and [...] affect acetaminophen and oxycodone, including prescription and gczc-iqt-kulvzik medicines, vitamins, and herbal products. Not all [...] to ensure that the information provided by [employer]. ('[employer]') is accurate, up-to-date, and complete, but no guarantee is made to that effect. Drug information contained herein may be time sensitive. [employer] information has been compiled for use by healthcare practitioners and consumers in the [place] and therefore [employer] does not warrant that uses outside of the [place] are appropriate, unless specifically indicated otherwise. [employer] drug information does not endorse drugs, diagnose patients or recommend therapy. [employer] drug information is an informational resource designed [...] effective or appropriate for any given patient. [employer] does not assume any responsibility for any aspect of healthcare administered with the aid of information [employer] provides. The information contained herein is not intended to cover all possible uses, directions, precautions, warnings, drug interactions, allergic reactions, or adverse effects. If you have questions about the drugs you are taking, check with your doctor, nurse or pharmacist. Copyright 2771-5434 [employer]. Version: 20.03. Revision Date: 08/13/2020. Emergency Awareness [...] Assistance with quitting is available by contacting 1-246-FJCVNOW. This is a free resource providing counseling, [...] 1 Vw: CR Abdomen 1 Vw Patient Name:EM AVALOS MARIO ALBERTO I have received this information and was given the opportunity to ask questions. Patient/Automatic Clipper Name: Patient/Automatic Clipper Signature: Relationship to Patient: Clinician/Hospital Automatic Clipper Signature: Date: Electronically signed by Declan Briggs Conversion Landfill Gas Collection Operator Raffiner at 10/25/2022 12:18 PM CDT documented in this encounter Plan of Treatment Not on file documented as of this encounter Visit Diagnoses Not on filedocumented in this encounter Care Teams Seal Mixer Relationship Specialty Start Date End Date Sharon Bell, MARIANA [address] [place] [address] PCP - General Family Medicine 08/27/23 12/05/23 Mariaa Chauhan NP [address] [place] [address] PCP - General Family Medicine 12/06/23 01/10/24 Sharon Bell NP [address] [place] [address] PCP - General Family Medicine 01/11/24 10/13/24 documented as of this encounter
--- OUTSIDE RECORDS SUMMARY | 2024-12-30 12:07 | XMS_ITS | Encounter Summary ---
Author Organization [facility] [employer] Address [address] [place] [address] Care Team Providers Care Tank Systems Maintainer Name Role Phone Sharon Bell YARD FOREMAN Primary Care Provider + [phone] Mariaa Chauhan YARD FOREMAN Primary Care Provider [phone] Sharon Bell YARD FOREMAN Primary Care Provider + [phone] Encounter Details Date Type Department Care Team (Late st Contact Info) Description 11/10/2021 Transcribed Document [facility] [place] Family Medicine [address] [place] [address] ProviderCornelio MD [address] [place] [address] Social History Tobacco Use Types Packs/Day [...] Cornelio ProviderMD - 11/10/2021 10:46 AM CDT [facility] Main OR PostOp Summary Primary Physician: JARAD OBRIEN MD-URO Finalized Date/Time: 11/10/21 12:53:00 Pt. Name: ALICIA AVALOS /Sex: 1970 Female Med Rec #: [id number] Physician: JARAD OBRIEN MD-URO Financial #: [id number] Pt. Type: O Room/Bed: /1 Admit/Disch: 11/10/21 09:11:00 - Institution: [facility] Main OR PostOp Case Times Entry 1 In PACU II 11/10/21 12:15:00 Ready for PACU II 11/10/21 12:50:00 Discharge Discharge from PACU 11/10/21 12:50:00 II Last Modified By: KAREN PATEL RN 11/10/21 12:52:58 Finalized By: KAREN PATEL, RN Document Signatures Signed By: KAREN PATEL RN 11/10/21 12:52 Electronically signed by [facility] Conversion Idea Man Cerner at 10/25/2022 12:44 PM CDT documented in this encounter Plan of Treatment Not on file documented as of this encounter Visit Diagnoses Not on filedocumented in this encounter Care Teams Tank Systems Maintainer Relationship Specialty Start Date End Date Sharon Bell NP [address] [place] [address] PCP - General Family Medicine 08/27/23 12/05/23 [place] [address] [place] [address] PCP - General Family Medicine 12/06/23 01/10/24 Sharon Bell NP [address] [place] [address] PCP - General Family Medicine 01/11/24 10/13/24 documented as of this encounter
--- OUTSIDE RECORDS SUMMARY | 2024-12-30 12:07 | XMS_ITS | Encounter Summary ---
Author Organization [facility] [employer] Address [address] [place] [address] Care Team Providers Care Exhibition Specialist Name Role Phone Sharon Bell ROOFER HELPER VINYL COATING Primary Care Provider + [phone] Mariaa Chauhan ROOFER HELPER VINYL COATING Primary Care Provider [phone] Sharon Bell ROOFER HELPER VINYL COATING Primary Care Provider + [phone] Encounter Details Date Type Department Care Team (Late st Contact Info) Description 11/10/2021 Transcribed Document [facility] [place] Family Medicine [address] [place] [address] ProviderCornelio MD [address] [place] [address] Social History Tobacco Use Types Packs/Day [...] Conversion Note - Cornelio ProviderMD - 11/10/2021 9:30 AM CDT [facility] Main OR Preop Summary Primary Physician: JARAD OBRIEN MD-URO Finalized Date/Time: 11/10/21 10:31:27 Pt. Name: ALICIA AVALOS /Sex: 1970 Female Med Rec #: [id number] Physician: JARAD OBRIEN MD-URO Financial #: [id number] Pt. Type: O Room/Bed: /1 Admit/Disch: 11/10/21 09:11:00 - Institution: [facility] PreOp Case Times Entry 1 In Preop 11/10/21 09:46:00 Ready for Holding n/a Room Patient Ready for 11/10/21 10:22:00 Surgery Patient Out of Preop 11/10/21 10:30:00 Patient Out of n/a Holding Room Last Modified By: YASH RAZO 11/10/21 10:30:59 [facility] PreOp Case Times Audit 11/10/21 10:30:59 Hydro Plant Operator: XAVI Modifier: XAVI <+> 1 Patient Out of Preop Finalized By: YASH RAZO Document Signatures Signed By: YASH RAZO 11/10/21 10:31 Electronically signed by [facility] Conversion Sales And Marketing Representative Cerner at 10/25/2022 12:31 PM CDT documented in this encounter Plan of Treatment Not on file documented as of this encounter Visit Diagnoses Not on filedocumented in this encounter Care Teams Exhibition Specialist Relationship Specialty Start Date End Date Sharon Bell NP [address] [place] [address] PCP - General Family Medicine 08/27/23 12/05/23 Mariaa Chauhan NP [address] [address] PCP - General Family Medicine 12/06/23 01/10/24 Sharon Bell NP [address] [place] [address] PCP - General Family Medicine 01/11/24 10/13/24 documented as of this encounter
--- OUTSIDE RECORDS SUMMARY | 2024-12-30 12:07 | XMS_ITS | Encounter Summary ---
Author Organization [facility] In iatives Address [address] [place] [address] Care Team Providers Care Contract Lead Name Role Phone Sharon Bell NP Primary Care Provider [phone] Reason for Visit * Reason Onset Date Comments Results 03/31/2024 Encounter Details Date Type Department Care Team (Late st Contact Info) Description 03/31/2024 Telephone [facility] Primary Care [address] [address] Sharon Bell NP [address] [place] [address] Results Social History Tobacco Use Types Packs/Day Years [...] Date Feliz rded Speak language other than Wolof at home Not on file 08/27/2023 Want [...] as of this encounter Miscellaneous Notes * Telephone Encounter - Jeanette Mathias - 03/31/2024 1:25 PM EDT Message Reason: Patient calling to obtain test results Type of Test: Bloodwork Ordering Provider: Sharon Bell NP Next Visit: Visit date not found Last Visit: 03/05/2024 Sharon Bell NP Test performed on: 03/25/24 Test performed at: Results in chart? yes Reason for contacting provider if not ordering provider? Additional information: Patient returning missed call, no CC MA's available. Caller Name: Alicia Avalos Relation to patient: self Best Call Back OK to leave message on voicemail: yes documented in this encounter Plan of Treatment Not on file documented as of this encounter Visit Diagnoses Not on filedocumented in this encounter Care Teams Contract Lead Relationship Specialty Start Date End Date Sharon Bell, MARIANA [address] [place] [address] PCP - General Family Medicine 01/11/24 10/13/24 documented as of this encounter
--- OUTSIDE RECORDS SUMMARY | 2024-12-30 12:07 | XMS_ITS | Encounter Summary ---
Author Organization [facility] [employer] Address [address] [place] [address] Care Team Providers Care Chute Boss Name Role Phone Sharon Bell JAVASCRIPT ENGINEER Primary Care Provider + [phone] Mariaa Chauhan JAVASCRIPT ENGINEER Primary Care Provider [phone] Sharon Bell JAVASCRIPT ENGINEER Primary Care Provider + [phone] Encounter Details Date Type Department Care Team (Late st Contact Info) Description 11/10/2021 Transcribed Document [facility] [place] Family Medicine [address] [place] [address] ProviderCornelio MD [address] [place] [address] Social History Tobacco Use Types Packs/Day [...] Conversion Note - Cornelio ProviderMD - 11/10/2021 9:56 AM CDT Spiritual Care Assessment Entered On: 11/10/2021 12:46 EDT Performed On: 11/10/2021 12:27 EDT by SABAS DESIREE General Information Referred by : Patient Referral Reason Comment : PostSurgery visit Ministry Provided to : Patient, Family/Significant other DESIREE OBREGON Jan 11/10/2021 12:39 EDT Interventions Emotional Support : Empathic/Engaged listening, Family/Significant other supported, Feelings expressed Spiritual and Taoism : Connection with God/the Sacred discussed, Spiritual/Taoism support provided Change, Adjustment and Loss : Relationships/Community/Support system discussed DESIREE OBREGON Jan 11/10/2021 12:39 EDT Outcomes Affect/Behavior Changed : Encouraged Appreciation Expressed : Yes Thoughts, Feelings and Emotions Exp. : Yes Supportive Relationships Described : at bedside KONRAD OBREGONHernan Montoya 11/10/2021 12:39 EDT documented in this encounter Plan of Treatment Not on file documented as of this encounter Visit Diagnoses Not on filedocumented in this encounter Care Teams Chute Boss Relationship Specialty Start Date End Date Sharon Bell NP [address] [place] [address] PCP - General Family Medicine 08/27/23 12/05/23 Mariaa Chauhan NP [address] [place] [address] PCP - General Family Medicine 12/06/23 01/10/24 Sharon Bell NP [address] [place] [address] PCP - General Family Medicine 01/11/24 10/13/24 documented as of this encounter
--- OUTSIDE RECORDS SUMMARY | 2024-12-30 12:07 | XMS_ITS | Encounter Summary ---
Author Organization [facility] [employer] Address [address] [place] [address] Care Team Providers Care Flat Finisher Name Role Phone Sharon Bell GAME FARM SUPERVISOR Primary Care Provider + [phone] Mariaa Chauhan GAME FARM SUPERVISOR Primary Care Provider [phone] Sharon Bell GAME FARM SUPERVISOR Primary Care Provider + [phone] Encounter Details Date Type Department Care Team (Late st Contact Info) Description 11/10/2021 Transcribed Document [facility] [place] [address] [place] [address] ProviderCornelio MD [address] [place] [address] Social History Tobacco Use Types Packs/Day [...] Cornelio ProviderMD - 11/10/2021 10:46 AM CDT [facility] Main OR PACU Summary Primary Physician: JARAD OBRIEN MD-URO Finalized Date/Time: 11/10/21 12:16:57 Pt. Name: ALICIA AVALOS /Sex: 1970 Female Med Rec #: [id number] Physician: JARAD OBRIEN MD-URO Financial #: [id number] Pt. Type: O Room/Bed: /1 Admit/Disch: 11/10/21 09:11:00 - Institution: [facility] Main OR PACU I Case Times Entry 1 In PACU I 11/10/21 11:31:00 Ready for PACU 11/10/21 12:12:00 Discharge Discharge from PACU 11/10/21 12:12:00 I Last Modified By: RANJIT BOYLE RN 11/10/21 12:16:49 Finalized By: RANJIT BOYLE, RN Document Signatures Signed By: RANJIT BOYLE RN 11/10/21 12:16 Electronically signed by [facility] Conversion Tumbling Instructor Cerner at 10/25/2022 12:35 PM CDT documented in this encounter Plan of Treatment Not on file documented as of this encounter Visit Diagnoses Not on filedocumented in this encounter Care Teams Flat Finisher Relationship Specialty Start Date End Date Sharon Bell NP [address] [place] [address] PCP - General Family Medicine 08/27/23 12/05/23 [place] [address] [place] [address] PCP - General Family Medicine 12/06/23 01/10/24 Sharon Bell NP [address] [place] [address] PCP - General Family Medicine 01/11/24 10/13/24 documented as of this encounter"
--- OUTSIDE RECORDS SUMMARY | 2024-12-30 12:07 | XMS_ITS | Encounter Summary ---
Author Organization [facility] [employer] Address [address] [place] [address] Care Team Providers Care Freight Receiver Name Role Phone Sharon Bell HOURLY SIGN LANGUAGE INTERPRETER Primary Care Provider + [phone] Mariaa Chauhan HOURLY SIGN LANGUAGE INTERPRETER Primary Care Provider [phone] Sharon Bell HOURLY SIGN LANGUAGE INTERPRETER Primary Care Provider + [phone] Encounter Details Date Type Department Care Team (Late st Contact Info) Description 11/10/2021 Transcribed Document [facility] [place] [address] [place] [address] ProviderCornelio MD [address] [place] [address] Social History Tobacco Use Types Packs/Day [...] Conversion Note - Historical ProviderMD - 11/10/2021 12:11 PM CDT Patient Education Materials Follows: Postural Drainage and Percussion After Lithotripsy Lithotripsy [...] your bed ??? Postural drainage with percussion ? raise the head of your bed. Lie face down the other way so that your upper body is lower than your hips and legs. ??? Postural drainage only ? lie down on your side with the [...] oz (237 mL) per glass. 2. Wait 15?30 minutes for the water to pass out [...] keep your urine pale yellow. ??? Take gfwg-iwm-inqmxuw and prescription medicines only as told by [...] provider. Document Revised: 08/27/2020 Document Reviewed: 02/27/2019 [employer] Patient Education ? 2020 [employer]. Lithotripsy, Care After This sheet gives you [...] may continue to pass for up to 4?8 weeks. ? If you have severe pain [...] these instructions at home: Medicines ??? Take vtoe-hgc-wyacmlg and prescription medicines only as told by [...] you. Most people can resume normal activities 1?2 days after the procedure. ??? If you [...] provider. Document Revised: 04/07/2020 Document Reviewed: 04/07/2020 [employer] Patient Education ? 2020 [employer] Procedures Outpatient Surgery, Adult, Care After This sheet [...] children on your own. Medicines ??? Take erwr-dry-vonchgp and prescription medicines only as told by [...] keep your urine pale yellow. ? Take cjfe-wzd-dqheorl or prescription medicines. ? Eat foods that [...] added (diluted fruit juice). ? Eat bland, ltyy-hx-lswiby foods in small amounts as you are [...] and water are not available, use hand career guidance technician. ? Change your dressing as told by [...] drink clear fluids slowly and eat bland, vcgf-wl-lqqufc foods in small amounts. ??? Ask your health care provider what activities are safe for you. This information is not intended to replace advice given to you by your health care provider. Make sure you discuss any questions you have with your health care provider. Document Revised: 10/22/2020 Document Reviewed: 04/15/2020 [employer] Patient Education ? 2020 [employer]. documented in this encounter Plan of Treatment Not on file documented as of this encounter Visit Diagnoses Not on filedocumented in this encounter Care Teams Freight Receiver Relationship Specialty Start Date End Date Sharon Bell NP [address] [place] [address] PCP - General Family Medicine 08/27/23 12/05/23 Mariaa Chauhan NP [address] [facility] [address] [address] PCP - General Family Medicine 12/06/23 01/10/24 Sharon Bell NP [address] [place] [address] PCP - General Family Medicine 01/11/24 10/13/24 documented as of this encounter
--- OUTSIDE RECORDS SUMMARY | 2024-12-30 12:07 | XMS_ITS | Encounter Summary ---
Author Organization [facility] [employer] Address [address] [place] [address] Care Team Providers Care Soldering Machine Operator Name Role Phone Sharon Bell AUTHORIZATION REP Primary Care Provider + [phone] Mariaa Chauhan AUTHORIZATION REP Primary Care Provider [phone] Sharon Bell AUTHORIZATION REP Primary Care Provider + [phone] Encounter Details Date Type Department Care Team (Late st Contact Info) Description 11/10/2021 Transcribed Document [facility] [place] [address] [place] [address] ProviderCornelio MD [address] [place] [address] Social History Tobacco Use Types Packs/Day [...] Conversion Note - Historical ProviderMD - 11/10/2021 9:02 AM CDT PAT Adult Entered On: 11/10/2021 9:02 EDT Performed On: 11/10/2021 9:02 EDT by YASH RAZO Height and Weight, Clinical Dosing Height, Feet : 5 ft(Converted to: 152 cm, 60 Inch) Height, Inches : 3 Inch(Converted to: 0 ft 3 Inch, 7.62 cm) Clinical Height : 160.02 cm Clinical Dosing Weight : 75 kg Weight, Pounds : 165 lb Body Surface Area (BSA) : 1.78 m2 Body Mass Index : 29.3 kg/m2 (HI) [place] Body Weight : 52 kg YASH RAZO 11/10/2021 9:24 EDT Height Source : Measured Height Entry Format : [place] Weight Source : Standing scale Weight Entry Format : [place] YASH RAZO 11/10/2021 9:02 EDT Health Histories Smoking Status : Smoker, current status unknown Smokeless Tobacco Status : Smokeless tobacco user within last 30 days Desires Tobacco Cessation Medication : No Reason for No Tobacco Cessation Medication : Refuses FDA approved medications YASH RAZO 11/10/2021 9:33 EDT Social History (As Of: 11/10/2021 09:56:19 EDT) Tobacco: Smoking Status Current every day smoker. (Last Updated: 09/16/2014 13:00:28 EDT by ELYSE TAMEZ) Infectious Disease History Does patient have symptoms of COVID-19? : No Does the Patient state known exposure to a COVID-19 positive case in the last 14 days? : No Patient Vaccinated for COVID-19 : Fully vaccinated YASH RAZO 11/10/2021 9:33 EDT Infectious Disease Risk Screening Grid Cough < 2 wks of unknown origin : NO Cough > 2 weeks : NO Blood in Sputum : NO Fever or self-reported Fever : NO Rash of unknown origin : NO Headache : NO Stiff neck : NO Night Sweats : NO Unexplained Weight Loss : NO Diarrhea (3 episode per day) : NO YASH RAZO 11/10/2021 9:33 EDT Physical contact outside [place] in the last 30 days : No Hospitalized in Foreign Country : No INF Disease TB Screening Calc : 0 INF Disease Recent Travel Calc : 0 YASH RAZO 11/10/2021 9:33 EDT Tested for COVID19 in the past 14 days : Yes, Patient stated results Negative Infectious Disease History : MRSA YASH RAZO 11/10/2021 9:09 EDT COVID19 PreProcedure Screening Has patient been isolated since the test : No Exposed to COVID19 symptoms since test? : No YASH RAZO 11/10/2021 9:33 EDT Is this an Emergent or Add on Procedure? : No Date PreProcedure COVID-19 test known? : Yes Date of PreProcedure COVID-19 : 11/08/2021 EDT YASH RAZO 11/10/2021 9:09 EDT Anesthesia/Transfusion History Family History of Anesthesia Reaction : No prior transfusion(s) Blood Transfusion Acceptable to Patient : Yes Transfusion History : Prior anesthesia without reaction Family History of Anesthesia Reaction : Unknown YASH RAZO 11/10/2021 9:53 EDT Functional Assessment Functional ADL Evaluation Index EBN Bathing : Independent (2) Dressing : Independent (2) Toileting : Independent (2) Transferring Bed or Chair : Independent (2) Continence : Independent (2) Feeding : Independent (2) YASH RAZO 11/10/2021 9:53 EDT ADL Index Score : 12 YASH RAZO 11/10/2021 9:53 EDT Advance Directive Patient has Advance Directive *Q : No, patient refuses Advance Directive information YASH RAZO 11/10/2021 9:53 EDT Spiritual/Cultural Needs Any Spiritual/Cultural Needs or Requests : Yes YASH RAZO 11/10/2021 9:53 EDT Divide Suicide Severity Rating Scale (C-SSRS) CSSRS Past Month Wish to be : No CSSRS Past Month Suicidal Thoughts : No CSSRS Lifetime Suicide Behavior : No Suicide Severity Rating Score : 0 Suicide Severity Rating : No Additional Care Required at this time YASH RAZO 11/10/2021 9:33 EDT Psychosocial History Do You Have a History of the Following? : Patient denies history Currently in Unsafe Situation : No YASH RAZO 11/10/2021 9:33 EDT General Info Arrived From : Home Mode of Arrival on Unit : Ambulatory Legal Guardian : Spouse Want Family/Rep/Phys Notified of Admit : No Emergency Contact #1 : - Emergency Contact #1 Phone Number : - Emergency Contact #1 Relationship : - Emergency Contact #2 : - Emergency Contact #2 Phone Number : - Emergency Contact #2 Relationship : - Chemist Physical Needed : No YASH RAZO 11/10/2021 9:53 EDT Support Person/Pt Rep Contact Information : vera avalos [phone] Primary Language : Togolese Preferred Communication Mode : Verbal Communication Barrier : None YASH RAZO 11/10/2021 9:52 EDT Meek Scale Meek Sensory Perception : No impairment Meek Moisture : Rarely moist Meek Activity : Walks frequently Meek Mobility : No limitation Meek Nutrition : Probably inadequate Meek Friction and Shear : No apparent problem Meek Score : 21 YASH RAZO 11/10/2021 9:53 EDT Sleep Apnea Risk Assmt Hx of Obstructive Sleep Apnea Diagnosis : No Snore Loudly : No Tired, Fatigued, or Sleepy During Day : Yes Observed Stopping Breathing During Sleep : No Have/Are Being Treated for Hypertension : No BMI Greater Than 35 kg/m2 : No Age over 50 Years Old : Yes Neck Circumference Greater Than 40 cm : No Gender Male : No STOP-BANG Sleep Apnea Risk Level Score : 2 YASH RAZO 11/10/2021 9:53 EDT documented in this encounter Plan of Treatment Not on file documented as of this encounter Visit Diagnoses Not on filedocumented in this encounter Care Teams Soldering Machine Operator Relationship Specialty Start Date End Date Sharon Bell NP [address] [place] [address] PCP - General Family Medicine 08/27/23 12/05/23 Mariaa Chauhan NP [address] [facility] [address] [address] PCP - General Family Medicine 12/06/23 01/10/24 Sharon Bell NP [address] [place] [address] PCP - General Family Medicine 01/11/24 10/13/24 documented as of this encounter
--- OUTSIDE RECORDS SUMMARY | 2024-12-30 12:07 | XMS_ITS | Clinical Summary ---
Author Organization [facility] Address [address] [place] [address] Phone Care Team Providers Care Neighborhood Aide Name Role Phone Teja CABALLERO, Jose A Gandhi Unavailable [ ] Conditions or Problems Problem Name Problem Code Onset Date Status Entry Date Provider Comment Standard Description Annotate MRSA infection 698312057 (SNOMED CT) 12/25 Active 12/25 Violeta W Methicillin resistant Staphylococcus aureus infection COPD 47719970 (SNOMED CT) 12/21 Active 12/30 Violeta W Chronic obstructive pulmonary disease History anaphylaxis, drug induced 519105101 (SNOMED CT) 12/21 Active 12/30 Violeta W At increased risk of anaphylaxis Personal history of allergy to other antibiotic agent-Roceph in Z88.1 (ICD-10-CM) 12/21 Active 12/30 Violeta W Allergy status to other antibiotic agents Abscess/Cell ulitis, lip 40566559 (SNOMED CT) 12/21 Active 12/21 Violeta W Cellulitis of lip Nausea and vomiting 02370290 (SNOMED CT) 12/25 Active 12/25 Jose A Lezama MD Nausea and vomiting MRSA infection 774070437 (SNOMED CT) 12/25 Inactive 12/25 Jose A Lezama MD Methicillin resistant Staphylococcus aureus infection Lip ulcer 87708875 (SNOMED CT) 12/21 Inactive 12/21 Jose A Lezama MD Lip ulcer Cellulitis, face 081834041 (SNOMED CT) 12/21 Active 12/21 Jose A Lezama MD Cellulitis of face Medications Medication Instructions Start Date Stop Date Generic Name NDC Provider CUBICIN 500 MG INTRAVENOUS SOLUTION RECONSTITUTED 500mg IV Q24hrs/ INPAT 12/30 DAPTOMYCIN [id number] Carola Wilhelm TYGACIL SOLR 100mg IV Q24hrs/ INPAT 12/25 TIGECYCLINE SOLR [id number] Wendy Brown ZOFRAN 4 MG ORAL TABLET 1 by mouth 3 times a day when necessary nausea ONDANSETRON HCL 92491756475 Jose A Lezama MD PSEUDOEPHEDRINE HCL 30 MG TABS Take 1 tablet by mouth daily PSEUDOEPHEDRINE HCL 84957778393 Kaykay Hussein EXCEDRIN MIGRAINE TABS Take 1 tablet by mouth daily ASPIRIN-ACETAMINO PHEN-CAFFEINE TABS 97351554915 Kaykay Hussein MECLIZINE HCL 25 MG CHEW Take one (1) tablet by mouth three times a day MECLIZINE HCL 72313148635 Kaykay Hussein DIAZEPAM 2 MG TABS Take 1 tablet by mouth daily as needed DIAZEPAM 22951638648 Kaykay Hussein MUPIROCIN CALCIUM 2 % CREA Apply to area twice daily as needed MUPIROCIN CALCIUM 40336932837 Kaykay Hussein HYDROCODONE-ACETAM INOPHEN 5-325 MG TABS Take 1 tablet by mouth daily HYDROCODONE-ACETA MINOPHEN 95648150829 Kaykay Hussein ONDANSETRON HCL 8 MG TABS Take 1 tablet by mouth daily ONDANSETRON HCL 64858392039 Kaykay Munroeey CUBICIN 500 MG INTRAVENOUS SOLUTION RECONSTITUTED 500mg IV Q24hrs/ INPAT 12/30 DAPTOMYCIN 04059795831 Tammie Joe RN TYGACIL SOLR 100mg IV Q24hrs/ INPAT 10/07 TIGECYCLINE SOLR 85161558243 Tammie Joe RN ACYCLOVIR 200 MG CAPS Take 2 by mouth twice a day 7 days ACYCLOVIR 49789972030 Jose A Lezama MD Medications Administered No information available. Allergies, Adverse Reactions, Alerts Allergy Name Reaction Description Start Date Severity Statu s Provider PENICILLIN Moderate Active Thu M ROCEPHIN Moderate Active Thu M CEPHALOSPORINS Moderate Active Layl a M CIPROFLOXACIN Moderate Active Thu M Results Date Name Value Unit Range Flag Description Lab Report: CBC WITH AUTO DI FFERENTIAL RDW_ 14.3 12.3-15.4 RDW, no uni ts External Other: Patient port al update - Email Push, [facility] Infe ... PAT E-MAIL [email or web address]'s e-mail address External Other: Patient katelyn al update - AccountStatus, [facility] I ... PATPORTALPIN Active This sonam l be used to establish a PIN number for patients to register in the Patient Portal. Office Visit: Room 4 ORALTOBACUSE Never Tobacco smoking status CIGARET SMKG yes Tobacco smoking status SMOK STATUS Current every day smoker Tobacco smoking status MEDS REVIEW Done Documenta tion of current medications (procedure) Lab Report: SEDIMENTATION RA TE ESR 35 mm/h 0-20 H Erythrocyte sedimentation rate by Westergren method Lab Report: C-REACTIVE PROTE IN CRP 0.30 mg/dL 0.00-0.50 C reactive protein [Mass/volume] in Serum or Plasma Lab Report: CK CPK 51 U/L 20-180 Creatine jammie se [Enzymatic activity/volume] in Serum or Plasma Lab Report: COMPREHENSIVE AL TABOLIC PANEL ANIONGAP 14.0 mmol/L anion gap, s julienne BUN/CREAT 19.7 7.0-25.0 Urea nitrogen/Creatinine [Mass Ratio] in Serum or Plasma [id number] 1.6 g/dL GE use only - for [employer] import when terms are not otherwise specified GFRC 87 mL/min/1 .73m2 >60 Glomerular Filtration Rate Calculation BILI TOTAL 0.2 mg/dL 0.2-1.2 Bilirubin. total [Mass/volume] in Serum or Plasma ALK PHOS 102 U/L 39-117 Alkaline joanna sphatase [Enzymatic activity/volume] in Blood SGOT (AST) 18 U/L 1-32 Aspartate aminotransferase [Enzymatic activity/volume] in Serum or Plasma SGPT (ALT) 22 U/L 1-33 Alanine aminotransferase [Enzymatic activity/volume] in Serum or Plasma ALBUMIN 4.20 g/dL 3.50-5.20 Albumin [Mass/volume] in Serum or Plasma PROTEIN, TOT 6.9 g/dL 6.0-8.5 Protein [Mass/volume] in Serum or Plasma CALCIUM 9.7 mg/dL 8.6-10.5 Calcium [Moles/volume] in Serum or Plasma CO2 23.0 mmol/L 22.0-29.0 Carbon diox raad, total [Moles/volume] in Venous blood CHLORIDE 103 mmol/L 98-107 Chloride [Moles/volume] in Serum or Plasma POTASSIUM 3.7 mmol/L 3.5-5.2 Potassium [Moles/volume] in Serum or Plasma SODIUM 140 mmol/L 136-145 Sodium [Moles/volume] in Serum or Plasma CREATININE 0.71 mg/dL 0.57-1.00 Creatini ne [Mass/volume] in Serum or Plasma BUN 14 mg/dL 6-20 Urea nitrogen [Mass/volume] in Serum or Plasma GLUCOSE SER 72 mg/dL 65-99 Glucose [Mass/volume] in Serum or Plasma Lab Report: CBC WITH AUTO DI FFERENTIAL IMMATUREGRAN 0.07 10*3/MM3 0.00-0.05 H Immature granulocytes [#/volume] in Blood BASO# 0.14 10*3/mm3 0.00-0.20 Basophils [#/vol ume] in Blood EOS ABSLT 0.27 10*3/uL 0.00-0.40 Eosinophi ls [#/volume] in Blood MONOSCT AUTO 0.73 10*3/uL 0.10-0.90 Monocy patti [#/volume] in Blood by Automated count LYMPHCT AUTO 4.63 10*3/mm3 0.70-3.10 H Lymph ocytes [#/volume] in Blood by Automated count ABS NEUTROPH 8.41 10*3/uL 1.70-7.00 H Neutro phils [#/volume] in Blood IMM GRANU % 0.5 % 0.0-0.5 Immature granulocytes/100 leukocytes in Blood % EOS AUTO 1.9 % 0.3-6.2 Eosinophil s/100 leukocytes in Blood by Automated count MONOCYTE % 5.1 % 5.0-12.0 Monocytes /100 leukocytes in Blood by Automated count LYMPHOCY BF 32.5 % 19.6-45.3 lymphoc ytes as percent of body fluid leukocytes NEUTROP BF 59.0 % 42.7-76.0 Neutroph ils/100 leukocytes in Body fluid PLATELETS 380 10*3/mm3 140-450 Platelets [#/volume] in Blood by Automated count RDW 14.6 % 12.3-15.4 Erythrocyte distribution width [Ratio] by Automated count MCHC 31.3 G/DL 31.5-35.7 L MCHC [Mass/ volume] by Automated count MCH 26.4 pg 26.6-33.0 L MCH [Entiti c mass] by Automated count MCV 84.5 fL 79.0-97.0 MCV [Entiti c volume] by Automated count HCT 38.7 % 34.0-46.6 Hematocrit [Volume Fraction] of Blood by Automated count HGB 12.1 g/dL 12.0-15.9 Hemoglobin [Mass/volume] in Blood RBC 4.58 10*6/mm3 3.77-5.28 Erythrocyt es [#/volume] in Blood by Automated count WBC 14.25 10*3/mm3 3.40-10.8 0 H Leukocytes [#/volume] in Blood by Automated count Plan of Care Type Date Detail Pending order Change IV antibi otics Pending order CMP Pending order CBC with Differe ntial Pending order C- reactive prot ein Pending order Wound Culture an d Sensitivity Pending order Other Pending order Wound Culture an d Sensitivity Pending order New IV antibioti c Pending order New Oral Antibio tic Pending order Stat Weekly Labs Patient education Medications Patient education Daptomycin%20( Injection)%20(Injectable) Patient education Tigecycline%20 (Injection)%20(Injectable) Patient education Daptomycin%20( Injection)%20(Injectable) Patient education Tigecycline%20 (Injection)%20(Injectable) Patient education Medications Procedures Code Procedure Name Date Entry Date CPT-alonzo Change IV antibiotics 12/25 CPT-20224 CMP [id number] CBC with Differential 2018 [id number]-61656 C- reactive protein CPT-LAB Other CPT-imelda New IV antibiotic CPT-mady New Oral Antibiotic CPT- stat weekly Stat Weekly Labs Vital Signs Date Name Value Unit Description BMI (Body Mass Index) 26.88 kg/m2 Bod y Mass Index (Ratio) Body Temperature 98.2 [degF] temperat ure E&M BP Diastolic 76 mm[Hg] blood pressu re, diastolic BP Systolic 124 mm[Hg] blood pressur e, systolic Heart Rate 76 /min pulse rate Height 62 [in_us] height E&M Respiratory Rate 14 /min respirat ory rate E&M Weight Measured 147 [lb_av] weight E& M Weight Measured 147 [lb_av] weight E& M Immunizations No information available. Advance Directives No information available.
--- NOTE | 2024-12-30 12:21 | XR_ITS ---
FINAL REPORT CLINICAL HISTORY: Right Toe Pain Evaluation COMPARISON: 10/29/2023 FINDINGS: Three views show no evidence of acute displaced fracture or dislocation of the visualized bony architecture. There are mild degenerative changes at the interphalangeal joints. No evidence of bony erosion. IMPRESSION: Minimal degenerative changes at the interphalangeal joints. Reviewed, Interpreted and Dictated by Kari Morrow MD Transcribed by Naomy Aggarwal Authenticated and [facility]
[2024-12-30 13:14] LABS: Erythrocyte Sedimentation Rate 15 mm/hr (0-30)
[2024-12-30 13:34] LABS: C-Reactive Protein 1.8 mg/L (0-4)
== END 2024-12-30 23:59 | disposition home or self-care (01) ==
LOC: RAD 12:02
PROVIDERS: Internal Medicine Rheumatology; PCP Nurse Practitioner; Visit Provider Podiatrist
DX: M19.071 Primary osteoarthritis, right ankle and foot (principal); L40.50 Arthropathic psoriasis, unspecified
CPT/HCPCS: 36415; 73630; 85651; 86140

== ENCOUNTER 2025-03-10 14:00 | Outpatient (CLI) | payer BC, SELFPAY ==
--- OUTSIDE RECORDS SUMMARY | 2025-01-26 08:15 | XMS_ITS | Encounter Summary ---
[facility] Address [address] [place] [address] Care Team Providers Care Sales Engagement Manager Name Role Phone Mariaa Chauhan CDL SERVICE TECHNICIAN Primary Care Provider [phone] Reason for Visit * Reason Comments 3m f/u Encounter Details Date Type Department Care Team (Latest Contact Info) Description 01/26/2025 8:15 AM EDT Office Visit [facility] [address] [place] [phone] Mariaa Chauhan APRN [address] [place] [address] Antiphospholipid syndrome (Primary Dx); Chronic obstructive pulmonary disease, unspecified COPD type; History of pulmonary embolism; History of smoking; Medullary sponge kidney; Other hyperlipidemia; Psoriasis; Vertigo; Wood's neuroma of right foot; Acute dysfunction of right eustachian tube; Psoriatic arthritis Social History Tobacco Use Types Packs/Day Years Used Date Smoking Tobacco: Former Cigarettes 1 37 0 1984 - 07/05/2021 Smokeless Tobacco: Never Alcohol Use Standard Drinks/Week Comments No 0 (1 standard drink = 0.6 oz pur e alcohol) AUDIT-C Answer Date Recorded Q1: How often do you have a drink containing alc ohol? Never 10/22/2020 Average Number of Drinks Not on file 021 Frequency of Binge Drinking Not on file 10/07 PHQ-2 Answer Date Recorded Retired PHQ-9: Brief Depression Severity Measure Score 0 11/28/2022 PHQ-2 Answer Date Recorded Patient Health Questionnaire-2 Score 0 2024 Comments No Sex and Gender Information Value Date Recorded Sex Assigned at Female 02/08/2023 8:59 PM EDT Legal Sex Female 10:27 AM EDT Gender Identity Female 02/08/2023 8:59 PM EDT Sexual Orientation Straight 04/02/2024 11 :00 AM EDT documented as of this encounter Last Filed Vital Signs Vital Sign Reading Time Taken Comments Blood Pressure 102/70 01/26/2025 8:04 AM EDT Pulse 68 01/26/2025 8:04 AM EDT Temperature 36.4 C (97.6 F) 01/26/2025 8:04 AM EDT Respiratory Rate - - Oxygen Saturation 97% 01/26/2025 8:04 AM EDT Inhaled Oxygen Concentration - - Weight 57.2 kg (126 lb 3.2 oz) 01/26/2025 8:04 A M EDT Height 157.5 cm (5' 2.01 ) 01/26/2025 8:04 AM ED T Body Mass Index 23.08 01/26/2025 8:04 AM EDT documented in this encounter Progress Notes * Mariaa Chauhan APRN - 01/26/2025 5:46 PM EDTAssociated Problem(s): Antiphospholipid syndrome Patient followed by rheumatology. She followed by Dr. Loo She continues to utilize Eliquis 5 mg twice daily for anticoagulation after suffering PE a couple of years ago * Mariaa Chauhan APRN - 01/26/2025 5:46 PM EDTAssociated Problem(s): Vertigo Patient has been evaluated thoroughly by neurology and ENT for chronic dizziness. Her mother suffers from the same affliction. She has been on low-dose diazepam 2 mg twice daily PRN for several yearswith ongoing benefit. She also has meclizine when needed. Clark reviewed and satisfactory. DS and controlled substance agreement up-to-date * Mariaa Chauhan APRN - 01/26/2025 5:45 PM EDTAssociated Problem(s): Other hyperlipidemia Intolerant to statin therapy, induced GI upset and sulfur burps. With her recent weight loss her lipids have improved. Last check approximately 3 months ago with total cholesterol of 213, triglycerides 362, HDL 28 and LDL 121. Patient has now been initiated on Repatha 140 mg subcu every 14 days. Will recheck her lipids on next visit * Mariaa Chauhan APRN - 01/26/2025 5:44 PM EDTAssociated Problem(s): Medullary sponge kidney Patient born with medullary sponge kidney, suffers from frequent bouts of nephrolithiasis. Her renal function has remained within normal limits * Mariaa Chauhan APRN - 01/26/2025 5:42 PM EDTAssociated Problem(s): Chronic obstructive pulmonary disease Established care with [facility] pulmonology May 2022. Patient with extended history of smoking, initiating cessation June 2021. PFTs obtained by pulmonary showed normal spirometry but mild reduction in DLCO which is thought to be due to PE and emphysema, CT suggested upper lobe emphysema. Noevidence of suspicious lung nodule or masses * Mariaa Chauhan APRN - 01/26/2025 5:42 PM EDTAssociated Problem(s): History of smoking Previous 1 pack/day smoker for 30 years. Cessation acheived in June 2021. * Mariaa Chauhan APRN - 01/26/2025 1:18 PM EDTAssociated Problem(s): Psoriatic arthritis With longstanding pattern of psoriatic arthritis, followed by rheumatology. She was well-maintainedon Tremfya for a couple of years, however over the last year or so had significant flare with jointswelling, redness, myalgias and pain. Taken off Tremfya and utilizing a new medication. She feels she has really experienced improvement in her symptoms with significant weight loss * Mariaa Chauhan APRN - 01/26/2025 1:07 PM EDTAssociated Problem(s): Psoriasis Patient followed by both dermatology and rheumatology. Previously she received benefit from use of Tremfya, but eventually had decreased efficacy prompting transition to Cosentyx. * Mariaa Chauhan APRN - 01/26/2025 8:26 AM EDTAssociated Problem(s): Acute dysfunction of right eustachian tube Patient has been struggling with acute dysfunction of the right eustachian tube intermittently for at least the last 6 months. Will find short-term relief with use of daily antihistamine, nasal steroids and for exacerbations oral steroid therapy. Patient's most recent episode was not improved with oral steroids. She has now made herself an appointment with ENT. No findings on physical exam today. * Mariaa Chauhan APRN - 01/26/2025 8:26 AM EDTAssociated Problem(s): Israel's neuroma of right foot Followed by podiatry, Dr. Mercado. Went on steroid. * Mariaa Chauhan APRN - 01/26/2025 8:15 AM EDT Images from the original note were not included. Office Note Name: Alicia Avalos : 1970 Chief Complaint 3m f/u Subjective History of Present Illness: Alicia Avalos is a 54 y.o. female who presents today for 3-month follow-up on chronic conditions including antiphospholipid syndrome, COPD, hyperlipidemia, psoriasis and vertigo. Patient has beenutilizing tirzepatide for weight loss for several months, [facility], now covered through insurance. Patient did have a lapse of time that she had to go off the m edication and gained between 10 to 15 pounds, but with resuming medication has already lost that weight again. She has no adverse side effects such as nausea, vomiting, constipation. She predominately follows a Mediterranean eating plan and exercises as tolerated. She does utilize Dulcolax and MiraLAX to keep her bowel movements regular. Patient has now reached her goal weight and is beginning towork on toning through strength training. Patient followed by rheumatology. She followed by Dr. Loo She continues to utilize Eliquis 5 mg twice daily for anticoagulation after suffering PE a couple of years ago. Patient has been struggling with acute dysfunction of the right eustachian tube intermittently for at least the last 6 months. Will find short-term relief with use of daily antihistamine, nasal steroids and for exacerbations oral steroid therapy. Patient's most recent episode was not improved with oral steroids. She has now made herself an appointment with ENT. During patient's last visit 3 months ago we initiated Repatha due to uncontrolled lipids despite significant weight loss. Patient unable to utilize statins due to GI upset and sulfur burps. She has had no adverse sideeffects to Repatha. No further complaints or concerns Review of Systems Constitutional: Negative for chills, fatigue and fever. HENT: Positive for ear pain. Negative for dental problem, drooling, facial swelling, postnasal drip, rhinorrhea, sinus pressure, swollen glands and trouble swallowing. Respiratory: Negative for cough, chest tightness, shortness of breath and wheezing. Cardiovascular: Negative for chest pain, palpitations and leg swelling. Gastrointestinal: Negative for abdominal pain, constipation, diarrhea, nausea and vomiting. Endocrine: Negative for polydipsia and polyuria. Genitourinary: Negative for difficulty urinating. Neurological: Positive for dizziness. Negative for weakness, light-headedness, numbness and headache. Objective Past Medical History: Diagnosis Date Abnormal results of liver function studies Allergic rhinitis 08/22/2024 Anemia Anxiety and depression Arthritis Asthma as a kid resolved Benign paroxysmal vertigo, right ear Carpal tunnel syndrome, bilateral upper limbs Cellulitis, unspecified Cigarette smoker Contact with and (suspected) exposure to other viral communicable diseases COPD (chronic obstructive pulmonary disease) Cutaneous abscess of right hand Cystitis, unspecified with hematuria Disease of lips Dysphagia, unspecified Epigastric pain Fatty (change of) liver, not elsewhere classified GERD without esophagitis Hepatitis CHEMICAL;PRESUMED SECONDARY TO CIPRO Hepatitis A REMOTE Hyperlipidemia Kidney stones Migraine aura without headache PROBABLE MRSA infection December 2018, lower lip Multiple subsegmental pulmonary emboli without acute cor pulmonale Myalgia, unspecified site Nausea RENA (obstructive sleep apnea) 01/05/2023 Other chest pain Other forms of dyspnea Other obesity due to excess calories Other ovarian cyst, right side Other specified myopathies Paresthesia of skin Psoriasis Rheumatoid arthritis Sinusitis Toxic effect of venom of bees, undetermined, sequela Unspecified renal colic Upper abdominal pain, unspecified Ureterolithiasis Zoster without complications Past Surgical History: Procedure Laterality Date ADENOIDECTOMY CYSTOSCOPY W/ LASER LITHOTRIPSY EXTRACORPOREAL SHOCKWAVE LITHOTRIPSY (ESWL), STENT INSERTION/REMOVAL Bilateral 10/22/2020 Procedure: EXTRACORPOREAL SHOCKWAVE LITHOTRIPSY BILATERAL WITH LEFT STENT PLACEMENT; Surgeon: Saul Hebert MD; Location: [facility], 1928–[facility]; Service: Urology; Laterality: Bilateral; PULMONARY EMBOLISM SURGERY Bilateral TONSILLECTOMY Family History Problem Relation Age of Onset Diabetes Mother Heart disease Mother COPD Father Diabetes Father Heart disease Father Vital Signs BP 102/70 (BP Location: Right arm, Patient Position: Sitting, Cuff Size: Adult) Pulse 68 Temp 97.6 ??F (36.4 ??C) (Temporal) Ht 157.5 cm (62.01 ) Wt 57.2 kg (126 lb 3.2 oz) SpO2 97% BMI 23.08 kg/m?? Estimated body mass index is 23.08 kg/m?? as calculated from the following: Height as of this encounter: 157.5 cm (62.01 ). Weight as of this encounter: 57.2 kg (126 lb 3.2 oz). Facility age limit for growth %abel is 20 years. Physical Exam Vitals reviewed. Constitutional: Appearance: Normal appearance. HENT: Head: Normocephalic and atraumatic. Right Ear: Tympanic membrane, ear canal and external ear normal. Left Ear: Tympanic membrane, ear canal and external ear normal. Nose: Nose normal. Mouth/Throat: Mouth: Mucous membranes are moist. Pharynx: Oropharynx is clear. Eyes: Conjunctiva/sclera: Conjunctivae normal. Pupils: Pupils are equal, round, and reactive to light. Cardiovascular: Rate and Rhythm: Normal rate and regular rhythm. Pulses: Normal pulses. Heart sounds: Normal heart sounds. Pulmonary: Effort: Pulmonary effort is normal. Breath sounds: Normal breath sounds. Abdominal: General: Bowel sounds are normal. Palpations: Abdomen is soft. Musculoskeletal: General: Normal range of motion. Cervical back: Neck supple. Skin: General: Skin is warm and dry. Neurological: Mental Status: She is alert and oriented to person, place, and time. Psychiatric: Mood and Affect: Mood normal. Behavior: Behavior normal. POCT Results (if applicable): Results for orders placed or performed in visit on 10/20/24 Lipid Panel Collection Time: 10/20/24 9:49 AM Specimen: Arm, Left; Blood Blood Release to the medical center Result Value Ref Range Total Cholesterol 213 (H) 100 - 199 mg/dL Triglycerides 362 (H) 0 - 149 mg/dL HDL Cholesterol 28 (L) >39 mg/dL VLDL Cholesterol Cisco 64 (H) 5 - 40 mg/dL LDL Chol Calc (NIH) 121 (H) 0 - 99 mg/dL Assessment and Plan Diagnoses and all orders for this visit: 1. Antiphospholipid syndrome (Primary) Assessment & Plan: Patient followed by rheumatology. She followed by Dr. Loo She continues to utilize Eliquis 5 mg twice daily for anticoagulation after suffering PE a couple of years ago 2. Chronic obstructive pulmonary disease, unspecified COPD type Assessment & Plan: Established care with [facility] pulmonology May 2022. Patient with extended history of smoking, initiating cessation June 2021. PFTs obtained by pulmonary showed normal spirometry but mild reduction in DLCO which is thought to be due to PE and emphysema, CT suggested upper lobe emphysema. Noevidence of suspicious lung nodule or masses 3. History of pulmonary embolism 4. History of smoking Assessment & Plan: Previous 1 pack/day smoker for 30 years. Cessation acheived in June 2021. 5. Medullary sponge kidney Assessment & Plan: Patient born with medullary sponge kidney, suffers from frequent bouts of nephrolithiasis. Her renal function has remained within normal limits 6. Other hyperlipidemia Assessment & Plan: Intolerant to statin therapy, induced GI upset and sulfur burps. With her recent weight loss her lipids have improved. Last check approximately 3 months ago with total cholesterol of 213, triglycerides 362, HDL 28 and LDL 121. Patient has now been initiated on Repatha 140 mg subcu every 14 days. Will recheck her lipids on next visit 7. Psoriasis Assessment & Plan: Patient followed by both dermatology and rheumatology. Previously she received benefit from use of Tremfya, but eventually had decreased efficacy prompting transition to Cosentyx. 8. Vertigo Assessment & Plan: Patient has been evaluated thoroughly by neurology and ENT for chronic dizziness. Her mother suffers from the same affliction. She has been on low-dose diazepam 2 mg twice daily PRN for several yearswith ongoing benefit. She also has meclizine when needed. Clark reviewed and satisfactory. DS and controlled substance agreement up-to-date 9. Wood's neuroma of right foot Assessment & Plan: Followed by podiatry, Dr. Mercado. Went on steroid. 10. Acute dysfunction of right eustachian tube Assessment & Plan: Patient has been struggling with acute dysfunction of the right eustachian tube intermittently for at least the last 6 months. Will find short-term relief with use of daily antihistamine, nasal steroids and for exacerbations oral steroid therapy. Patient's most recent episode was not improved with oral steroids. She has now made herself an appointment with ENT. No findings on physical exam today. 11. Psoriatic arthritis Assessment & Plan: With longstanding pattern of psoriatic arthritis, followed by rheumatology. She was well-maintainedon Tremfya for a couple of years, however over the last year or so had significant flare with jointswelling, redness, myalgias and pain. Taken off Tremfya and utilizing a new medication. She feels she has really experienced improvement in her symptoms with significant weight loss Other orders - cyclobenzaprine (FLEXERIL) 5 MG tablet; Take 1 tablet by mouth 3 (Three) Times a Day As Needed for Muscle Spasms. for muscle spams Dispense: 90 tablet; Refill: 0 BMI is within normal parameters. No other follow-up for BMI required. Follow Up Return in about 3 months (around 04/28/2025) for Next scheduled follow up. Mariaa Chauhan APRN documented in this encounter Plan of Treatment Upcoming Encounters Date Type Department Care Team (Late st Contact Info) Description 04/17/2025 1:15 PM EDT Office Visit [facility] [address] [place] [address] [place] [phone] Mariaa Chauhan APRN [address] [place] [address] 07/20/2025 9:45 AM EST Office Visit [facility] [address] [place] [address] Mariaa Chauhan APRN [address] [place] [address] documented as of this encounter Visit Diagnoses Diagnosis Antiphospholipid syndrome- Primary Primary hypercoagulable state Chronic obstructive pulmonary disease, unspecified COPD type History of pulmonary embolism Personal history of venous thrombosis and embolism History of smoking Personal history of tobacco use, presenting hazards to health Medullary sponge kidney Congenital medullary sponge kidney Other hyperlipidemia Psoriasis Other psoriasis Vertigo Dizziness and giddiness Wood's neuroma of right foot Acute dysfunction of right eustachian tube Psoriatic arthritis Psoriatic arthropathy documented in this encounter Additional Health Concerns Infection Onset Date Last Indicated Resolved Time MRSA 12/22/2018 12/22/2018 documented as of this encounter Care Teams Sales Engagement Manager Relationship Specialty Start Date End Date Mariaa Chauhan APRN [address] [place] [id number] PCP - General Family Medicine 05/26/22 documented as of this encounter
--- OUTSIDE RECORDS SUMMARY | 2025-03-12 10:08 | XMS_ITS | Encounter Summary ---
[facility] Address [address] [place] [address] Care Team Providers Care Supervisor Customer Complaint Service Name Role Phone Mariaa Chauhan RUSSIAN LANGUAGE PROFESSOR Primary Care Provider [phone] Encounter Details Date Type Department Care Team (Late st Contact Info) Description 10/01/2024 Results Follow-Up [facility] [address] [place] [phone] Mariaa Chauhan APRN [address] [place], [place] [id number] Social History Tobacco Use Types Packs/Day Years [...] AM EDT documented as of this encounter Plan of Treatment Upcoming Encounters Date Type Department Care Team (Late st Contact Info) Description 04/17/2025 1:15 PM EDT Office Visit [facility] [address] [place] [address] [place] [address] Mariaa Chauhan APRN [address] [place] [address] 07/20/2025 9:45 AM EST Office Visit [address] [place] [address] Mariaa Chauhan APRN [address] [place] [address] documented as of this encounter Visit Diagnoses Not on filedocumented in this encounter Additional Health Concerns Infection Onset Date Last Indicated Resolved Time MRSA 12/22/2018 12/22/2018 documented as of this encounter Care Teams Supervisor Customer Complaint Service Relationship Specialty Start Date End Date Mariaa Chauhan APRN [address] [place] [address] PCP - General Family Medicine 05/26/22 documented as of this encounter
--- OUTSIDE RECORDS SUMMARY | 2025-03-12 10:08 | XMS_ITS | Encounter Summary ---
[facility] [address] [place] [address] Care Team Providers Care Basin Cleaner Name Role Phone TienMariaa campoverde Maggie RODRIGUEZ Primary Care Provider [phone] Encounter Details Date Type Department Care Team (Latest Contact Info) Description 01/26/2025 Travel Social History Tobacco Use Types Packs/Day Years [...] Description 04/17/2025 1:15 PM EDT Office Visit [address] [place] [address] Mariaa Chauhan APRN [address] [place] [address] 07/20/2025 9:45 AM EST Office Visit [address] [place] [address] Mariaa Chauhan APRN [address] [place] [address] documented as of this encounter Visit Diagnoses Not on filedocumented in this encounter Additional Health Concerns Infection Onset Date Last Indicated Resolved Time MRSA 12/22/2018 12/22/2018 documented as of this encounter Care Teams Basin Cleaner Relationship Specialty Start Date End Date Mariaa Chauhan APRN [address] [place] [address] PCP - General Family Medicine 05/26/22 documented as of this encounter
--- OUTSIDE RECORDS SUMMARY | 2025-03-12 10:09 | XMS_ITS | Encounter Summary ---
Author Organization [facility] ([place], [place], [place], [place]) Address [address] [place] [address] Care Team Providers Care Allied Health Instructor Name Role Phone Sharon Bell APRN Primary Care Provider +- [phone] Mariaa Chauhan NP Primary Care Provider [phone] Sharon Bell APRN Primary Care Provider [phone]- [phone] Encounter Details Date Type Department Care Team (Late st Contact Info) Description 02/21/2019 Transcribed Document [facility] Family [place] [address] ProviderCornelio MD [address] [place] [address] Social History Tobacco Use Types Packs/Day [...] Conversion Note - Cornelio ProviderMD - 02/21/2019 8:50 PM CDT Pain Assessment Entered On: 02/22/2019 0:21 EDT Performed On: 02/21/2019 23:17 EDT by ALBERTO ANDUJAR RN Intervention Information: oxyCODONE Performed by ALBERTO ANDUJAR RN on 02/21/2019 22:17:00 EDT oxyCODONE,5mg Oral,Pain (Severe 7-10) Pain Assessment Pain Assessment : Follow-up assessment Pain Scale Goal : 3 ALBERTO ANDUJAR RN - 02/22/2019 0:21 EDT Electronically signed by [facility] Conversion Pyrotechnist Cerner at 10/25/2022 10:03 AM CDT documented in this encounter Plan of Treatment Not on file documented as of this encounter Visit Diagnoses Not on filedocumented in this encounter Care Teams Allied Health Instructor Relationship Specialty Start Date End Date Sharon Bell APRN [address] [place] [address] PCP - General Family Medicine 08/27/23 12/05/23 Mariaa Chauhan, MARIANA [address] [place] [address] [address] PCP - General Family Medicine 12/06/23 01/10/24 Sharon Bell APRN [address] [place] [address] PCP - General Family Medicine 01/11/24 10/13/24 documented as of this encounter
--- OUTSIDE RECORDS SUMMARY | 2025-03-12 10:09 | XMS_ITS | Patient Health Record ---
Author Organization [facility] Address [address] [place] [address] Care Team Providers Care Commercial Instructor Supervisor Name Role Phone Анна Conner Unavailable [phone] Allergies Allergen (clinical drug ingredient) Drug/Non Drug [...] 08:58:52 AM Interpretation: Performing Lab:[facility] [place] CLIA ID [id number], [address], [address], [place] [address], Director - Layton Pickett MD Notes/Report: Any Nucleic Acid Amplification testing is performed on the [id number] Lutz. Diagnosis: Negative for intraepithelial lesion or malignancy. AP results Recommendation: Follow-up based on current clinical guidelines and/or clinical consideration. LMP: 2022 Specimen Type: ThinPrep ICD Codes: Z01.419 Negative for intraepithelial lesion or malignancy. Marketing Consultant Satisfactory for interpretation with endocervical/transformat ion zone component present. Liz Young Pertinent Clinical History/History of Surgery: colposcopy biopsy Collection Technique: [place]-Spatula Marketing Consultant Florencia Kyle DIAGNOSIS: Specimen Adequacy: Rescreened by on 08/25/2024 Negative Educational Note: The pap screening test aids in the detection of premalignant and malignant states of the cervix. False positive and negative results may occur. It is not a diagnostic test. If abnormal cells are reported, follow-up based on current clinical guidelines and/or clinical consideration is recommended. Date of Last Pap: Not provided Other Gynecological Patient Information: Menopausal Screening note: This specimen has been analyzed by the ThinPrep Imaging System, an interactive computer system which assists the lab in screening of ThinPrep Pap Test slides. Following imaging, the slide was reviewed by a Marketing Consultant and/or Pathologist. 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 FARM IMPLEMENT MECHANIC CYTOLOGY REPORT Results of Last Pap: negative,dysplasia Specimen Source: Cervical/Endocervical CPT Codes: 72519 Reason For Referral Reason Right Breast Ultraso und Mass 11:30-12:00/[facility] Diagnosis 1 Mass of upper outer quadrant of right breast (N63.11) Referral Organization [facility] Referring Provider First Name Анна Referring Provider Last Name [facility] Referring Provider Speciality OB - Gynec ology General Notes Marlin Grande 08/20 03:08:37 PM >Phoned [facility], they ask we fax the order to [phone] and they will reach out to schedule the patient. Referral Priority Routine Reason [id number] BREAST ADD [facility] [address] ECHO GUIDE FOR BIOPSY Right Breast Diagnosis 1 Mass of upper outer quadrant of right breast (N63.11) Referral Organization [facility] Referring Provider First Name Анна Referring Provider Last Name [facility] Referring Provider Speciality OB - Gynec ology Referred Provider Specialty Breast Speci alist General Notes Marlin Grande 10/20 03:01:55 PM >Received fax from [facility] requesting order be faxed to [phone] Referral Priority Routine Medications Medication SIG (Take, [...] W/U Status Risk Notes Problem Postmenopausal bleeding (11699221) Postmenopausal bleeding (N95.0) Active confirmed Problem Vaginal dryness (93341921) Vaginal dryness, menopausal (N95.1) Active confirmed Problem History of cervical dysplasia (843581015) History of cervical dysplasia (Z87.410) Active confirmed Problem History of pulmonary embolus (858282986) History of pulmonary embolism (Z86.711) Active confirmed Problem Antiphospholipid syndrome (80750180) Antiphospholipid antibody syndrome (D68.61) Active confirmed Problem Long-term current use of anticoagulant (145590374) Anticoagulation adequate with anticoagulant therapy (Z79.01) Active confirmed Problem Endometrium thickened (finding) (339095160) Endometrial thickening on ultrasound (R93.89) Active confirmed Problem Dysmenorrhea (828279310) Adolescent dysmenorrhea (N94.6) Active confirmed Vital Signs Blood pressure diastolic 78 mm Hg 08/18/2024 Height 64 in 08/18/2024 Blood pressure systolic 140 mm Hg 08/18/2024 Weight 142.6 lbs 08/18/2024 BMI 24.47 kg/m2 08/18/2024 Encounters Encounter Location Date Provider Diagnosis [facility] [address] [place] [address] 10/01/2024 Анна Ubaldo Mass of breast, righ t N63.10 [facility] [address] [facility] [address] [place] [address] 08/18/2024 Анна Conner Cervical smear, as p [...] Provider Name:Анна Conner, 08/19/2025 01:45:00 PM, [address], [place], [address], Insurance Providers Payer Name Payer Address Payer Phone Subscriber Number Group Number Insured Name Patient Relationship to Insured Coverage Start Date Coverage End Date Darshan ZUNIGAO [address] [place] [address] [id number] Vera Rodriges Spouse - patient is the [...]
--- OUTSIDE RECORDS SUMMARY | 2025-03-12 10:09 | XMS_ITS | Encounter Summary ---
Author Organization [employer] ([place], [place], [place], [place]) Address [address] [place] [address] Care Team Providers Care Dumpman Name Role Phone Sharon Bell APRN Primary Care Provider +- [phone] Mariaa Chauhan NP Primary Care Provider [phone] Sharon Bell APRN Primary Care Provider +- [phone] Encounter Details Date Type Department Care Team (Late st Contact Info) Description 02/21/2019 Transcribed Document [facility] [place] Family [place] [facility] [place] [address] ProviderCornelio MD [address] [place] [address] Social History Tobacco Use Types Packs/Day [...] Conversion Note - Cornelio ProviderMD - 02/21/2019 7:51 PM CDT Admission [...] From : Patient, Spouse Primary Language : Cameroonian Preferred Communication Mode : Verbal Communication Barrier [...] Scale Risk Level : 25-45 Medium Risk [place] Fall Interventions : Adequate lighting, Assistive devices [...] Source : Stated Height Entry Format : [place] Height, Feet : 5 ft(Converted to: 152 cm, 60 Inch) Height, Inches : 2 Inch(Converted to: 0 ft 2 Inch, 5.08 cm) Clinical Height : 157.48 cm Weight Source : Standing scale Weight Entry Format : [place] Clinical Dosing Weight : 66.82 kg Weight, Pounds : 147 lb Body Surface Area (BSA) : 1.68 m2 Body Mass Index : 26.9 kg/m2 (HI) Morrice Body Weight : 50 kg ALBERTO ANDUJAR [...] - 02/22/2019 0:19 EDT Electronically signed by [facility] Conversion Correctional Captain Cerner at 10/25/2022 9:53 AM CDT documented in this encounter Plan of Treatment Not on file documented as of this encounter Visit Diagnoses Not on filedocumented in this encounter Care Teams Dumpman Relationship Specialty Start Date End Date Sharon Bell APRN [address] [place] [address] PCP - General Family Medicine 08/27/23 12/05/23 Mariaa Chauhan, MARIANA [address] [place] [address] PCP - General Family Medicine 12/06/23 01/10/24 Sharon Bell APRN [address] [place] [address] PCP - General Family Medicine 01/11/24 10/13/24 documented as of this encounter
--- OUTSIDE RECORDS SUMMARY | 2025-03-12 10:09 | XMS_ITS | Encounter Summary ---
Author Organization [employer] ([place], [place], [place], [place]) Address [address] [place] [address] Care Team Providers Care Correctional Program Officer Name Role Phone Sharon Bell APRN Primary Care Provider + [phone] Mariaa Chauhan NP Primary Care Provider [phone] Sharon Bell APRN Primary Care Provider +- [phone] Encounter Details Date Type Department Care Team (Late st Contact Info) Description 02/22/2019 Transcribed Document [facility] [place] Family Medicine [facility] [place] [address] ProviderCornelio MD [address] [place] [address] Social History Tobacco Use Types Packs/Day [...] Conversion Note - Cornelio ProviderMD - 02/22/2019 2:39 PM CDT Patient: ALICIA AVALOS Age: 48 Years Sex: Female : 1970 Admit Date 02/21/2019 19:54 Discharge Date 02/22/19 Primary Care Provider ADAM, NOT LISTED Discharge Diagnosis Nephrolithiasis 02/22/2019 N20.0 ICD-10-CM Procedures SN - Proc - Procedure: Cystoscopy Laser Stone Manipulation (02/22/19 14:15:49) Reason for Hospitalization right obstructing ureteral stone Hospital Course Patient transferred from [facility] and admitted for intractable R flank [...] HERNANDEZ MD GRABMAYER, JOSEF, MD SLABAUGH JR, MD FILEMON-URO Current Diet Order No qualifying data available. [...] Nurse Collect Time Spent on Discharge 20min documented in this encounter Plan of Treatment Not on file documented as of this encounter Visit Diagnoses Not on filedocumented in this encounter Care Teams Correctional Program Officer Relationship Specialty Start Date End Date Sharon Bell, MICHAEL [address] [place] [address] PCP - General Family Medicine 08/27/23 12/05/23 Mariaa Chauhan NP [address] [facility] [place] [address] PCP - General Family Medicine 12/06/23 01/10/24 Sharon Bell, FLEXO OPERATOR [address] [place] [address] PCP - General Family Medicine 01/11/24 10/13/24 documented as of this encounter
--- OUTSIDE RECORDS SUMMARY | 2025-03-12 10:09 | XMS_ITS | Encounter Summary ---
Author Organization [facility] Address [address] [place] [address] Care Team Providers Care Construction Representative Name Role Phone Mariaa Chauhan GATE PERSON Primary Care Provider [phone] Encounter Details Date Type Department Care Team (Late st Contact Info) Description 09/22/2022 Telephone [facility] [address] [place] [address] Mariaa Chauhan APRN [address] [place] [address] Social History Tobacco Use Types Packs/Day Years [...] PHQ-9: Brief Depression Severity Measure Score 0 04/24/2022 Comments No Sex and Gender Information Value [...] Description 04/17/2025 1:15 PM EDT Office Visit [facility] [address] [place] [address] [place] [address] Mariaa Chauhan APRN [address] [place] [address] 07/20/2025 9:45 AM EST Office Visit [facility] [address] [place] [address] Mariaa Chauhan APRN [address] [place] [address] documented as of this encounter Visit Diagnoses Not on filedocumented in this encounter Additional Health Concerns Infection Onset Date Last Indicated Resolved Time 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
--- OUTSIDE RECORDS SUMMARY | 2025-03-12 10:09 | XMS_ITS | Encounter Summary ---
Author Organization [employer] ([place], [place], [place], [place]) Address [address] [place] [address] Care Team Providers Care Cloth Dyer Name Role Phone Sharon Bell APRN Primary Care Provider +- [phone] Mariaa Chauhan NP Primary Care Provider [phone] Sharon Bell APRN Primary Care Provider +- [phone] Encounter Details Date Type Department Care Team (Late st Contact Info) Description 02/22/2019 Transcribed Document [facility] Family Medicine [facility] [place] [address] ProviderCornelio MD [address] [place] [address] Social History Tobacco Use Types Packs/Day [...] Performed On: 02/22/2019 16:06 EDT by Kerri Mederos, expanding machine operator Documentation Patient Disposition, General : Discharge Discharge [...] method Teaching Evaluation : Verbalizes understanding Kerri Mederos, ALVINA - 02/22/2019 16:06 EDT Electronically signed by [facility] Conversion Exercise Planner Cerner at 10/25/2022 9:53 AM CDT documented in this encounter Plan of Treatment Not on file documented as of this encounter Visit Diagnoses Not on filedocumented in this encounter Care Teams Cloth Dyer Relationship Specialty Start Date End Date Sharon Bell APRN [address] [place] [address] PCP - General Family Medicine 08/27/23 12/05/23 Mariaa Chauhan, MARIANA [address] [place] [address] PCP - General Family Medicine 12/06/23 01/10/24 Sharon Bell APRN [address] [place] [address] PCP - General Family Medicine 01/11/24 10/13/24 documented as of this encounter
--- OUTSIDE RECORDS SUMMARY | 2025-03-12 10:09 | XMS_ITS | Clinical Summary ---
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 Active acetaminophen (TYLENOL) 500 MG tablet Take 1 tablet by mouth Every 6 (Six) Hours As Needed for Mild Pain. Active ibuprofen (ADVIL,MOTRIN) 200 MG tablet Take 4 tablets by mouth Every 6 (Six) Hours As Needed for Mild Pain. Active apixaban (ELIQUIS) 5 MG tablet tablet Take 1 tablet by mouth 2 (Two) Times a Day. Active fluticasone (FLONASE) 50 MCG/ACT nasal sprayIndications:A cute non-recurrent frontal sinusitis 2 sprays into the nostril(s) as directed by provider Daily. 11.1 mL 11/29/19 23 Active Ascorbic Acid (Vitamin C) 100 MG chewable tablet 04/23/20 23 Active [facility] TURMERIC CURCUMIN PO 04/23/20 23 Active Zinc 100 MG tablet 04/23/20 23 Active halobetasol (ULTRAVATE) 0.05 % cream Apply topically to the appropriate area as directed 2 (Two) Times a Day. 15 g 2 11/19/19 24 Active Cosentyx Sensoready Pen 150 MG/ML solution auto-injector 03/25/20 24 Active acyclovir (ZOVIRAX) 5 % ointmentIndication s:Family history of cold sores APPLY TOPICALLY TO THE AFFECTED AREA EVERY 4 HOURS NEEDED FOR COLD SORES 15 g 1 06/04/20 24 Active sucralfate (CARAFATE) 1 g tablet TAKE 1 TABLET BY MOUTH FOUR TIMES DAILY 360 tablet 07/10/19 25 Active potassium chloride 10 MEQ CR tablet TAKE 1 TABLET BY MOUTH TWICE DAILY 15 tablet 08/18/19 25 Active olopatadine (PATANOL) 0.1 % ophthalmic solutionIndication s:Non-seasonal allergic rhinitis, unspecified trigger Administer 1 drop to both eyes 2 (Two) Times a Day. 5 mL 1 08/22/19 25 Active montelukast (SINGULAIR) 10 MG tabletIndications: Non-seasonal allergic rhinitis, unspecified trigger Take 1 tablet by mouth Every Night. 90 tablet 3 08/22/19 25 Active loratadine (Claritin) 10 MG tabletIndications: Non-seasonal allergic rhinitis, unspecified trigger Take 1 tablet by mouth Daily. 90 tablet 2 08/22/19 25 Active pantoprazole (Protonix) 40 MG EC tablet Take 1 tablet by mouth Daily. 90 tablet 2 10/01/19 25 Active Emollient (COLLAGEN EX) Apply topically. Active multivitamin (MULTI VITAMIN PO) Take by mouth Daily. Active Biotin 300 MCG tablet Take by mouth. Activ e diazePAM (VALIUM) 2 MG tabletIndications: Vertigo Take 1 tablet by mouth Every 6 (Six) Hours As Needed for Muscle Spasms. 60 tablet 12/18/19 25 Active EPINEPHrine (EPIPEN) 0.3 MG/0.3ML solution auto-injector injection Inject 0.3 mL into the appropriate muscle as directed by prescriber As Needed (in event of an allergic reaction to BEE sting use as directed). 1 each 1 01/06/20 25 Active Tirzepatide-Weight Management (Zepbound) 12.5 MG/0.5ML solution auto-injector Inject 0.5 mL under the skin into the appropriate area as directed 1 (One) Time Per Week. 2 mL 2 01/06/20 25 Active Evolocumab (REPATHA) solution prefilled syringe injectionIndicatio ns:Other hyperlipidemia Inject 1 mL under the skin into the appropriate area as directed Every 14 (Fourteen) Days. 1 mL 3 01/06/20 25 Active cyclobenzaprine (FLEXERIL) 5 MG tablet Take 1 tablet by mouth 3 (Three) Times a Day As Needed for Muscle Spasms. for muscle spams 90 tablet 01/27/20 25 Active meclizine (ANTIVERT) 25 MG tabletIndications: Vertigo Take 1 tablet by mouth 3 (Three) Times a Day As Needed for Dizziness. 90 tablet 02/05/20 25 Active ezetimibe (ZETIA) 10 MG tablet Take 1 tablet by mouth Daily. 90 tablet 02/05/20 25 Active Active Problems Problem Noted Date Diagnosed Date Wood's neuroma of right foot 01/26/2025 Assessment & Plan (01/26/2025 8:26 AM EDT): Followed by podiatry, Dr. Mercado. Went on steroid. Acute dysfunction of right eustachian tube 10/20 Assessment & Plan (01/26/2025 5:44 PM EDT): Patient has been struggling with acute dysfunction of the right eustachian tube intermittently for at least the last 6 months. Will find short-term relief with use of daily antihistamine, nasal steroids and for exacerbations oral steroid therapy. Patient's most recent episode was not improved with oral steroids. She has now made herself an appointment with ENT. No findings on physical exam today. Assessment & Plan (12/20/2024 8:29 AM EDT): Physical exam findings consistent with eustachian tube disorder, no signs of infection or perforation. Patient already utilizes daily antihistamine and nasal steroid. Will provide short burst of prednisone therapy in hopes of helping decrease inflammation. If symptoms persist and are bothersome may pursue referral to ENT. Assessment & Plan (10/28/2024 6:35 AM EDT): Physical exam findings consistent with eustachian tube disorder, no signs of infection or perforation. Patient already utilizes daily antihistamine and nasal steroid. Will provide short burst of prednisone therapy in hopes of helping decrease inflammation. If symptoms persist and are bothersome may pursue referral to ENT. Allergic rhinitis 08/22/2024 Assessment & Plan (08/22/2024 9:30 AM EST): Patient physical exam findings and symptomology consistent with flare of allergic rhinitis, likely due to increased allergen exposure to her dog and hay. Patient advised to get back on her nightly Singulair, will start daily antihistamine Claritin. Patient also advised to resume use of daily Flonase for the next couple of weeks. Provide prescription for Patanol ophthalmic drops to be utilized twice daily. Patient will advise if no improvement Encounter for screening for lung cancer 07/17/19 25 Breast lump on right side at 11 o'clock position 2024 Assessment & Plan (2024 10:42 AM EST): Initially felt one week ago by patient, no redness. Soft, mobile mass palpated between the 11 and 12:00 spot on the right breast during physical exam today. Is some tenderness on palpation as well. Patient states she is had a biopsy-proven cystic fibrous mass in the same area before. She is due for her annual mammogram, ordered today Overweight 09/12/2023 Assessment & Plan (2024 10:44 AM EST): Patient's (Body mass index is 26.52 kg/m .) indicates that they are overweight with health conditions that include none and obstructive sleep apnea . Weight is improving with treatment. BMI is above average; BMI management plan is completed. We discussed portion control, increasing exercise, and pharmacologic options including tirzepatide . Patient has been utilizing tirzepatide for weight loss for several months, initially obtaining from [facility], now covered through insurance. Patient did have a lapse of time that she had to go off the medication and gained between 10 to 15 pounds, but with resuming medication has already lost that weight again. She has no adverse side effects such as nausea, vomiting, constipation. She predominately follows a Mediterranean eating plan and exercises as tolerated. She does utilize Dulcolax and MiraLAX to keep her bowel movements regular. Currently utilizing tirzepatide 10 mg weekly, will increase to 12.5 mg weekly Assessment & Plan (04/06/2024 8:47 PM EDT): Patient's (Body mass index is 30.22 kg/m .) indicates that they are obese (BMI >30) with health conditions that include obstructive sleep apnea and GERD . Weight is improving with treatment. BMI is above average; BMI management plan is completed. We discussed portion control and increasing exercise. Patient has been utilizing tirzepatide for weight loss for several months, initially obtaining from [facility], now covered through insurance. Patient did have a lapse of time that she had to go off the medication and gained between 10 to 15 pounds, but with resuming medication has already lost that weight again. She has no adverse side effects such as nausea, vomiting, constipation. She also participates in caloric restriction and exercises as tolerated with her myalgias and arthralgias. Assessment & Plan (03/21/2024 1:13 PM EDT): Patient's (Body mass index is 30.91 kg/m .) indicates that they are overweight with health conditions that include none . Weight is unchanged. BMI is above average; BMI management plan is completed. We discussed portion control and increasing exercise. Assessment & Plan (09/13/2023 8:01 AM EST): Patient's (Body mass index is 28.53 kg/m .) indicates that they are overweight with health conditions that include obstructive sleep apnea, hypertension, dyslipidemias, and GERD . Weight is improving with treatment. BMI is is above average; BMI management plan is completed. We discussed portion control and increasing exercise. Patient has been utilizing weekly tirzepatide through a local weight loss clinic since April 2023. Since initiation she has lost approximately 30 pounds through dietary modification and exercise as tolerated. Present time recently being covered through some insurance plans for weight loss. She is currently utilizing tirzepatide 5 mg weekly, will write prescription to see if she can possibly get covered under her insurance instead of paying $480 monthly RENA (obstructive sleep apnea) 01/05/2023 Assessment & Plan (10/28/2024 6:36 AM EDT): Patient diagnosed with sleep apnea, however she was intolerant to PAP therapy Assessment & Plan (2024 10:46 AM EST): Patient diagnosed with sleep apnea, however she was intolerant to PAP therapy Assessment & Plan (04/06/2024 8:44 PM EDT): Patient reports being intolerant to PAP therapy. Assessment & Plan (03/21/2024 1:14 PM EDT): Intolerant to pap therapy Assessment & Plan (12/06/2023 8:45 AM EDT): Intolerant to pap therapy Other hyperlipidemia 01/05/2023 Assessment & Plan (01/26/2025 5:45 PM EDT): Intolerant to statin therapy, induced GI upset and sulfur burps. With her recent weight loss her lipids have improved. Last check approximately 3 months ago with total cholesterol of 213, triglycerides 362, HDL 28 and LDL 121. Patient has now been initiated on Repatha 140 mg subcu every 14 days. Will recheck her lipids on next visit Assessment & Plan (10/28/2024 6:37 AM EDT): On last check patient's lipids were significantly elevated. She was initiated on statin therapy but was intolerant due to GI upset and sulfer burps. She has been taking Krill oil in hopes of improving lipids. Rechecking lipids today Assessment & Plan (12/06/2023 12:35 PM EDT): On last check patient's lipids were significantly elevated. She was initiated on statin therapy but was intolerant due to GI upset and sulfer burps. She has been taking Krill oil in hopes of improving lipids Assessment & Plan (01/05/2023 10:59 AM EDT): On last check patient's lipids were significantly elevated. She was initiated on statin therapy but was intolerant due to GI upset and sulfer burps. She has been taking Krill oil in hopes of improving lipids. We are going to recheck lipids today. If remains elevated will attempt approval of Zetia or livalo Antiphospholipid syndrome 10/06/2022 Assessment & Plan (01/26/2025 5:46 PM EDT): Patient followed by rheumatology. She followed by Dr. Loo She continues to utilize Eliquis 5 mg twice daily for anticoagulation after suffering PE a couple of years ago Assessment & Plan (10/28/2024 6:36 AM EDT): Patient followed by rheumatology. She followed by Dr. 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 She followed by Dr. 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 She has been followed by Dr. Loo who was with the [facility] [place], Dr. Loo recently relocated to [facility]. Patient has plans to establish care with Dr. Loo at [facility] but is unable to get an appointment for several months. 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 She has been followed by Dr. Loo who was with the [facility] [place], Dr. Loo recently relocated to [facility]. Patient has plans to establish care with Dr. Loo at [facility] but is unable to get an appointment for several months. 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 She has been followed by Dr. Loo who was with the [facility] [place], Dr. Loo recently relocated to [facility]. Patient has plans to establish care with Dr. Loo at [facility] but is unable to get an appointment for several months. 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 He is to utilize Eliquis 5 mg twice daily for anticoagulation. Assessment & Plan (10/06/2022 9:00 AM EDT): Followed by rheumatology, Dr. Loo. Continues to utilize Eliquis 5 mg twice daily for anticoagulation. Currently taking Krill oil for elevated lipid profile on last check. We will recheck lipids in 3 months during routine follow-up. No current complaints of potential recurrence of PE, no shortness of breath or chest pain Medullary sponge kidney 09/26/2022 Assessment & Plan (01/26/2025 5:44 PM EDT): Patient born with medullary sponge kidney, suffers from frequent bouts of nephrolithiasis. Her renal function has remained within normal limits Assessment & Plan (10/28/2024 6:36 AM EDT): Patient born with medullary sponge kidney, suffers from frequent bouts of nephrolithiasis. Her renal function has remained within normal limits Assessment & Plan (2024 10:46 AM EST): Patient born with medullary sponge kidney, suffers from frequent bouts of nephrolithiasis. Her renal function has remained within normal limits. Assessment & Plan (04/06/2024 8:45 PM EDT): Patient born with medullary sponge kidney, suffers from frequent bouts of nephrolithiasis. Her renal function has remained within normal limits. Assessment & Plan (12/06/2023 8:29 AM EDT): Renal function has remained stable Assessment & Plan (01/05/2023 10:59 AM EDT): Renal function has remained stable Assessment & Plan (09/26/2022 1:52 PM EDT): Patient understands kidney by history. Renal function stable on last check, will recheck metabolic panel prior to endometrial ablation Gastroesophageal reflux disease without esophagi tis 09/26/2022 Assessment & Plan (12/06/2023 8:28 AM EDT): History of postprandial bloating and nausea. Negative lab investigations, negative right upper quadrant ultrasound. Normal barium swallow, upper GI series. Followed by Dr. Damon of gastroenterology Assessment & Plan (01/05/2023 11:00 AM EDT): History of postprandial bloating and nausea. Negative lab investigations, negative right upper quadrant ultrasound. Normal barium swallow, upper GI series. Followed by Dr. Damon of gastroenterology Assessment & Plan (09/26/2022 1:53 PM EDT): History of postprandial bloating and nausea. Negative lab investigations, negative right upper quadrant ultrasound. Normal barium swallow, upper GI series. Followed by Dr. Damon of gastroenterology Vertigo 09/26/2022 Assessment & Plan (01/26/2025 5:46 PM EDT): Patient has been evaluated thoroughly by neurology and ENT for chronic dizziness. Her mother suffers from the same affliction. She has been on low-dose diazepam 2 mg twice daily PRN for several years with ongoing benefit. She also has meclizine when needed. Hang reviewed and satisfactory. DS and controlled substance agreement up-to-date Assessment & Plan (12/20/2024 8:29 AM EDT): Patient has been evaluated thoroughly by neurology and ENT for chronic dizziness. Her mother suffers from the same affliction. She has been on low-dose diazepam 2 mg twice daily PRN for several years with ongoing benefit. She also has meclizine when needed. Hang reviewed and satisfactory. DS and controlled substance agreement up-to-date Assessment & Plan (10/28/2024 6:38 AM EDT): Patient has been evaluated thoroughly by neurology and ENT for chronic dizziness. Her mother suffers from the same affliction. She has been on low-dose diazepam 2 mg twice daily for several years with ongoing benefit. She also has meclizine when needed. Hang reviewed and satisfactory. DS and controlled substance agreement up-to-date Assessment & Plan (2024 10:45 AM EST): Patient has been evaluated thoroughly by neurology and ENT for chronic dizziness. Her mother suffers from the same affliction. She has been on low-dose diazepam 2 mg twice daily for several years with ongoing benefit. She also has meclizine when needed. Hang reviewed and satisfactory. DS and controlled substance agreement up-to-date Assessment & Plan (04/06/2024 8:49 PM EDT): Patient has been evaluated thoroughly by neurology and ENT for chronic dizziness. Her mother suffers from the same affliction. She has been on low-dose diazepam 2 mg twice daily for several years with ongoing benefit. She also has meclizine when needed. Hang reviewed and satisfactory. DS and controlled substance agreement up-to-date Assessment & Plan (03/21/2024 1:13 PM EDT): Patient has been evaluated thoroughly by neurology and ENT for chronic dizziness. Her mother suffers from the same affliction. She has been on low-dose diazepam 2 mg twice daily for several years with ongoing benefit. She also has meclizine when needed. Hang reviewed and satisfactory. DS and controlled substance agreement up-to-date Assessment & Plan (09/13/2023 8:05 AM EST): Chronic dizziness of long duration. She has been evaluated by neurology, ENT. Mom suffers from the same of flexion. He has been on low-dose diazepam 2 mg twice a day for years with good benefit. He has meclizine when needed. Hang reviewed, she has never abused this medication. We will continue as ordered Assessment & Plan (01/05/2023 10:57 AM EDT): Chronic dizziness of long duration. She has been evaluated by neurology, ENT. Mom suffers from the same of flexion. He has been on low-dose diazepam 2 mg twice a day for years with good benefit. He has meclizine when needed. Hang reviewed, she has never abused this medication. We will continue as ordered Assessment & Plan (10/06/2022 8:50 AM EDT): Chronic dizziness, long duration. Has been evaluated by neurology, ENT, full work-up. Her mom suffers from the same. She has been on low dose diazepam 2mg Twice a day for years with good benefit. She has never abused. HANG reviewed and satisfactory. Assessment & Plan (09/26/2022 2:29 PM EDT): Chronic dizziness, long duration. She has been evaluated by neurology without etiology. She has been on meclizine and low dose of diazepam 2 mg twice a day and she feels this is very beneficial to her. She has never used more than this. Psoriatic arthritis 07/11/2022 Assessment & Plan (01/26/2025 1:18 PM EDT): With longstanding pattern of psoriatic arthritis, followed by rheumatology. She was well-maintained on Tremfya for a couple of years, however over the last year or so had significant flare with joint swelling, redness, myalgias and pain. Taken off Tremfya and utilizing a new medication. She feels she has really experienced improvement in her symptoms with significant weight loss Assessment & Plan (10/28/2024 6:37 AM EDT): With longstanding pattern of psoriatic arthritis, followed by rheumatology. She was well-maintained on Tremfya for a couple of years, however over the last year or so had significant flare with joint swelling, redness, myalgias and pain. Taken off Tremfya and utilizing a new medication. She feels she has really experienced improvement in her symptoms with significant weight loss Assessment & Plan (2024 10:45 AM EST): With longstanding pattern of psoriatic arthritis, followed by rheumatology. She was well-maintained on Tremfya for a couple of years, however over the last year or so had significant flare with joint swelling, redness, myalgias and pain. Taken off Tremfya and utilizing a new medication but feels it is not really being beneficial either Assessment & Plan (03/21/2024 1:13 PM EDT): With longstanding pattern of psoriatic arthritis, followed by rheumatology. She was well-maintained on Tremfya for a couple of years, however over the last year or so had significant flare with joint swelling, redness, myalgias and pain. Taken off Tremfya and utilizing a new medication but feels it is not really being beneficial either Assessment & Plan (09/13/2023 8:03 AM EST): Patient with longstanding pattern of psoriatic arthritis, followed by rheumatology. 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 She generally is well-maintained on Tremfya injections but is recently over the last 1 to 2 weeks had significant flare with joint swelling, redness, myalgias and pain. Generally during times of flare she responds well to 7-day course of 40 mg daily prednisone. Prescription sent to [facility] Assessment & Plan (05/01/2023 8:32 AM EDT): Patient has diagnosis of psoriatic arthritis, noting for the last 3 weeks her joint and muscle pains have increased exponentially. She reports she contacted her clay processing factory worker to tell her to be evaluated by [...] participating in weight loss management at the [facility] in [place]. Assessment & Plan (01/05/2023 10:57 AM EDT): Recent appointment with Dr. Loo, rheumatology. He had consider changing medicine from Tremfya to another agent due to significant ongoing joint pain and stiffness but that has not occurred. Assessment & Plan (10/06/2022 8:43 AM EDT): Recent appointment with Dr. Loo. Considering changing medicine from Tremfya to another agent due to significant ongoing joint pain and stiffness. Assessment & Plan (09/26/2022 1:51 PM EDT): Recent flare after running out of tremfya due to a pharmacy mix-up. She was seen by Dr. Loo who gave her a toradol shot and steroid which provided some relief. The medication issue has not been corrected with the pharmacy and she should be able to resume her regular tremfya injection Assessment & Plan (07/11/2022 1:02 PM EST): Followed by Rheumatology Chronic obstructive pulmonary disease 05/26/2022 Assessment & Plan (01/26/2025 5:42 PM EDT): Established care with [facility] May 2022. Patient with extended history of smoking, initiating cessation June 2021. PFTs obtained by pulmonary showed normal spirometry but mild reduction in DLCO which is thought to be due to PE and emphysema, CT suggested upper lobe emphysema. No evidence of suspicious lung nodule or masses Assessment & Plan (2024 10:42 AM EST): Established care with [facility] May 2022. Patient with extended history of smoking, initiating cessation June 2021. PFTs obtained by pulmonary showed normal spirometry but mild reduction in DLCO which is thought to be due to PE and emphysema, CT suggested upper lobe emphysema. No evidence of suspicious lung nodule or masses Assessment & Plan (04/06/2024 8:47 PM EDT): [facility]. Patient with extended history of smoking, initiating cessation June 2021. PFTs obtained by pulmonary showed normal spirometry but mild reduction in DLCO which is thought to be due to PE and emphysema, CT suggested upper lobe emphysema. No evidence of suspicious lung nodule or masses. Pulmonary plans on repeat annual PFTs. Assessment & Plan (12/06/2023 8:28 AM EDT): Established care with [facility] May 2022. Patient with extended history of smoking, initiating cessation June 2021. PFTs obtained by pulmonary showed normal spirometry but mild reduction in DLCO which is thought to be due to PE and emphysema, CT suggested upper lobe emphysema. No evidence of suspicious lung nodule or masses. Pulmonary plans on repeat annual PFTs. Assessment & Plan (09/13/2023 8:00 AM EST): Established care with [facility] May 2022. Patient with extended history of smoking, initiating cessation June 2021. PFTs obtained by pulmonary showed normal spirometry but mild reduction in DLCO which is thought to be due to PE and emphysema, CT suggested upper lobe emphysema. No evidence of suspicious lung nodule or masses. Pulmonary plans on repeat annual PFTs. Assessment & Plan (01/05/2023 11:02 AM EDT): Care with [facility] May 2022. Patient with extended history of [...] breath, can be utilized every 4 hours Assessment & Plan (09/26/2022 2:23 PM EDT): Recently established care with pulmonology in May 2022. Patient with extensive history of smoking, initiating cessation in June 2021. PFTs obtained by pulmonary showed normal spirometry but mild reduction in DLCO which is thought to be due to PE and emphysema CT suggests upper lobe emphysema. No evidence of any suspicious lung nodules or masses. Andrzej to repeat PFTs annually. Currently without symptoms including significant shortness of breath or wheezing. Assessment & Plan (05/26/2022 2:53 PM EST): Established care with pulmonary two months ago. Dr. armstrong's note reviewed. Patient with extensive history of smoking. PFTs show normal spirometry but mild reduction in DLCO which is thought to be due to PE and emphysema. CT suggests upper lobe emphysema. No evidence of any suspicious lung nodules or masses. Plan to repeat PFTs annually History of pulmonary embolism 05/26/2022 Assessment & Plan (10/28/2024 6:36 AM EDT): History of PE. Recent diagnosis of antiphospholipid syndrome. Currently on eliquis 5mg BID . Followed by rheumatology Dr. Loo and hematology Assessment & Plan (2024 10:45 AM EST): History of PE. Recent diagnosis of antiphospholipid syndrome. Currently on eliquis 5mg BID . Followed by rheumatology Dr. Loo and hematology Assessment & Plan (03/21/2024 1:14 PM EDT): History of PE. Recent diagnosis of antiphospholipid syndrome. Currently on eliquis 5mg BID . Followed by rheumatology Dr. Loo and hematology Assessment & Plan (12/06/2023 8:28 AM EDT): History of PE. Recent diagnosis of antiphospholipid syndrome. Currently on eliquis 5mg BID . Followed by rheumatology Dr. Loo and hematology Assessment & Plan (10/06/2022 8:41 AM EDT): History of PE. Recent diagnosis of antiphospholipid syndrome. Currently on eliquis 5mg BID . Followed by rheumatology Dr. Loo and hematology, hematology. Assessment & Plan (09/26/2022 1:51 PM EDT): History of pulmonary embolism. Factor V Leyden gene negative, factor II DNA negative. Lupus anticoagulant positive. indeterminate anticardiolipin IgM antibody. Factor VIII activity level elevated. Recent diagnosis of antiphospholipid antibody syndrome. Being followed by rheumatology, Dr. Loo. Also followed by Dr. Hilario Olivares for hemoatology Current anticoagulation Eliquis 5 mg twice daily Assessment & Plan (05/26/2022 2:17 PM EST): Factor 5 Leiden gene negative, Factor 2 DNA negative. Lupus anticoagulant positive. Indeterminate anticardiolipin IgM antibody. Factor 8 activity level elevated. Concern for anti phospholipid antibody syndrome. -She has been referred to Rheumatology by Dr. Hilario Henley, hematology -Continue anticoagulation with eliquis 5mg BID History of smoking 05/26/2022 Assessment & Plan (01/26/2025 5:42 PM EDT): Previous 1 pack/day smoker for 30 years. Cessation acheived in June 2021. Assessment & Plan (2024 10:46 AM EST): Previous 1 pack/day smoker for 30 years. Cessation acheived in June 2021. Low-dose CT lung cancer screening ordered Assessment & Plan (12/06/2023 8:28 AM EDT): Previous 1 pack/day smoker for 30 years. Cessation acheived in June 2021 Assessment & Plan (09/26/2022 1:53 PM EDT): Previous 1 pack/day smoker for 30 years. Cessation acheived in June 2021 Assessment & Plan (05/26/2022 10:31 AM EST): Previous 1ppd smoker x 30 years. Quit June 2021 Encounter for screening mamm ogram for malignant neoplasm of breast 05/26/2022 Overview (04/08/2024): REPLACING DXS THAT WERE INACTIVATED AFTER THE 04/08 REGULATORY UPDATE Assessment & Plan (05/26/2022 2:53 PM EST): Due now. Order written Psoriasis 04/24/2022 Assessment & Plan (01/26/2025 1:07 PM EDT): Patient followed by both dermatology and rheumatology. Previously she received benefit from use of Tremfya, but eventually had decreased efficacy prompting transition to Cosentyx. Assessment & Plan (12/06/2023 12:35 PM EDT): Patient has had some recent changes to her medications that treat her psoriasis after worsening joint pains developed. For a certain amount of time she received benefit from use of Tremfya but eventually developed decreased efficacy. She is currently on high-dose prednisone with tapering. She states after completion of her cholecystectomy there are plans to initiate Cosentyx for treatment. Assessment & Plan (01/05/2023 10:58 AM EDT): Patient's psoriatic lesions appear less responsive to Tremfya, she has appointment with dermatology in the coming weeks to address this issue Assessment & Plan (10/06/2022 8:43 AM EDT): Appointment with dermatology next week Assessment & Plan (09/26/2022 1:51 PM EDT): Followed by dermatology, Dr. Vicky Monson Assessment & Plan (07/11/2022 1:02 PM EST): Followed by Dr. Vicky Monson, dermatology. Previously had taken Tremfya until October 2021 but then stopped. Since that time she had progressively worsening flare on bilateral lower extremities. Treated with bactrim and continuing to take tremfya with some benefit. Assessment & Plan (06/26/2022 12:39 PM EST): Followed by Dr. Vicky Monson, dermatology. Previously had taken Tremfya until October 2021 but then stopped. Since that time she has had progressively worsening flare on bilateral lower extremities. She has been using triamcinolone 0.7% cream BID, but as her plaques have worsened she has now restarted her tremfya this week. Assessment & Plan (05/26/2022 10:53 AM EST): Followed by Dr. Vicky Monson, Dermatology. Previously on tremfya until October 2021. Now with flare on left knee and lower gaona region. Currently using triamcinolone 0.7% cream BID. Assessment & Plan (04/24/2022 2:08 PM EDT): Longstanding pattern of psoriasis as managed by Vicky Monson, stone in [place]. Previous use of Tremfya which she has been off since October 2021 but she is using a topical cream for some flares that are mostly on her knee region. I do suspect most likely this rash in the lower shins represents a very mild pattern of psoriasis due to the timing of flaring after stopping the Tremfya, with a pattern that appears to be slightly dry and scaly and longstanding without notable change without new other contacts or exposures. As of now I recommend until she is follows up with dermatology in May 2022 to try the same cream she is using for her knee on the gaona region on the left greater than right, have also provided triamcinolone 0.1% cream twice daily as needed for additional anti-inflammatory benefit. Advise if not improving. Resolved Problems Problem Noted Date Diagnosed Date Resolved Date Acute mucoid otitis media of right ear 02/12/2024 2024 Assessment & Plan (02/12/2024 8:22 AM EDT): Patient found to have cloudy, bulging, erythematous right tympanic membrane on physical exam, likely due to increased mucus production and eustachian tube dysfunction with upper respiratory illness. Will treat bacterial pathogen with azithromycin Z-Rio. Patient is also to continue use of daily nasal steroid. Also give prednisone for sinus inflammation and assistance with eustachian tube inflammation. Advised if no improvement Disseminated herpes zoster 10/30/2023 0 2024 Assessment & Plan (10/31/2023 8:51 AM EDT): presents today for complaints of thoracic back pain and development of rash along the right side/flank. Patient states that her back pain began at the midline of her thoracic spine but has began radiation around to the front just under her right breast. On awakening this morning she noticed new onset rash, red along the lines of the pain pathway. She has been diagnosed with shingles in the past and was concerned this may be a recurrence. Patient describes the pain as sharp in her back, no continuous burning, itching or tingling at this point. Physical exam findings upon evaluation of rash consistent with shingles along the T7-T8 nerve dermatome on the right side. -Patient advised to avoid contact with her daughter until rash has crusted and dried -Will treat with valacyclovir 1 g twice daily for 7 days and prednisone 40 mg daily for 7 days -Advise she is contagious until rash has crusted and dried. Toenail deformity 09/12/2023 2024 Lump in neck 05/01/2023 2024 Assessment & Plan (05/01/2023 8:29 AM EDT): Patient also has new concerns today stating that when she lowers her head chin to chest she feels like something is pushing on her windpipe. She has been referred by her previous PCP for EGD but never pursued the diagnostic. Denies any feelings of choking when eating or shortness of breath. Normal physical exam without palpation of abnormalities -will order US of neck -will need to pursue EGD if US normal Chronic migraine without aur a without status migrainosus, not intractable 04/30/2023 2024 Assessment & Plan (12/06/2023 8:44 AM EDT): No recurrence, never started topamax Assessment & Plan (05/01/2023 8:30 AM EDT): Patient has history of ocular migraine, though [...] symptoms and interventions review on next visit Acute non-recurrent frontal sinusitis 11/28/2022 2024 Assessment & Plan (06/17/2024 6:56 AM EST): acute complaint of prolonged incidence of severe sinus congestion, sinus pain and sinus headache. Symptoms been going on for approximately 2 weeks. She states now her ears even feel stopped up. She also has sore throat she presumes from copious amounts of postnasal drip. Has been unresponsive to zirh-vfi-gnnjwuu measures. -Continue course of azithromycin Z-Rio that was started approximately 24 hours ago -Patient also instructed on use of Flonase nasal spray -Will add prednisone to assist with sinus inflammation. Patient will advise if no improvement Assessment & Plan (03/21/2024 1:15 PM EDT): acute complaint of prolonged incidence of severe sinus congestion, sinus pain and sinus headache. Symptoms been going on for approximately 2 weeks. She states now her ears even feel stopped up. She also has sore throat she presumes from copious amounts of postnasal drip. Has been unresponsive to hcxb-rld-trurfdm measures. Will treat with round of azithromycin Z-Rio for bacterial pathogens. She advised to continue use of daily Flonase and antihistamine therapy. Also discussed benefits of saline nasal spray Assessment & Plan (11/28/2022 1:37 PM EDT): presents today for complaints of cough, body aches, chills, headache, sore throat and ear pain for the last 2 days. She notes preceding the symptoms she has been battling chronic sinus congestion for a few weeks, utilizing Sudafed regularly with little benefit. She denies any fever. Has not utilize any aiuo-jrj-nntqyhh cough and cold medications, but did find an old prescription for promethazine cough syrup that provided some benefit this morning. She also complains of significant sinus tenderness on palpation. Negative for COVID and flu in office today -Due to several allergies we will treat with azithromycin Z-Rio as directed -Medrol Dosepak to assist with inflammation and sinus pressure -promethazine cough syrup as directed -Advised daily use of Flonase for the next several weeks Dysuria 10/06/2022 2024 Assessment & Plan (10/06/2022 8:54 AM EDT): Started four days ago, left suprapubic and left flank tenderness. Constant dull ache with occassional sharp shooting pain. No hematuria. History of renal stones, last episode two years ago. Negative urinalysis in office today. She notes pain presenting exactly like past stone episodes. Encouraged to push oral hydration. If persists she will consult her urologist. Generalized anxiety disorder 09/26/2022 01/05/2023 Assessment & Plan (10/06/2022 8:44 AM EDT): Well controlled on current. Diazepam dosing. No sleep disturbance or panic attacks. Pre-op evaluation 09/26/2022 2024 Assessment & Plan (12/06/2023 12:36 PM EDT): Physical exam findings during her visit today are completely normal, I see no reason why it would be unsafe for her to proceed with scheduled cholecystectomy. She already has orders for parameters on holding and resuming her Eliquis prior to surgery. was completely normal as well. Assessment & Plan (09/26/2022 5:05 PM EDT): Here today for preop clearance for endometrial ablation. She has pre-existing conditions including medullary sponge kidney, psoriatic arthritis, psoriasis, COPD and GERD. These conditions are stable from a medical standpoint and should not prevent her from proceeding with the planned procedure. Anesthesia should be aware of 1 pack/day smoking history x30 years, with cessation since June 2021. Anesthesia will also need to consider her stable emphysema/COPD. Additionally, holding of Eliquis carries risk of recurrence of pulmonary embolus or DVT. Alicia and I discussed these risks at length and she verbalizes understanding. Anxiety and depression 09/26/202209/26 Acute non-recurrent pansinusitis 09/12/2022 09/26/2022 Assessment & Plan (09/12/2022 5:30 PM EST): complaints of cough, sore throat, nasal congestion and headache starting three days ago. Cold chills. She denies any documented fever. She has not utilize any vpse-grm-klijfst medications for her symptoms. Negative for flu, COVID and strep in office today. -Clinical presentation consistent with pansinusitis. Will treat with azithromycin Z-Rio. Encourage use of saline nasal spray. May utilize xdvv-hdq-jzubfys cough medication of choice. Fluid retention 09/12/2022 09/26/2022 Assessment & Plan (09/12/2022 5:33 PM EST): Recent swelling of hands bilaterally. No new medications, foods. Denies any new onset of joint pain, rashes, CP or SOB. No lower extremity edema. She does note an excessive sodium intake over the last couple of weeks. -Will add HCTZ 12.5mg for mild diuresis. To be used only as needed. Return in 3 weeks for follow-up Acute bilateral low back harrison n with left-sided sciatica 08/15/2022 09/26/2022 Assessment & Plan (08/15/2022 12:11 PM EST): Reports the beginning of her pain occured after picking her granddaughter up out of the floor. She describes the pain as being completely across the lower back, dominantly left-sided with left hip pain radiating to her buttocks and left lower extremity. She has utilized lidocaine patches and NSAIDS at home with little benefit. Denies numbness, tingling, burning, loss of bowel or bladder function. She reports the pain is constant but intensifies with certain positions such as laying on her right side. She is unable to bend. On exam bilateral lumbar tenderness noted on palpation. Positive leg raise testing on the left side. -Advised off work as her job is physically demanding until Sunday. -Alternate hot and cold compresses 3-4 times daily -Continue to use luda-epn-cehxsoc lidocaine patch -Treated with Medrol Dosepak and Flexeril -Reviewed light stretching exercises for the lumbar area -Reevaluate in 1 week Cellulitis of left leg 06/26/202209/26 Assessment & Plan (07/11/2022 1:03 PM EST): Resolved with use of Bactrim, no residual erythema, swelling or tenderness. Assessment & Plan (06/26/2022 12:41 PM EST): Red, warm and swollen rash like area from ankle to mid gaona area of left leg. She denies any pain, numbness or tingling of the area. She has utilized kenalog ointment which she states helps the itching but has not decreased the inflammation of the area. No oozing or drainage. Pedal pulses palpable. Foot warm to the touch -Keep feet elevated when home -She is allergic to beta-lactams, PCN and cipro -Will treat with Bactrim as written -Advised to contact dermatology for further evaluation -Will obtain results for US that was ordered by rheumatology to rule out DVT -RTC in two weeks for follow-up Nephrolithiasis 05/26/2022 09/26/2022 Assessment & Plan (05/26/2022 10:32 AM EST): Followed by Dr. Hebert. Today with complaints of dysuria x 3 days. She has a known renal calculus within the right kidney. Has required lithotripsy with stent in the past -Check UA Paresthesias 05/26/2022 09/26/2022 Assessment & Plan (05/26/2022 10:31 AM EST): involving the digits of both hands and both feet, combined with apparent weakness of plantar flexion of the right foot and right hip flexion. Followed by Dr. Bello Annual physical exam 05/26/2022 023 Rash 04/24/2022 2024 Assessment & Plan (04/13/2023 3:56 PM EDT): Bilateral lower extremity rash in the right greater left medial gaona region, somewhat reminiscent of previous flare that I assessed from 04/24/2022 although not responsive to the triamcinolone as I provided at that time. I did discuss that this is somewhat of a nonspecific appearing rash, most suspicious would be an allergic type rash such as with a contact dermatitis, but due to chronicity, I do think contributions of eczema will have to be considered and also due to somewhat equivocal response to triamcinolone recently, could there be some secondary fungal component, although I did describe that that would be less suspicious but it can sideration. As such we will initiate terbinafine 1% cream twice daily for 2 to 3-week window, and I will switch triamcinolone over to fluocinonide 0.05% cream to see if this may give some better benefit of itching and irritation. She has a pending appointment with dermatology in the next month or 2, keep follow-up with him. Advised if not improving. Assessment & Plan (04/24/2022 2:08 PM EDT): Involving the bilateral left greater than right lower gaona, present for the better part of 4 to 5 months, fairly persistent, felt to be either a mild allergic type dermatitis versus much more likely a variant of her already diagnosed psoriasis as discussed in that assessment plan. Please refer to that assessment plan for details. Rib pain on right side 04/24/202209/26 Assessment & Plan (04/24/2022 2:09 PM EDT): Modest persisting pain in the right anterior lower rib region, occurring about a month ago when she fell and hit that region. Due to persistence I did discuss the possibilities could represent a small hairline fracture in the rib, and due to the longstanding nature which is starting to improve, she declines desire to x-ray as it would likely not chemical cell changer. This should continue to resolve over the following 2 to 4 weeks. Advise any worsening. Continue anti-inflammatories, heat versus ice. Viral syndrome 02/20/2022 09/26/2022 Assessment & Plan (02/20/2022 1:32 PM EDT): Assessment and plan for COVID-19 for details of evaluation today. Viral upper respiratory tract infection 02/20/2022 2024 Assessment & Plan (02/12/2024 8:21 AM EDT): Patient testing negative for COVID, flu and strep in office today. Given that she is frequently exposed to COVID and her presentation I have advised her to retest for COVID at home in the next couple of days. For now we will treat as upper respiratory infection without any concerning lower respiratory tract symptoms. Treatment involves xlyp-qym-jpjublt cold and cough medication of choice, plenty of rest and fluids. Patient also advised she may utilize saline nasal spray and coolmist humidifier. Assessment & Plan (02/20/2022 1:32 PM EDT): Notable sore throat, with mild to moderate nonexudative pharyngitis. Strep screen negative. As such, especially in context of COVID diagnosis, consistent with a viral process. Symptomatic treatment discussed including Tylenol/Advil, lozenges, gargling, Chloraseptic spray, etc. Advise if not improving. COVID-19 02/20/2022 2024 Assessment & Plan (07/10/2023 3:37 PM EST): Patient notes onset of symptoms approximately 48 hours ago that began with diffuse myalgias. Patient states at approximately 4 AM the next morning she awoke with even worsening myalgias as well as congestion and significant headache. At that time she tested herself for COVID which was positive. Patient denies any shortness of breath, wheezing or difficulty breathing. She has experienced COVID in the past and is candidate for Paxlovid given autoimmune disorder. She has only treated herself with ibuprofen and Tylenol predominantly for the headache. She also endorses decreased appetite. No nausea, vomiting or diarrhea. She has maintained adequate hydration with good urinary output. Given patient's history of autoimmune disorder and in the presence of good renal function will initiate Paxlovid therapy. She is also being provided with Bromfed for cough and congestion. Patient advised of [facility] quarantine guidelines including quarantine for 5 days followed by 6 to 10 days of continued mask wearing as long as symptoms are resolving. Assessment & Plan (02/20/2022 1:31 PM EDT): Suspicious symptoms for current COVID-19 with COVID-19 rapid test positive. Flu screen is negative. She is 1 day and onset of symptoms, and with comorbid mild COPD pattern, and good renal function we have initiated Paxlovid, caution rebound symptoms after completion of the 5-day course. Otherwise Bromfed-DM provided for cough and congestion, Zofran for nausea. Recommend a full quarantine for 5 days, and days 6-10 if she is doing better she can return to activities with a mask. Encounters Date Type Department Care Team Description 02/04/2025 Refill [facility] [address] [place] [address] DR [place], [place] [phone] Mariaa Chauhan, MICHAEL 02/04/2025 Refill [facility] [address] [place] [address] [place] [phone] Mariaa Chauhan, MICHAEL Vertigo 01/26/2025 8:15 AM EDT Office Visit [facility] [address] [place] [address] DR [place], GUIDO [id number] Mariaa Chauhan, MICHAEL Antiphospholipid syndrome (Primary Dx); Chronic obstructive pulmonary disease, unspecified COPD type; History of pulmonary embolism; History of smoking; Medullary sponge kidney; Other hyperlipidemia; Psoriasis; Vertigo; Wood's neuroma of right foot; Acute dysfunction of right eustachian tube; Psoriatic arthritis 01/26/2025 Travel 01/05/2025 Refill [facility] [address] [place] [address] DR [place], GUIDO [phone] Mariaa Chauhan, DRIER FEEDER Other hyperlipidemia 01/05/2025 Refill [facility] [address] [place] [address] [place] [phone] Mariaa Chauhan, MICHAEL 01/05/2025 Refill [facility] [address] [place] [address] [place] [phone] Mariaa Chauhan, MICHAEL 12/31/2024 [facility] [address] [place] [address] Mariaa Chauhan APRN 12/17/2024 4:00 PM EDT Office Visit [facility] [address] [place], [place] [phone] Mariaa Chauhan, DRIER FEEDER Acute dysfunction of right eustachian tube (Primary Dx); Vertigo 12/17/2024 Travel from Last 3 Months Immunizations Immunization Administration Dates Next Due COVID-19 (MODERNA) 1st,2nd,3 rd Dose Monovalent 09/16/2021,01/28/2021 DTP 12/30/1974, 0,1969,1969 Hepatitis B Adult/Adolescent IM 10/26/1997,09/22 MMR 06/26/2001,06/19/1974 OPV 02/12/1975, 0,1969,1969 Rubella 05/14/1996 Td (TDVAX) 02/06/2003 Tdap 10/28/2021,05/18/2017,01/27/2015 Family History Medical History Relation Name Comments COPD Father Diabetes Father Heart disease Father Diabetes Mother Heart disease Mother Relation Name Status Comments Father Alive Mother Alive Social History Tobacco Use Types Packs/Day Years Used Date Smoking Tobacco: Former Cigarettes 1 37 0 1984 - 07/05/2021 Smokeless Tobacco: Never Tobacco Cessation:Counseling Given: Not Answered Alcohol Use Standard Drinks/Week Comments No 0 [...] Orientation Straight 04/02/2024 11 :00 AM EDT Last Filed Vital Signs Vital Sign Reading Time Taken Comments Blood Pressure 102/70 01/26/2025 8:04 AM EDT Pulse 68 01/26/2025 8:04 AM EDT Temperature 36.4 C (97.6 F) 01/26/2025 8:04 AM EDT Respiratory Rate 16 12/17/2024 3:47 PM EDT Oxygen Saturation 97% 01/26/2025 8:04 AM EDT Inhaled Oxygen Concentration - - Weight 57.2 kg (126 lb 3.2 oz) 01/26/2025 8:04 A M EDT Height 157.5 cm (5' 2.01 ) 01/26/2025 8:04 AM ED T Body Mass Index 23.08 01/26/2025 8:04 AM EDT Plan of Treatment Upcoming Encounters Date Type Department Care Team (Late st Contact Info) Description 04/17/2025 1:15 PM EDT Office Visit [facility] [address] [place] [address] [place] [address] Mariaa Chauhan APRN [address] [place] [address] 07/20/2025 9:45 AM EST Office Visit [facility] [address] [place] [address] [place] [address] Mariaa Chauhan, MICHAEL [address] [place] [address] Health Maintenance Due Date Last Done Comments Annual Gynecologic Pelvic and Breast Exam 1970 COLON CANCER SCREENING 5 YEAR SIGMOIDOSCOPY [address] COLONOGRAPHY 2014 FECAL OCCULT BLOOD TEST 2014 FIT Testing (1 year) 2014 PAP SMEAR 09/20/2024 09/20/2021 COVID-19 Vaccine ( season) 2025 09/16/2021, 01/28/2021 ZOSTER VACCINE (1 of 2) 03/31/2025 Post poned from 2019 (Patient Refused) INFLUENZA VACCINE 04/08/2025 ANNUAL PHYSICAL 2025 2024 LUNG CANCER SCREENING 08/18/2025 08/18/2024 Pneumococcal Vaccine 50+ (1 of 2 - PCV) 08/22/2025 Postponed from 1988 (Patient Refused) LIPID PANEL 10/20/2025 10/20/2024, 03/2025, 03/25/2024, Additional history exists MAMMOGRAM 09/29/2026 09/29/2024, 08/09, 06/26/2022, Additional history exists COLOGUARD 12/18/2026 12/19/2023, 01/2020, 03/15/2020 COLORECTAL CANCER SCREENING 12/18/2026 TDAP/TD VACCINES (5 - Td or Tdap) 10/29/2031 10/28/2021, 05/18/2017, 01/27/2015, Additional history exists HEPATITIS C SCREENING Completed 09/26/2022 Medical Devices Implanted Type Area Roof Shingler Device Identifier Shelf Expiration Date Model / Serial / Lot Stnt Percuflx No Gw 4.8x24 - [id number] Implanted:Qty: 1 on 10/22/2020 by Saul Hebert MD at [facility] Stent Left: U[employer] 08/31/2023 [id number] / / [id number] Procedures Procedure Name Priority Date/Time Associated Diagnosis Comments SCANNED - IMAGING 01/05/2025 LIPID PANEL Routine 10/20/2024 9:49 AM EDT Other hyperlipidemia SCANNED - MAMMO 09/29/2024 COLOGUARD Routine 12/19/2023 8:04 AM EDT Screening for colon cancer HEPATITIS C ANTIBODY Routine 09/26/2022 1:39 PM EDT Pre-op evaluation from Last 3 Months or Most Recently Relevant to Health Maintenance Results * IMAGING SCANNED (01/05/2025) Anatomical Region Laterality Modality Radiographic Joslyn ging Mariaa Chauhan APRN IMG DIAGNOSTIC IMAGING BRIAN HYLTON Final Result * (ABNORMAL) Lipid Panel (10/20/2024 9:49 AM EDT) Total Cholesterol 213(H) 100 - 199 mg/dL [facility] Triglycerides 362(H) 0 - 149 mg/dL [facility] HDL Cholesterol 28(L) >39 mg/dL [facility] VLDL Cholesterol Cisco 64(H) 5 - 40 mg/dL [facility] LDL Chol Calc (NIH) 121(H) 0 - 99 mg/dL [facility] Blood Structure of left upper limb / Unknown 10/20/2024 9:49 AM EDT 10/20/2024 Comment:Blood Release to [facility] Annemarie [facility] ([facility]) - 10/21/2024 1:07 PM EDT Performed at: - [address] [id number] Pyrotechnist: Fortino Fisher PhD, Phone: [phone] Mariaa Chauhan APRN LAB BLOOD ORDERABLES Final Result [facility] (AMBUL[facility]) [address] [place] [address], [place] [phone] [facility] [address] [place] [address], [place] [phone] * MAMMO Scan (09/29/2024) Anatomical Region Laterality Modality Other Mariaa Chauhan APRN CHART REVIEW TABS Final Result * Cologuard - Stool, Per Rectum (12/19/2023 8:04 AM EDT) Pathologist [facility] Cologuard Negative Negative 12/26/2023 2:16 AM EDT [employer] (CLIA #:[id number]) Comment: NEGATIVE TEST RESULT. A negative Cologuard result indicates a low likelihood that a colorectal cancer (CRC) or advanced adenoma (adenomatous polyps with more advanced pre-malignant features) is present. The chance that a person with a negative Cologuard test has a colorectal cancer is less than 1 in 1500 (negative predictive value >99.9%) or has an advanced adenoma is less than 5.3% (negative predictive value 94.7%). These data are based on a prospective cross-sectional study of 10,000 individuals at average risk for colorectal cancer who were screened with both Cologuard and colonoscopy. (Irwin Chirinos et al, N Engl J Med 2014;370(14):0749-8040) The normal value (reference range) for this assay is negative. COLOGUARD RE-SCREENING RECOMMENDATION: Periodic colorectal cancer screening is an important part of preventive healthcare for asymptomatic individuals at average risk for colorectal cancer. Following a negative Cologuard result, the [place] Cancer Society and U.S. Multi-Society Task Force screening guidelines recommend a Cologuard re-screening interval of 3 years. References: [place] [employer] Guideline for Colorectal Cancer Screening: https://www.cancer.org/cancer/kydve-mxhlby-ieohkq/xhddofaye-vmrdoetaa-exswgxc/ac s-rec ommendations.html.; Negro DK, Audrey CR, Destiny GarridoK, Colorectal Cancer Screening: Recommendations for Physicians and Patients from the U.S. Multi-Society Task Force on Colorectal Cancer Screening , Am J Gastroenterology 2017; 112:2352-2272. TEST DESCRIPTION: Composite algorithmic analysis of stool DNA-biomarkers with hemoglobin immunoassay. Quantitative values of individual biomarkers are not reportable and are not associated with individual biomarker result reference ranges. Cologuard is intended for colorectal cancer screening of adults of either sex, 45 years or older, who are at average-risk for colorectal cancer (CRC). Cologuard has been approved for use by the U.S. FDA. The performance of Cologuard was established in a cross sectional study of average-risk adults aged 50-84. Cologuard performance in patients ages 45 to 49 years was estimated by sub-group analysis of near-age groups. Colonoscopies performed for a positive result may find as the most clinically significant lesion: colorectal cancer [4.0%], advanced adenoma (including sessile serrated polyps greater than or equal to 1cm diameter) [20%] or non- advanced adenoma [31%]; or no colorectal neoplasia [45%]. These estimates are derived from a prospective cross-sectional screening study of 10,000 individuals at average risk for colorectal cancer who were screened with both Cologuard and colonoscopy. (Irwin Espinoza al, N Engl J Med 2014;370(14):8826-5170.) Cologuard may produce a false negative or false positive result (no colorectal cancer or precancerous polyp present at colonoscopy follow up). A negative Cologuard test result does not guarantee the absence of CRC or advanced adenoma (pre-cancer). The current Cologuard screening interval is every 3 years. ([place] Cancer Society and U.S. Multi-Society Task Force). Cologuard performance data in a 10,000 patient pivotal study using colonoscopy as the reference method can be accessed at the following location: www.Sociogramics/results. Additional description of the Cologuard test process, warnings and precautions can be found at www.cologuard.com. Stool specimen (specimen) Specimen from rectum / Unknown 12/19/2023 8:04 AM EDT 12/21/2023 8:56 AM EDT Mariaa Chauhan APRN BODY FLUIDS AND STOOLS BRIAN HYLTON Final Result [employer] (CLIA #:[id number]) [address] [place] [address], * Hepatitis C Antibody (09/26/2022 1:39 PM EDT) Hep C Virus Ab Non Reactive Non Reactive [facility] Comment: HCV antibody alone does not differentiate between previously resolved infection and active infection. Equivocal and Reactive HCV antibody results should be followed up with an HCV RNA test to support the diagnosis of active HCV infection. Blood Structure of left upper limb / Unknown 09/26/2022 1:39 PM EDT 09/26/2022 Comment:Blood Manual Differe n Narrative [facility] ([facility]AT[facility]) - 09/27/2022 1:06 PM EDT Performed at: 01 - [facility] [address] [place], [place] [id number] Pyrotechnist: Fortino Fisher PhD, Phone: [phone] Mariaa Chauhan APRN LAB BLOOD ORDERABLES Final Result [facility] ([facility]) [address] [place] [address], [facility] [address] [place] [address], from Last 3 Months or Most Recently Relevant to Health Maintenance Additional Health Concerns Infection Onset Date Last Indicated MRSA 12/22/2018 12/22/2018 Insurance Care Teams Shield Runner Relationship Specialty Start Date End Date Mariaa Chauhan APRN [address] [place] [address] PCP - General Family Medicine 05/26/22
--- OUTSIDE RECORDS SUMMARY | 2025-03-12 10:09 | XMS_ITS | Encounter Summary ---
Author Organization [employer] ([place], [place], [place], [place]) Address [address] [place] [address] [address] Team Prov[address] Care [address] Freight Conductor Name Role Phone Sharon Bell APRN Primary Care Provider + [phone] Mariaa Chauhan NP Primary Care Provider [phone] Sharon Bell APRN Primary Care Provider +- [phone] Encounter Details Date Type Department Care Team (Late st Contact Info) Description 02/22/2019 Transcribed Document [facility] [place] [address] ProviderCornelio MD [address] [place] [address] Social History Tobacco Use Types Packs/Day [...] Conversion Note - Cornelio ProviderMD - 02/22/2019 2:41 PM CDT DATE OF PROCEDURE:02/22/2019 PREOPERATIVE DIAGNOSIS(ES): Obstructing right ureteral calculus. POSTOPERATIVE DIAGNOSIS(ES): Obstructing right ureteral calculus. PROCEDURE: 1. Cystoscopy. 2. Right ureteroscopy, laser lithotripsy and basket stone extraction. 3. Right ureteral stent placement. SURGEON: Attending physician: Reza Royal Jr., MD Resident: Tamara Valdez MD (R) ANESTHESIA: General. SPECIMEN: Stone fragments sent for analysis. DRAINS: 4.8-Uzbek x 24 cm double-J ureteral stent with [...] and administration of preoperative gentamicin. A well-lubricated 22-Uzbek rigid cystoscope was inserted per urethra. Cystoscopy was performed with the above-noted normal findings. A Sensor wire was advanced through the right ureteral orifice. This required the aid of a 5-Uzbek open-ended Pollack in order to advance the [...] used to fragment the stone and a 1.9-Uzbek nitinol basket was used to remove all the fragments. The semirigid ureteroscope was advanced up to the UPJ finding no additional fragments nor mucosal injury. The scope was removed. A 4.8-Uzbek x 24 cm double-J ureteral stent was [...] on filedocumented in this encounter Care Teams Road Freight Conductor Relationship Specialty Start Date End Date Sharon Bell APRN [address] [place] [address] PCP - General Family Medicine 08/27/23 12/05/23 Mariaa Chauhan, MARIANA [address] [facility] [address] [address] PCP - General Family Medicine 12/06/23 01/10/24 Sharon Bell APRN [address] [place] [address] PCP - General Family Medicine 01/11/24 10/13/24 documented as of this encounter
--- OUTSIDE RECORDS SUMMARY | 2025-03-12 10:09 | XMS_ITS | Encounter Summary ---
Author Organization [employer] ([place], [place], [place], [place]) Address [address] [place] [address] Care Team Providers Care Lofter Name Role Phone Sharon Bell APRN Primary Care Provider + [phone] Mariaa Chauhan NP Primary Care Provider [phone] Sharon Bell APRN Primary Care Provider +- [phone] Encounter Details Date Type Department Care Team (Late st Contact Info) Description 02/22/2019 Transcribed Document [facility] [place] [facility] [place] [address] ProviderCornelio MD [address] [place] [address] Social History Tobacco Use Types Packs/Day [...] Performed On: 02/22/2019 5:00 EDT by ALBERTO ANDUJAR, RN Chart Check Powerplans Initiated/Discontinued as Appropriate : Yes All Active Orders Reviewed : Yes ALBERTO ANDUJAR RN - 02/22/2019 5:41 EDT Electronically signed by [facility] Conversion Cushion Spring Assembler Cerner at 10/25/2022 10:10 AM CDT documented in this encounter Plan of Treatment Not on file documented as of this encounter Visit Diagnoses Not on filedocumented in this encounter Care Teams Lofter Relationship Specialty Start Date End Date Sharon Bell APRN [address] [place] [address] PCP - General Family Medicine 08/27/23 12/05/23 Mariaa Chauhan NP [address] [place] [address] PCP - General Family Medicine 12/06/23 01/10/24 Sharon Bell APRN [address] [place] [address] PCP - General Family Medicine 01/11/24 10/13/24 documented as of this encounter
--- OUTSIDE RECORDS SUMMARY | 2025-03-12 10:09 | XMS_ITS | Encounter Summary ---
Author Organization [employer] ([place], [place], [place], [place]) Address [address] [place] [address] Care Team Providers Care Retirement Plan Counselor Name Role Phone Sharon Bell APRN Primary Care Provider [phone] Reason for Referral * Diagnostic X-Ray (Emergency) - Closed Specialty Diagnoses / Procedures Referred By Contac t Referred To Contact Diagnoses Calculus of kidney Procedures X-ray abdomen KUB 1 view Saul Hebert MD [address] [place] [address] [address] [place] [address] Phone: tel: fax: Referral ID Status Reason Start Date Expiration Date Visits Re quested Visits Authorized [id number] Closed 08/05/2024 08/05/2025 1 1 Encounter Details Date Type Department Care Team (Late st Contact Info) Description 08/05/2024 Outside Orders [facility] [place] Office [address] [place] [phone] Saul Hebert MD [address] [place] [address] [address] [place] [address] Calculus of kidney (Primary Dx) Social History Tobacco Use Types Packs/Day Years Used Date Smoking Tobacco: Former Cigarettes Passive Smoke Exposure: Past Smokeless Tobacco: Never Alcohol Use Standard Drinks/Week Comments Never 0 (1 standard drink = 0.6 oz pur e alcohol) Food Insecurity Answer Date Recorded Food run [...] Date Feliz rded Speak language other than Slovenian at home Not on file 08/27/2023 Want help with school or training Not on file 08/27/2023 Substance Use Answer Date Recorded Used [...] kidney documented in this encounter Care Teams Retirement Plan Counselor Relationship Specialty Start Date End Date Sharon Bell, MICHAEL [address] [place] [address] PCP - General Family Medicine 01/11/24 10/13/24 documented as of this encounter
--- OUTSIDE RECORDS SUMMARY | 2025-03-12 10:09 | XMS_ITS | Clinical Summary ---
Author Organization [facility] Address [address] [facility] [address] [place] [address] Phone Care Team Providers Care Waste Reduction Coordinator Name Role Phone Teja CABALLERO, Jose A Gandhi Unavailable [ ] Conditions or Problems Problem Name Problem Code Onset Date Status Entry Date Provider Comment Standard Description Annotate MRSA infection 425201343 (SNOMED CT) 12/25 Active 12/25 Violeta W Methicillin resistant Staphylococcus aureus infection COPD 38987575 (SNOMED CT) 12/21 Active 12/30 Violeta W Chronic obstructive pulmonary disease History anaphylaxis, drug induced 243697183 (SNOMED CT) 12/21 Active 12/30 Violeta W At increased risk of anaphylaxis Personal history of allergy to other antibiotic agent-Roceph in Z88.1 (ICD-10-CM) 12/21 Active 12/30 Violeta W Allergy status to other antibiotic agents Abscess/Cell ulitis, lip 43973065 (SNOMED CT) 12/21 Active 12/21 Violeta W Cellulitis of lip Nausea and vomiting 97404745 (SNOMED CT) 12/25 Active 12/25 Jose A Lezama MD Nausea and vomiting MRSA infection 627288356 (SNOMED CT) 12/25 Inactive 12/25 Jose A Lezama MD Methicillin resistant Staphylococcus aureus infection Lip ulcer 38041192 (SNOMED CT) 12/21 Inactive 12/21 Jose A Lezama MD Lip ulcer Cellulitis, face 466131137 (SNOMED CT) 12/21 Active 12/21 Jose A Lezama MD Cellulitis of face Medications Medication Instructions Start Date Stop Date Generic Name NDC Provider CUBICIN 500 MG INTRAVENOUS SOLUTION RECONSTITUTED 500mg IV Q24hrs/ INPAT 12/30 DAPTOMYCIN 58118379376 Carola Wilhelm TYGACIL SOLR 100mg IV Q24hrs/ INPAT 12/25 TIGECYCLINE SOLR 76006428965 Wendy Brown ZOFRAN 4 MG ORAL TABLET 1 by mouth 3 times a day when necessary nausea ONDANSETRON HCL 33744033520 Jose A Lezama MD PSEUDOEPHEDRINE HCL 30 MG TABS Take 1 tablet by mouth daily PSEUDOEPHEDRINE HCL 06894529906 Kaykay Hussein EXCEDRIN MIGRAINE TABS Take 1 tablet by mouth daily ASPIRIN-ACETAMINO PHEN-CAFFEINE TABS 25912185128 Kaykay Hussein MECLIZINE HCL 25 MG CHEW Take one (1) tablet by mouth three times a day MECLIZINE HCL 32291788014 Kaykay Hussein DIAZEPAM 2 MG TABS Take 1 tablet by mouth daily as needed DIAZEPAM 83665048289 Kaykay Hussein MUPIROCIN CALCIUM 2 % CREA Apply to area twice daily as needed MUPIROCIN CALCIUM 60930438461 Kaykay Hussein HYDROCODONE-ACETAM INOPHEN 5-325 MG TABS Take 1 tablet by mouth daily HYDROCODONE-ACETA MINOPHEN 54619000013 Kaykay Hussein ONDANSETRON HCL 8 MG TABS Take 1 tablet by mouth daily ONDANSETRON HCL 53182132952 Kaykay Munroeey CUBICIN 500 MG INTRAVENOUS SOLUTION RECONSTITUTED 500mg IV Q24hrs/ INPAT 12/30 DAPTOMYCIN 70420104881 Tammie Joe RN TYGACIL SOLR 100mg IV Q24hrs/ INPAT 10/07 TIGECYCLINE SOLR 20372483609 Tammie Joe RN ACYCLOVIR 200 MG CAPS Take 2 by mouth twice a day 7 days ACYCLOVIR 73033518366 Jose A Lezama MD Medications Administered No [...] Patient port al update - Email Push, [facility] Infe ... PAT E-MAIL [email or web address] [email or web address]'s e-mail address External Other: Patient katelyn al update - AccountStatus, [facility] I ... PATPORTALPIN Active This sonam [...] in Serum or Plasma Lab Report: COMPREHENSIVE SC TABOLIC PANEL ANIONGAP 14.0 mmol/L anion gap, [...] Entry Date CPT-alonzo Change IV antibiotics 12/25 CPT-52475 CMP [id number] CBC with Differential 2018 CPT-01138 C- reactive protein CPT-LAB Other CPT-imelda New [...]
--- OUTSIDE RECORDS SUMMARY | 2025-03-12 10:09 | XMS_ITS | Encounter Summary ---
Author Organization [employer] ([place], [place], [place], [place]) Address [address] [place] [address] Care Team Providers Care Wheelman Name Role Phone Sharon Bell APRN Primary Care Provider + [phone] Mariaa Chauhan NP Primary Care Provider [phone] Sharon Bell APRN Primary Care Provider +- [phone] Encounter Details Date Type Department Care Team (Late st Contact Info) Description 02/21/2019 Transcribed Document [facility] [place] [facility] [place] [address] ProviderCornelio MD [address] [place] [address] Social History Tobacco Use Types Packs/Day [...] Cornelio ProviderMD - 02/21/2019 8:50 PM CDT Admission [...] From : Patient, Spouse Primary Language : Vietnamese Preferred Communication Mode : Verbal Communication Barrier [...] Source : Stated Height Entry Format : Calvert Height, Feet : 5 ft(Converted to: 152 cm, 60 Inch) Height, Inches : 2 Inch(Converted to: 0 ft 2 Inch, 5.08 cm) Clinical Height : 157.48 cm Weight Source : Standing scale Weight Entry Format : Calvert Clinical Dosing Weight : 66.82 kg Weight, Pounds : 147 lb Body Surface Area (BSA) : 1.68 m2 Body Mass Index : 26.9 kg/m2 (HI) Mchenry Body Weight : 50 kg ALBERTO ANDUJAR RN - 02/21/2019 20:50 EDT documented in this encounter Plan of Treatment Not on file documented as of this encounter Visit Diagnoses Not on filedocumented in this encounter Care Teams Wheelman Relationship Specialty Start Date End Date Sharon Bell, MICHAEL [address] [place] [address] PCP - General Family Medicine 08/27/23 12/05/23 Mariaa Chauhan, MARIANA [address] [place] [address] PCP - General Family Medicine 12/06/23 01/10/24 Sharon Bell APRN [address] [place] [address] PCP - General Family Medicine 01/11/24 10/13/24 documented as of this encounter
--- OUTSIDE RECORDS SUMMARY | 2025-03-12 10:09 | XMS_ITS | Referral Summary ---
Author Organization [employer] ([place], [place], [place], [place]) Address [address] [place] [address] Care Team Providers Care Prototype Fabricator Name Role Phone Unavailable Primary Care Provider [...] She is unable to get with her cancer researcher currently as she recently relocated to [facility]. She generally is well-maintained on Tremfya injections but is recently over the last 1 to 2 weeks had significant flare with joint swelling, redness, myalgias and pain. Generally during times of flare she responds well to 7-day course of 40 mg daily prednisone. [facility] History of pulmonary embolism 05/26/2022 Overview (01/16/2024): [...] increased exponentially. She reports she contacted her cancer researcher to tell her to be evaluated by [...] participating in weight loss management at the [facility] in [place]. Antiphospholipid syndrome 11/20/20212023 Overview (12/07/2023): Last Assessment & Plan: Patient followed by rheumatology. She has been followed by Dr. Loo who was with [facility], Dr. Loo recently relocated to [facility]. Patient has plans to establish care with Dr. Loo at [facility] but is unable to get an appointment for several months. She continues to utilize Eliquis 5 mg twice daily for anticoagulation after suffering PE a couple of years ago Allergy status to other antibiotic agents 201809/02/2023 Chronic obstructive pulmonary disease 12/20/2018 09/02/2023 Overview (09/02/2023): Last Assessment & Plan: Care with [facility] May 2022. Patient with extended history [...] Date Feliz rded Speak language other than Polish at home Not on file 08/27/2023 Want [...] (ABNORMAL) Lipid panel (03/25/2024 10:40 AM EDT) Pathologist [facility] Cholesterol, Total 251(H) 100 - 199 mg/dL [facility] Triglycerides 378(H) 0 - 149 mg/dL [facility] HDL Cholesterol 29(L) >39 mg/dL [facility] VLDL Cholesterol Cisco 71(H) 5 - 40 mg/dL [facility] LDL Calculated 151(H) 0 - 99 mg/dL [facility] Blood 03/25/2024 10:4 0 AM EDT 03/25/2024 Narrative [facility] - 03/27/2024 8:07 PM EDT Performed at: [address] [id number] Larry Operator: Fortino Fisher PhD, Phone: [phone] us Sharon Bell APRN LAB BLOOD ORDERABLES Final Result [facility] from Last 3 Months or Most Recently Relevant to Health Maintenance Insurance BLUE CROSS/BLUE SHIELD Advance Directives For more information, please contact: [phone] * Full Code (Latest Code Status on File) Date Activated Date Inactivated Comments 12/07/2023 9:32 AM 12/07/2023 6:19 PM
--- OUTSIDE RECORDS SUMMARY | 2025-03-12 10:09 | XMS_ITS | Encounter Summary ---
Author Organization [employer] ([place], [place], [place], [place]) Address [address] [place] [address] Care Team Providers Care Computer Graphic Designer Name Role Phone Sharon Bell APRN Primary Care Provider + [phone] Mariaa Chauhan NP Primary Care Provider [phone] Sharon Bell APRN Primary Care Provider +- [phone] Encounter Details Date Type Department Care Team (Late st Contact Info) Description 02/22/2019 Transcribed Document [facility] [place] [facility] [place] [address] ProviderCornelio MD [address] [place] [address] Social History Tobacco Use Types Packs/Day [...] Conversion Note - Cornelio ProviderMD - 02/22/2019 1:36 PM CDT [facility] Main OR PACU Summary Primary Physician: FILEMON PATTERSON JR, MD-URO Finalized Date/Time: 02/22/19 14:33:28 Pt. Name: ALICIA AVALOS.O.B./Sex: 1970 Female Med Rec #: [id number] Physician: FILEMON PATTERSON JR, MD-URO Financial #: [id number] Pt. Type: O Room/Bed: [facility]/ Admit/Disch: 02/21/19 19:54:00 - Institution: [facility] Main OR PACU I Case Times Entry 1 In PACU I 02/22/19 14:08:00 Ready for PACU 02/22/19 14:32:00 Discharge Discharge from PACU 02/22/19 14:32:00 I Last Modified By: RANJIT BOYLE RN 02/22/19 14:33:19 Finalized By: RANJIT BOYLE, RN Document Signatures Signed By: RANJIT BOYLE RN 02/22/19 14:33 Electronically signed by [facility] Conversion Property Maintenance Technician Cerner at 10/25/2022 10:14 AM CDT documented in this encounter Plan of Treatment Not on file documented as of this encounter Visit Diagnoses Not on filedocumented in this encounter Care Teams Computer Graphic Designer Relationship Specialty Start Date End Date Sharon Bell APRN [address] [place] [address] PCP - General Family Medicine 08/27/23 12/05/23 Mariaa Chauhan, MARIANA [address] [place] [address] PCP - General Family Medicine 12/06/23 01/10/24 Sharon Bell APRN [address] [place] [address] PCP - General Family Medicine 01/11/24 10/13/24 documented as of this encounter
--- OUTSIDE RECORDS SUMMARY | 2025-03-12 10:09 | XMS_ITS | Encounter Summary ---
Author Organization [employer] ([place], [place], [place], [place]) Address [address] [place] [address] Care Team Providers Care Clinic Administrator Name Role Phone Sharon Bell APRN Primary Care Provider + [phone] Mariaa Chauhan NP Primary Care Provider [phone] Sharon Bell APRN Primary Care Provider +- [phone] Encounter Details Date Type Department Care Team (Late st Contact Info) Description 02/22/2019 Transcribed Document [facility] [place] [facility] [place] [address] ProviderCornelio MD [address] [place] [address] Social History Tobacco Use Types Packs/Day [...] Notes * Cerner Conversion Note - Cornelio Etienne MD - 02/22/2019 9:31 AM CDT [facility] Authorization Entered On: 02/22/2019 9:31 EDT Performed On: 02/22/2019 9:31 EDT by PHILIPP GIBBS RN Primary Insurance Authorization Authorization and Policy Numbers : Insurance 1 Health Plan: [employer]L [employer] Policy Number: [id number] Authorization Number: Insurance Primary Name : [employer] Policy Number: [id number] Historical Authorization Comments-Primary : No Authorization Comments Found PHILIPP GIBBS RN - 02/22/2019 9:31 EDT documented in this encounter Plan of Treatment Not on file documented as of this encounter Visit Diagnoses Not on filedocumented in this encounter Care Teams Clinic Administrator Relationship Specialty Start Date End Date Sharon Bell APRN [address] [place] [address] PCP - General Family Medicine 08/27/23 12/05/23 Mariaa Chauhan, MARIANA [address] [place] [address] PCP - General Family Medicine 12/06/23 01/10/24 Sharon Bell APRN [address] [place] [address] PCP - General Family Medicine 01/11/24 10/13/24 documented as of this encounter
--- OUTSIDE RECORDS SUMMARY | 2025-03-12 10:09 | XMS_ITS | Encounter Summary ---
Author Organization [employer] ([place], [place], [place], [place]) Address [address] [place] [address] Care Team Providers Care Community Service Director Name Role Phone Sharon Bell APRN Primary Care Provider +1- [phone] Reason for Visit * Reason Onset Date Comments Results 03/31/2024 Encounter Details Date Type Department Care Team (Late st Contact Info) Description 03/31/2024 Telephone [facility] Primary Care [address] [address] Sharon Bell APRN [address] [place] [address] Results Social History Tobacco Use Types [...] Date Feliz rded Speak language other than [place] Islander at home Not on file 08/27/2023 Want [...] on filedocumented in this encounter Care Teams Community Service Director Relationship Specialty Start Date End Date Sharon Bell SCHOOL PSYCHOLOGICAL EXAMINER [address] [place] [address] PCP - General Family Medicine 01/11/24 10/13/24 documented as of this encounter
--- OUTSIDE RECORDS SUMMARY | 2025-03-12 10:09 | XMS_ITS | Encounter Summary ---
Author Organization [employer] ([place], [place], [place], [place]) Address [address] [place] [address] Care Team Providers Care It Sales Representative Name Role Phone Sharon Bell APRN Primary Care Provider + [phone] Mariaa Chauhan NP Primary Care Provider [phone] Sharon Bell APRN Primary Care Provider +- [phone] Encounter Details Date Type Department Care Team (Late st Contact Info) Description 02/22/2019 Transcribed Document [facility] [place] Family Medicine [address] [place] [address] ProviderCornelio MD [address] [place] [address] Social History Tobacco Use Types Packs/Day [...] Rhubarb. ? Beets. ? Potato chips and turkish fries. ? Nuts. ??? If you regularly take a diuretic medicine, make sure to eat at least 1?2 fruits or vegetables high in potassium each day. These include: ? Avocado. ? Banana. ? [place], prune, carrot, or tomato juice. ? Baked [...] Casseroles. Pizza. Lasagna. Frozen meals. Potato chips. Martiniquais fries. Summary ??? You can reduce your [...] 10/20/2011 Document Revised: 06/05/2017 Document Reviewed: 06/05/2017 OtherInbox Interactive Patient Education ? 2019 [employer] Inc. Ureteral Stent Implantation, Care After Refer [...] these instructions at home: Medicines ??? Take iluu-dum-jigylsa and prescription medicines only as told by [...] 01/07/2016 Elsevier Interactive Patient Education ? 2019 [employer] documented in this encounter Plan of Treatment Not on file documented as of this encounter Visit Diagnoses Not on filedocumented in this encounter Care Teams It Sales Representative Relationship Specialty Start Date End Date Sharon Bell APRN [address] [place] [address] PCP - General Family Medicine 08/27/23 12/05/23 Mariaa Chauhan, MARIANA [address] [place] [address] PCP - General Family Medicine 12/06/23 01/10/24 Sharon Bell APRN [address] [place] [address] PCP - General Family Medicine 01/11/24 10/13/24 documented as of this encounter
--- OUTSIDE RECORDS SUMMARY | 2025-03-12 10:09 | XMS_ITS | Encounter Summary ---
Author Organization [employer] ([place], [place], [place], [place]) Address [address] [place] [address] Care Team Providers Care Straw Hat Machine Operator Name Role Phone Sharon Bell APRN Primary Care Provider + [phone] Mariaa Chauhan NP Primary Care Provider [phone] Sharon Bell APRN Primary Care Provider +- [phone] Encounter Details Date Type Department Care Team (Late st Contact Info) Description 02/22/2019 Transcribed Document [facility] [place] [facility] [place] [address] ProviderCornelio MD [address] [place] [address] Social History Tobacco Use Types [...] Conversion Note - Cornelio ProviderMD - 02/22/2019 6:17 PM CDT [facility] [place] [address] ALICIA AVALOS :1970 Visit Time:02/21/2019 Your Visit [...] 1 week Comments Follow-up as instructed Where: [address] [place] [address] [address] [place] [address]- Medications What How Much When Instructions Next [...] Rhubarb. ? Beets. ? Potato chips and setswana fries. ? Nuts. ??? If you regularly take a diuretic medicine, make sure to eat at least 1???2 fruits or vegetables high in potassium each day. These include: ? Avocado. ? Banana. ? [place], prune, carrot, or tomato juice. ? Baked [...] Casseroles. Pizza. Lasagna. Frozen meals. Potato chips. Wolof fries. Summary ??? You can reduce your [...] 10/20/2011 Document Revised: 06/05/2017 Document Reviewed: 06/05/2017 TrustEgg Interactive Patient Education ?? 2019 [employer]gg Inc. Ureteral Stent Implantation, Care After Refer [...] these instructions at home: Medicines ??? Take hisp-wrz-aymello and prescription medicines only as told by [...] 02/25/2014 Document Revised: 11/30/2016 Document Reviewed: 01/07/2016 TrustEgg Interactive Patient Education ?? 2019 [employer]gg Inc. Emergency Awareness and Preventative Care STROKE [...] Assistance with quitting is available by contacting 1-585-KTZI-NOW. This is a free resource providing counseling, [...] range between ( 0.0 and 7.0 ) Daggett #: 0.70 K/uL -- Normal range between ( 0.16 and 1.00 ) Eos #: 0.20 x10(3)/uL -- Normal range between ( 0.00 and 0.80 ) Daggett %: 4.4 % -- Normal range between [...] /LPF Urine Bilirubin Dipstick: Negative Urine Specific [place]on: 1.015 -- Normal range between ( 1.005 and 1.030 ) Urine Type.: U CleanCatch General Chemistry 02/21/19 21:21:00 Creatinine Level: 1.00 [...] was given the opportunity to ask questions. Patient/Armature Varnisher Name: Patient/Armature Varnisher Signature: Relationship to Patient: Clinician/Hospital Armature Varnisher Signature: Date: documented in this encounter Plan of Treatment Not on file documented as of this encounter Visit Diagnoses Not on filedocumented in this encounter Care Teams Straw Hat Machine Operator Relationship Specialty Start Date End Date Sharon Bell, SOFTWARE TECHNICIAN [address] [place] [address] PCP - General Family Medicine 08/27/23 12/05/23 Mariaa Chauhan, MARIANA [address] [place] [address] PCP - General Family Medicine 12/06/23 01/10/24 Sharon Bell, MICHAEL [address] [place] [address] PCP - General Family Medicine 01/11/24 10/13/24 documented as of this encounter
--- OUTSIDE RECORDS SUMMARY | 2025-03-12 10:09 | XMS_ITS | Encounter Summary ---
Author Organization [employer] ([place], [place], [place], [place]) Address [address] [place] [address] Care Team Providers Care Electronic Warfare Technical Name Role Phone Sharon Bell APRN Primary Care Provider [phone]- [phone] Reason for Referral * Diagnostic X-Ray (Routine) - Closed Specialty Diagnoses / Procedures Referred By Contac t Referred To Contact Diagnoses Kidney stone Procedures X-ray abdomen KUB 1 view Reza Royal Jr., MD [address] [place] [address] [address] [place] [address] Phone: tel: fax: Referral ID Status Reason Start Date Expiration Date Visits Re quested Visits Authorized [id number] Closed 02/27/2024 02/26/2025 1 1 Encounter Details Date Type Department Care Team (Late st Contact Info) Description 02/27/2024 Outside Orders [facility] Diagnostic Imaging - [place] [facility] [place] [address] [place] [address] [address] [place] [address] Reza Royal Jr., MD [address] [place] [address] [address] [place] [id number] Kidney stone (Primary Dx) Social History Tobacco [...] Date Feliz rded Speak language other than Italian at home Not on file 08/27/2023 Want [...] [place]. Transcribed by Tamia Cobos PA-C. Reza Royal Jr., MD IMG DIAGNOSTIC IMAGING ORDERABLES Final Result documented in this encounter Visit Diagnoses Diagnosis Kidney stone- Primary Calculus of kidney Kidney stone Calculus of kidney documented in this encounter Care Teams Electronic Warfare Technical Relationship Specialty Start Date End Date Sharon Bell, MICHAEL [address] [place] [address] PCP - General Family Medicine 01/11/24 10/13/24 documented as of this encounter
--- OUTSIDE RECORDS SUMMARY | 2025-03-12 10:09 | XMS_ITS | Encounter Summary ---
[facility] Address [address] [place] [address] Care Team Providers Care Quality Assurance Coordinator Name Role Phone Mariaa Chauhan APRN Primary Care Provider [phone] Reason for Visit * Reason Onset Date Comments Med Refill 12/17/2022 Encounter Details Date Type Department Care Team (Late st Contact Info) Description 12/17/2022 Refill [facility] [address] [place] [address] Mariaa Chauhan APRN [address] [place] [address] Vertigo Social History Tobacco Use Types Packs/Day Years [...] Score 0 11/28/2022 PHQ-2 Answer Date Recorded Retired PHQ-9: Brief Depression Severity Measure Score 0 11/28/2022 Comments No Sex and Gender Information Value Date Recorded Sex Assigned at Female 02/08/2023 8:59 PM EDT Legal Sex Female 10:27 AM EDT Gender Identity Female 02/08/2023 8:59 PM EDT Sexual Orientation Straight 04/02/2024 11 :00 AM EDT documented as of this encounter Miscellaneous Notes * Telephone Encounter - Yuliana Gardiner - 12/18/2022 12:03 PM EDT Mariaa jessica is out of the office this week on vacation. Her last appt with us was 10/06/2022. Shehas a follow up scheduled on 01/05/2023. TF documented in this encounter Plan of Treatment Upcoming Encounters Date Type Department Care Team (Late st Contact Info) Description 04/17/2025 1:15 PM EDT Office Visit [facility] [address] [place] [address] [place] [address] Mariaa Chauhan APRN [address] [place], [place] [id number] 07/20/2025 9:45 AM EST Office Visit [facility] [address] [place] [address] [place] [address] Mariaa Chauhan APRN [address] [place] [address] documented as of this encounter Visit Diagnoses Diagnosis Vertigo Dizziness and giddiness documented in this encounter Additional Health Concerns Infection Onset Date Last Indicated Resolved Time MRSA 12/22/2018 12/22/2018 COVID (rule out) 02/08/2024 02/08/2024 02/08/2024 2:59 PM EDT COVID (rule out) 03/17/2024 03/17/2024 03/17/2024 2:57 PM EDT COVID (rule out) 06/12/2024 06/12/2024 06/12/2024 10:56 AM EST COVID (rule out) 08/22/2024 08/22/2024 08/22/2024 8:37 AM EST documented as of this encounter Care Teams Quality Assurance Coordinator Relationship Specialty Start Date End Date Mariaa Chauhan APRN [address] [place] [id number] PCP - General Family Medicine 05/26/22 documented as of this encounter
--- OUTSIDE RECORDS SUMMARY | 2025-03-12 10:09 | XMS_ITS | Clinical Summary ---
Author Organization [employer] ([place], [place], [place], [place]) Address [address] [place] [address] Care Team Providers Care Insulation Board Calender Operator Name Role Phone Unavailable Primary Care Provider [...] She is unable to get with her coke worker currently as she recently relocated to [facility]. She generally is well-maintained on Tremfya injections but is recently over the last 1 to 2 weeks had significant flare with joint swelling, redness, myalgias and pain. Generally during times of flare she responds well to 7-day course of 40 mg daily prednisone. [facility] History of pulmonary embolism 05/26/2022 Overview (01/16/2024): [...] increased exponentially. She reports she contacted her coke worker to tell her to be evaluated [...] [facility] [place]. Antiphospholipid syndrome 11/20/20212023 Overview (12/07/2023): Last Assessment & Plan: Patient followed by rheumatology. She has been followed by Dr. Loo who was with [facility] [place], Dr. Loo recently relocated to [facility]. Patient has plans to establish care with Dr. Loo at [facility] but is unable to get an appointment for several months. She continues to utilize Eliquis 5 mg twice daily for anticoagulation after suffering PE a couple of years ago Allergy status to other antibiotic agents 201809/02/2023 Chronic obstructive pulmonary disease 12/20/2018 09/02/2023 Overview (09/02/2023): Last Assessment & Plan: Care with [facility] May 2022. Patient with extended history [...] Date Feliz rded Speak language other than Welsh at home Not on file 08/27/2023 Want [...] (Zoster) (1 of 2) 2019 COVID-19 VACCINE (3 - 2023-2 5 season) 2024 09/16/2021, 01/28/2021 Breast Cancer Screening 06/26/2024 06/26/2022 Influenza Vaccine (#1) 2025 Tobacco Cessation Counseling and Screening (12+) [...] (ABNORMAL) Lipid panel (03/25/2024 10:40 AM EDT) [facility] Cholesterol, Total 251(H) 100 - 199 mg/dL [facility] Triglycerides 378(H) 0 - 149 mg/dL [facility] HDL Cholesterol 29(L) >39 mg/dL [facility] VLDL Cholesterol Cisco 71(H) 5 - 40 mg/dL [facility] LDL Calculated 151(H) 0 - 99 mg/dL [facility] Blood 03/25/2024 10:4 0 AM EDT 03/25/2024 Narrative [facility] - 03/27/2024 8:07 PM EDT Performed at: 01 - [facility] [address] [id number] Ear Pull Machine Operator: Fortino Fisher PhD, Phone: [phone] Sharon Bell APRN LAB BLOOD ORDERABLES Final Result [facility] from Last 3 Months or Most Recently Relevant to Health Maintenance Insurance BLUE CROSS/BLUE SHIELD Advance Directives For more information, please contact: [phone] * Full Code (Latest Code Status on File) Date Activated Date Inactivated Comments 12/07/2023 9:32 AM 12/07/2023 6:19 PM
--- OUTSIDE RECORDS SUMMARY | 2025-03-12 10:09 | XMS_ITS | Encounter Summary ---
Author Organization [employer] ([place], [place], [place], [place]) Address [address] [place] [address] Care Team Providers Care Cottage Parent Name Role Phone Sharon Bell APRN Primary Care Provider + [phone] Mariaa Chauhan NP Primary Care Provider [phone] Sharon Bell APRN Primary Care Provider +- [phone] Encounter Details Date Type Department Care Team (Late st Contact Info) Description 02/22/2019 Transcribed Document [facility] [place] [facility] [place] [address] ProviderCornelio MD [address] [place] [address] Social History Tobacco Use Types [...] Cornelio ProviderMD - 02/22/2019 2:00 AM CDT Information Developer Details Entered On: 02/22/2019 0:22 EDT Performed On: 02/22/2019 2:00 EDT by ALBERTO ANDUJAR RN Order Details Transport Mode Order Detail : Stretcher/Gurney Isolation Precautions Order Detail : Contact precautions Order Detail : 0 IV Order Detail : 1 Oxygen Order Detail : 0 Lift/Transfer : Minimal Room Service : Appropriate ALBERTO ANDUJAR RN - 02/22/2019 0:21 EDT Electronically signed by [facility] Conversion Bag Loader Machine Operator Cerner at 10/25/2022 10:12 AM CDT documented in this encounter Plan of Treatment Not on file documented as of this encounter Visit Diagnoses Not on filedocumented in this encounter Care Teams Cottage Parent Relationship Specialty Start Date End Date Sharon Bell APRN [address] [place] [address] PCP - General Family Medicine 08/27/23 12/05/23 Mariaa Chauhan, MARIANA [address] [place] [address] PCP - General Family Medicine 12/06/23 01/10/24 Sharon Bell APRN [address] [place] [address] PCP - General Family Medicine 01/11/24 10/13/24 documented as of this encounter
--- OUTSIDE RECORDS SUMMARY | 2025-03-12 10:09 | XMS_ITS | Encounter Summary ---
Author Organization [facility] Address [address] [place] [address] Care Team Providers Care Tankage Grinder Operator Name Role Phone Mariaa Chauhan APRN Primary Care Provider [phone] Reason for Visit * Reason Onset Date Comments Med Refill 02/04/2025 Encounter Details Date Type Department Care Team (Late st Contact Info) Description 02/04/2025 Refill [facility] [address] [place] [address] Mariaa Chuahan APRN [address] [place] [address] Vertigo Social History Tobacco Use [...] Description 04/17/2025 1:15 PM EDT Office Visit [facility] [address] [place] [address] [place] [address] Mariaa Chauhan APRN [address] [place] [address] 07/20/2025 9:45 AM EST Office Visit [address] [place] [address] Mariaa Chauhan APRN [address] [place], [place] [id number] documented as of this encounter Visit Diagnoses Diagnosis Vertigo Dizziness and giddiness documented in this encounter Additional Health Concerns Infection Onset Date Last Indicated Resolved Time MRSA 12/22/2018 12/22/2018 documented as of this encounter Care Teams Tankage Grinder Operator Relationship Specialty Start Date End Date Mariaa Chauhan APRN [address] [place] [address] PCP - General Family Medicine 05/26/22 documented as of this encounter
--- OUTSIDE RECORDS SUMMARY | 2025-03-12 10:09 | XMS_ITS | Encounter Summary ---
Author Organization [employer] ([place], [place], [place], [place]) Address [address] [place] [address] Care Team Providers Care Certified Medical Transcriptionist Name Role Phone Sharon Bell APRN Primary Care Provider +- [phone] Mariaa Chauhan NP Primary Care Provider [phone] Sharon Bell APRN Primary Care Provider +- [phone] Encounter Details Date Type Department Care Team (Late st Contact Info) Description 02/21/2019 Transcribed Document [facility] [place] [facility] [place] [address] ProviderCornelio MD [address] [place] [address] Social History Tobacco Use Types Packs/Day [...] 02/22/2019 0:21 EDT Electronically signed by [facility] Conversion Network Diagnostic Support Specialist Cerner at 10/25/2022 9:51 AM CDT documented in this encounter Plan of Treatment Not on file documented as of this encounter Visit Diagnoses Not on filedocumented in this encounter Care Teams Certified Medical Transcriptionist Relationship Specialty Start Date End Date Sharon Bell APRN [address] [place] [address] PCP - General Family Medicine 08/27/23 12/05/23 Mariaa Chauhan, MARIANA [address] [place] [address] PCP - General Family Medicine 12/06/23 01/10/24 Sharon Bell APRN [address] [place] [address] PCP - General Family Medicine 01/11/24 10/13/24 documented as of this encounter
--- OUTSIDE RECORDS SUMMARY | 2025-03-12 10:09 | XMS_ITS | Encounter Summary ---
Author Organization [facility] Address [address] [place] [address] Care Team Providers Care Event Specialist Product Demonstrator Name Role Phone Mariaa Chauhan APRN Primary Care Provider [phone] Reason for Visit * Reason Onset Date Comments Med Refill 02/04/2025 Encounter Details Date Type Department Care Team (Late st Contact Info) Description 02/04/2025 Refill [facility] [address] [place] [address] Mariaa Chauhan APRN [address] [place] [address] Social History Tobacco Use Types [...] Description 04/17/2025 1:15 PM EDT Office Visit [facility] [address] [place] [address] [place] [address] Mariaa Chauhan APRN [address] [place] [address] 07/20/2025 9:45 AM EST Office Visit [address] [place] [address] Mariaa Chauhan APRN [address] [place], [place] [id number] documented as of this encounter Visit Diagnoses Not on filedocumented in this encounter Additional Health Concerns Infection Onset Date Last Indicated Resolved Time MRSA 12/22/2018 12/22/2018 documented as of this encounter Care Teams Event Specialist Product Demonstrator Relationship Specialty Start Date End Date Mariaa Chauhan APRN [address] [place] [address] PCP - General Family Medicine 05/26/22 documented as of this encounter
--- OUTSIDE RECORDS SUMMARY | 2025-03-12 10:09 | XMS_ITS | Encounter Summary ---
Author Organization [employer] ([place], [place], [place], [place]) Address [address] [place] [address] Care Team Providers Care Vocational Training Teacher Name Role Phone Sharon Bell APRN Primary Care Provider +- [phone] Mariaa Chauhan NP Primary Care Provider [phone] Sharon Bell APRN Primary Care Provider +- [phone] Encounter Details Date Type Department Care Team (Late st Contact Info) Description 02/22/2019 Transcribed Document [facility] [place] Family Medicine [facility] [place] [address] ProviderCornelio MD [address] [place] [address] Social History Tobacco Use Types Packs/Day [...] Kerri Mederos RN - 02/22/2019 16:07 EDT Electronically signed by [facility] Conversion M1 Armor Crewman Cerner at 10/25/2022 9:55 AM CDT documented in this encounter Plan of Treatment Not on file documented as of this encounter Visit Diagnoses Not on filedocumented in this encounter Care Teams Vocational Training Teacher Relationship Specialty Start Date End Date Sharon Bell, APPLICATION ANALYST [address] [place] [address] PCP - General Family Medicine 08/27/23 12/05/23 Mariaa Chauhan, MARIANA [address] [place] [address] PCP - General Family Medicine 12/06/23 01/10/24 Sharon Bell, APPLICATION ANALYST [address] [place] [address] PCP - General Family Medicine 01/11/24 10/13/24 documented as of this encounter
--- OUTSIDE RECORDS SUMMARY | 2025-03-12 10:09 | XMS_ITS | Encounter Summary ---
Author Organization [employer] ([place], [place], [place], [place]) Address [address] [place] [address] Care Team Providers Care Cable Television Program Director Name Role Phone Sharon Bell APRN Primary Care Provider + [phone] Mariaa Chauhan NP Primary Care Provider +[phone] Sharon Bell APRN Primary Care Provider +- [phone] Encounter Details Date Type Department Care Team (Late st Contact Info) Description 02/21/2019 Transcribed Document [facility] [place] Family Medicine [facility] [place] [address] ProviderCornelio MD [address] [place] [address] Social History Tobacco Use Types [...] Performed On: 02/21/2019 21:02 EDT by ALBERTO ANDUJAR RN Teaching/Learning Assessment Barriers To Learning : None evident ALBERTO ANDUJAR, ALVINA - 02/22/2019 0:21 EDT documented in this encounter Plan of Treatment Not on file documented as of this encounter Visit Diagnoses Not on filedocumented in this encounter Care Teams Cable Television Program Director Relationship Specialty Start Date End Date Sharon Bell, ASSEMBLY MACHINE OFFBEARER [address] [place] [address] PCP - General Family Medicine 08/27/23 12/05/23 Mariaa Chauhan, MARIANA [address] [address] PCP - General Family Medicine 12/06/23 01/10/24 Sharon Bell, ASSEMBLY MACHINE OFFBEARER [address] [place] [address] PCP - General Family Medicine 01/11/24 10/13/24 documented as of this encounter
--- OUTSIDE RECORDS SUMMARY | 2025-03-12 10:09 | XMS_ITS | Encounter Summary ---
Author Organization [employer] ([place], [place], [place], [place]) Address [address] [place] [address] Care Team Providers Care Mini Bar Attendant Name Role Phone Sharon Bell APRN Primary Care Provider + [phone] Mariaa Chauhan NP Primary Care Provider [phone] Sharon Bell APRN Primary Care Provider +- [phone] Encounter Details Date Type Department Care Team (Late st Contact Info) Description 02/22/2019 Transcribed Document [facility] [place] [facility] [address] ProviderCornelio MD [address] [place] [address] Social History Tobacco Use Types Packs/Day [...] Cornelio ProviderMD - 02/22/2019 1:36 PM CDT [facility] Main OR IntraOp Summary Primary Physician: FILEMON PATTERSON JR, MD-URO Finalized Date/Time: 02/23/19 15:00:13 Pt. Name: ALICIA AVALOS /Sex: 1970 Female Med Rec #: [id number] Physician: FILEMON PATTERSON JR, MD-URO Financial #: [id number] Pt. Type: O Room/Bed: [facility] Admit/Disch: 02/21/19 19:54:00 - 02/22/19 19:15:00 Institution: [facility] IntraOp Case Attendance Entry 1 Entry 2 Entry 3 Case Attendee FILEMON PATTERSON JR, HIGGINS, MARGARET, MD [facility] MD-URO Role Performed Surgeon/Proceduralist, Resident Anesthesiologist [...] Willoughby, Toni, RN Role Performed Scrub, First Physician Extender, Second Physician Extender, First Time In 02/22/19 13:20:00 02/22/19 13:20:00 02/22/19 13:20:00 Time Out 02/22/19 14:05:00 02/22/19 14:05:00 02/22/19 14:05:00 Procedure Cystoscopy Laser Stone Cystoscopy Laser Stone Cystoscopy Laser Stone Manipulation Manipulation Manipulation Other Attendee Superficial Wound Closed By: Last Modified By: Phuc Diaz RN Willoughby, Toni, RN Willoughby, Toni, RN 02/22/19 14:16:03 02/22/19 14:16:03 02/22/19 14:16:03 [facility] IntraOp Case Attendance Audit 02/22/19 14:16:03 [employer] Consultant: [id number] Modifier: [id number] 1 <+> Time Out 1 <*> Procedure [...] Procedure Cystoscopy Laser Stone Manipulation 02/22/19 13:50:46 [employer] Consultant: [id number] Modifier: [id number] 1 <*> Procedure Cystoscopy Laser Stone Manipulation 2 <+> Time In 2 <*> Procedure Cystoscopy Laser Stone Manipulation 3 <+> Time In 3 <*> Procedure Cystoscopy Laser Stone Manipulation 4 <+> Time In 4 <*> Procedure Cystoscopy Laser Stone Manipulation 5 <+> Time In 5 <*> Procedure Cystoscopy Laser Stone Manipulation 6 <+> Time In 6 <*> Procedure Cystoscopy Laser Stone Manipulation [facility] IntraOp Case Times Entry 1 Patient In Room Time 02/22/19 13:20:00 Out Room Time 02/22/19 14:05:00 Anesthesia Start Time 02/22/19 13:20:00 Stop Time 02/22/19 14:05:00 Surgery / Procedure Times Start Time 02/22/19 13:36:00 Stop Time 02/22/19 14:02:00 Last Modified By: Phuc Diaz RN 02/22/19 14:11:24 [facility] IntraOp Case Times Audit 02/22/19 14:11:24 Renewable [employer] Consultant: [id number] Modifier: [id number] <+> 1 Out Room Time <+> 1 Stop Time <+> 1 Stop Time [facility] IntraOp Communication Entry 1 Communication To Other Comment no family present at this time Communication By Phuc Diaz RN Last Modified By: Phuc Diaz RN 02/22/19 13:43:01 [facility] IntraOp Cultures and Spec Summary Entry 1 Cultrures and Specimens Specimen Ordered: Yes Test(s) Routine/Path-Lab Requested/Final Disposition Last Modified By: Phuc Diaz RN 02/22/19 14:12:09 [facility] IntraOp Departure from OR Entry 1 Integumentary Assessment Integumentary WDL Assessment WDL Transfer/Handoff Transfer to PACU Phase I Handoff Method Bedside/Face to face, Phone call Post-op Transport Stretcher/Gurney Via Patient Transport JOSE HERNANDEZ MD, Accompanied by Phuc Diaz RN Last Modified By: Phuc Diaz RN 02/22/19 13:43:39 [facility] IntraOp Fire Risk Assessment Entry 1 Fire [...] Modified By: Phuc Diaz RN 02/22/19 13:43:58 [facility] IntraOp General Case Rn Charge 1 Case Information OR Cysto 01 [facility] Case Level 1 Room Verified Yes Wound Class II - Clean-Contaminated Specialty SN Urology Anesthesia Type General ASA Class 2E Diagnosis Preop Diagnosis ureter calculi Postop Same As Preop No Postop Diagnosis see physician note Last Modified By: Phuc Diaz RN 02/22/19 13:45:34 [facility] IntraOp General Case Data Audit 02/22/19 13:45:34 Renewable [employer] Consultant: [id number] Modifier: [id number] <+> 1 Preop Diagnosis <+> 1 Postop Diagnosis [facility] IntraOp Intraoperative Assessment Entry 1 Handoff Method [...] Modified By: Phuc Diaz RN 02/22/19 13:45:53 [facility] IntraOp Intraoperative Equipment Entry 1 Type Monitoring Equipment Intraop Monitoring Electrocardiogram Three lead placement (ECG) Electrode Placement Blood Pressure Non-Invasive BP Device Source Blood Pressure Arm, right upper Location Pulse Oximeter Hand, left Probe Site Antiembolic Devices Antiembolic Device Bilateral Location Antiembolic Device high Setting Scopes Photo/Video Documentation Last Modified By: Phuc Diaz RN 02/22/19 13:46:38 [facility] IntraOp Medication Admin Entry 1 Medication/Irrigant CATRACHITA IRR NACL 0.9PCT [id number] Route of irrigation Administration Dose Dose 3000 Unit of Measure ml Administered By JOSE HERNANDEZ MD Procedure Irrigation Last Modified By: Phuc Diaz RN 02/22/19 13:48:03 [facility] IntraOp Patient Positioning Entry 1 Procedure Cystoscopy [...] [place], Cysto Positioned By Phuc Diaz RN, Aguila, Maximino Farnsworth Rn, WERO WILLINGHAM MD Position Verified Positioning Yes Verified by Anesthesia Positioning Yes Verified by Surgeon Last Modified By: Phuc Diaz RN 02/22/19 13:48:51 [facility] IntraOp Sign In Entry 1 Patient, Site, [...] Modified By: Phuc Diaz RN 02/22/19 13:50:45 [facility] IntraOp Sign Out Entry 1 RN Confirmation [...] Modified By: Phuc Diaz RN 02/22/19 14:25:27 [facility] IntraOp Sign Out Audit 02/22/19 14:25:27 [employer] Consultant: [id number] Modifier: [id number] <+> 1 Specimen Labeled Correctly <+> 1 Urinary Catheter Documented in IView 02/22/19 14:16:26 [employer]able [employer] Consultant: [id number] Modifier: [id number] <+> 1 RN Sign Out Signature Date/Time [facility] IntraOp Skin Prep Entry 1 Procedure Cystoscopy Laser Stone Manipulation Prescribed N/A Pre-Surgical Prep Completed Prep Area genitalia Intraop Prep Integumentary WDL Assessment WDL Prep Agents Betadine solution Prep by Phuc Diaz RN Hair Removal Methods No hair removal performed Last Modified By: Phuc Diaz RN 02/22/19 13:51:37 [facility] IntraOp Skin Prep Audit 02/22/19 13:51:37 [employer] Consultant: [id number] Modifier: [id number] 1 <*> Procedure Cystoscopy Laser Stone Manipulation [facility] IntraOp Surgical Procedures Entry 1 Procedure Cystoscopy Laser Stone Manipulation Additional RT. URETEROSCOPY, STENT Procedure PLACEMENT WITH LASER Description LITHOTRIPSY Primary Procedure Yes Primary Surgeon FILEMON PATTERSON JR, MD-URO Start 02/22/19 13:36:00 Stop 02/22/19 14:02:00 Anesthesia Type General Specialty SN Urology Wound Class II - Clean-Contaminated Last Modified By: Phuc Diaz RN 02/22/19 14:15:49 [facility] IntraOp Surgical Procedures Audit 02/22/19 14:15:49 [employer] Consultant: [id number] Modifier: [id number] 1 <*> Procedure Cystoscopy Laser Stone Manipulation 1 <+> Stop 1 <*> Additional Procedure Description RT. URETEROSCOPY, STENT 02/22/19 13:51:49 [employer] Consultant: [id number] Modifier: [id number] 1 <*> Procedure Cystoscopy Laser Stone Manipulation [facility] IntraOp Temp Regulation Devices Entry 1 Temp Regulation Temperature Warm blankets Regulation Device Temperature Upper body Regulation Site Temperature Phuc Diaz RN Regulation Device Applied by Temperature monitored per Regulation Comment anesthesia, coy young available Last Modified By: Phuc Diaz RN 02/22/19 13:47:13 [facility] IntraOP Time Out Entry 1 Procedure to [...] for Unfinalizing 02/23/19 14:58 WATTSDR Correct Billing documented in this encounter Plan of Treatment Not on file documented as of this encounter Visit Diagnoses Not on filedocumented in this encounter Care Teams Mini Bar Attendant Relationship Specialty Start Date End Date Sharon Bell APRN [address] [place] [address] PCP - General Family Medicine 08/27/23 12/05/23 Mariaa Chauhan NP [address] [address] PCP - General Family Medicine 12/06/23 01/10/24 Sharon Bell, DUMPER BAILER OPERATOR [address] [place] [address] PCP - General Family Medicine 01/11/24 10/13/24 documented as of this encounter
--- OUTSIDE RECORDS SUMMARY | 2025-03-12 10:09 | XMS_ITS | Encounter Summary ---
Author Organization [employer] ([place], [place], [place], [place]) Address [address] [place] [address] Care Team Providers Care Cashier Credit Name Role Phone Sharon Bell APRN Primary Care Provider +- [phone] Mariaa Chauhan NP Primary Care Provider [phone] Sharon Bell APRN Primary Care Provider +- [phone] Encounter Details Date Type Department Care Team (Late st Contact Info) Description 02/21/2019 Transcribed Document [facility] [place] Family Medicine [facility] [place] [address] ProviderCornelio MD [address] [place] [address] Social History Tobacco Use Types Packs/Day [...] Miscellaneous Notes * Cerner Conversion Note - Corneilo ProviderMD - 02/21/2019 8:28 PM CDT Education-Smoking [...] Tobacco Cues : Verbalizes understanding Activities to [place] With Smoking Urges : Verbalizes understanding Basic Information About Quitting : Verbalizes understanding Tobacco Use Increases Chance of Relapse : Verbalizes understanding Withdrawal Symptoms Peak After Quitting : Verbalizes understanding Addictive Nature of Tobacco : Verbalizes understanding ALBERTO ANDUJAR RN - 02/22/2019 0:21 EDT Electronically signed by Declan Briggs Conversion Correctional Supervising Cook Cerner at 10/25/2022 10:02 AM CDT documented in this encounter Plan of Treatment Not on file documented as of this encounter Visit Diagnoses Not on filedocumented in this encounter Care Teams Cashier Credit Relationship Specialty Start Date End Date Sharon Bell APRN [address] [place] [address] PCP - General Family Medicine 08/27/23 12/05/23 [place] [address] [place] [address] [address] PCP - General Family Medicine 12/06/23 01/10/24 Sharon Bell APRN [address] [place] [address] PCP - General Family Medicine 01/11/24 10/13/24 documented as of this encounter
--- OUTSIDE RECORDS SUMMARY | 2025-03-12 10:09 | XMS_ITS | Encounter Summary ---
Author Organization [employer] ([place], [place], [place], [place]) Address [address] [place] [address] Care Team Providers Care Manufacturing Electrician Name Role Phone Sharon Bell APRN Primary Care Provider + [phone] Mariaa Chauhan NP Primary Care Provider [phone] Sharon Bell APRN Primary Care Provider +- [phone] Encounter Details Date Type Department Care Team (Late st Contact Info) Description 02/21/2019 Transcribed Document [facility] [place] Family [place] [facility] [place] [address] ProviderCornelio MD [address] [place] [address] Social History Tobacco Use Types Packs/Day [...] Conversion Note - Cornelio ProviderMD - 02/21/2019 8:19 PM CDT Admission [...] From : Patient, Spouse Primary Language : Egyptian Preferred Communication Mode : Verbal Communication Barrier [...] Scale Risk Level : 25-45 Medium Risk [place] Fall Interventions : Adequate lighting, Assistive devices [...] : Stated Height Entry Format : [place] Height, Feet : 5 ft(Converted to: 152 cm, 60 Inch) Height, Inches : 4 Inch(Converted to: 0 ft 4 Inch, 10.16 cm) Clinical Height : 162.56 cm Weight Source : Standing scale Weight Entry Format : [place] Clinical Dosing Weight : 66.82 kg Weight, Pounds : 147 lb Body Surface Area (BSA) : 1.72 m2 Body Mass Index : 25.3 kg/m2 (HI) [place] Body Weight : 54 kg ALBERTO ANDUJAR [...] on filedocumented in this encounter Care Teams Manufacturing Electrician Relationship Specialty Start Date End Date Sharon Bell, MICHAEL [address] [place] [address] PCP - General Family Medicine 08/27/23 12/05/23 Mariaa Chauhan, MARIANA [address] [place] [address] PCP - General Family Medicine 12/06/23 01/10/24 Sharon Bell APRN [address] [place] [address] PCP - General Family Medicine 01/11/24 10/13/24 documented as of this encounter
== END 2025-03-10 23:59 | disposition home or self-care (01) ==
LOC: LAB.DROPOF 03-12 10:03
PROVIDERS: PCP Podiatrist; Visit Provider Podiatrist
DX: S91.101A Unspecified open wound of right great toe without damage to nail, initial encounter (principal); S91.102A Unspecified open wound of left great toe without damage to nail, initial encounter
CPT/HCPCS: 87070; 87077; 87205

== ENCOUNTER 2025-04-16 12:35 | Outpatient (CLI) | payer BC, SELFPAY ==
--- NOTE | 2025-04-16 13:00 | CT_ITS ---
FINAL REPORT TECHNIQUE: Thin section axial images were obtained through the paranasal sinuses without contrast. Reconstruction images were obtained from the axial data. Exam was performed using dose reduction techniques such as automated exposure control, adjustment of the mA and kV according to patient size, and use of iterative reconstruction technique. CLINICAL HISTORY: RIGHT SIDED EAR PAIN AND FULLNESS, SINUSITIS COMPARISON: 02/05/2023 prior report, exam not available FINDINGS: The paranasal sinuses are clear. There is no air-fluid level or significant mucosal thickening. The maxillary infundibulum are patent bilaterally. There is no significant nasal septal deviation. There is no acute osseous abnormality. Remaining soft tissues are unremarkable. IMPRESSION: No evidence of acute or chronic sinusitis. Reviewed, Interpreted and Dictated by Nyasia Harris MD Transcribed by Gali Capps Authenticated and [facility]
== END 2025-04-16 23:59 | disposition home or self-care (01) ==
LOC: RAD 12:35
PROVIDERS: PCP Nurse Practitioner; Visit Provider Nurse Practitioner
DX: J32.9 Chronic sinusitis, unspecified (principal)
CPT/HCPCS: 70486